=== PATIENT | male | born 1940 | race Caucasian/White ===

== ENCOUNTER 2018-08-16 12:16 | Emergency (ER) | payer MEDICARE, OTHER ==
[~2018-08-16] VITALS: Ht 175.3 cm; Wt 104.3 kg
[2018-08-16 13:09] LABS: COLOR,URINE YELLOW
[2018-08-16 13:10] LABS: BILIRUBIN,URINE NEGATIVE (NEGATIVE); CLARITY,URINE SLT CLOUDY; GLUCOSE, URINE (UA) NEGATIVE (NEGATIVE); KETONES,URINE NEGATIVE (NEGATIVE); LEUKOCYTE ESTERASE ,URINE 3+ (NEGATIVE); NITRITE,URINE POSITIVE (NEGATIVE); PROTEIN,URINE TRACE (NEGATIVE); RBC,URINE 0-2 /HPF; UROBILINOGEN,URINE 0.2 MG/DL (NORMAL)
[2018-08-16 13:11] LABS: BACTERIA,URINE LARGE /HPF
--- NOTE | 2018-08-16 13:14 | ED GU-Female ---
General Chief Complaint: - Urinary Stated Complaint: UNABLE TO URINATE Source: patient, family Exam Limitations: no limitations History of Present Illness Date Seen by Provider: Aug 16, 2018 Time Seen by Provider: 13:08 Initial Comments This 78-year-old white male presents in urinary retention and began at 3 o'clock morning approximately 10 hours prior to presentation emergency department. Patient has had no similar episodes in the past. He's been able to pass only small amounts of urine and has a sensation of suprapubic tenderness. He's had no associated fever or chill, flank pain, hematuria, or previous prostate surgery. He has been told that his prostate is enlarged. Family would like to follow-up with [facility] where they have the rest of their definitive medical care undertaken. Allergies and Home Medications Allergies Coded Allergies: amlodipine (Verified Allergy, Unknown, 08/16/18) atenolol (Verified Allergy, Unknown, 08/16/18) lisinopril (Verified Allergy, Unknown, 08/16/18) Patient Home Medication List Home Medication List Reviewed: Yes Review of Systems Review of Systems Constitutional: no symptoms reported EENTM: no symptoms reported Respiratory: no symptoms reported Cardiovascular: no symptoms reported Gastrointestinal: no symptoms reported Genitourinary: see HPI, incontinence, urgency Musculoskeletal: no symptoms reported Skin: no symptoms reported Psychiatric/Neurological: No Symptoms Reported Endocrine: No Symptoms Reported Hematologic/Lymphatic: No Symptoms Reported Past Czaqkzt-Arsnev-Dkoszg Hx Past Med/Social Hx: Reviewed Nursing Past Med/Soc Hx Physical Exam Vital Signs Capillary Refill : Height, Weight, BMI Height: '" Weight: lbs. oz. kg; BMI Method: General Appearance: WD/WN, no apparent distress HEENT: normal ENT inspection Neck: normal inspection Respiratory: lungs clear Gastrointestinal: non tender Extremities: normal range of motion, normal inspection Neurologic/Psychiatric: no motor/sensory deficits, alert, normal mood/affect Skin: normal color, warm/dry Progress/Results/Core Measures Suspected Sepsis SIRS Temperature: Pulse: Respiratory Rate: Blood Pressure / Mean: Results/Orders Lab Results Laboratory Tests Test 08/16/18 12:47 Range/Units Urine Color YELLOW Urine Clarity SLT CLOUDY Urine pH 7.0 5-9 Urine Specific [place] 1.010 L 1.016-1.022 Urine Protein TRACE NEGATIVE Urine Glucose (UA) NEGATIVE NEGATIVE Urine Ketones NEGATIVE NEGATIVE Urine Nitrite POSITIVE H NEGATIVE Urine Bilirubin NEGATIVE NEGATIVE Urine Urobilinogen 0.2 NORMAL MG/DL Urine Leukocyte Esterase 3+ H NEGATIVE Urine RBC (Auto) 1+ H NEGATIVE Urine RBC 0-2 /HPF Urine WBC 10-25 H /HPF Urine Squamous Epithelial Cells NONE /HPF Urine Crystals NONE /LPF Urine Bacteria LARGE H /HPF Urine Casts NONE /LPF Urine Mucus NONE /LPF Urine Culture Indicated YES My Orders Orders - GEMA BIRMINGHAM MD Catheter(Uri) To Dependent Marly (08/16/18 12:37) Ua Culture If Indicated (08/16/18 12:56) Urine Culture (08/16/18 12:47) Vital Signs/I&O Capillary Refill : Progress Note : Time: 13:21 Progress Note A Faria catheter was placed. Only 200 mL were obtained. The patient's urinalysis was consistent with a UTI. I gave the patient gram or Rocephin IM. I placed him on Macrobid twice a day for the next week. I see follow-up urology on Saturday. I told him he could return to the emergency department tomorrow if he wanted to try having the Faria removed. I told him that I would reinserted later in the day if he was unable to void. Patient presentation may be nothing more than a urinary tract infection and not urinary retention. ECG Initial ECG Impression Date: Aug 16, 2018 Departure Impression Primary Impression: Urinary tract infection Qualified Codes: N30.00 - Acute cystitis without hematuria Disposition: HOME, SELF-CARE Condition: Improved Departure-Patient Inst. Decision time for Depature: 13:23 Referrals: SONYA ZHU MD (PCP) Primary Care Physician VINCE COTTON MD Patient Instructions: Urinary Obstruction (DC), Urinary Tract Infection, Adult (DC) Add. Discharge Instructions: Macrobid as prescribed. Follow-up with Dr. castro Saturday. Return to emergency department tomorrow to have the catheter removed we can try allowing you to void without a catheter. All discharge instructions reviewed with patient and/or family. Voiced understanding. Scripts Nitrofurantoin Monohyd/M-Cryst (Macrobid 100 mg Capsule) 100 Mg Capsule 100 MG PO BID for 7 Days, #14 Prov: GEMA BIRMINGHAM MD 08/16/18 GEMA BIRMINGHAM MD Aug 16, 2018 13:14
[2018-08-16] MEDS ORDERED: NITR-65 PO (13:26)
[2018-08-16] MEDS ORDERED: LIDOCAINE 1% INJ 20 ML 20 ML VIAL INJ ONE (13:30)
[2018-08-16] MEDS ORDERED: cefTRIAXone 1,000 MG/2.86 ml vial (IM ONLY) ONE (13:52)
[2018-08-16 14:09] VITALS: BP 196/81
[2018-08-17] MEDS ORDERED: cefTRIAXone 1,000 MG/2.86 ml vial (IM ONLY) IM SCH (09:00)
[2018-08-17] MEDS ORDERED: DONE10TA41 (09:40)
[2018-08-17] MEDS ORDERED: HYDR-3923 (09:40)
[2018-08-17] MEDS ORDERED: MEMA10TA22 (09:40)
[2018-08-17] MEDS ORDERED: TRAZ-222 (09:40)
[2018-08-17] MEDS ORDERED: TAMS0.4C98 (09:40)
[2018-08-17] MEDS ORDERED: LOSA100T57 (09:40)
[2018-08-17] MEDS ORDERED: TIOT18CA2 (09:40)
== END 2018-08-16 14:09 | disposition home or self-care (01) ==
LOC: ER FS 12:18
DX: N39.0 Urinary tract infection, site not specified (principal); Z88.8 Allergy status to other drugs, medicaments and biological substances
CPT/HCPCS: 51702; 81000; 87088; 87186; 96372

== ENCOUNTER 2018-08-17 09:02 | Emergency (ER) | payer MEDICARE, OTHER ==
[~2018-08-17] VITALS: Ht 175.3 cm; Wt 104.3 kg
[~2018-08-17 09:02] MED LIST: NITR-65 PO
--- NOTE | 2018-08-17 09:27 | ED GU-Male ---
General Chief Complaint: Catheter/Drain/Tube Problems Stated Complaint: CATHETER REMOVAL Source: patient, family Exam Limitations: no limitations History of Present Illness Date Seen by Provider: Aug 17, 2018 Time Seen by Provider: 09:23 Initial Comments This 78-year-old white male presents after evaluation emergency Department yesterday. Patient came in with symptoms suggestive of retention. Patient was seen in small amounts frequently. I placed a Faria catheter and there was only 200 mL of residual urine. The patient's urine however was consistent with a UTI. Patient received IV Rocephin and was placed on Macrobid. Patient was referred to urology. I told the patient is however they can return the emergency Department this morning for Faria removal if they wanted to try voiding without the catheter which she as they have done. Were still committed to follow through with their primary care physician on Saturday and hopefully referral to urology for further evaluation. Allergies and Home Medications Allergies Coded Allergies: amlodipine (Verified Allergy, Unknown, 08/16/18) atenolol (Verified Allergy, Unknown, 08/16/18) lisinopril (Verified Allergy, Unknown, 08/16/18) Home Medications Nitrofurantoin Monohyd/M-Cryst 100 Mg Capsule, 100 MG PO BID Prescribed by: GEMA BIRMINGHAM MD on 08/16/18 1326 Patient Home Medication List Home Medication List Reviewed: Yes Review of Systems Review of Systems Constitutional: No chills, No fever EENTM: no symptoms reported Respiratory: no symptoms reported Cardiovascular: no symptoms reported Gastrointestinal: no symptoms reported Genitourinary: see HPI, frequency; denies flank pain, denies hematuria Musculoskeletal: no symptoms reported Skin: no symptoms reported Psychiatric/Neurological: No Symptoms Reported Endocrine: No Symptoms Reported Hematologic/Lymphatic: No Symptoms Reported Past Wuxtzss-Fgfdlh-Stebga Hx Past Med/Social Hx: Reviewed Nursing Past Med/Soc Hx Patient Social History 2nd Hand Smoke Exposure: No Recent Hopitalizations: No Seasonal Allergies Seasonal Allergies: No Past Medical History Surgeries: Yes Bowel Surgery, Gallbladder Respiratory: No Cardiac: Yes Hypertension Neurological: Yes Dementia Genitourinary: Yes Benign Prostatic Hyperpl Gastrointestinal: No Musculoskeletal: No Endocrine: No HEENT: No Cancer: No Psychosocial: No Integumentary: No Blood Disorders: No Physical Exam Vital Signs Capillary Refill : Height, Weight, BMI Height: 5'9.00" Weight: 230lbs. oz. [id number]; BMI Method:Stated General Appearance: WD/WN, no apparent distress HEENT: normal ENT inspection Neck: normal inspection Back: normal inspection Neurologic/Psychiatric: no motor/sensory deficits Skin: normal color Progress/Results/Core Measures Suspected Sepsis SIRS Temperature: Pulse: Respiratory Rate: Blood Pressure / Mean: Results/Orders Lab Results Laboratory Tests Test 08/17/18 09:15 Range/Units My Orders Orders - GEMA BIRMINGHAM MD Ua Culture If Indicated (08/17/18 09:03) Vital Signs/I&O Capillary Refill : Progress Note : Time: 09:25 Progress Note A Faria catheter was removed. A urine specimen was sent to lab. I the patient and his up with her primary care physician on Saturday. I a return emergency department if any further problems such as retention in approximately 8 hours and we'll replace the Faria catheter. Departure Impression Primary Impression: Encounter for Faria catheter removal Disposition: 01 HOME, SELF-CARE Condition: Improved Departure-Patient Inst. Decision time for Depature: 09:27 Referrals: SONYA ZHU MD (PCP) Primary Care Physician Patient Instructions: Faria Catheter, Male Add. Discharge Instructions: Come back if you're unable to urinate in 8 hours. Follow-up with Dr. Zhu on Saturday. Continue with her Macrobid as prescribed. All discharge instructions reviewed with patient and/or family. Voiced understanding. GEMA BIRMINGHAM MD Aug 17, 2018 09:27
[2018-08-17 09:29] LABS: COLOR,URINE YELLOW
[2018-08-17 09:30] LABS: BACTERIA,URINE FEW /HPF; BILIRUBIN,URINE NEGATIVE (NEGATIVE); CLARITY,URINE SL CLOUDY; GLUCOSE, URINE (UA) NEGATIVE (NEGATIVE); KETONES,URINE NEGATIVE (NEGATIVE); LEUKOCYTE ESTERASE ,URINE 3+ (NEGATIVE); NITRITE,URINE NEGATIVE (NEGATIVE); PH,URINE 7.5 (5-9); PROTEIN,URINE 1+ (NEGATIVE); UROBILINOGEN,URINE 0.2 MG/DL (NORMAL)
[2018-08-17 09:36] VITALS: BP 191/84
[2018-08-17] MEDS ORDERED: TAMS0.4C98 (09:40)
[2018-08-17] MEDS ORDERED: HYDR-3923 (09:40)
[2018-08-17] MEDS ORDERED: LOSA100T57 (09:40)
[2018-08-17] MEDS ORDERED: TIOT18CA2 (09:40)
[2018-08-17] MEDS ORDERED: TRAZ-222 (09:40)
[2018-08-17] MEDS ORDERED: DONE10TA41 (09:40)
[2018-08-17] MEDS ORDERED: MEMA10TA22 (09:40)
== END 2018-08-17 09:36 | disposition home or self-care (01) ==
LOC: EDUNIT# 09:02 → ER FS 09:03
DX: Z46.6 Encounter for fitting and adjustment of urinary device (principal); F03.90 Unspecified dementia, unspecified severity, without behavioral disturbance, psychotic disturbance, mood disturbance, and anxiety; I10 Essential (primary) hypertension; N40.1 Benign prostatic hyperplasia with lower urinary tract symptoms; R33.9 Retention of urine, unspecified; Z88.8 Allergy status to other drugs, medicaments and biological substances
CPT/HCPCS: 81000; 87077; 87088; 99282

== ENCOUNTER 2018-08-17 16:38 | Emergency (ER) | payer MEDICARE, OTHER ==
[~2018-08-17] VITALS: Ht 175.3 cm; Wt 104.3 kg
[~2018-08-17 16:38] MED LIST changes: +DONE10TA41; +HYDR-3923; +LOSA100T57; +MEMA10TA22; +TAMS0.4C98; +TIOT18CA2; +TRAZ-222
--- NOTE | 2018-08-17 16:44 | ED Abdominal Pain ---
General Stated Complaint: UNABLE TO URINATE Source of Information: Patient, Family Exam Limitations: No Limitations History of Present Illness Date Seen by Provider: Aug 17, 2018 Time Seen by Provider: 16:42 Initial Comments Patient returns emergency department for replacement of Faria catheter which we removed this morning. The patient was seen in the emergency department yesterday for what was thought to be retention. Patient however only had 200 mL residual and the Faria was placed. He also had a urinary tract infection and was placed on Rocephin IV in the emergency department and subsequently Macrobid orally. Patient came back to emergency departments morning we removed his catheter and he has been unable to urinate throughout the day. Patient has scheduled follow-up with his primary care physician Dr. Zhu tomorrow for referral to urologist. Allergies and Home Medications Allergies Coded Allergies: amlodipine (Verified Allergy, Unknown, 08/16/18) atenolol (Verified Allergy, Unknown, 08/16/18) lisinopril (Verified Allergy, Unknown, 08/16/18) Home Medications Nitrofurantoin Monohyd/M-Cryst 100 Mg Capsule, 100 MG PO BID Prescribed by: GEMA BIRMINGHAM MD on 08/16/18 1326 Patient Home Medication List Home Medication List Reviewed: Yes Review of Systems Review of Systems Constitutional: no symptoms reported EENTM: No Symptoms Reported Cardiovascular: No Symptoms Reported Gastrointestinal: No Symptoms Reported Genitourinary: See HPI Musculoskeletal: no symptoms reported Skin: no symptoms reported Psychiatric/Neurological: Other (Alzheimer's) Endocrine: No Symptoms Reported Hematologic/Lymphatic: No Symptoms Reported Past Ywejpgh-Ctnfjf-Awkjhi Hx Past Med/Social Hx: Reviewed Nursing Past Med/Soc Hx Patient Social History 2nd Hand Smoke Exposure: No Recent Hopitalizations: No Seasonal Allergies Seasonal Allergies: No Past Medical History Surgeries: Yes Bowel Surgery, Gallbladder Respiratory: No Cardiac: Yes Hypertension Neurological: Yes Dementia Genitourinary: Yes Benign Prostatic Hyperpl Gastrointestinal: No Musculoskeletal: No Endocrine: No HEENT: No Cancer: No Psychosocial: No Integumentary: No Blood Disorders: No Physical Exam Vital Signs Capillary Refill : Height/Weight/BMI Height: 5'9.00" Weight: 230lbs. oz. [id number]; BMI Method:Stated General Appearance: WD/WN HEENT: normal ENT inspection Neck: normal inspection Respiratory: normal breath sounds Cardiovascular: regular rate, rhythm Gastrointestinal: normal bowel sounds Extremities: normal inspection Back: normal inspection Neurologic/Psychiatric: no motor/sensory deficits Skin: normal color Progress/Results/Core Measures Results/Orders My Orders Orders - GEMA BIRMINGHAM MD Catheter(Uri) To Dependent Marly (08/17/18 16:45) Ua Culture If Indicated (08/17/18 16:45) Progress Progress Note : Time: 17:17 Progress Note Faria catheter was placed. I patient follow-up with his physician Dr. Zhu tomorrow for referral for urology. I invited him to return to the emergency department if any further problems or questions. Departure Impression Primary Impression: Urinary retention Disposition: 01 HOME, SELF-CARE Condition: Improved Departure-Patient Inst. Decision time for Depature: 17:19 Referrals: SONYA ZHU MD (PCP) Primary Care Physician Patient Instructions: Faria Catheter, Male, Urinary Retention Add. Discharge Instructions: Follow-up with Dr. Zhu tomorrow. Return if any problems or questions. GEMA BIRMINGHAM MD Aug 17, 2018 16:44
[2018-08-17 17:37] LABS: BACTERIA,URINE NEGATIVE /HPF; BILIRUBIN,URINE NEGATIVE (NEGATIVE); CLARITY,URINE CLEAR; COLOR,URINE YELLOW; GLUCOSE, URINE (UA) NEGATIVE (NEGATIVE); KETONES,URINE 1+ (NEGATIVE); LEUKOCYTE ESTERASE ,URINE 1+ (NEGATIVE); NITRITE,URINE NEGATIVE (NEGATIVE); PH,URINE 6.5 (5-9); PROTEIN,URINE NEGATIVE (NEGATIVE); UROBILINOGEN,URINE 0.2 MG/DL (NORMAL)
[2018-08-17 17:39] VITALS: BP 158/69
== END 2018-08-17 17:39 | disposition home or self-care (01) ==
LOC: EDUNIT# 16:38 → ER FS 16:40
DX: R33.9 Retention of urine, unspecified (principal); N40.1 Benign prostatic hyperplasia with lower urinary tract symptoms; I10 Essential (primary) hypertension; F03.90 Unspecified dementia, unspecified severity, without behavioral disturbance, psychotic disturbance, mood disturbance, and anxiety; Z87.440 Personal history of urinary (tract) infections; Z88.8 Allergy status to other drugs, medicaments and biological substances
CPT/HCPCS: 51702; 81000; 87088

== ENCOUNTER → 2021-02-21 | Outpatient (CLI) | payer MEDICARE, OTHER ==
[~2021-02-21] MED LIST changes: -MEMA10TA22; +MEMA10TA57; -TAMS0.4C98; +TMSL.4C; -TRAZ-222; +TRZ50T
[2021-02-21 11:46] LABS: CALCIUM 8.7 MG/DL (8.5-10.1); CREATININE SERUM 1.1 MG/DL (0.60-1.30); POTASSIUM 3.6 MMOL/L (3.6-5.0)
== END ==
LOC: LAB FS 10:49
PROVIDERS: ATTEND Urology
DX: N40.1 Benign prostatic hyperplasia with lower urinary tract symptoms (principal)
CPT/HCPCS: 36415; 80048; 84153

== ENCOUNTER 2022-05-13 18:41 | Inpatient (IN) | payer MEDICARE ==
[~2022-05-13] VITALS: Ht 177.8 cm; Wt 113.1 kg
[~2022-05-13 18:41] MED LIST changes: -DONE10TA41; +DONE10TA41 PO; -HYDR-3923; +HYDR-3923 PO; -LOSA100T57; +LOSA100T57 PO; -MEMA10TA57; +MEMA10TA57 PO; -TIOT18CA2; +TIOT18CA2 INH; -TRZ50T; +TRZ50T PO
[2022-05-13] MEDS ORDERED: RT-ALBUTEROL/IPRATROPIUM 3 ML (DUONEB) VIAL INH ONE (19:00)
[2022-05-13] MEDS ORDERED: methylPREDNISolone 125 MG (Solu-MEDROL) VIAL IVP ONE (19:00)
[2022-05-13] MEDS ORDERED: ASPIRIN 81 MG CHEW (CHILDREN'S ASA) PO ONE (19:00)
[2022-05-13] MEDS ORDERED: NITROGLYCERIN 2% OINT 1 GM UNIT DOSE PACKET TOP ONE (19:00)
--- NOTE | 2022-05-13 19:06 | ED Respiratory ---
General Chief Complaint: Respiratory Problems Stated Complaint: SOA - BILAT FEET SWEELING - COUGH Nursing Triage Note: pt arrived via w/c with cc of cough, sob, swelling legs, and weight gain of 3lbs since saturday. pt O2 sat of 83% RA upon arrival. pt was seen by Dr. Louis and diagnosised with pneumonia. Source: patient (MINIMAL INFORMATION--PT WITH DEMENTIA), spouse ( DOES MOST TALKING AND GIVES MOST INFORMATION, BUT SHE IS LIMITED HISTORIAN ABOUT PMH) History of Present Illness Date Seen by Provider: May 13, 2022 Time Seen by Provider: 18:51 Initial Comments PT ARRIVES VIA POV FROM HOME [place], WITH --NEEDS WHEELCHAIR ON ARRIVAL C/O SHORTNESS OF BREATH ONGOING FOR 2-3 WEEKS, GETTING WORSE HE HAS HAD A NON-PRODUCTIVE COUGH HE HAS HAD LEG SWELLING AND WEIGHT GAIN OF 3# OVER THE LAST 3 DAYS NO KNOWN FEVER DENIES CHEST PAIN PT HAS COPD, DOES NOT HAVE HOME O2 USED SPIRIVAL INHALER X 1 THIS AM AT 0800. HE WAS SEEN AT [facility] [place] 2-3 WEEKS AGO FOR THIS PROBLEM. NO TESTS, NO RX. WAS TOLD IT WAS "VIRAL" SEEN BY HIS PCP, DR. SONYA LOUIS, LAST SATURDAY FOR THIS PROBLEM. NO TESTS WERE DONE, GIVEN RX FOR UNKNOWN ANTIBIOTIC (AUGMENTIN PRESCRIBED 05/10/22, PER MED RECONCILIATION) RX FOR LASIX STARTED ON SATURDAY. SYMPTOMS CONTINUE TO WORSEN PT HAS HAD COVID VACCINE X 3--LAST ONE IN 2021, AND HAS HAD SEASONAL FLU V ACCINE. HE HAS HISTORY OF COPD--QUIT SMOKING 40 YEARS AGO HE HAS HISTORY OF HTN, DEMENTIA, COLON CANCER > 10 YEARS AGO. NO LONGER SEES ANYONE FOR COLON CANCER. . NO KNOWN HISTORY OF HEART PROBLEMS PT DOES NOT SEE ANY SPECIALISTS OF ANY KIND PCP: DR. SONYA LOUIS AT [facility]- Allergies and Home Medications Allergies Coded Allergies: amlodipine (Verified Allergy, Unknown, 08/16/18) atenolol (Verified Allergy, Unknown, 08/16/18) lisinopril (Verified Allergy, Unknown, 08/16/18) Patient Home Medication List Home Medication List Reviewed: Yes Donepezil HCl (Donepezil HCl) 10 Mg Tablet, (Reported) Entered as Reported by: RUSSEL SAHU on 08/17/18 0940 Hydralazine HCl (Hydralazine HCl) 25 Mg Tablet, (Reported) Entered as Reported by: RUSSEL SAHU on 08/17/18939 Losartan Potassium (Losartan Potassium) 100 Mg Tablet, (Reported) Entered as Reported by: RUSSEL SAHU on 08/17/18939 Memantine HCl (Memantine HCl) 10 Mg Tablet, (Reported) Entered as Reported by: RUSSEL SAHU on 08/17/18939 Nitrofurantoin Monohyd/M-Cryst (Macrobid 100 mg Capsule) 100 Mg Capsule, 100 MG PO BID Prescribed by: GEMA BIRMINGHAM MD on 08/16/18 1326 Tamsulosin HCl (Flomax) 0.4 Mg Cap, (Reported) Entered as Reported by: RUSSEL SAHU on 08/17/18939 Tiotropium [place] (Spiriva) 1 Inh Aerp, (Reported) Entered as Reported by: RUSSEL SAHU on 08/17/18939 Trazodone HCl (Trazodone HCl) 50 Mg Tablet, (Reported) Entered as Reported by: RUSSEL SAHU on 08/17/18939 Review of Systems Review of Systems Constitutional: see HPI; No fever; weight gain EENTM: no symptoms reported Respiratory: see HPI, cough, orthopnea, short of breath Cardiovascular: see HPI; No chest pain; edema Gastrointestinal: no symptoms reported Genitourinary: no symptoms reported Musculoskeletal: no symptoms reported Skin: no symptoms reported Psychiatric/Neurological: See HPI (DEMENTIA--NORMAL BASELINE) Hematologic/Lymphatic: No Symptoms Reported Immunological/Allergic: no symptoms reported Past Vyrfkiq-Iuteqw-Dbfayk Hx Patient Social History Tobacco Use?: Yes Tobacco type used: Cigarettes Smoking Status: Former Smoker Substance use?: No Alcohol Use?: No Seasonal Allergies Seasonal Allergies: No Past Medical History Surgeries: Yes Abdominal, Bowel Surgery, Gallbladder Respiratory: Yes COPD Cardiac: Yes Hypertension Neurological: Yes Dementia Genitourinary: Yes Benign Prostatic Hyperpl, Prostate Problems Gastrointestinal: Yes (COLON CANCER--S/P SURGERY; CHOLECYSTECTOMY) Gall Bladder Disease Musculoskeletal: No Endocrine: No (OBESE) HEENT: No Cancer: Yes Colon Did You Recieve Any Treatments: Yes What Type of Treatment Did You: Surgical Intervention HX OF COLON CANCER--S/P SURGERY, NO CHEMO OR RADIATION--> 10 YEARS AGO. TREATED AT [facility]. NO LONGER SEES ONCOLOGY OR GI. Psychosocial: No Integumentary: No Blood Disorders: No Family Medical History SOCIAL HISTORY: -SMOKED IN PAST--QUIT 40 YEARS AGO -ETOH-DENIES USE -DRUGS--DENIES USE Physical Exam Vital Signs - First Documented 05/13/22 05/13/22 18:45 19:28 Temp 36.8 Pulse 90 Resp 26 B/P (MAP) 187/101 (129) Pulse Ox 94 Capillary Refill : Height: 5'9.00" Weight: 230lbs. oz. 104.668561aq; 36.00 BMI Method:Stated General Appearance: mild distress, obese, other (DYSPNEIC ON ARRIVAL) Respiratory: respiratory distress, decreased breath sounds, accessory muscle use; No rales, No rhonchi, No wheezing; other (DECREASED AERATION IN ALL LUNG JOHNSON. DYSPNEIC WITH ABDOMINAL RETRACTIONS, + ORTHOPNEA. ) Cardiovascular: regular rate, rhythm, no murmur Gastrointestinal: soft; No tenderness; other (OBESE) Extremities: no calf tenderness, pedal edema (3+ EDEMA BILATERALLY) Neurologic/Psychiatric: no motor/sensory deficits, alert, other (FLAT AFFECT. ORIENTED TO PERSON AND PLACE, GROSSLY ORIENTED TO SITUATION. VERY POOR MEMORY. ) Skin: normal color, warm/dry Focused Exam Sepsis Stage: Ruled Out Reason for ruling out sepsis: DOES NOT MEET CRITERIA Possible Source: Pulmonary Lactate Level 05/13/22 19:40: Lactic Acid Level 1.39 Time of Focused Exam: 19:45 Respiratory: Other (ON BIPAP, RESPIRATIONS NO LONGER LABORED. INCREASED AERATIN. ) Cardiovascular: Regular Rate, Rhythm, No Murmur Capillary Refill: Less Than 3 Seconds Skin: normal color, warm/dry Lactic Acid Level Laboratory Tests Test 05/13/22 19:40 Lactic Acid Level 1.39 MMOL/L (0.50-2.00) Within 3hrs of presentation: Admin ABX, Blood cultures prior to ABX's, Focus exam, Lactate level Progress/Results/Core Measures Suspected Sepsis SIRS Temperature: Pulse: 90 Respiratory Rate: Laboratory Tests 05/13/22 18:50: White Blood Count 9.9 Blood Pressure 187 /101 Mean: 129 05/13/22 19:40: Lactic Acid Level 1.39 Laboratory Tests 4/2/23 18:50: Creatinine 0.88, INR Comment 1.2, Platelet Count 332, Total Bilirubin 0.6 Results/Orders Lab Results Laboratory Tests Test 05/13/22 18:50 05/13/22 19:19 05/13/22 19:40 05/13/22 19:47 Range/Units White Blood Count 9.9 4.3-11.0 10^3/uL Red Blood Count 3.70 L 4.30-5.52 10^6/uL Hemoglobin 11.8 L 13.3-17.7 g/dL Hematocrit 35 L 40-54 % Mean Corpuscular Volume 95 80-99 fL Mean Corpuscular Hemoglobin 32 25-34 pg Mean Corpuscular Hemoglobin Concent 34 32-36 g/dL Red Cell Distribution Width 13.2 10.0-14.5 % Platelet Count 332 130-400 10^3/uL Mean Platelet Volume 8.6 L 9.0-12.2 fL Immature Granulocyte % (Auto) 1 % Neutrophils (%) (Auto) 73 42-75 % Lymphocytes (%) (Auto) 10 L 12-44 % Monocytes (%) (Auto) 14 H 0-12 % Eosinophils (%) (Auto) 2 0-10 % Basophils (%) (Auto) 1 0-10 % Neutrophils # (Auto) 7.3 1.8-7.8 10^3/uL Lymphocytes # (Auto) 1.0 1.0-4.0 10^3/uL Monocytes # (Auto) 1.4 H 0.0-1.0 10^3/uL Eosinophils # (Auto) 0.2 0.0-0.3 10^3/uL Basophils # (Auto) 0.1 0.0-0.1 10^3/uL Immature Granulocyte # (Auto) 0.1 0.0-0.1 10^3/uL Erythrocyte Sedimentation Rate 37 H 0-30 MM/HR Prothrombin Time 15.5 H 12.2-14.7 SEC INR Comment 1.2 0.8-1.4 Activated Partial Thromboplast Time 39 H 24-35 SEC D-Dimer 0.65 H 0.00-0.49 UG/ML Sodium Level 133 L 135-145 MMOL/L Potassium Level 4.1 3.6-5.0 MMOL/L Chloride Level 97 L 98-107 MMOL/L Carbon Dioxide Level 27 21-32 MMOL/L Anion Gap 9 5-14 MMOL/L Blood Urea Nitrogen 13 7-18 MG/DL Creatinine 0.88 0.60-1.30 MG/DL Estimat Glomerular Filtration Rate 86 BUN/Creatinine Ratio 15 Glucose Level 105 70-105 MG/DL Calcium Level 8.4 L 8.5-10.1 MG/DL Corrected Calcium 9.0 8.5-10.1 MG/DL Magnesium Level 2.1 1.6-2.4 MG/DL Total Bilirubin 0.6 0.1-1.0 MG/DL Aspartate Amino Transf (AST/SGOT) 20 5-34 U/L Alanine Aminotransferase (ALT/SGPT) 15 0-55 U/L Alkaline Phosphatase 90 40-136 U/L Total Creatine Kinase 100 30-200 U/L Creatine Kinase MB 2.8 <6.6 NG/ML Myoglobin 190.7 H 10.0-92.0 NG/ML Troponin I 0.044 H <0.028 NG/ML C-Reactive Protein High Sensitivity 9.84 H 0.00-0.50 MG/DL B-Type Natriuretic Peptide 361.4 H <100.0 PG/ML Total Protein 6.1 L 6.4-8.2 GM/DL Albumin 3.3 3.2-4.5 GM/DL Amylase Level 25 25-125 U/L Lipase 16 8-78 U/L Influenza Type A (RT-PCR) Not Detected Not Detecte Influenza Type B (RT-PCR) Not Detected Not Detecte SARS-CoV-2 RNA (RT-PCR) Not Detected Not Detecte Blood Gas Puncture Site L RAD Blood Gas Patient Temperature 36.7 Arterial Blood pH 7.35 L 7.37-7.43 Arterial Blood Partial Pressure CO2 57 H 35-45 MMHG Arterial Blood Partial Pressure O2 105 H 79-93 MMHG Arterial Blood HCO3 31 H 23-27 MMOL/L Arterial Blood Total CO2 32.8 H 21.0-31.0 MMOL/L Arterial Blood Oxygen Saturation 98 94-100 % Arterial Blood Base Excess 5.6 H -2.5-2.5 MMOL/L Heriberto Test YES-POS Blood Gas Ventilator Setting NO Blood Gas Inspired Oxygen 40% Lactic Acid Level 1.39 0.50-2.00 MMOL/L Urine Color YELLOW Urine Clarity SL CLOUDY Urine pH 6.0 5-9 Urine Specific Chicken 1.020 1.016-1.022 Urine Protein TRACE H NEGATIVE Urine Glucose (UA) NEGATIVE NEGATIVE Urine Ketones NEGATIVE NEGATIVE Urine Nitrite NEGATIVE NEGATIVE Urine Bilirubin NEGATIVE NEGATIVE Urine Urobilinogen 0.2 < = 1.0 MG/DL Urine Leukocyte Esterase NEGATIVE NEGATIVE Urine RBC (Auto) NEGATIVE NEGATIVE Urine RBC 2-5 H /HPF Urine WBC 0-2 /HPF Urine Squamous Epithelial Cells RARE /HPF Urine Crystals NONE /LPF Urine Bacteria FEW H /HPF Urine Casts PRESENT /LPF Urine Hyaline Casts 5-10 H /LPF Urine Mucus SMALL H /LPF Urine Culture Indicated CULTURE PENDING My Orders Orders - SHELTON VELEZ DO Ekg Tracing (05/13/22 18:50) Ed Iv/Invasive Line Start (05/13/22 18:51) O2 (05/13/22 18:51) Monitor-Rhythm Ecg Trace Only (05/13/22 18:51) Amylase (05/13/22 18:51) Bnp Mk (05/13/22 18:51) Cbc With Automated Diff (05/13/22 18:51) Comprehensive Metabolic Panel (05/13/22 18:51) Creatine Kinase (05/13/22 18:51) Creatine Kinase Mb (05/13/22 18:51) Hs C Reactive Protein (05/13/22 18:51) Fibrin Degradation Products (05/13/22 18:51) Lipase (05/13/22 18:51) Magnesium (05/13/22 18:51) Protime With Inr (05/13/22 18:51) Partial Thromboplastin Time (05/13/22 18:51) Erythrocyte Sedimentation Rate (05/13/22 18:51) Myoglobin Serum (05/13/22 18:51) Troponin I Winn (05/13/22 18:51) Chest 1 View, Ap/Pa Only (05/13/22 18:51) Covid 19 Inhouse Test (05/13/22 18:51) Aspirin Chewable Tablet (Baby Aspirin Ch (05/13/22 19:00) Influenza A And B By Pcr (05/13/22 18:51) Isolation Central Supply Req (05/13/22 18:51) Methylprednisolone Sod Succ (Solu-Medrol (05/13/22 19:00) Nitroglycerin Ointment (Nitrobid Ointme (05/13/22 19:00) Albuterol/Ipra Inhalation Soln (Duoneb I (05/13/22 19:00) Dexamethasone Injection (Decadron Injec (05/13/22 19:00) Rt Request For Service (05/13/22 19:00) Svn Small Volume Nebulizer (05/13/22 19:00) Blood Culture (05/13/22 19:17) Sputum Culture (05/13/22 19:17) Urinalysis (05/13/22 19:17) Urine Culture (05/13/22 19:17) Ed Iv/Invasive Line Start (05/13/22 19:17) Vital Signs Adult Sepsis Patie Q15M (05/13/22 19:17) O2 (05/13/22 19:17) Remove Rings In Anticipation O (05/13/22 19:17) Lactic Acid Analyzer (05/13/22 19:17) Cefepime Injection (Maxipime Injection) (05/13/22 19:30) Furosemide Injection (Lasix Injection) (05/13/22 19:30) Catheter(Urinary) Insert & Ass 03,15 (05/13/22 19:18) Lidocaine 2% (Urojet) (Xylocaine Urojet) (05/13/22 19:30) Arterial Blood Gas (05/13/22 19:43) Enoxaparin Injection (Lovenox Injection) (05/13/22 20:00) Ed Admission (Communication) (05/13/22 19:52) Furosemide Injection (Lasix Injection) (05/13/22 20:00) Potassium Chloride (Tablet) (Klor Con Ta (05/13/22 21:00) Medications Given in ED Current Medications Medications Dose Ordered Sig/Ana Route Start Time Stop Time Status Last Admin Dose Admin Albuterol/ Ipratropium 3 ml ONCE ONCE INH 05/13/22 19:00 05/13/22 19:02 DC 05/13/22 19:15 3 ML Aspirin 324 mg ONCE ONCE PO 05/13/22 19:00 05/13/22 19:01 DC 05/13/22 19:11 324 MG Cefepime HCl 1000 mg/Sodium Chloride 50 ml @ 100 mls/hr ONCE ONCE IV 05/13/22 19:30 05/13/22 19:59 DC 05/13/22 19:25 100 MLS/HR Dexamethasone Sodium Phosphate 20 mg ONCE ONCE IH 05/13/22 19:00 05/13/22 19:02 DC 05/13/22 19:15 20 MG Enoxaparin Sodium 120 mg ONCE ONCE SC 05/13/22 20:00 05/13/22 20:01 DC 05/13/22 19:56 120 MG Furosemide 40 mg ONCE ONCE IVP 05/13/22 19:30 05/13/22 19:31 DC 05/13/22 19:24 40 MG Furosemide 40 mg ONCE ONCE IVP 05/13/22 20:00 05/13/22 20:01 DC 05/13/22 20:04 40 MG Lidocaine HCl 10 ml ONCE ONCE TOP 05/13/22 19:30 05/13/22 19:31 DC 05/13/22 19:24 10 ML Methylprednisolone Sodium Succinate 125 mg ONCE ONCE IVP 05/13/22 19:00 05/13/22 19:02 DC 05/13/22 19:11 125 MG Nitroglycerin 1 inch ONCE ONCE TOP 05/13/22 19:00 05/13/22 19:02 DC 05/13/22 19:11 1 INCH Potassium Chloride 10 meq ONCE ONCE PO 05/13/22 21:00 05/13/22 21:02 DC 05/13/22 20:57 10 MEQ Vital Signs/I&O 05/13/22 05/13/22 05/13/22 05/13/22 18:45 18:45 18:45 19:28 Temp 36.8 Pulse 90 79 Resp 26 B/P (MAP) 187/101 (129) Pulse Ox 94 98 O2 Delivery Nasal Cannula Nasal Cannula Nasal Cannula O2 Flow Rate 5.00 5.00 5.00 40.00 Capillary Refill : Blood Pressure Mean: 129 Progress Note : Progress Note PLACED IN ISOLATION ROOM PPE WORN COVID AND FLU TESTING DONE SEPSIS LAB INITIATED CARDIAC LAB/TESTS INITIATED O2 SAT ON ARRIVAL--83% ON ROOM AIR PLACED ON O2 AT 5L/NC, THEN PLACED ON BIPAP DUE TO WORK OF BREATHING AND DECREASED AERATION, WELL HYPOXIA SATS UP TO MID 90'S IMMEDIATELY. INITIAL BP ELEVATED 187/100 NO TACHYCARDIA AFEBRILE GIVEN: -ASPIRIN -NITROPASTE -SOLU-MEDROL -NEB TREATMENT -LASIX -CEFEPIME -LOVENOX BP DOWN TO 160'S/90'S HR STABLE IN 80'S-90'S REMAINS AFEBRILE O2 SATS REMAIN IN MID 90'S ON BIPAP, PT TOLERATING WELL PT STATES HE FEELS MUCH BETTER, AND HIS RESPIRATIONS ARE EVEN AN UNLABORED AT TIME OF ADMIT. NO DETERIORATION IN PT'S CONDITION DURING ER STAY COMPLEX MANAGEMENT DUE TO MULTIPLE CO-MORBIDITIES -RESP FAILURE--POSSIBLY MULTIFACTORIAL--COPD EXACERBATION, PNEUMONIA, CHF -FLUIDS HELD PT IS IN CHF. -MILDLY ELEVATED TROPONIN -HTN -DEMENTIA CT CHEST ANGIOGRAM HELD AT THIS TIME DUE TO ORTHOPNEA, AND D-DIMER IS MARGINAL, AND LIKELY NORMAL FOR AGE. WILL TREAT WITH LOVENOX EMPIRICALLY DISCUSSED WITH PT AND , PT IS TO BE A FULL CODE PRIOR RECORDS REVIEWED--3 ER VISITS/SUBSEQUENT VISITS--ALL FOR SAME ISSUE OF UTI/URINARY RETENTION/BAUTISTA PROBLEMS. ECG Initial ECG Impression Date: May 13, 2022 Initial ECG Impression Time: 18:57 Initial ECG Rate: 83 Initial ECG Rhythm: Normal Sinus (LBBB) Initial ECG Intervals TX 221 QRS 148 QT/QTC 424/464 Initial ECG Impression: 1st Degree AV Block Initial ECG Comparisson: No Previous ECG Available Diagnostic Imaging Comments CXR--PER RADIOLOGIST REPORT AT 1935 FINDINGS: Vague opacity is present in the left mid zone. No pneumothorax. Heart size is normal. Right lung is clear. There may be a small left effusion. IMPRESSION: Small left effusion with vague airspace opacity in the left midlung possibly representing fluid within the fissure. Consider chest CT to exclude an underlying nodule. Reviewed: Reviewed by Me Departure Communication (Admissions) 1949--SPOKE WITH DR. MAURO, HOSPITALIST FOR [facility]. ACCEPTS PT FOR ADMIT. SHE WILL DO ADMIT ORDERS. 1951--SPOKE WITH DR. ARREDONDO, [employer], FOR CONSULT. ORDERS NOTED. Impression Primary Impression: Acute respiratory failure Additional Impressions: CHF (congestive heart failure) Left bundle branch block (LBBB) COPD (chronic obstructive pulmonary disease) Dementia POSSIBLE UNDERLYING PNEUMONIA History of BPH Elevated troponin Disposition: ADMITTED INPATIENT Condition: Improved Admissions Decision to Admit Reason: Admit from ER (General) Decision to Admit/Date: May 13, 2022 Time/Decision to Admit Time: 19:50 Departure-Patient Inst. Referrals: SONYA LOUIS MD (PCP/Family) Primary Care Physician SHELTON VELEZ DO May 13, 2022 19:06
[2022-05-13 19:07] LABS: BASOPHILS # (AUTO) 0.1 10^3/uL (0.0-0.1); BASOPHILS % (AUTO) 1 % (0-10); EOSINOPHILS # (AUTO) 0.2 10^3/uL (0.0-0.3); EOSINOPHILS % (AUTO) 2 % (0-10); HEMATOCRIT 35 % (40-54); HEMOGLOBIN 11.8 g/dL (13.3-17.7); LYMPHOCYTES % (AUTO) 10 % (12-44); MEAN CORPUSCULAR HEMOGLOBIN 32 pg (25-34); MEAN CORPUSCULAR HGB CONC 34 g/dL (32-36); MEAN CORPUSCULAR VOLUME 95 fL (80-99); MEAN PLATELET VOLUME 8.6 fL (9.0-12.2); MONOCYTES # (AUTO) 1.4 10^3/uL (0.0-1.0); MONOCYTES % (AUTO) 14 % (0-12); NEUTROPHILS # (AUTO) 7.3 10^3/uL (1.8-7.8); NEUTROPHILS % (AUTO) 73 % (42-75); PLATELET COUNT 332 10^3/uL (130-400); WHITE BLOOD COUNT 9.9 10^3/uL (4.3-11.0)
[2022-05-13 19:24] LABS: ALBUMIN 3.3 GM/DL (3.2-4.5); POTASSIUM 4.1 MMOL/L (3.6-5.0)
[2022-05-13 19:25] LABS: CALCIUM 8.4 MG/DL (8.5-10.1)
[2022-05-13 19:26] LABS: FIBRIN DEGRADATION PRODUCTS 0.65 UG/ML (0.00-0.49); INR 1.2 (0.8-1.4); PROTHROMBIN TIME PATIENT 15.5 SEC (12.2-14.7)
[2022-05-13 19:27] LABS: TOTAL PROTEIN 6.1 GM/DL (6.4-8.2)
[2022-05-13 19:28] VITALS: BP 161/95
[2022-05-13 19:28] LABS: BILIRUBIN,TOTAL 0.6 MG/DL (0.1-1.0)
[2022-05-13 19:30] LABS: CREATININE SERUM 0.88 MG/DL (0.60-1.30)
[2022-05-13] MEDS ORDERED: FUROSEMIDE 40 MG/4 ML INJ (LASIX) IVP ONE ×2 (19:30→20:00)
[2022-05-13] MEDS ORDERED: CEFEPIME INJECTION 1,000 MG in NS (IVPB) 50 ML IV ONE (19:30)
[2022-05-13] MEDS ORDERED: LIDOCAINE UROJET 2% GEL 10 ML PKG TOP ONE (19:30)
[2022-05-13 19:33] LABS: MAGNESIUM 2.1 MG/DL (1.6-2.4)
--- NOTE | 2022-05-13 19:33 | Diagnostic Imaging Report ---
EXAMINATION: Chest 1 view. HISTORY: Dyspnea. COMPARISON: None available. FINDINGS: Vague opacity is present in the left mid zone. No pneumothorax. Heart size is normal. Right lung is clear. There may be a small left effusion. IMPRESSION: Small left effusion with vague airspace opacity in the left midlung possibly representing fluid within the fissure. Consider chest CT to exclude an underlying nodule. Dictated by: Dictated on workstation # [id number]
[2022-05-13 19:39] LABS: ERYTHROCYTE SEDIMENTATION RATE 37 MM/HR (0-30)
[2022-05-13 19:41] LABS: CREATINE KINASE MB 2.8 NG/ML (<6.6)
[2022-05-13 19:45] LABS: ABG BASE EXCESS 5.6 MMOL/L (-2.5-2.5); ABG OXYGEN SATURATION 98 % (94-100); ABG PCO2 57 MMHG (35-45); ABG PH 7.35 (7.37-7.43); ABG PO2 105 MMHG (79-93); ABG TCO2 32.8 MMOL/L (21.0-31.0); ALLENS TEST YES-POS; INSPIRED O2 40%; PATIENT TEMP 36.7; VENTILATOR NO
[2022-05-13 19:55] LABS: BILIRUBIN,URINE NEGATIVE (NEGATIVE); CLARITY,URINE SL CLOUDY; COLOR,URINE YELLOW; GLUCOSE, URINE (UA) NEGATIVE (NEGATIVE); KETONES,URINE NEGATIVE (NEGATIVE); LEUKOCYTE ESTERASE ,URINE NEGATIVE (NEGATIVE); NITRITE,URINE NEGATIVE (NEGATIVE); PROTEIN,URINE TRACE (NEGATIVE)
[2022-05-13] MEDS ORDERED: ENOXAPARIN 60 MG/0.6 ML (LOVENOX) SYR SC ONE (20:00)
[2022-05-13 20:07] LABS: BACTERIA,URINE FEW /HPF; SQUAMOUS EPITHELIAL CELL,UR RARE /HPF; WBC,URINE 0-2 /HPF
[2022-05-13] MEDS ORDERED: KCL 10 MEQ TAB (MICRO K) PO ONE (21:00)
[2022-05-13] MEDS ORDERED: ACETAMINOPHEN 325 MG TABLET PO PRN (22:15)
[2022-05-13] MEDS ORDERED: diphenhydrAMINE 25 MG TAB (BENADRYL) PO PRN (22:15)
[2022-05-13] MEDS ORDERED: NS IV 500 ML 500 ML IV PRN (22:15)
[2022-05-13] MEDS ORDERED: DexMEDEtomidine 250 ML DRIP 250 ML IV SCH (22:15)
[2022-05-13] MEDS ORDERED: LACTULOSE SYRUP 10GM/15ML (ENULOSE) 30ML UDC PO PRN (22:15)
[2022-05-13] MEDS ORDERED: CALCIUM CARBONATE 500 MG (TUMS) TAB.CHEW PO PRN (22:15)
[2022-05-13] MEDS ORDERED: ONDANSETRON 4 MG/2 ML (SDV) Z0FRAN IV PRN (22:15)
[2022-05-13] MEDS ORDERED: MILK OF MAGNESIA 400 MG/5 ML 30 ML UDC PO PRN (22:15)
[2022-05-13] MEDS ORDERED: HYDROmorphone 2 MG/ML VIAL (DILAUDID) IV PRN (22:15)
[2022-05-13] MEDS ORDERED: ONDANSETRON 4 MG (ZOFRAN) ORAL DISSOLVE TAB PO PRN (22:15)
[2022-05-13] MEDS ORDERED: BISACODYL 10 MG SUPP (DULCOLAX) PR PRN (22:15)
[2022-05-13] MEDS ORDERED: ANTACID SUSP 30 ML UDC (MYLANTA) PO PRN (22:15)
[2022-05-13] MEDS ORDERED: polyethylene glycoL POWDER 17 GM (MIRALAX) PACK PO PRN (22:15)
[2022-05-13] MEDS ORDERED: diphenhydrAMINE 50 MG/ML INJ (BENADRYL) IVP PRN (22:15)
[2022-05-13 22:29] VITALS: BP 187/101
[2022-05-13] MEDS ORDERED: RT-ALBUTEROL/IPRATROPIUM 3 ML (DUONEB) VIAL INH PRN (22:45)
[2022-05-14] MEDS: RT-ALBUTEROL/IPRATROPIUM 3 ML (DUONEB) VIAL INH SCH ×6 (02:21→21:56)
[2022-05-14 03:17] LABS: ABG BASE EXCESS 6.8 MMOL/L (-2.5-2.5); ABG OXYGEN SATURATION 98 % (94-100); ABG PCO2 68 MMHG (35-45); ABG PO2 103 MMHG (79-93)
[2022-05-14 03:27] LABS: ABG PH 7.31 (7.37-7.43); ALLENS TEST YES-POS; INSPIRED O2 40%; PATIENT TEMP 37.2; VENTILATOR NO
[2022-05-14 03:44] LABS: BASOPHILS % (AUTO) 0 % (0-10); EOSINOPHILS % (AUTO) 0 % (0-10); HEMATOCRIT 36 % (40-54); HEMOGLOBIN 11.9 g/dL (13.3-17.7); LYMPHOCYTES # (AUTO) 0.3 10^3/uL (1.0-4.0); LYMPHOCYTES % (AUTO) 4 % (12-44); MEAN CORPUSCULAR HEMOGLOBIN 31 pg (25-34); MEAN CORPUSCULAR HGB CONC 33 g/dL (32-36); MEAN CORPUSCULAR VOLUME 95 fL (80-99); MEAN PLATELET VOLUME 8.8 fL (9.0-12.2); MONOCYTES # (AUTO) 0.1 10^3/uL (0.0-1.0); MONOCYTES % (AUTO) 2 % (0-12); NEUTROPHILS % (AUTO) 94 % (42-75); PLATELET COUNT 282 10^3/uL (130-400); WHITE BLOOD COUNT 7.5 10^3/uL (4.3-11.0)
[2022-05-14 04:11] LABS: ALBUMIN 3.3 GM/DL (3.2-4.5); BILIRUBIN,TOTAL 0.6 MG/DL (0.1-1.0); CALCIUM 8.5 MG/DL (8.5-10.1); CREATININE SERUM 1.03 MG/DL (0.60-1.30); PHOSPHORUS 3.9 MG/DL (2.3-4.7); TOTAL PROTEIN 6.2 GM/DL (6.4-8.2)
[2022-05-14] MEDS: CEFEPIME INJECTION 1,000 MG in NS (IVPB) 50 ML IV SCH ×4 (04:18→21:47)
[2022-05-14 04:20] LABS: LYMPHOCYTES % (MANUAL) 3 %; MONOCYTES % (MANUAL) 1 %; NEUTROPHILS % (MANUAL) 96 %; RBC MORPH NORMAL
[2022-05-14] MEDS: POTASSIUM CL 10MEQ/50ML IVPB 50 ML IV SCH (04:23)
[2022-05-14] MEDS: KCL 20 MEQ TAB (K-DUR) PO SCH (04:24)
[2022-05-14] MEDS: MAGNESIUM 1 GM/100 ML IVPB 100 ML IV SCH (04:24)
--- NOTE | 2022-05-14 07:01 | History & Physical-Hospitalist ---
History of Present Illness HPI/Chief Complaint CC: Acute hypercapneic respiratory failure with CHF HPI: This is an 81yoWM clinic patient of [facility] who presented to the ER with dyspnea. He had been placed on 2 rounds of abx recently for pneumonia but when he presented to the ER he was found to have CO2 retention along with volume overload with CHF. Cardiology consulted. IV Lasix has helped a lot and he remains on biPAP. Family at bedside. No pain. Source: patient, family Exam Limitations: clinical condition Date Seen 05/14/22 Time Seen by a Provider: 10:00 Attending Physician Kiran Louis MD PCP Admitting Physician: Tammy Arechiga DO Attending Physician: Tammy Arechiga DO Referring Physician Date of Admission May 13, 2022 at 21:34 Home Medications & Allergies Home Medications Reviewed patient Home Medication Reconciliation performed by pharmacy medication reconciliations dental service technician and/or nursing. Patients Allergies have been reviewed. Allergies Allergies Coded Allergies amlodipine (Verified Allergy, Unknown, 08/16/18) atenolol (Verified Allergy, Unknown, 08/16/18) lisinopril (Verified Allergy, Unknown, 08/16/18) Past Ahyoanz-Ygxzhx-Zyarke Hx Patient Social History Marrital Status: Employed/Student: retired Tobacco Use?: Yes Tobacco type used: Cigarettes Smoking Status: Former Smoker Substance use?: No Alcohol Use?: No Pt feels they are or have been: No Seasonal Allergies Seasonal Allergies: No Current Status Communicates: Verbally Primary Language: Kinyarwanda Preferred Spoken Language: Kinyarwanda Is interpretation needed?: No Sensory deficits: Vision impairment, Hearing impairment Past Medical History Surgeries: Abdominal, Bowel Surgery, Gallbladder COPD Hypertension Dementia Benign Prostatic Hyperpl, Prostate Problems Gall Bladder Disease Colon Did You Recieve Any Treatments: Yes What Type of Treatment Did You: Surgical Intervention HX OF COLON CANCER--S/P SURGERY, NO CHEMO OR RADIATION--> 10 YEARS AGO. TREATED AT [facility]. NO LONGER SEES ONCOLOGY OR GI. Blood Disorders: No Family Medical History SOCIAL HISTORY: -SMOKED IN PAST--QUIT 40 YEARS AGO -ETOH-DENIES USE -DRUGS--DENIES USE Review of Systems Constitutional: see HPI Respiratory: dyspnea on exertion Physical Exam Physical Exam Vital Signs Vital Signs - First Documented 05/13/22 05/13/22 05/13/22 18:45 19:28 22:29 Temp 36.8 Pulse 90 Resp 26 B/P (MAP) 187/101 (129) Pulse Ox 94 FiO2 21 Capillary Refill : Less Than 3 Seconds Height, Weight, BMI Height: 5'9.00" Weight: 230lbs. oz. 104.535361by; 35.80 BMI Method:Stated General Appearance: Anxious, Chronically ill, Mild Distress, Obese, Other (on bipap) Eyes: Right Eye Normal Inspection, Right Eye PERRL HEENT: PERRL/EOMI, TMs Normal, Normal ENT Inspection, Pharynx Normal, Moist Mucous Membranes Neck: Full Range of Motion, Normal Inspection, Non Tender Respiratory: Chest Non Tender, No Respiratory Distress, Accessory Muscle Use, Crackles, Decreased Breath Sounds, Wheezing Cardiovascular: Regular Rate, Rhythm, No Edema, No Gallop, No JVD, No Murmur, Normal Peripheral Pulses Gastrointestinal: Normal Bowel Sounds, No Organomegaly, No Pulsatile Mass, Non Tender, Soft Back: Normal Inspection, No CVA Tenderness, No Vertebral Tenderness Extremity: Normal Capillary Refill, Normal Inspection, Normal Range of Motion, Non Tender, No Calf Tenderness, No Pedal Edema Neurologic/Psychiatric: Alert, Oriented x3, No Motor/Sensory Deficits, 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 Assessment/Plan Admission Diagnosis Assessment: Acute hypercapneic respiratory failure requiring biPAP and ICU admit Volume overload r/o CHF PNA Leukocytosis Advanced age Elevated troponin BPH Dementia Plan: ICU BiPAP Cardiology ECHO IV Lasix Admission Status: Inpatient Order (span 2 midnights) Reason for Inpatient Admission: resp failure Diagnosis/Problems Diagnosis/Problems (1) Acute respiratory failure Status: Acute (2) CHF (congestive heart failure) Status: Acute (3) Dementia Status: Acute (4) Elevated troponin Status: Acute (5) Left bundle branch block (LBBB) Status: Acute (6) History of BPH Status: Acute TAMMY ARECHIGA DO May 14, 2022 07:01
[2022-05-14 07:29] VITALS: BP 128/63
--- NOTE | 2022-05-14 08:37 | Diagnostic Imaging Report ---
INDICATION: Congestive heart failure. Comparison is made with prior exam of 05/13/2022. FINDINGS: There is cardiomegaly. There is some venous congestion. No pleural effusion or pneumothorax. The mediastinum is grossly unremarkable. IMPRESSION: Cardiomegaly and some central pulmonary venous congestion. Dictated by: Dictated on workstation # [id number]
[2022-05-14] MEDS: FUROSEMIDE 40 MG/4 ML INJ (LASIX) IV SCH ×2 (09:04→21:46)
[2022-05-14] MEDS: methylPREDNISolone 40 MG/ML (Solu-MEDROL) VIAL IV SCH ×2 (09:04→21:46)
[2022-05-14] MEDS: ENOXAPARIN 120 MG/0.8 ML (LOVENOX) SQ SCH ×2 (09:04→21:47)
--- NOTE | 2022-05-14 09:27 | Consultation-Cardiology ---
[facility]Cardiology Cardiology Consultation: Date of Consultation 05/14/22 Time Seen by a Provider: 09:00 Date of Admission 05-13-22 Attending Physician Kiran Louis MD Admitting Physician Admitting Physician: Tammy Mauro DO Attending Physician: Tammy Mauro DO Consulting Physician Yomaira Blanton MD HPI: Chief Complaint: New onset CHF Mr. Padilla is an 81 yr old male admitted to ICU 5 from the ED. He is currently on Bi-pap tx which limits conversation. His is at the bedside. She has provided much of the history. She reports he has dementia. She states a few days ago he developed bilat LE swelling which was progressively getting worse. She reports progressive SOB. She reports freq prod cough of thick phlegm. She denies any fever or chills. She reports he has had a poor appetite. She states he did see a student services rep in [place], [place] several years ago, but reports "everything was fine" and they never went back. He nods no when asked if he has had chest pain and again nods no when asked if he has palpitations. Review of Systems-Cardiology Review of Systems Other comments To the extent that it could be obtained in as per [facility] YAZ-Ccyddt-Wgpcvc Hx Patient Social History Smoking Status: Former Smoker 2nd Hand Smoke Exposure: No Have you traveled recently?: No Alcohol Use?: No Pt feels they are or have been: No Tobacco type used: Cigarettes Past Medical History PM As described under Assessment. Family Medical History Family Medical History: Unable to provide Allergies and Home Medications Allergies Coded Allergies: amlodipine (Verified Allergy, Unknown, 08/16/18) atenolol (Verified Allergy, Unknown, 08/16/18) lisinopril (Verified Allergy, Unknown, 08/16/18) Patient Home Medication List Acetaminophen (Tylenol Extra Strength) 500 Mg Tablet, 1,000 MG PO HS, (Reported) Entered as Reported by: JOYCE SAUCEDO on 05/14/22 1048 Last Action: Reviewed Amoxicillin/Potassium Clav (Amox Tr-K Clv 875-125 mg Tab) 875 Mg-125 Mg Tablet, 1 EA PO BID, (Reported) Entered as Reported by: JOYCE SAUCEDO on 05/14/22 1032 Last Action: Reviewed Aspirin (Aspirin EC) 81 Mg Tablet.dr, 81 MG PO 1800, (Reported) Entered as Reported by: JOYCE SAUCEDO on 05/14/221031 Last Action: Reviewed Calcium Carbonate (Calcium) 600 Mg Calcium (1500 Mg) Tablet, 600 MG PO 1800, (Reported) Entered as Reported by: JOYCE SAUCEDO on 05/14/221031 Last Action: Reviewed Donepezil HCl (Donepezil HCl) 10 Mg Tablet, 10 MG PO HS, (Reported) Entered as Reported by: RUSSEL SAHU on 08/17/18939 Last Action: Reviewed Finasteride (Finasteride) 5 Mg Tablet, 5 MG PO DAILY, (Reported) Entered as Reported by: JOYCE SAUCEDO on 05/14/221031 Last Action: Reviewed Furosemide (Furosemide) 20 Mg Tablet, 20 MG PO DAILY, (Reported) Entered as Reported by: JOYCE SAUCEDO on 05/14/221033 Last Action: Reviewed Hydralazine HCl (Hydralazine HCl) 25 Mg Tablet, 25 MG PO BID, (Reported) Entered as Reported by: RUSSEL SAHU on 08/17/18939 Last Action: Reviewed Hydrochlorothiazide (Hydrochlorothiazide) 25 Mg Tablet, 25 MG PO DAILY, (Reported) Entered as Reported by: JOYCE SAUCEDO on 05/14/221031 Last Action: Reviewed Losartan Potassium (Losartan Potassium) 100 Mg Tablet, 100 MG PO DAILY, (Reported) Entered as Reported by: RUSSEL SAHU on 08/17/18939 Last Action: Reviewed Memantine HCl (Memantine HCl) 10 Mg Tablet, 10 MG PO DAILY, (Reported) Entered as Reported by: RUSSEL SAHU on 08/17/18939 Last Action: Reviewed Multivitamin (Multivitamin) 1 Each Tablet, 1 EACH PO DAILY, (Reported) Entered as Reported by: JOYCE SAUCEDO on 05/14/221031 Last Action: Reviewed Tamsulosin HCl (Flomax) 0.4 Mg Cap, 0.8 MG PO 1800, (Reported) Entered as Reported by: JOYCE SAUCEDO on 05/14/221031 Last Action: Reviewed Tiotropium [place] (Spiriva) 18 Mcg Aerp, 1 PUFF INH DAILY, (Reported) Entered as Reported by: RUSSEL SAHU on 08/17/18939 Last Action: Reviewed Trazodone HCl (Trazodone HCl) 50 Mg Tablet, 50 MG PO HS, (Reported) Entered as Reported by: RUSSEL SHAU on 08/17/18939 Last Action: Reviewed Discontinued Medications Nitrofurantoin Monohyd/M-Cryst (Macrobid 100 mg Capsule) 100 Mg Capsule, 100 MG PO BID Discontinued Reason: No Longer Taking Prescribed by: GEMA BIRMINGHAM MD on 08/16/18 1326 Last Action: Discontinued Tamsulosin HCl (Flomax) 0.4 Mg Cap, (Reported) Discontinued Reason: No Longer Taking Entered as Reported by: RUSSEL SAHU on 08/17/18939 Last Action: Discontinued Physical Exam-Cardiology Physical Exam Vital Signs/I&O 05/14/22 05/14/22 05/14/22 05/14/22 22:54 22:58 23:00 23:02 Temp 36.8 Pulse 89 85 Resp 22 22 B/P (MAP) 148/84 (116) Pulse Ox 95 94 O2 Delivery NIV Bilevel NIV Bilevel NIV Bilevel O2 Flow Rate 30.00 30.00 30.00 30.00 05/15/22 05/15/22 05/15/22 05/15/22 00:00 00:46 01:00 01:00 Pulse 75 74 74 Resp 29 21 B/P (MAP) 128/64 (84) 129/64 (93) Pulse Ox 93 92 94 O2 Delivery NIV Bilevel NIV Bilevel NIV Bilevel O2 Flow Rate 30.00 30.00 FiO2 30 05/15/22 05/15/22 05/15/22 05/15/22 02:00 02:32 03:00 03:04 Temp 37.0 Pulse 74 71 92 Resp 27 26 B/P (MAP) 121/106 (109) 157/77 (108) Pulse Ox 95 95 88 O2 Delivery NIV Bilevel NIV Bilevel Vapotherm O2 Flow Rate 30.00 30.00 30.00 40.00 100.00 05/15/22 05/15/22 05/15/22 05/15/22 03:11 03:37 03:45 03:57 Pulse 102 102 Resp 36 B/P (MAP) 157/77 142/69 (98) Pulse Ox 96 96 95 O2 Delivery Vapotherm Vapotherm Vapotherm O2 Flow Rate 40.00 40.00 40.00 100.00 FiO2 100 100 05/15/22 05/15/22 05/15/22 05/15/22 04:30 04:43 04:50 05:00 Pulse 83 77 72 Resp 18 46 19 B/P (MAP) 140/77 (101) 125/65 (85) Pulse Ox 98 93 91 O2 Delivery Vapotherm NIV Bilevel NIV Bilevel O2 Flow Rate 40.00 30.00 30.00 30.00 100.00 05/15/22 05/15/22 05/15/22 05/15/22 06:00 07:00 07:12 07:50 Pulse 69 81 64 70 Resp 11 8 19 B/P (MAP) 138/72 (94) 147/74 (98) Pulse Ox 94 94 94 O2 Delivery NIV Bilevel NIV Bilevel O2 Flow Rate 30.00 30.00 30.00 05/15/22 05/15/22 05/15/22 05/15/22 07:57 08:00 08:00 08:05 Temp 36.2 Pulse 70 69 Resp 33 B/P (MAP) 139/72 139/79 (99) Pulse Ox 94 93 O2 Delivery NIV Bilevel NIV Bilevel O2 Flow Rate 30.00 FiO2 30 05/15/22 05/15/22 08:08 09:00 Pulse 72 80 Resp 27 B/P (MAP) 139/79 134/67 (89) Pulse Ox 94 O2 Delivery NIV Bilevel O2 Flow Rate 30.00 05/15/22 00:00 Intake Total 860 ml Output Total 950 ml Balance -90 ml Capillary Refill : Less Than 3 Seconds Constitutional: AAO x 3, well-developed, well-nourished, other HEENT: PERRL, hearing is well preserved Neck: No carotid bruit; carotid pulses are 2 + bilaterally Respiratory: No accessory muscle use, No respiratory distress; chest expansion is symmetric, chest is bilaterally symmetric, other (diminished bases bilat) Cardiovascular: regular rate-rhythm; No JVD; S1 and S2 Gastrointestinal: soft, round; No guarding; audible bowel sounds Extremities: other (mod bilat pedal/ankle edema) Neurologic/Psychiatric: grossly intact (moves all extremities) Skin: normal color, warm/dry; No rash on exposed areas, No ulcerations on exposed areas Data Review Labs Laboratory Tests 05/15/22 03:45: Blood Gas Puncture Site L RAD, Blood Gas Patient Temperature 37.2, Arterial Blood pH 7.38, Arterial Blood Partial Pressure CO2 58H, Arterial Blood Partial Pressure O2 107H, Arterial Blood HCO3 33H, Arterial Blood Total CO2 34.9H, Arterial Blood Oxygen Saturation 98, Arterial Blood Base Excess 7.9H, Heriberto Test YES-POS, Blood Gas Ventilator Setting NO, Blood Gas Inspired Oxygen 40% 05/15/22 04:37: White Blood Count 11.9H, Red Blood Count 3.30L, Hemoglobin 10.4L, Hematocrit 31L , Mean Corpuscular Volume 95, Mean Corpuscular Hemoglobin 32, Mean Corpuscular Hemoglobin Concent 33, Red Cell Distribution Width 13.0, Platelet Count 302, Mean Platelet Volume 9.1, Immature Granulocyte % (Auto) 1, Neutrophils (%) (Auto) 92H, Lymphocytes (%) (Auto) 1L, Monocytes (%) (Auto) 5, Eosinophils (%) (Auto) 0, Basophils (%) (Auto) 0, Neutrophils # (Auto) 11.0H, Lymphocytes # (Auto) 0.2L, Monocytes # (Auto) 0.6, Eosinophils # (Auto) 0.0, Basophils # (Auto) 0.0, Immature Granulocyte # (Auto) 0.1, Sodium Level 137, Potassium Level 4.2, Chloride Level 98, Carbon Dioxide Level 27, Anion Gap 12, Blood Urea Nitrogen 30H, Creatinine 1.40H, Estimat Glomerular Filtration Rate 50, BUN/Creatinine Ratio 21, Glucose Level 161H, Calcium Level 8.4L, Corrected Calcium 9.2, Phosphorus Level 3.9, Magnesium Level 2.0, Total Bilirubin 0.4, Aspartate Amino Transf (AST/SGOT) 18, Alanine Aminotransferase (ALT/SGPT) 16, Alkaline Phosphatase 74, Total Protein 5.6L, Albumin 3.0L Microbiology 05/13/22 MRSA Screen - Final, Complete MRSA not isolated 05/13/22 Urine Culture - Preliminary, Resulted NO GROWTH 05/13/22 Blood Culture - Preliminary, Resulted No growth Radiology NAME: STACY PADILLA [facility] REC#: [id number] PT STATUS: ADM IN : 1940 PHYSICIAN: TAMMY MAURO DO ADMIT DATE: 05/13/22/ICU Draft Date of Exam:05/14/22 CHEST 1 VIEW, AP/PA ONLY INDICATION: Congestive heart failure. Comparison is made with prior exam of 05/13/2022. FINDINGS: There is cardiomegaly. There is some venous congestion. No pleural effusion or pneumothorax. The mediastinum is grossly unremarkable. IMPRESSION: Cardiomegaly and some central pulmonary venous congestion. Dictated on workstation # [id number] Dict: 05/14/22 0832 Trans: 05/14/22 0837 CVB [id number] Interpreted by: TADEO BUENO MD Electronically signed by: ECG Impression ECG Comment SR with LBB A/P-Cardiology Assessment/Admission Diagnosis Acute resp failure - management per medical services - ?acute on chronic exacerbation of COPD Newly dx CHF - elevated BNP on 05-13-22 Minimally elevated troponin -likely Type 2 MS secondary to hypoxia at time of ED presentation HTN HLD reports h/o CVA in 2016 - peripheral vision affected bilat per - details unknown - ASA tx at home H/O colon cancer - hemicolectomy in 2010 at [facility] BPH Dementia H/O tobacco use - quit 40 yrs ago per spouse Allergies: Norvasc, Lisinopril, Atenolol Discussion and Recomendations Acute resp failure - ? acute on chronic exacerbation of COPD and/or URI - management per medical services Newly dx CHF - Echocardiogram today - diuretics as indicated Minimally elevated troponin - likely Type 2 MS secondary to acute hypoxia Reported h/o CVA - continue home dose of ASA Monitor lab closely Replace electrolytes as indicated Further recs will be based on his hospital course We would like to thank medical services for this consult MYLA URIAS May 14, 2022 09:27
[2022-05-14 09:39] LABS: ABG BASE EXCESS 7.1 MMOL/L (-2.5-2.5); ABG OXYGEN SATURATION 95 % (94-100); ABG PCO2 56 MMHG (35-45); ABG PH 7.38 (7.37-7.43); ABG PO2 72 MMHG (79-93); ABG TCO2 34.1 MMOL/L (21.0-31.0)
[2022-05-14 09:40] LABS: ALLENS TEST P; INSPIRED O2 30; VENTILATOR NO
[2022-05-14 09:41] LABS: PATIENT TEMP 36.4
--- NOTE | 2022-05-14 09:57 | Consultation-Cardiology ---
HPI-Cardiology Cardiology Consultation: Date of Consultation 05/14/22 Time Seen by a Provider: 09:45 Date of Admission Attending Physician Kiran Louis MD Admitting Physician Admitting Physician: Tammy Arechiga DO Attending Physician: Tammy Arechiga DO Consulting Physician SHIRLEY ARREDONDO MD, MA, FACP, FACC, [facility] Physician requesting consult: Dr Arechiga HPI: Chief Complaint: Increasing shortness of breath Mr. Padilla is an 81 yr old male admitted to ICU 5 from the ED. He is currently on Bi-pap tx which limits conversation. His is at the bedside. She has provided much of the history. She reports he has dementia. She states a few days ago he developed bilat LE swelling which was progressively getting worse. She reports progressive SOB. She reports freq prod cough of thick phlegm. She denies any fever or chills. She reports he has had a poor appetite. She states he did see a location man in [place], [place] several years ago, but reports "everything was fine" and they never went back. He nods no when asked if he has had chest pain and again nods no when asked if he has palpitations. BR[facility]-Vmebol-Rmvtbl Hx Patient Social History Smoking Status: Former Smoker 2nd Hand Smoke Exposure: No Have you traveled recently?: No Alcohol Use?: No Pt feels they are or have been: No Tobacco type used: Cigarettes Past Medical History PMH As described under Assessment. Family Medical History Family Medical History: Unable to provide Allergies and Home Medications Allergies Coded Allergies: amlodipine (Verified Allergy, Unknown, 08/16/18) atenolol (Verified Allergy, Unknown, 08/16/18) lisinopril (Verified Allergy, Unknown, 08/16/18) Patient Home Medication List Home Medication List Reviewed: Yes Donepezil HCl (Donepezil HCl) 10 Mg Tablet, (Reported) Entered as Reported by: RUSSEL SAHU on 08/17/18 0940 Hydralazine HCl (Hydralazine HCl) 25 Mg Tablet, (Reported) Entered as Reported by: RUSSEL SAHU on 08/17/18 0940 Losartan Potassium (Losartan Potassium) 100 Mg Tablet, (Reported) Entered as Reported by: RUSSEL SAHU on 08/17/18 0940 Memantine HCl (Memantine HCl) 10 Mg Tablet, (Reported) Entered as Reported by: RUSSEL SAHU on 08/17/18 09 Nitrofurantoin Monohyd/M-Cryst (Macrobid 100 mg Capsule) 100 Mg Capsule, 100 MG PO BID Prescribed by: GEMA BIRMINGHAM MD on 08/16/18 1326 Tamsulosin HCl (Flomax) 0.4 Mg Cap, (Reported) Entered as Reported by: RUSSEL SAHU on 08/17/18939 Tiotropium [place] (Spiriva) 1 Inh Aerp, (Reported) Entered as Reported by: RUSSEL SAHU on 08/17/18939 Trazodone HCl (Trazodone HCl) 50 Mg Tablet, (Reported) Entered as Reported by: RUSSEL SAHU on 08/17/18939 Physical Exam-Cardiology Physical Exam Vital Signs/I&O 05/13/22 05/13/22 05/13/22 05/13/22 22:00 22:05 22:15 22:29 Temp 36.8 Pulse 87 84 82 90 Resp 25 22 25 B/P (MAP) 171/83 (124) 167/85 (120) Pulse Ox 95 96 97 83 O2 Delivery NIV Bilevel NIV Bilevel O2 Flow Rate 40.00 40.00 40.00 FiO2 21 05/13/22 05/13/22 05/13/22 05/13/22 22:30 22:45 22:45 23:00 Pulse 87 86 86 Resp 23 29 B/P (MAP) 169/80 (114) 166/84 (118) 170/93 (125) Pulse Ox 96 97 96 O2 Delivery NIV Bilevel NIV Bilevel NIV Bilevel NIV Bilevel O2 Flow Rate 40.00 40.00 40.00 FiO2 40 05/13/22 05/13/22 05/13/22 05/13/22 23:15 23:30 23:45 23:59 Pulse 86 85 88 Resp 13 27 27 B/P (MAP) 172/98 (130) 166/87 (120) 167/91 (121) Pulse Ox 86 96 96 O2 Delivery NIV Bilevel NIV Bilevel NIV Bilevel NIV Bilevel O2 Flow Rate 40.00 40.00 40.00 FiO2 40 05/14/22 05/14/22 05/14/22 05/14/22 00:00 00:00 00:00 01:00 Temp 37.2 Pulse 86 85 85 Resp 26 18 B/P (MAP) 163/81 (113) 153/76 (107) Pulse Ox 95 94 O2 Delivery NIV Bilevel NIV Bilevel O2 Flow Rate 40.00 40.00 05/14/22 05/14/22 05/14/22 05/14/22 02:00 02:18 03:00 03:55 Pulse 80 81 84 90 Resp 23 18 21 27 B/P (MAP) 147/75 (101) 143/77 (96) Pulse Ox 93 95 93 97 O2 Delivery NIV Bilevel NIV Bilevel O2 Flow Rate 40.00 40.00 40.00 40.00 05/14/22 05/14/22 05/14/22 05/14/22 04:00 04:00 05:00 06:00 Pulse 76 69 61 Resp 19 16 19 B/P (MAP) 141/65 (101) 120/55 (75) 123/61 (85) Pulse Ox 96 96 96 O2 Delivery NIV Bilevel NIV Bilevel NIV Bilevel NIV Bilevel O2 Flow Rate 40.00 40.00 40.00 FiO2 40 05/14/22 05/14/22 05/14/22 05/14/22 07:00 07:28 07:28 07:29 Temp 36.1 Pulse 73 69 60 Resp 17 21 B/P (MAP) 125/59 (81) Pulse Ox 97 93 O2 Delivery NIV Bilevel O2 Flow Rate 40.00 40.00 05/14/22 05/14/22 05/14/22 05/14/22 07:35 07:37 08:00 09:00 Pulse 77 Resp 17 B/P (MAP) 168/68 (101) Pulse Ox 94 O2 Delivery NIV Bilevel NIV Bilevel NIV Bilevel O2 Flow Rate 30.00 30.00 30.00 FiO2 30 05/13/22 23:59 Intake Total 50 ml Balance 50 ml Capillary Refill : Less Than 3 Seconds Constitutional: AAO x 3, well-developed, well-nourished, other HEENT: PERRL, hearing is well preserved Neck: No carotid bruit; carotid pulses are 2 + bilaterally Respiratory: No accessory muscle use, No respiratory distress; chest expansion is symmetric, chest is bilaterally symmetric, other (diminished bases bilat) Cardiovascular: regular rate-rhythm; No JVD; S1 and S2 Gastrointestinal: soft, round; No guarding; audible bowel sounds Extremities: other (mod bilat pedal/ankle edema) Neurologic/Psychiatric: grossly intact (moves all extremities) Skin: normal color, warm/dry; No rash on exposed areas, No ulcerations on exposed areas Data Review Labs Laboratory Tests 05/13/22 18:50: White Blood Count 9.9, Red Blood Count 3.70L, Hemoglobin 11.8L, Hematocrit 35L, Mean Corpuscular Volume 95, Mean Corpuscular Hemoglobin 32, Mean Corpuscular Hemoglobin Concent 34, Red Cell Distribution Width 13.2, Platelet Count 332, Mean Platelet Volume 8.6L, Immature Granulocyte % (Auto) 1, Neutrophils (%) (Auto) 73, Lymphocytes (%) (Auto) 10L, Monocytes (%) (Auto) 14H, Eosinophils (%) (Auto) 2, Basophils (%) (Auto) 1, Neutrophils # (Auto) 7.3, Lymphocytes # (Auto) 1.0, Monocytes # (Auto) 1.4H, Eosinophils # (Auto) 0.2, Basophils # (Auto) 0.1, Immature Granulocyte # (Auto) 0.1, Erythrocyte Sedimentation Rate 37H, Prothrombin Time 15.5H, INR Comment 1.2, Activated Partial Thromboplast Time 39H , D-Dimer 0.65H, Sodium Level 133L, Potassium Level 4.1, Chloride Level 97L, Carbon Dioxide Level 27, Anion Gap 9, Blood Urea Nitrogen 13, Creatinine 0.88, Estimat Glomerular Filtration Rate 86, BUN/Creatinine Ratio 15, Glucose Level 105, Calcium Level 8.4L, Corrected Calcium 9.0, Magnesium Level 2.1, Total Bilirubin 0.6, Aspartate Amino Transf (AST/SGOT) 20, Alanine Aminotransferase (ALT/SGPT) 15, Alkaline Phosphatase 90, Total Creatine Kinase 100, Creatine Kinase MB 2.8, Myoglobin 190.7H, Troponin I 0.044H, C-Reactive Protein High Sensitivity 9.84H, B-Type Natriuretic Peptide 361.4H, Total Protein 6.1L, Albumin 3.3, Amylase Level 25, Lipase 16, Influenza Type A (RT-PCR) Not Detected, Influenza Type B (RT-PCR) Not Detected, SARS-CoV-2 RNA (RT-PCR) Not Detected 05/13/22 19:19: Blood Gas Puncture Site L RAD, Blood Gas Patient Temperature 36.7, Arterial Blood pH 7.35L, Arterial Blood Partial Pressure CO2 57H, Arterial Blood Partial Pressure O2 105H, Arterial Blood HCO3 31H, Arterial Blood Total CO2 32.8H, Arterial Blood Oxygen Saturation 98, Arterial Blood Base Excess 5.6H, Heriberto Test YES-POS, Blood Gas Ventilator Setting NO, Blood Gas Inspired Oxygen 40% 05/13/22 19:40: Lactic Acid Level 1.39 05/13/22 19:47: Urine Color YELLOW, Urine Clarity SL CLOUDY, Urine pH 6.0, Urine Specific [place] 1.020, Urine Protein TRACEH, Urine Glucose (UA) NEGATIVE, Urine Ketones NEGATIVE, Urine Nitrite NEGATIVE, Urine Bilirubin NEGATIVE, Urine Urobilinogen 0.2, Urine Leukocyte Esterase NEGATIVE, Urine RBC (Auto) NEGATIVE, Urine RBC 2- 5H, Urine WBC 0-2, Urine Squamous Epithelial Cells RARE, Urine Crystals NONE, Urine Bacteria FEWH, Urine Casts PRESENT, Urine Hyaline Casts 5-10H, Urine Mucus SMALLH, Urine Culture Indicated CULTURE PENDING 05/14/22 03:10: Blood Gas Puncture Site L RAD, Blood Gas Patient Temperature 37.2, Arterial Blood pH 7.31*L, Arterial Blood Partial Pressure CO2 68H, Arterial Blood Partial Pressure O2 103H, Arterial Blood HCO3 33H, Arterial Blood Total CO2 35.0H, Arterial Blood Oxygen Saturation 98, Arterial Blood Base Excess 6.8H, Heriberto Test YES-POS, Blood Gas Ventilator Setting NO, Blood Gas Inspired Oxygen 40% 05/14/22 03:34: White Blood Count 7.5, Red Blood Count 3.80L, Hemoglobin 11.9L, Hematocrit 36L, Mean Corpuscular Volume 95, Mean Corpuscular Hemoglobin 31, Mean Corpuscular Hemoglobin Concent 33, Red Cell Distribution Width 13.1, Platelet Count 282, Mean Platelet Volume 8.8L, Immature Granulocyte % (Auto) 1, Neutrophils (%) (Auto) 94H, Lymphocytes (%) (Auto) 4L, Monocytes (%) (Auto) 2, Eosinophils (%) (Auto) 0, Basophils (%) (Auto) 0, Neutrophils # (Auto) 7.0, Lymphocytes # (Auto) 0.3L, Monocytes # (Auto) 0.1, Eosinophils # (Auto) 0.0, Basophils # (Auto) 0.0, Immature Granulocyte # (Auto) 0.0, Neutrophils % (Manual) 96, Lymphocytes % (Manual) 3, Monocytes % (Manual) 1, Blood Morphology Comment NORMAL, Sodium Level 135, Potassium Level 4.0, Chloride Level 97L, Carbon Dioxide Level 26, Anion Gap 12, Blood Urea Nitrogen 16, Creatinine 1.03, Estimat Glomerular Filtration Rate 73, BUN/Creatinine Ratio 16, Glucose Level 149H, Calcium Level 8.5, Corrected Calcium 9.1, Phosphorus Level 3.9, Magnesium Level 2.0, Total Bilirubin 0.6, Aspartate Amino Transf (AST/SGOT) 17, Alanine Aminotransferase (ALT/SGPT) 16, Alkaline Phosphatase 87, Troponin I 0.039H, Total Protein 6.2L, Albumin 3.3 05/14/22 09:25: Blood Gas Puncture Site L RADIAL, Blood Gas Patient Temperature 36.4, Arterial Blood pH 7.38, Arterial Blood Partial Pressure CO2 56H, Arterial Blood Partial Pressure O2 72L, Arterial Blood HCO3 32H, Arterial Blood Total CO2 34.1H, Arterial Blood Oxygen Saturation 95, Arterial Blood Base Excess 7.1H, Heriberto Test P, Blood Gas Ventilator Setting NO, Blood Gas Inspired Oxygen 30 A/P-Cardiology Assessment/Admission Diagnosis Acute resp failure - management per medical services - ?acute on chronic exacerbation of COPD Newly dx CHF - elevated BNP on 05-13-22 Minimally elevated troponin -likely Type 2 ND secondary to hypoxia at time of ED presentation HTN HLD reports h/o CVA in 2016 - peripheral vision affected bilat per - details unknown - ASA tx at home H/O colon cancer - hemicolectomy in 2010 at [facility] BPH Dementia H/O tobacco use - quit 40 yrs ago per spouse Allergies: Norvasc, Lisinopril, Atenolol Discussion and Recomendations Acute resp failure - ? acute on chronic exacerbation of COPD and/or URI - management per medical services Newly dx CHF - Echocardiogram today - diuretics as indicated Minimally elevated troponin - likely Type 2 ND secondary to hypoxia from resp failure Reported h/o CVA - continue home dose of ASA Monitor lab closely Replace electrolytes as indicated Further recs will be based on his hospital course We would like to thank Medical services for this consult SHIRLEY ARREDONDO MD FACP FAC CCDS May 14, 2022 09:57
--- NOTE | 2022-05-14 10:08 | Tele-ICU Consult ---
History of Present Illness History of Present Illness Date Seen by Provider: May 14, 2022 Time Seen by Provider: 10:07 Date of Admission (Tele-ICU Physician , consultation as per request of PCP Service provided via interactive audio and video telecommunications E-CARE system to a patient admitted to ICU bed in [facility]. Available chart/ vitals / labs / Images reviewed H&P is from ER notes Patient's information available about PMH, Shx, Fhx allergy reviewed inEMR. ROS as per chart and RN report Now in ICU, hemodynamically stable Video assessment done using teleICU camera, rest of exam as per RN Discussed with RN. Hospital course: (05/13) 81y M with SOB and bilat leg swelling with cough. Hypoxic in ED. ADMIT for Acute resp failure, CHF, COPD, Possible underlying PNA- on bipap A/P Acute restp failure - CHF and possible PNA - On BIPAP 16?8 30 % rr 26 TV 500 MV 10 L , will try to NC and PRN BIAPAP Possible PNA - viral panel NEG -empiric abx started 05/13 - to follow CHF - lasix bid - as per cads Elev trop - as per cards - on lovenox full dose AECOPD - steroids IV started 05/13- no wheezing as per RN exan - as per bedside team Lines : periph , (Central Line Necessity Reviewed) Faria: 05/13 OG: Nutrition: to try 4/3 if tolerated Analgesia: Anxiety/ delirium VTE Prophylaxis: leroy full dose Stress Ulcer Prophylaxis: na Glycemic Control: Plans in collaboration with bedside consultants and IM MDs. Discussed with RN to reach out if any questions or concerns A total of 31 minutes of critical care time was devoted to this patient today, required to treat and/or prevent further deterioration of critical care condition ( as above ) . I am remotely monitoring this patient from another state. I am unable to do the bedside exam, and history/physical and pertinent information is taken from other notes in the computer and bedside staff. . Allergies and Home Medications Allergies Coded Allergies: amlodipine (Verified Allergy, Unknown, 08/16/18) atenolol (Verified Allergy, Unknown, 08/16/18) lisinopril (Verified Allergy, Unknown, 08/16/18) Home Medications Nitrofurantoin Monohyd/M-Cryst 100 Mg Capsule, 100 MG PO BID Prescribed by: GEMA BIRMINGHAM MD on 08/16/18 1326 Past Medical/Social/Family Hx Patient Social History Tobacco Use?: Yes Tobacco type used: Cigarettes Smoking Status: Former Smoker Substance use?: No Alcohol Use?: No Pt stated abuse/neglect: No Immunizations Up To Date Influenza Vaccine Up-to-Date: Yes; Up-to-Date Current Status Communicates: Verbally Primary Language: [place] Preferred Spoken Language: [place] Is interpretation needed?: No Sensory deficits: Vision impairment, Hearing impairment Family Medical History Family Hx: SOCIAL HISTORY: -SMOKED IN PAST--QUIT 40 YEARS AGO -ETOH-DENIES USE -DRUGS--DENIES USE Review of Systems Constitutional: see HPI Focused Exam Lactate Level 05/13/22 19:40: Lactic Acid Level 1.39 Height, Weight, BMI Height: 5'9.00" Weight: 230lbs. oz. 104.626452lt; 35.80 BMI Method:Stated Time of Focused Exam: 19:45 Exam Exam Patient acknowledged, consented, and participated in this virtual visit which was conducted using real time audio/video Vital Signs Date Time Temp Pulse Resp B/P (MAP) Pulse Ox O2 Delivery O2 Flow Rate FiO2 05/14/22 09:00 73 31 124/62 (82) 96 NIV Bilevel 30.00 05/14/22 09:00 NIV Bilevel 30 05/14/22 08:00 77 17 168/68 (101) 94 NIV Bilevel 30.00 05/14/22 07:37 NIV Bilevel 30.00 05/14/22 07:35 30.00 05/14/22 07:29 60 21 93 40.00 05/14/22 07:28 36.1 05/14/22 07:28 69 05/14/22 07:00 73 17 125/59 (81) 97 NIV Bilevel 40.00 05/14/22 06:00 61 19 123/61 (85) 96 NIV Bilevel 40.00 05/14/22 05:00 69 16 120/55 (75) 96 NIV Bilevel 40.00 05/14/22 04:00 NIV Bilevel 40 05/14/22 04:00 76 19 141/65 (101) 96 NIV Bilevel 40.00 05/14/22 03:55 90 27 97 40.00 05/14/22 03:00 84 21 143/77 (96) 93 NIV Bilevel 40.00 05/14/22 02:18 81 18 95 40.00 05/14/22 02:00 80 23 147/75 (101) 93 NIV Bilevel 40.00 05/14/22 01:00 85 18 153/76 (107) 94 NIV Bilevel 40.00 05/14/22 00:00 85 05/14/22 00:00 37.2 05/14/22 00:00 86 26 163/81 (113) 95 NIV Bilevel 40.00 05/13/22 23:59 NIV Bilevel 40 05/13/22 23:45 88 27 167/91 (121) 96 NIV Bilevel 40.00 05/13/22 23:30 85 27 166/87 (120) 96 NIV Bilevel 40.00 05/13/22 23:15 86 13 172/98 (130) 86 NIV Bilevel 40.00 05/13/22 23:00 86 170/93 (125) 96 NIV Bilevel 40.00 05/13/22 22:45 86 29 166/84 (118) 97 NIV Bilevel 40.00 05/13/22 22:45 NIV Bilevel 40 05/13/22 22:30 87 23 169/80 (114) 96 NIV Bilevel 40.00 05/13/22 22:29 36.8 90 83 21 05/13/22 22:15 82 25 167/85 (120) 97 NIV Bilevel 40.00 05/13/22 22:05 84 22 171/83 (124) 96 NIV Bilevel 40.00 05/13/22 22:00 87 25 95 40.00 05/13/22 21:55 88 05/13/22 21:55 72 157/87 97 NIV Bilevel 05/13/22 19:28 79 26 98 40.00 05/13/22 18:45 36.8 90 187/101 (129) 94 Nasal Cannula 5.00 05/13/22 18:45 Nasal Cannula 5.00 05/13/22 18:45 Nasal Cannula 5.00 I & O 05/14/22 07:00 Intake Total 50 ml Output Total 2350 ml Balance -2300 ml Height & Weight Height: 5'9.00" Weight: 230lbs. oz. 104.202260dm; 35.80 BMI Method:Stated General Appearance: No Apparent Distress Respiratory: Other (ON BIPAP, RESPIRATIONS NO LONGER LABORED. INCREASED AERATIN. ) Cardiovascular: Regular Rate, Rhythm, No Murmur Capillary Refill: Less Than 3 Seconds Gastrointestinal: soft; No tenderness; other (OBESE) Results Lab Laboratory Tests 05/13/22 18:50 05/14/22 03:34 Assessment/Plan Assessment/Plan 1 JENNIFER BRADFORD MD May 14, 2022 10:08
[2022-05-14] MEDS: LOSARTAN 50 MG (COZAAR) TAB PO SCH (10:17)
[2022-05-14] MEDS: DOCUSATE SODIUM 100 MG (COLACE) CAP PO SCH ×2 (10:17→21:46)
[2022-05-14] MEDS: ASPIRIN 81 MG CHEW (CHILDREN'S ASA) PO SCH (10:17)
[2022-05-14] MEDS: SENNOSIDES 8.6 MG (SENOKOT) TAB PO SCH ×2 (10:17→21:46)
[2022-05-14] MEDS ORDERED: AMOX1TAB12 PO (10:32)
[2022-05-14] MEDS ORDERED: CALC600T91 PO (10:32)
[2022-05-14] MEDS ORDERED: HYDR25TA4 PO (10:32)
[2022-05-14] MEDS ORDERED: ASPI-1238 PO (10:32)
[2022-05-14] MEDS ORDERED: FINA5TAB6 PO (10:32)
[2022-05-14] MEDS ORDERED: TMSL.4C PO (10:32)
[2022-05-14] MEDS ORDERED: MULT-1136 PO (10:32)
[2022-05-14] MEDS ORDERED: FURO20TA4 PO (10:34)
[2022-05-14] MEDS ORDERED: ACET-2267 PO (10:48)
[2022-05-14] MEDS: guaiFENesin/CODEINE (ROBITUSSIN AC) 10ML UDC PO PRN (21:47)
[2022-05-14 22:54] VITALS: BP 172/97
[2022-05-15] MEDS: MELATONIN 3 MG TABLET PO PRN (00:53)
[2022-05-15 02:32] VITALS: BP 121/106
[2022-05-15] MEDS: RT-ALBUTEROL/IPRATROPIUM 3 ML (DUONEB) VIAL INH SCH ×6 (02:32→22:06)
[2022-05-15] MEDS: guaiFENesin/CODEINE (ROBITUSSIN AC) 10ML UDC PO PRN (03:05)
[2022-05-15] MEDS: LORazepam 0.5 MG (ATIVAN) TABLET PO PRN (03:05)
[2022-05-15] MEDS: CEFEPIME INJECTION 1,000 MG in NS (IVPB) 50 ML IV SCH ×4 (03:05→20:14)
[2022-05-15 03:54] LABS: ABG BASE EXCESS 7.9 MMOL/L (-2.5-2.5); ABG OXYGEN SATURATION 98 % (94-100); ABG PCO2 58 MMHG (35-45); ABG PH 7.38 (7.37-7.43); ABG PO2 107 MMHG (79-93); ABG TCO2 34.9 MMOL/L (21.0-31.0)
[2022-05-15 03:57] LABS: ALLENS TEST YES-POS; INSPIRED O2 40%; PATIENT TEMP 37.2; VENTILATOR NO
[2022-05-15] MEDS ORDERED: morphine INJ 4 MG/ML 1 ML (VIAL/SYRINGE) IVP STA (04:34)
[2022-05-15] MEDS: FUROSEMIDE 40 MG/4 ML INJ (LASIX) IV SCH (04:37)
[2022-05-15 04:50] VITALS: BP 140/77
[2022-05-15 05:27] LABS: BASOPHILS % (AUTO) 0 % (0-10); EOSINOPHILS % (AUTO) 0 % (0-10); HEMATOCRIT 31 % (40-54); HEMOGLOBIN 10.4 g/dL (13.3-17.7); LYMPHOCYTES # (AUTO) 0.2 10^3/uL (1.0-4.0); LYMPHOCYTES % (AUTO) 1 % (12-44); MEAN CORPUSCULAR HEMOGLOBIN 32 pg (25-34); MEAN CORPUSCULAR HGB CONC 33 g/dL (32-36); MEAN CORPUSCULAR VOLUME 95 fL (80-99); MEAN PLATELET VOLUME 9.1 fL (9.0-12.2); MONOCYTES # (AUTO) 0.6 10^3/uL (0.0-1.0); MONOCYTES % (AUTO) 5 % (0-12); NEUTROPHILS % (AUTO) 92 % (42-75); PLATELET COUNT 302 10^3/uL (130-400); WHITE BLOOD COUNT 11.9 10^3/uL (4.3-11.0)
[2022-05-15 06:02] LABS: BILIRUBIN,TOTAL 0.4 MG/DL (0.1-1.0); CALCIUM 8.4 MG/DL (8.5-10.1); CREATININE SERUM 1.4 MG/DL (0.60-1.30); PHOSPHORUS 3.9 MG/DL (2.3-4.7); POTASSIUM 4.2 MMOL/L (3.6-5.0); TOTAL PROTEIN 5.6 GM/DL (6.4-8.2)
[2022-05-15] MEDS: MAGNESIUM 1 GM/100 ML IVPB 100 ML IV SCH (06:10)
[2022-05-15] MEDS: KCL 20 MEQ TAB (K-DUR) PO SCH (06:10)
[2022-05-15] MEDS: POTASSIUM CL 10MEQ/50ML IVPB 50 ML IV SCH (06:10)
[2022-05-15 07:12] VITALS: BP 147/74
--- NOTE | 2022-05-15 08:17 | Diagnostic Imaging Report ---
EXAMINATION: Chest 1 view HISTORY: Heart failure. COMPARISON: 05/14/2022. FINDINGS: Interval improved aeration is seen in the lungs with persistent patchy perihilar opacities. The heart size is stable with decreased central pulmonary vascular congestion. Possible small left pleural effusion. No pneumothorax. IMPRESSION: 1. Improving pulmonary edema. Dictated by: Dictated on workstation # [id number]
[2022-05-15] MEDS: methylPREDNISolone 40 MG/ML (Solu-MEDROL) VIAL IV SCH ×2 (08:27→20:14)
[2022-05-15] MEDS: ENOXAPARIN 120 MG/0.8 ML (LOVENOX) SQ SCH ×2 (08:27→20:14)
--- NOTE | 2022-05-15 10:18 | Tele-ICU Progress Note ---
Subjective Date Seen by a Provider: May 15, 2022 Time Seen by a Provider: 10:18 Subjective/Events-last exam (Tele-ICU Physician , Progress Note ) Service provided via interactive audio and video telecommunications E-CARE system to a patient admitted to ICU bed in [facility]. Patient is seen today due to persistent need of ICU care Available chart/ vitals / labs / Images reviewed Video assessment done using teleICU camera, rest of exam as per RN Discussed with RN Events overnight : was on PRECEDEX at night Afebrile hemodynamically stable Respiratory - 30 % I/O = NEG 3 L Drips: Pressors- no Hospital course: (05/13) 81y M with SOB and bilat leg swelling with cough. Hypoxic in ED. ADMIT for Acute resp failure, CHF, COPD, Possible underlying PNA- on bipap 05/14 BIPAP 16/8 30 % rr 26 TV 500 MV 10 L , will try to NC and PRN BIAPAP, -ECHO- EF 55% , can nor estimate RVSP- MOST OF THE DAY ON VT 30L 40% 05/15 - at night has ? WOB --> Bipap 16/8 30 % rr 20 TV 500 MV 11L , was on P RECEDEX at night A/P Acute restp failure - CHF and possible PNA - at night has ? WOB --> Bipap 16/8 30 % rr 20 TV 500 MV 11L , was on PRECEDEX at night + morphine iv x1 - agressive diuresis with neg volume balance --> cxr is improving - sedated after morphine and precedex , will try VT latter Possible PNA on left - viral panel NEG -empiric abx started 05/13 - to follow CHF - lasix bid - NEG 3L last 24 h , Cr slightly rised 1.4 -ECHO 05/14- EF 55% , can nor estimate RVSP - as per cads Elev trop - as per cards - on lovenox full dose Mild CASSIE - with diuresis AECOPD - steroids IV started 05/13- no wheezing as per RN exan - as per bedside team --ECHO 05/14-, can nor estimate RVSP Leukocytosis - due to steroids most likely Lines : periph , (Central Line Necessity Reviewed) Faria: 05/13 OG: Nutrition: to try 05/14 if tolerated Analgesia: Anxiety/ delirium VTE Prophylaxis: leroy full dose Stress Ulcer Prophylaxis: na Glycemic Control: Plans in collaboration with bedside consultants and IM MDs. Discussed with RN to reach out if any questions or concerns A total of 31 minutes of critical care time was devoted to this patient today, required to treat and/or prevent further deterioration of critical care condition ( as above ) . I am remotely monitoring this patient from another state. I am unable to do the bedside exam, and history/physical and pertinent information is taken from other notes in the computer and bedside staff. . Sepsis Event Evaluation Height, Weight, BMI Height: 5'9.00" Weight: 230lbs. oz. 104.499791pg; 34.79 BMI Method:Stated Focused Exam Lactate Level 05/13/22 19:40: Lactic Acid Level 1.39 Time of Focused Exam: 19:45 Exam Exam Patient acknowledged, consented, and participated in this virtual visit which was conducted using real time audio/video Vital Signs Date Time Temp Pulse Resp B/P (MAP) Pulse Ox O2 Delivery O2 Flow Rate FiO2 05/15/22 09:00 80 27 134/67 (89) 94 NIV Bilevel 30.00 05/15/22 08:08 72 139/79 05/15/22 08:05 93 NIV Bilevel 30 05/15/22 08:00 69 33 139/79 (99) 94 NIV Bilevel 30.00 05/15/22 08:00 70 139/72 05/15/22 07:57 36.2 05/15/22 07:50 70 05/15/22 07:12 64 19 94 30.00 05/15/22 07:00 81 8 147/74 (98) 94 NIV Bilevel 30.00 05/15/22 06:00 69 11 138/72 (94) 94 NIV Bilevel 30.00 05/15/22 05:00 72 19 125/65 (85) 91 NIV Bilevel 30.00 05/15/22 04:50 77 46 93 30.00 05/15/22 04:43 NIV Bilevel 30.00 05/15/22 04:30 83 18 140/77 (101) 98 Vapotherm 40.00 100.00 05/15/22 03:57 95 Vapotherm 40.00 100 05/15/22 03:45 102 36 142/69 (98) 96 Vapotherm 40.00 100.00 05/15/22 03:37 102 157/77 05/15/22 03:11 96 Vapotherm 40.00 100 05/15/22 03:04 37.0 Vapotherm 40.00 100.00 05/15/22 03:00 92 26 157/77 (108) 88 NIV Bilevel 30.00 05/15/22 02:32 71 27 95 30.00 05/15/22 02:00 74 121/106 (109) 95 NIV Bilevel 30.00 05/15/22 01:00 74 05/15/22 01:00 74 21 129/64 (93) 94 NIV Bilevel 30.00 05/15/22 00:46 92 NIV Bilevel 30 05/15/22 00:00 75 29 128/64 (84) 93 NIV Bilevel 30.00 05/14/22 23:02 36.8 NIV Bilevel 30.00 05/14/22 23:00 85 22 148/84 (116) 94 NIV Bilevel 30.00 05/14/22 22:58 NIV Bilevel 30.00 05/14/22 22:54 89 22 95 30.00 05/14/22 22:00 96 172/97 (145) 92 Vapotherm 30.00 50.00 05/14/22 21:57 93 Vapotherm 30.00 50 05/14/22 21:00 91 33 161/82 (112) 92 Vapotherm 30.00 50.00 05/14/22 20:38 37.0 Vapotherm 30.00 50.00 05/14/22 20:34 94 Vapotherm 30.00 50 05/14/22 20:00 93 17 159/75 (110) 93 Vapotherm 30.00 40.00 05/14/22 19:06 94 Vapotherm 30.00 50 05/14/22 19:00 90 30 132/37 (75) 90 Vapotherm 30.00 40.00 05/14/22 19:00 90 05/14/22 18:00 105 17 176/86 (116) 93 Vapotherm 30.00 40.00 05/14/22 17:00 86 32 153/78 (103) 94 Vapotherm 30.00 40.00 05/14/22 16:20 95 Vapotherm 30.00 50 05/14/22 16:08 96 Vapotherm 30.00 50 05/14/22 16:00 80 36 151/96 (114) 93 Vapotherm 30.00 40.00 05/14/22 16:00 36.8 05/14/22 15:00 86 17 156/82 (106) 93 Vapotherm 30.00 40.00 05/14/22 14:00 87 22 130/74 (92) 92 Vapotherm 30.00 40.00 05/14/22 13:00 87 28 150/79 (102) 93 Vapotherm 30.00 40.00 05/14/22 12:19 90 05/14/22 12:00 85 37 143/86 (105) 88 Vapotherm 30.00 40.00 05/14/22 12:00 35.4 05/14/22 11:41 Vapotherm 30.00 40 05/14/22 11:00 83 13 134/63 (86) 89 Vapotherm 30.00 40.00 05/14/22 10:34 94 Vapotherm 30.00 40 I & O 05/15/22 07:00 Intake Total 1030 ml Output Total 3825 ml Balance -2795 ml Height & Weight Height: 5'9.00" Weight: 230lbs. oz. 104.972914oh; 34.79 BMI Method:Stated General Appearance: Anxious, Chronically ill, Mild Distress, Obese, Other (on bipap) HEENT: PERRL/EOMI, TMs Normal, Normal ENT Inspection, Pharynx Normal, Moist Mucous Membranes Neck: Full Range of Motion, Normal Inspection, Non Tender Respiratory: Chest Non Tender, No Respiratory Distress, Accessory Muscle Use, Crackles, Decreased Breath Sounds, Wheezing Cardiovascular: Regular Rate, Rhythm, No Edema, No Gallop, No JVD, No Murmur, Normal Peripheral Pulses Capillary Refill: Greater Than 3 Seconds Gastrointestinal: soft; No tenderness; other (OBESE) Extremity: Normal Capillary Refill, Normal Inspection, Normal Range of Motion, Non Tender, No Calf Tenderness, No Pedal Edema Neurologic/Psychiatric: Alert, Oriented x3, No Motor/Sensory Deficits, awning erector II- XII Norm as Tested, Depressed Affect Skin: Normal Color, Warm/Dry Lymphatic: No Adenopathy Results Lab Laboratory Tests 05/13/22 18:50 05/14/22 03:34 05/15/22 04:37 Assessment/Plan Assessment/Plan 1 JENNIFER BRADFORD MD May 15, 2022 10:18
--- NOTE | 2022-05-15 10:26 | Progress Note - Cardiology ---
Cardiology SOAP Progress Note Subjective: On Bi-pap at this time Unable to answer any questions Spouse at the bedside Objective: I&O/Vital Signs 05/16/22 05/16/22 05/16/22 05/16/22 01:00 01:00 02:00 02:41 Pulse 74 74 72 70 Resp 14 11 18 B/P (MAP) 158/90 (119) 168/91 (119) Pulse Ox 95 95 97 O2 Delivery NIV Bilevel NIV Bilevel O2 Flow Rate 40.00 40.00 40.00 05/16/22 05/16/22 05/16/22 05/16/22 03:00 03:00 04:00 04:49 Temp 37.0 Pulse 70 72 Resp 18 15 B/P (MAP) 164/81 (124) 158/80 (114) Pulse Ox 99 95 97 O2 Delivery NIV Bilevel NIV Bilevel NIV Bilevel NIV Bilevel O2 Flow Rate 40.00 40.00 40.00 FiO2 30 05/16/22 05/16/22 05/16/22 05/16/22 04:50 05:00 06:00 06:45 Pulse 69 65 58 Resp 19 17 23 B/P (MAP) 152/81 (121) 144/76 (117) Pulse Ox 94 93 94 O2 Delivery NIV Bilevel NIV Bilevel NIV Bilevel O2 Flow Rate 30.00 30.00 30.00 30.00 05/16/22 05/16/22 05/16/22 05/16/22 07:00 07:21 08:00 08:10 Temp 36.2 Pulse 63 60 79 Resp 19 18 B/P (MAP) 133/82 (99) 135/73 (93) Pulse Ox 94 95 O2 Delivery NIV Bilevel NIV Bilevel O2 Flow Rate 30.00 30.00 05/16/22 05/16/22 05/16/22 05/16/22 08:10 08:27 09:00 09:57 Pulse 84 Resp 27 B/P (MAP) 144/74 (97) Pulse Ox 92 94 O2 Delivery NIV Bilevel Vapotherm Vapotherm Vapotherm O2 Flow Rate 30.00 30.00 20.00 50.00 50.00 FiO2 30 45 05/16/22 05/16/22 10:00 10:19 Pulse 81 Resp 38 B/P (MAP) 155/78 (103) Pulse Ox 94 O2 Delivery Vapotherm Vapotherm O2 Flow Rate 30.00 20.00 50.00 45.00 05/16/22 00:00 Intake Total 800 ml Output Total 950 ml Balance -150 ml Weight (Pounds): 230 Weight (Calculated Kilograms): 104.444489 Constitutional: well-developed, well-nourished, other (on bi-pap - lethargic) Respiratory: No accessory muscle use, No respiratory distress; chest expansion is symmetric, chest is bilaterally symmetric, other (diminished bases bilat) Cardiovascular: regular rate-rhythm; No JVD; S1 and S2 Gastrointestional: soft, round; No guarding; audible bowel sounds Extremities: no lower extremity edema bilateral Neurologic/Psychiatric: grossly intact (moves all extremities) Skin: normal color, warm/dry; No rash on exposed areas, No ulcerations on exposed areas Results/Procedures: Labs Laboratory Tests 05/16/22 04:37: White Blood Count 11.9H, Red Blood Count 3.53L, Hemoglobin 11.0L, Hematocrit 33L , Mean Corpuscular Volume 94, Mean Corpuscular Hemoglobin 31, Mean Corpuscular Hemoglobin Concent 33, Red Cell Distribution Width 13.2, Platelet Count 289, Mean Platelet Volume 9.1, Immature Granulocyte % (Auto) 0, Neutrophils (%) (Auto) 91H, Lymphocytes (%) (Auto) 2L, Monocytes (%) (Auto) 7, Eosinophils (%) (Auto) 0, Basophils (%) (Auto) 0, Neutrophils # (Auto) 10.8H, Lymphocytes # (Auto) 0.3L, Monocytes # (Auto) 0.8, Eosinophils # (Auto) 0.0, Basophils # (Auto) 0.0, Immature Granulocyte # (Auto) 0.1, Sodium Level 138, Potassium Level 4.5, Chloride Level 97L, Carbon Dioxide Level 30, Anion Gap 11, Blood Urea Nitrogen 39H, Creatinine 1.40H, Estimat Glomerular Filtration Rate 50, BUN/Creatinine Ratio 28, Glucose Level 155H, Calcium Level 8.5, Corrected Calcium 9.2, Phosphorus Level 4.1, Magnesium Level 2.4, Total Bilirubin 0.5, Aspartate Amino Transf (AST/SGOT) 18, Alanine Aminotransferase (ALT/SGPT) 17, Alkaline Phosphatase 74, Total Protein 5.5L, Albumin 3.1L 05/16/22 05:50: Blood Gas Puncture Site L RAD, Blood Gas Patient Temperature 37.2, Arterial Blood pH 7.40, Arterial Blood Partial Pressure CO2 61H, Arterial Blood Partial Pressure O2 84, Arterial Blood HCO3 37H, Arterial Blood Total CO2 38.4H, Arterial Blood Oxygen Saturation 97, Arterial Blood Base Excess 11.3H, Heriberto Test YES-POS, Blood Gas Ventilator Setting NO, Blood Gas Inspired Oxygen 40% Microbiology 05/14/22 Gram Stain - Final, Complete 05/14/22 Sputum Culture - Final, Complete Usual upper respiratory hiram 05/13/22 Urine Culture - Final, Complete NO GROWTH 05/13/22 Blood Culture - Preliminary, Resulted No growth Procedures NAME: STACY HOWE [facility] REC#: [id number] PT STATUS: ADM IN : 1940 PHYSICIAN: ANDRÉS MAURO DO ADMIT DATE: 05/13/22/ICU Signed Date of Exam:05/15/22 CHEST 1 VIEW, AP/PA ONLY EXAMINATION: Chest 1 view HISTORY: Heart failure. COMPARISON: 05/14/2022. FINDINGS: Interval improved aeration is seen in the lungs with persistent patchy perihilar opacities. The heart size is stable with decreased central pulmonary vascular congestion. Possible small left pleural effusion. No pneumothorax. IMPRESSION: 1. Improving pulmonary edema. Dictated by: Dictated on workstation # [id number] Dict: 05/15/22811 Trans: 05/15/22818 [facility] [id number] Interpreted by: SANDOR OAKES DO Electronically signed by: SANDOR OAKES DO 05/15/22818 A/P: Assessment: Acute resp failure - management per medical services - ?acute on chronic exacerbation of COPD Newly dx CHF - elevated BNP on 05-13-22 Minimally elevated troponin -likely Type 2 NE secondary to hypoxia at time of ED presentation HTN HLD reports h/o CVA in 2016 - peripheral vision affected bilat per - details unknown - ASA tx at home H/O colon cancer - hemicolectomy in 2010 at [facility] BPH Dementia H/O tobacco use - quit 40 yrs ago per spouse Allergies: Norvasc, Lisinopril, Atenolol Plan: Acute resp failure - ? acute on chronic exacerbation of COPD and/or URI - management per medical services Acute diastolic CHF - renal function worsening likely d/t intravascular vol depletion d/t aggressive diuresis - reduce diuretics Monitor lab closely Replace electrolytes as indicated MYLA URIAS [facility] May 15, 2022 10:26
[2022-05-15 10:29] VITALS: BP 147/74
--- NOTE | 2022-05-15 10:46 | Progress Note - Hospitalist ---
"BHANU SUN 05/15/22 1046: Subjective HPI/CC On Admission Date Seen by Provider: May 15, 2022 Time Seen by Provider: 08:20 CC: Acute hypercapneic respiratory failure with CHF HPI: This is an 81yoWM clinic patient of [facility] who presented to the ER with dyspnea. He had been placed on 2 rounds of abx recently for pneumonia but when he presented to the ER he was found to have CO2 retention along with volume overload with CHF. Cardiology consulted. IV Lasix has helped a lot and he remains on biPAP. Family at bedside. No pain. Subjective/Events-last exam Patient was lying in bed sleeping with BiPAP settings 18|6, FiO2 30%, and rate 16. Patient has a history of dementia and was more confused and anxious overnight requiring him to be started on precedex. When seen this morning his precedex was at 0.6 and patient was minimally able to be aroused. He has a horner catheter in place with clear yellow urine. Of note, his Cr is elevated to 1.4 today from 0.88 on 05/13. He has been receiving lasix. Review of Systems ROS unable to be obtained due to Sedation with precedex Focused Exam Lactate Level 05/13/22 19:40: Lactic Acid Level 1.39 Time of Focused Exam: 19:45 Objective Exam Vital Signs Vital Signs Date Time Temp Pulse Resp B/P (MAP) Pulse Ox O2 Delivery O2 Flow Rate FiO2 05/15/22 10:29 66 19 95 30.00 05/15/22 09:00 134/67 (89) NIV Bilevel 05/15/22 08:05 30 05/15/22 07:57 36.2 Capillary Refill : Greater Than 3 Seconds General Appearance: No Apparent Distress, WD/WN, Other (sedated breathing well on BiPAP) Neck: Supple Respiratory: Lungs Clear; No No Respiratory Distress; Decreased Breath Sounds (bases bilaterally), Wheezing (mild in NII) Cardiovascular: Regular Rate, Rhythm, No Murmur, Normal Peripheral Pulses Gastrointestinal: Normal Bowel Sounds, Non Tender, Soft Extremity: Normal Capillary Refill, Non Tender, No Calf Tenderness, No Pedal Edema Neurologic/Psychiatric: Other (Patient was sedated on precedex and minimally able to be aroused) Skin: Normal Color, Warm/Dry Lymphatic: No Adenopathy Results/Procedures Lab Laboratory Tests 05/15/22 04:37 Patient resulted labs reviewed. Radiology NAME: STACY HOWE [facility] REC#: [id number] PT STATUS: ADM IN : 1940 PHYSICIAN: TAMMY MAURO DO ADMIT DATE: 05/13/22/ICU Signed Date of Exam:05/15/22 CHEST 1 VIEW, AP/PA ONLY EXAMINATION: Chest 1 view HISTORY: Heart failure. COMPARISON: 05/14/2022. FINDINGS: Interval improved aeration is seen in the lungs with persistent patchy perihilar opacities. The heart size is stable with decreased central pulmonary vascular congestion. Possible small left pleural effusion. No pneumothorax. IMPRESSION: 1. Improving pulmonary edema. Dictated by: Dictated on workstation # [id number] Dict: 05/15/22811 Trans: 05/15/22818 [facility] [id number] Interpreted by: SANDOR OAKES DO Electronically signed by: SANDOR OAKES DO 05/15/22818 Assessment/Plan Assessment and Plan Assess & Plan/Chief Complaint Acute on chronic Hypercapnic RF -compensated respiratory acidosis on ABG mostly unchagned from prior ABG. -Continue solu-medrol, nebulizer therapy, and BiPAP. Ween precedex and BiPAP as tolerated. -CXR 05/15 showed improving pulmonary vascular congestion and left pleural effusion (small) Possible PNA -initial CXR showed possible left sided pneumonia. Started on Cefepime. Will continue until respiratory status improves. Acute CHF -BNP 361.4 on admission. Was started on Lasix 40mg IV BID. Pulm congestion improving on CXR. -LVEF 50-55% on echo. -Cardiology consulted and managing Mild Troponin elevation Trended down. Started on therapeutic lovenox 110mg BID SQ. Cardiology consulted. CASSIE Cr today of 1.4, up from 0.88 on 05/13. Likely second do lasix. Will monitor closely and adjust lasix if needed. TAMMY MAURO DO 05/16/22 0453: Supervisory-Addendum Brief Verification & Attestation Participated in pt care: history, MDM, physical Personally performed: exam, history, MDM, supervision of care Care discussed with: Medical Student Procedures: n/a Results interpretation: Verified all documentation Verification and Attestation of Medical Student E/M Service A medical student performed and documented this service in my presence. I reviewed and verified all information documented by the medical student and made modifications to such information, when appropriate. I personally performed the physical exam and medical decision making. Tammy Mauro, May 16, 2022,04:53 BHANU SUN May 15, 2022 10:46 TAMMY MAURO DO May 16, 2022 04:53"
[2022-05-15] MEDS: DOCUSATE SODIUM 100 MG (COLACE) CAP PO SCH ×2 (13:01→20:14)
[2022-05-15] MEDS: LOSARTAN 50 MG (COZAAR) TAB PO SCH (13:01)
[2022-05-15] MEDS: ASPIRIN 81 MG CHEW (CHILDREN'S ASA) PO SCH (13:01)
[2022-05-15] MEDS: SENNOSIDES 8.6 MG (SENOKOT) TAB PO SCH ×2 (13:01→20:14)
--- NOTE | 2022-05-15 19:17 | Physician Query Clarification ---
Physician Query-General Query to Physician: The medical record reflects the following clinical scenario: The medical record reflects the following clinical evidence: Clinical Indicators: troponin I 0.044, then 0.039, SOA with Labored breathing, EKG SR with LBBB, Risk Factor(s): Acute Hypoxic Respiratory with CHF and possible PNA Treatment: Started on therapeutic lovenox 110mg BID SQ. Cardiology consulted. Bipap and supplemental 02 for hypoxia, Lasix IV for CHF Question: Do you agree with the impression of likely Type [address] Eugene Blanton? Yes; will document Type 2 UT, in the setting of CHF and possible PNA, present on admission in the Progress Notes No; will continue current documentation in the Progress Notes Other; will document explanation of clinical findings Clinically undetermined; no explanation for clinical findings Please clarify and document your clinical opinion in the Progress Notes and Discharge Summary including the definitive and/or presumptive diagnosis, (suspected or probable), related to the above clinical findings. Please include clinical findings supporting your diagnosis. In responding to this query, please exercise your independent professional judgment. The purpose of this communication is to more accurately reflect the complexity of your patients condition. The fact that a question is asked does not imply that any particular answer is desired or expected. Robi Sotelo, MSN, RN Clinical Metal Furniture Repairer [phone] [email or web address] PHYSICIAN RESPONSE: Based on the clinical findings in the record, please respond to the query above on this document as an addendum. Physician Response: Physician Response yes If you have questions please contact: Cafeteria Operator: Ext: Thank you for your time and cooperation. Clinical Metal Furniture Repairer/Cafeteria Operator This is a permanent part of the medical record ROBI SOTELO May 15, 2022 19:17 ANDRÉS MAURO DO May 15, 2022 19:56
--- NOTE | 2022-05-15 21:19 | Progress Note - Cardiology ---
Cardiology SOAP Progress Note Subjective: No cp Shortness of breath is better No palp or syncope No n/v/d No focal weakness Has some gen weakness Objective: I&O/Vital Signs 05/15/22 05/15/22 05/15/22 05/15/22 10:00 10:29 11:00 12:00 Pulse 65 66 68 63 Resp 23 19 21 19 B/P (MAP) 138/75 (96) 141/71 (94) 129/63 (85) Pulse Ox 95 95 95 94 O2 Delivery NIV Bilevel NIV Bilevel NIV Bilevel O2 Flow Rate 30.00 30.00 30.00 30.00 05/15/22 05/15/22 05/15/22 05/15/22 12:00 12:06 12:29 12:55 Temp 36.1 Pulse 72 Pulse Ox 98 100 O2 Delivery NIV Bilevel Vapotherm O2 Flow Rate 40.00 100.00 FiO2 30 05/15/22 05/15/22 05/15/22 05/15/22 13:00 13:03 13:07 13:10 Pulse 76 Resp 24 B/P (MAP) 147/93 (111) Pulse Ox 100 99 98 96 O2 Delivery Vapotherm Vapotherm Vapotherm Vapotherm O2 Flow Rate 40.00 30.00 30.00 30.00 100.00 100.00 80.00 50.00 05/15/22 05/15/22 05/15/22 05/15/22 13:12 14:00 14:39 15:00 Pulse 85 77 Resp 28 27 B/P (MAP) 147/73 (97) 144/69 (94) Pulse Ox 100 95 98 96 O2 Delivery Vapotherm Vapotherm Vapotherm Vapotherm O2 Flow Rate 25.00 25.00 25.00 25.00 50.00 50.00 50.00 FiO2 50 05/15/22 05/15/22 05/15/22 05/15/22 15:13 16:00 16:00 17:00 Pulse 85 81 Resp 24 21 B/P (MAP) 145/70 (95) 146/73 (97) Pulse Ox 95 92 93 O2 Delivery Vapotherm Vapotherm Vapotherm Vapotherm O2 Flow Rate 25.00 25.00 25.00 25.00 40.00 40.00 40.00 FiO2 50 4/06/0305/15/22 05/15/22 05/15/22 18:00 18:50 19:46 20:22 Temp 36.8 Pulse 86 Resp 20 B/P (MAP) 154/77 (102) Pulse Ox 93 94 O2 Delivery Vapotherm Vapotherm Vapotherm O2 Flow Rate 25.00 25.00 25.00 40.00 40.00 FiO2 50 05/15/22 20:42 Pulse Ox 94 O2 Delivery Vapotherm O2 Flow Rate 25.00 FiO2 50 05/15/22 00:00 Intake Total 860 ml Output Total 950 ml Balance -90 ml Weight (Pounds): 230 Weight (Calculated Kilograms): 104.911688 Constitutional: well-developed, well-nourished, other (mildly confused) Respiratory: No accessory muscle use, No respiratory distress; chest expansion is symmetric, chest is bilaterally symmetric, other (diminished bases bilat) Cardiovascular: regular rate-rhythm; No JVD; S1 and S2 Gastrointestional: soft, round; No guarding; audible bowel sounds Extremities: no lower extremity edema bilateral Neurologic/Psychiatric: grossly intact (moves all extremities) Skin: normal color, warm/dry; No rash on exposed areas, No ulcerations on exposed areas Results/Procedures: Labs Laboratory Tests 05/15/22 03:45: Blood Gas Puncture Site L RAD, Blood Gas Patient Temperature 37.2, Arterial Blood pH 7.38, Arterial Blood Partial Pressure CO2 58H, Arterial Blood Partial Pressure O2 107H, Arterial Blood HCO3 33H, Arterial Blood Total CO2 34.9H, Arterial Blood Oxygen Saturation 98, Arterial Blood Base Excess 7.9H, Heriberto Test YES-POS, Blood Gas Ventilator Setting NO, Blood Gas Inspired Oxygen 40% 05/15/22 04:37: White Blood Count 11.9H, Red Blood Count 3.30L, Hemoglobin 10.4L, Hematocrit 31L , Mean Corpuscular Volume 95, Mean Corpuscular Hemoglobin 32, Mean Corpuscular Hemoglobin Concent 33, Red Cell Distribution Width 13.0, Platelet Count 302, Mean Platelet Volume 9.1, Immature Granulocyte % (Auto) 1, Neutrophils (%) (Auto) 92H, Lymphocytes (%) (Auto) 1L, Monocytes (%) (Auto) 5, Eosinophils (%) (Auto) 0, Basophils (%) (Auto) 0, Neutrophils # (Auto) 11.0H, Lymphocytes # (Auto) 0.2L, Monocytes # (Auto) 0.6, Eosinophils # (Auto) 0.0, Basophils # (Auto) 0.0, Immature Granulocyte # (Auto) 0.1, Sodium Level 137, Potassium Level 4.2, Chloride Level 98, Carbon Dioxide Level 27, Anion Gap 12, Blood Urea Nitrogen 30H, Creatinine 1.40H, Estimat Glomerular Filtration Rate 50, BUN/Creatinine Ratio 21, Glucose Level 161H, Calcium Level 8.4L, Corrected Calcium 9.2, Phosphorus Level 3.9, Magnesium Level 2.0, Total Bilirubin 0.4, Aspartate Amino Transf (AST/SGOT) 18, Alanine Aminotransferase (ALT/SGPT) 16, Alkaline Phosphatase 74, Total Protein 5.6L, Albumin 3.0L Microbiology 05/14/22 Gram Stain, Resulted Pending 05/14/22 Sputum Culture - Preliminary, Resulted Usual upper respiratory hiram 05/13/22 Urine Culture - Final, Complete NO GROWTH 05/13/22 Blood Culture - Preliminary, Resulted No growth Laboratory Tests 05/14/22 03:34 05/15/22 04:37 A/P: Assessment: Acute resp failure - management per medical services - ?acute on chronic exacerbation of COPD Newly dx CHF - elevated BNP on 05-13-22 Acute renal insufficiency on the labs of 05-15-22, likely due to diuretic therapy (vol depletion) Minimally elevated troponin -likely Type 2 MT secondary to hypoxia at time of ED presentation HTN HLD reports h/o CVA in 2016 - peripheral vision affected bilat per - details unknown - ASA tx at home H/O colon cancer - hemicolectomy in 2010 at [facility] BPH Dementia H/O tobacco use - quit 40 yrs ago per spouse Allergies: Norvasc, Lisinopril, Atenolol Plan: Acute resp failure - ? acute on chronic exacerbation of COPD and/or URI - management per medical services Acute diastolic CHF - renal function worsening likely d/t intravascular vol depletion d/t aggressive diuresis - reduce diuretics Monitor lab closely Replace electrolytes as indicated SHIRLEY ARREDONDO MD FACP FAC CCDS May 15, 2022 21:19
[2022-05-15 22:07] VITALS: BP 190/97
[2022-05-16 02:41] VITALS: BP 165/93
[2022-05-16] MEDS: RT-ALBUTEROL/IPRATROPIUM 3 ML (DUONEB) VIAL INH SCH ×6 (02:41→23:34)
[2022-05-16] MEDS: CEFEPIME INJECTION 1,000 MG in NS (IVPB) 50 ML IV SCH ×4 (04:45→21:54)
[2022-05-16 05:08] LABS: BASOPHILS % (AUTO) 0 % (0-10); EOSINOPHILS % (AUTO) 0 % (0-10); HEMATOCRIT 33 % (40-54); LYMPHOCYTES # (AUTO) 0.3 10^3/uL (1.0-4.0); LYMPHOCYTES % (AUTO) 2 % (12-44); MEAN CORPUSCULAR HEMOGLOBIN 31 pg (25-34); MEAN CORPUSCULAR HGB CONC 33 g/dL (32-36); MEAN CORPUSCULAR VOLUME 94 fL (80-99); MEAN PLATELET VOLUME 9.1 fL (9.0-12.2); MONOCYTES # (AUTO) 0.8 10^3/uL (0.0-1.0); MONOCYTES % (AUTO) 7 % (0-12); NEUTROPHILS # (AUTO) 10.8 10^3/uL (1.8-7.8); NEUTROPHILS % (AUTO) 91 % (42-75); PLATELET COUNT 289 10^3/uL (130-400); WHITE BLOOD COUNT 11.9 10^3/uL (4.3-11.0)
[2022-05-16 05:33] LABS: ALBUMIN 3.1 GM/DL (3.2-4.5); POTASSIUM 4.5 MMOL/L (3.6-5.0)
[2022-05-16 05:34] LABS: CALCIUM 8.5 MG/DL (8.5-10.1)
[2022-05-16 05:36] LABS: TOTAL PROTEIN 5.5 GM/DL (6.4-8.2)
[2022-05-16 05:37] LABS: BILIRUBIN,TOTAL 0.5 MG/DL (0.1-1.0)
[2022-05-16] MEDS: KCL 20 MEQ TAB (K-DUR) PO SCH (05:37)
[2022-05-16] MEDS: POTASSIUM CL 10MEQ/50ML IVPB 50 ML IV SCH (05:37)
[2022-05-16 05:39] LABS: CREATININE SERUM 1.4 MG/DL (0.60-1.30); PHOSPHORUS 4.1 MG/DL (2.3-4.7)
[2022-05-16 05:42] LABS: MAGNESIUM 2.4 MG/DL (1.6-2.4)
[2022-05-16] MEDS: MAGNESIUM 1 GM/100 ML IVPB 100 ML IV SCH (05:45)
[2022-05-16 06:00] LABS: ABG BASE EXCESS 11.3 MMOL/L (-2.5-2.5); ABG OXYGEN SATURATION 97 % (94-100); ABG PCO2 61 MMHG (35-45); ABG PO2 84 MMHG (79-93); ABG TCO2 38.4 MMOL/L (21.0-31.0)
[2022-05-16 06:09] LABS: ALLENS TEST YES-POS
[2022-05-16 06:10] LABS: INSPIRED O2 40%; PATIENT TEMP 37.2; VENTILATOR NO
[2022-05-16 06:45] VITALS: BP 153/97
--- NOTE | 2022-05-16 08:59 | Diagnostic Imaging Report ---
INDICATION: Congestive heart failure COMPARISON: 05/15/2022 TECHNIQUE: Single radiograph of the chest dated 05/16/2022. FINDINGS: The cardiac silhouette is enlarged, though stable. Central pulmonary vascular congestion is again identified, similar to the prior examination. Bilateral interstitial opacities are again noted, similar to the prior examination. Tiny left pleural effusion. No significant right pleural effusion. Rounded nodular density is noted within the left lung base measuring 3.6 cm. No pneumothorax. No acute osseous abnormality. IMPRESSION: Constellation of findings is felt to relate to congestive heart failure with mild interstitial edema and tiny left pleural effusion, appearing similar to the prior examination. Rounded density within the left lung base, which could relate to pleural fluid within the fissure. However, radiographic follow-up is recommended to ensure resolution. If this does not resolve over the next week, then a dedicated CT of the chest would be recommended for further evaluation as true mass lesion would need to be excluded. Dictated by: Dictated on workstation # [id number]
[2022-05-16] MEDS ORDERED: FUROSEMIDE 40 MG/4 ML INJ (LASIX) IV SCH (09:00)
--- NOTE | 2022-05-16 09:04 | Tele-ICU Progress Note ---
Subjective Date Seen by a Provider: May 16, 2022 Subjective/Events-last exam This virtual visit was conducted using real time audio/video. Thank you for asking us to see this patient for respiratory insufficiency due to AECOPD/CHF, NSTEMI, possible pna. Recent events: none overnight. PE: Appears comfortable on BiPAP. VSS. O2 sat 94% on BiPAP 16/8, 30%. HEENT: No obvious masses, adenopathy or JVD. Chest: wheezes on auscultation. CV: RRR S1 S2 No murmur or added sounds. Abd: Non-tender. Bowel sounds Y. : Unremarkable. Faria Y. PADDED PRODUCTS INSPECTOR TRIMMER/psychiatric: Grossly intact. No obvious focal findings. Extremities: trace edema. Capillary refill < 3 seconds. Skin: unremarkable. Results: Elevated WCC 11.9, BUN 39, Creat1.4, BG 155. Decreased Hb 11.0. AB.4/61/84 on 40%. CXR: B infilts, L pleural effusion. Available chart/ vitals / labs / images reviewed. Video assessment done using teleICU camera, rest of exam as per RN. A/P: Respiratory insufficiency: Continue present management with VT/BiPAP, PRN Prec., Duonebs, medrol. Monitor for increasing oxygenation needs and/or need for intubation. Critical Care: critically ill patient. Cont. abx, lasix, leroy., ASA, Cozaar, clon. Discussed with RN Mahogany. Asked RN to reach out to eICU if any questions or concerns later. Time spent with patient/coordination of care with other health professionals (mins): 18 Sepsis Event Evaluation Height, Weight, BMI Height: 5'9.00" Weight: 230lbs. oz. 104.233862te; 34.85 BMI Method:Stated Focused Exam Lactate Level 05/13/22 19:40: Lactic Acid Level 1.39 Time of Focused Exam: 19:45 Exam Exam Patient acknowledged, consented, and participated in this virtual visit which was conducted using real time audio/video Vital Signs Date Time Temp Pulse Resp B/P (MAP) Pulse Ox O2 Delivery O2 Flow Rate FiO2 05/16/22 08:27 Vapotherm 30.00 50.00 05/16/22 08:00 79 18 135/73 (93) 95 NIV Bilevel 30.00 05/16/22 07:21 60 05/16/22 07:00 63 19 133/82 (99) 94 NIV Bilevel 30.00 05/16/22 06:45 58 23 94 30.00 05/16/22 06:00 65 17 144/76 (117) 93 NIV Bilevel 30.00 05/16/22 05:00 69 19 152/81 (121) 94 NIV Bilevel 30.00 05/16/22 04:50 NIV Bilevel 30.00 05/16/22 04:49 97 NIV Bilevel 30 05/16/22 04:00 72 15 158/80 (114) 95 NIV Bilevel 40.00 05/16/22 03:00 70 18 164/81 (124) 99 NIV Bilevel 40.00 05/16/22 03:00 37.0 NIV Bilevel 40.00 05/16/22 02:41 70 18 97 40.00 05/16/22 02:00 72 11 168/91 (119) 95 NIV Bilevel 40.00 05/16/22 01:00 74 05/16/22 01:00 74 14 158/90 (119) 95 NIV Bilevel 40.00 05/16/22 00:00 95 NIV Bilevel 40 05/16/22 00:00 84 24 162/89 (126) 95 NIV Bilevel 40.00 05/15/22 23:24 36.8 NIV Bilevel 40.00 05/15/22 23:00 79 23 138/69 (99) 89 NIV Bilevel 40.00 05/15/22 22:39 NIV Bilevel 40.00 05/15/22 22:30 88 18 148/71 (104) 90 NIV Bilevel 30.00 05/15/22 22:15 99 18 173/85 (115) 94 NIV Bilevel 30.00 05/15/22 22:07 101 26 91 30.00 05/15/22 22:07 NIV Bilevel 30.00 05/15/22 22:00 113 190/97 (130) 85 Vapotherm 25.00 40.00 05/15/22 21:00 90 32 157/80 (104) 89 Vapotherm 25.00 40.00 05/15/22 20:42 94 Vapotherm 25.00 50 05/15/22 20:22 Vapotherm 25.00 40.00 05/15/22 20:00 87 153/73 (92) 93 Vapotherm 25.00 40.00 05/15/22 19:46 36.8 05/15/22 19:00 88 05/15/22 19:00 92 30 151/77 (108) 92 Vapotherm 25.00 40.00 05/15/22 18:50 94 Vapotherm 25.00 50 05/15/22 18:00 86 20 154/77 (102) 93 Vapotherm 25.00 40.00 05/15/22 17:00 81 21 146/73 (97) 93 Vapotherm 25.00 40.00 05/15/22 16:00 85 24 145/70 (95) 92 Vapotherm 25.00 40.00 05/15/22 16:00 95 Vapotherm 25.00 50 05/15/22 15:13 Vapotherm 25.00 40.00 05/15/22 15:00 77 27 144/69 (94) 96 Vapotherm 25.00 50.00 05/15/22 14:39 98 Vapotherm 25.00 50 05/15/22 14:00 85 28 147/73 (97) 95 Vapotherm 25.00 50.00 05/15/22 13:12 100 Vapotherm 25.00 50.00 05/15/22 13:10 96 Vapotherm 30.00 50.00 05/15/22 13:07 98 Vapotherm 30.00 80.00 05/15/22 13:03 99 Vapotherm 30.00 100.00 05/15/22 13:00 76 24 147/93 (111) 100 Vapotherm 40.00 100.00 05/15/22 12:55 100 Vapotherm 40.00 100.00 05/15/22 12:29 72 05/15/22 12:06 36.1 05/15/22 12:00 98 NIV Bilevel 30 05/15/22 12:00 63 19 129/63 (85) 94 NIV Bilevel 30.00 05/15/22 11:00 68 21 141/71 (94) 95 NIV Bilevel 30.00 05/15/22 10:29 66 19 95 30.00 05/15/22 10:00 65 23 138/75 (96) 95 NIV Bilevel 30.00 05/15/22 09:00 80 27 134/67 (89) 94 NIV Bilevel 30.00 I & O 05/16/22 07:00 Intake Total 970 ml Output Total 1400 ml Balance -430 ml Height & Weight Height: 5'9.00" Weight: 230lbs. oz. 104.141631al; 34.85 BMI Method:Stated General Appearance: No Apparent Distress, WD/WN, Other (sedated breathing well on BiPAP) HEENT: PERRL/EOMI, TMs Normal, Normal ENT Inspection, Pharynx Normal, Moist Mucous Membranes Neck: Supple Respiratory: Lungs Clear; No No Respiratory Distress; Decreased Breath Sounds (bases bilaterally), Wheezing (mild in NII) Cardiovascular: Regular Rate, Rhythm, No Murmur, Normal Peripheral Pulses Capillary Refill: Greater Than 3 Seconds Gastrointestinal: soft; No tenderness; other (OBESE) Extremity: Normal Capillary Refill, Non Tender, No Calf Tenderness, No Pedal Edema Neurologic/Psychiatric: Other (Patient was sedated on precedex and minimally able to be aroused) Skin: Normal Color, Warm/Dry Lymphatic: No Adenopathy Results Lab Laboratory Tests 05/15/22 04:37 05/16/22 04:37 Assessment/Plan Assessment/Plan See free text Critical Care: Critically Ill Patient SMITHA LOUISE MD May 16, 2022 09:04
[2022-05-16] MEDS: ENOXAPARIN 120 MG/0.8 ML (LOVENOX) SQ SCH (09:26)
[2022-05-16] MEDS: SENNOSIDES 8.6 MG (SENOKOT) TAB PO SCH ×2 (09:27→20:20)
[2022-05-16] MEDS: ASPIRIN 81 MG CHEW (CHILDREN'S ASA) PO SCH (09:27)
[2022-05-16] MEDS: LOSARTAN 50 MG (COZAAR) TAB PO SCH (09:27)
[2022-05-16] MEDS: DOCUSATE SODIUM 100 MG (COLACE) CAP PO SCH ×2 (09:27→20:20)
[2022-05-16] MEDS: methylPREDNISolone 40 MG/ML (Solu-MEDROL) VIAL IV SCH ×2 (09:27→20:20)
--- NOTE | 2022-05-16 13:27 | Progress Note - Hospitalist ---
"BHANU SUN 05/16/22 1327: Subjective HPI/CC On Admission Date Seen by Provider: May 16, 2022 Time Seen by Provider: 08:15 CC: Acute hypercapneic respiratory failure with CHF HPI: This is an 81yoWM clinic patient of [facility] who presented to the ER with dyspnea. He had been placed on 2 rounds of abx recently for pneumonia but when he presented to the ER he was found to have CO2 retention along with volume overload with CHF. Cardiology consulted. IV Lasix has helped a lot and he remains on biPAP. Family at bedside. No pain. Subjective/Events-last exam Patient was awake and alert x3 lying in bed when seen this morning. He continues to be on BiPAP 18|6 FiO2 30% and is saturating well. His ABG today is 7.4|61|84|37. He has reportedly not required precedex since yesterday. He reports feeling much better at this time and denies SOB while on BiPAP. His net I/O yesterday was (-) 1.5 L bringing him to a net total of (-) 5.5L since admission and diuresis. He has a horner catheter in place with clear yellow urine. Review of Systems General: No Chills HEENT: No Visual Changes Pulmonary: No Dyspnea, No Cough; Other Cardiovascular: No: Chest Pain, Palpitations Gastrointestinal: No: Nausea, Vomiting, Abdominal Pain Neurological: No: Weakness, Numbness ROS unable to be obtained due to Sedation with precedex Focused Exam Lactate Level 05/13/22 19:40: Lactic Acid Level 1.39 Time of Focused Exam: 19:45 Objective Exam Vital Signs Vital Signs Date Time Temp Pulse Resp B/P (MAP) Pulse Ox O2 Delivery O2 Flow Rate FiO2 05/16/22 10:19 Vapotherm 20.00 45.00 05/16/22 10:00 81 38 155/78 (103) 94 05/16/22 09:57 45 05/16/22 08:10 36.2 Capillary Refill : Greater Than 3 Seconds General Appearance: No Apparent Distress, WD/WN, Obese, Other (wearing BiPAP tolerating well) Neck: Non Tender, Supple Respiratory: No Accessory Muscle Use, No Respiratory Distress, Other (mild expiratory wheezing throughout) Cardiovascular: Regular Rate, Rhythm, No Edema, No Murmur, Normal Peripheral Pulses Gastrointestinal: Normal Bowel Sounds, Non Tender, Soft Extremity: Normal Capillary Refill, Normal Inspection, Non Tender, No Calf Tenderness, No Pedal Edema Neurologic/Psychiatric: Alert, Oriented x3, No Motor/Sensory Deficits, Normal Mood/Affect Skin: Normal Color, Warm/Dry Lymphatic: No Adenopathy Results/Procedures Lab Laboratory Tests 05/16/22 04:37 Patient resulted labs reviewed. Imaging: Reviewed Imaging Films, Reviewed Imaging Report Radiology NAME: STACY HOWE [facility] REC#: [id number] PT STATUS: ADM IN : 1940 PHYSICIAN: TAMMY MAURO DO ADMIT DATE: 05/13/22/ICU Signed Date of Exam:05/16/22 CHEST 1 VIEW, AP/PA ONLY INDICATION: Congestive heart failure COMPARISON: 05/15/2022 TECHNIQUE: Single radiograph of the chest dated 05/16/2022. FINDINGS: The cardiac silhouette is enlarged, though stable. Central pulmonary vascular congestion is again identified, similar to the prior examination. Bilateral interstitial opacities are again noted, similar to the prior examination. Tiny left pleural effusion. No significant right pleural effusion. Rounded nodular density is noted within the left lung base measuring 3.6 cm. No pneumothorax. No acute osseous abnormality. IMPRESSION: Constellation of findings is felt to relate to congestive heart failure with mild interstitial edema and tiny left pleural effusion, appearing similar to the prior examination. Rounded density within the left lung base, which could relate to pleural fluid within the fissure. However, radiographic follow-up is recommended to ensure resolution. If this does not resolve over the next week, then a dedicated CT of the chest would be recommended for further evaluation as true mass lesion would need to be excluded. Dictated by: Dictated on workstation # [id number] Dict: 05/16/22 0831 Trans: 05/16/22 1206 JOSE [id number] Interpreted by: JACK HANKS MD Electronically signed by: JACK HANKS MD 05/16/22 1206 Assessment/Plan Assessment and Plan Assess & Plan/Chief Complaint Acute on chronic Hypercapnic RF -Improved from admission. Compensated respiratory acidosis. ABG 7.4|61|84|37 -Continue solu-medrol, nebulizer therapy, and BiPAP. Off precedex. attempt to ween to Vapotherm today. -CXR 05/16 shows continued pulmonary vascular congestion and small left pleural effusion appearing similar to last exam. Rounded density found within the left lung base which radiology recommends a dedicated CT in a week if fails to improve on CXR to exclude a lesion vs relation to aforementioned findings. Possible PNA -initial CXR showed possible left sided pneumonia. Started on Cefepime. Will continue for now. Acute CHF -BNP 361.4 on admission. Was started on Lasix 40mg IV BID. Pulm congestion improving on CXR although unchanged since yesterday. -LVEF 50-55% on echo. -Cardiology consulted and managing Mild Troponin elevation Trended down. Started on therapeutic lovenox 110mg BID SQ. Cardiology consulted. CASSIE Cr today of 1.4 unchanged from yesterday. Up from 0.88 on 05/13. Likely second to lasix which was adjusted to 40mg IV QD instead of BID Deconditioning -PT/OT evaluation since patient has not been out of bed for several days. Hyperglycemia -No history of DM but Blood sugars in mid 100's with AM labs. Patient is currently receiving steroids and this is likely secondary. Will monitor to assess if need for accuchecks and insulin sliding scale. TAMMY MAURO DO 05/17/22 0534: Supervisory-Addendum Brief Verification & Attestation Participated in pt care: history, MDM, physical Personally performed: exam, history, MDM, supervision of care Care discussed with: Medical Student Procedures: n/a Results interpretation: Verified all documentation Verification and Attestation of Medical Student E/M Service A medical student performed and documented this service in my presence. I reviewed and verified all information documented by the medical student and made modifications to such information, when appropriate. I personally performed the physical exam and medical decision making. Tammy Mauro May 17, 2022,05:34 BHANU SUN May 16, 2022 13:27 TAMMY MAURO DO May 17, 2022 05:34"
[2022-05-16] MEDS: guaiFENesin/CODEINE (ROBITUSSIN AC) 10ML UDC PO PRN (15:57)
--- NOTE | 2022-05-16 16:10 | Physical Therapy Evaluation ---
PT Evaluation-General Medical Diagnosis Admission Date May 13, 2022 at 21:34 Medical Diagnosis: Dyspnea, dementia Onset Date: May 13, 2022 Therapy Diagnosis Therapy Diagnosis: Gait deficit, strength deficit Height/Weight Height (Feet): 5 Height (Inches): 9.00 Weight (Pounds): 230 Precautions Precautions/Isolations: Fall Prevention, Standard Precautions Weight Bear Status Right Lower Extremity: Right Full Weight Bearing Left Lower Extremity: Left Full Weight Bearing Referral Physician: Dr. Arechiga Reason for Referral: Evaluation/Treatment Medical History Reviewed History: Yes Social History Home: Single Level Current Living Status: Spouse Entry Into Home: Stairs With Railing PT Steps Into Home: 2 Prior Prior Level of Function SCALE: Activities may be completed with or without assistive devices. 5-Npkmixzcxg-ddacbyt completes the activity by him/herself with no assistance fr om a helper. 5-Set-up or Clean-up Assistance-helper sets up or cleans up; patient completes activity. [place] assists only prior to or following the activity. 4-Supervision or Touching Assistance-helper provides verbal cues and/or touching/steadying and/or contact guard assistance as patient completes activity. Assistance may be provided throughout the activity or intermittently. 3-Partial/Moderate Assistance-helper does LESS THAN HALF the effort. [place] lifts, holds or supports trunk or limbs, but provides less than half the effort. 2-Substantial/Maximal Assistance-helper does MORE THAN HALF the effort. [place] lifts or holds trunk or limbs and provides more than half the effort. 4-Jepxeidfc-xqqogt does ALL the effort. Patient does none of the effort to complete the activity. Or, the assistance of 2 or more helpers is required for the patient to complete the activity. If activity was not attempted, code reason: 7-Patient Refused. 9-Not Applicable-not attempted and the patient did not perform the activity before the current illness, exacerbation or injury. 10-Not Attempted due to Environmental Limitations-(lack of equipment, weather restraints, etc.). 88-Not Attempted due to Medical Conditions or Safety Concerns. Bed Mobility: 6 Transfers (B,C,W/C): 6 Gait: 6 Stairs: 6 Indoor Mobility (Ambulation): Independent Stairs: Independent Prior Devices Use: None PT Evaluation-Current Subjective Patient sitting in chair upon PT arrival, agreeable to treatment. Patient rates pain at 0/10 currently. Objective Patient Orientation: Person, Place, Time, Situation Attachments: Oxygen, Faria Catheter, IV Vapotherm, 20 LPM, 45% ROM/Strength ROM Lower Extremities WFLs bilaterally all planes Strength Lower Extremities 3+/5 bilaterally all planes Sensory Vision: Functional Hearing: Impaired Sensation Right Lower Extremit: Intact Sensation Left Lower Extremity: Intact Transfers Sit to Stand (QC): 3 Chair/Ktn-ro-Arhzo Xfer(QC): 3 Gait Does the Patient Walk?: No and Walking Goal IS indicated Anticipated Mode of Locomotion: Walk Balance Sitting Static: Good Sitting Dynamic: Fair Standing Static: Fair Standing Dynamic: Poor Assessment/Needs Patient tolerated treatment fair, but fatigues quickly. Nurse reports he has been busy today and he is most likely very tired. Patient performs sit to/from stand with Min a. Patient able to stand with FWW ~ 3 minutes, but then sits due to fatigue. Patient in chair post treatment with all needs met, nursing notified, in the room and call light in hand. Rehab Potential: Fair PT Credit Control Officer Goals Shelter Goals PT Credit Control Officer Goals Time Frame: Jun 09, 2022 Roll Left & Right (QC): 6 Sit to Lying (QC): 6 Lying-Sitting on Side/Bed(QC): 6 Sit to Stand (QC): 6 Chair/Fsg-ri-Rshgz Xfer(QC): 6 Toilet Transfer (QC): 6 Does the Patient Walk: Yes Walk 10 feet (QC): 4 Walk 50ft with 2 Turns (QC): 4 Walk 150 ft (QC): 4 1 Step (curb) (QC): 4 PT Plan Problem List Problem List: Activity Tolerance, Functional Strength, Safety, Balance, Gait, Transfer, Bed Mobility, ROM Treatment/Plan Treatment Plan: Continue Plan of Care Treatment Plan: Bed Mobility, Education, Functional Activity Mari, Functional Strength, Group Therapy, Gait, Safety, Therapeutic Exercise, Transfers Treatment Duration: Jun 09, 2022 Frequency: 6 times per week Estimated Hrs Per Day: .25 hour per day Patient and/or Family Agrees t: Yes Safety Risks/Education Patient Education: Transfer Techniques Teaching Recipient: Patient, Family Teaching Methods: Demonstration, Discussion Response to Teaching: Verbalize Understanding, Return Demonstration Time Time In: 1544 Time Out: 1604 DATE: May 16, 2022 Total Billed Treatment Time: 20 Total Billed Treatment Visit, EVM TOCCI,FANTA PT May 16, 2022 16:10
[2022-05-16 16:22] VITALS: BP 168/72
--- NOTE | 2022-05-16 16:43 | Occupational Therapy Eval ---
OT Evaluation-General/PLF Medical Diagnosis Admission Date May 13, 2022 at 21:34 Medical Diagnosis: Dyspnea, dementia Onset Date: May 13, 2022 Therapy Diagnosis Therapy Diagnosis: weakness Height/Weight Height (Feet): 5 Height (Inches): 9.00 Weight (Pounds): 230 Precautions Precautions/Isolations: Fall Prevention, Standard Precautions Weight Bear Status Weight Bearing Restriction: Full Weight Bearing Referral Physician: Dr. Arechiga Referral Reason: Activity Tolerance, Self Care, Evaluation/Treatment Medical History Additional Medical History CHF, Dementia, COPD, HTN Current History ER admission w/ fluid overload and CHF Reviewed History: Yes Social History Home: Single Level Current Living Status: Spouse Entry Into Home: Stairs With Railing Steps Into Home: 2 Did not use 02 prior to this episode ADL-Prior Level of Function SCALE: Activities may be completed with or without assistive devices. 5-Hmtfzqbafg-bdilpgd completes the activity by him/herself with no assistance from a helper. 5-Set-up or Clean-up Assistance-helper sets up or cleans up; patient completes activity. [place] assists only prior to or following the activity. 4-Supervision or Touching Assistance-helper provides verbal cues and/or touching/steadying and/or contact guard assistance as patient completes activity. Assistance may be provided throughout the activity or intermittently. 3-Partial/Moderate Assistance-helper does LESS THAN HALF the effort. [place] lifts, holds or supports trunk or limbs, but provides less than half the effort. 2-Substantial/Maximal Assistance-helper does MORE THAN HALF the effort. [place] lifts or holds trunk or limbs and provides more than half the effort. 0-Vsfayzyqh-eriqyd does ALL the effort. Patient does none of the effort to complete the activity. Or, the assistance of 2 or more helpers is required for the patient to complete the activity. If activity was not attempted, code reason: 7-Patient Refused. 9-Not Applicable-not attempted and the patient did not perform the activity before the current illness, exacerbation or injury. 10-Not Attempted due to Environmental Limitations-(lack of equipment, weather restraints, etc.). 88-Not Attempted due to Medical Conditions or Safety Concerns. Self Care: Independent Functional Cognition: Needed Some Help DME/Equipment: Grab Bars, Toilet/Riser DME/Equipment Comments cane, BiPAP Drive Self: No OT Current Status Subjective Agrees to OT, uses humor often, preferred name MAUREEN Pain Numeric Pain Scale: 0-No Pain Mental Status/Objective Patient Orientation: Person, Eyes Open Attachments: IV, Oxygen Current Upper Extremity ROM BUE ROM WFLS Upper Extremity Strength -4/5 grossly ADL-Treatment Eating (QC): 6 Oral Hygiene (QC): 4 Shower/Bathe Self (QC): 88 Upper Body Dressing (QC): 4 Lower Body Dressing (QC): 3 On/Off Footwear (QC): 1 Toileting Hygiene (QC): 2 unsteady on feet Education OT Patient Education: Correct positioning, Energy conservation, Exercise program, Instructions to caregiver, Modified ADL techniques, Progress toward Goal/Update tx plan, Purpose of tx/functional activities, Reviewed precautions, Rehab process, Safety issues, Transfer techniques, Use of adapted equipment Teaching Recipient: Patient, Family Teaching Methods: Demonstration, Discussion Response to Teaching: Reinforcement Needed OT Air Conditioning Insulation Installer Goals Senior Care Goals Eating (QC): 6 Oral Hygiene (QC): 5 Toileting Hygiene (QC): 5 Shower/Bathe Self (QC): 4 Upper Body Dressing (QC): 5 Lower Body Dressing (QC): 5 On/Off Footwear (QC): 5 1=Demonstrate adherence to instructed precautions during ADL tasks. 2=Patient will verbalize/demonstrate understanding of assistive devices/modifications for ADL. 3=Patient will improve strength/tolerance for activity to enable patient to perform ADL's. OT Education/Plan Problem List/Assessment Assessment: Decreased Activ Tolerance, Decreased Safety Aware, Edema, Impaired Coordination, Impaired Funct Balance, Impaired Self-Care Skills Discharge Recommendations Plan/Recommendations: Continue POC Treatment Plan/Plan of Care Treatment,Training & Education: Yes Patient would benefit from OT for education, treatment and training to promote independence in ADL's, mobility, safety and/or upper extremity function for ADL's. Plan of Care: ADL Retraining, Cognitive Retraining, Functional Mobility, Group Exercise/Act as Ind, UE Funct Exercise/Act, UE Neuromus Re-Ed/Coord Treatment Duration: May 26, 2022 Frequency: 3 times per week (3-5 times per week) Estimated Hrs Per Day: .25 hour per day Rehab Potential: Fair Returned to recliner follow OT session, family in room, all needs met Time Start Time: 14:15 Stop Time: 14:34 DATE: May 16, 2022 Total Time Billed (hr/min): 19 Billed Treatment Time EVM 19 min CHAPIN BURCH OT May 16, 2022 16:43
--- NOTE | 2022-05-16 17:07 | Progress Note - Cardiology ---
Cardiology SOAP Progress Note Subjective: Feels better No shortness of breath at rest Swelling better No cp or palp or syncope No n/v/d No focal weakness Objective: I&O/Vital Signs 05/16/22 05/16/22 05/16/22 05/16/22 06:00 06:45 07:00 07:21 Pulse 65 58 63 60 Resp 17 23 19 B/P (MAP) 144/76 (117) 133/82 (99) Pulse Ox 93 94 94 O2 Delivery NIV Bilevel NIV Bilevel O2 Flow Rate 30.00 30.00 30.00 05/16/22 05/16/22 05/16/22 05/16/22 08:00 08:10 08:10 08:27 Temp 36.2 Pulse 79 Resp 18 B/P (MAP) 135/73 (93) Pulse Ox 95 O2 Delivery NIV Bilevel NIV Bilevel Vapotherm O2 Flow Rate 30.00 30.00 50.00 FiO2 30 05/16/22 05/16/22 05/16/22 05/16/22 09:00 09:57 10:00 10:19 Pulse 84 81 Resp 27 38 B/P (MAP) 144/74 (97) 155/78 (103) Pulse Ox 92 94 94 O2 Delivery Vapotherm Vapotherm Vapotherm Vapotherm O2 Flow Rate 30.00 20.00 30.00 20.00 50.00 50.00 45.00 FiO2 45 05/16/22 05/16/22 14:39 16:22 Temp 37.3 Pulse 88 Resp 18 B/P (MAP) 168/72 (104) Pulse Ox 94 93 O2 Delivery Vapotherm Vapotherm O2 Flow Rate 20.00 45.00 20.00 FiO2 45 05/16/22 00:00 Intake Total 800 ml Output Total 950 ml Balance -150 ml Weight (Pounds): 230 Weight (Calculated Kilograms): 104.380712 Constitutional: well-developed, well-nourished, other (mildly confused) Respiratory: No accessory muscle use, No respiratory distress; chest expansion is symmetric, chest is bilaterally symmetric, other (diminished bases bilat) Cardiovascular: regular rate-rhythm; No JVD; S1 and S2 Gastrointestional: soft, round; No guarding; audible bowel sounds Extremities: no lower extremity edema bilateral Neurologic/Psychiatric: other (moves all limbs) Skin: normal color, warm/dry; No rash on exposed areas, No ulcerations on exposed areas Results/Procedures: Labs Laboratory Tests 05/16/22 04:37: White Blood Count 11.9H, Red Blood Count 3.53L, Hemoglobin 11.0L, Hematocrit 33L , Mean Corpuscular Volume 94, Mean Corpuscular Hemoglobin 31, Mean Corpuscular Hemoglobin Concent 33, Red Cell Distribution Width 13.2, Platelet Count 289, Mean Platelet Volume 9.1, Immature Granulocyte % (Auto) 0, Neutrophils (%) (Auto) 91H, Lymphocytes (%) (Auto) 2L, Monocytes (%) (Auto) 7, Eosinophils (%) (Auto) 0, Basophils (%) (Auto) 0, Neutrophils # (Auto) 10.8H, Lymphocytes # (Auto) 0.3L, Monocytes # (Auto) 0.8, Eosinophils # (Auto) 0.0, Basophils # (Auto) 0.0, Immature Granulocyte # (Auto) 0.1, Sodium Level 138, Potassium Level 4.5, Chloride Level 97L, Carbon Dioxide Level 30, Anion Gap 11, Blood Urea Nitrogen 39H, Creatinine 1.40H, Estimat Glomerular Filtration Rate 50, BUN/Creatinine Ratio 28, Glucose Level 155H, Calcium Level 8.5, Corrected Calcium 9.2, Phosphorus Level 4.1, Magnesium Level 2.4, Total Bilirubin 0.5, Aspartate Amino Transf (AST/SGOT) 18, Alanine Aminotransferase (ALT/SGPT) 17, Alkaline Phosphatase 74, Total Protein 5.5L, Albumin 3.1L 05/16/22 05:50: Blood Gas Puncture Site L RAD, Blood Gas Patient Temperature 37.2, Arterial Blood pH 7.40, Arterial Blood Partial Pressure CO2 61H, Arterial Blood Partial Pressure O2 84, Arterial Blood HCO3 37H, Arterial Blood Total CO2 38.4H, Arterial Blood Oxygen Saturation 97, Arterial Blood Base Excess 11.3H, Heriberto Test YES-POS, Blood Gas Ventilator Setting NO, Blood Gas Inspired Oxygen 40% Microbiology 05/14/22 Gram Stain - Final, Complete 05/14/22 Sputum Culture - Final, Complete Usual upper respiratory hiram 05/13/22 Urine Culture - Final, Complete NO GROWTH 05/13/22 Blood Culture - Preliminary, Resulted No growth Laboratory Tests 05/15/22 04:37 05/16/22 04:37 A/P: Assessment: Acute resp failure - management per medical services - ?acute on chronic exacerbation of COPD Newly dx CHF - elevated BNP on 05-13-22 Acute renal insufficiency on the labs of 05-15-22, likely due to diuretic therapy (vol depletion) Minimally elevated troponin -likely Type 2 [place] secondary to hypoxia at time of ED presentation HTN HLD reports h/o CVA in 2016 - peripheral vision affected bilat per - details unknown - ASA tx at home H/O colon cancer - hemicolectomy in 2010 at [facility] BPH Dementia H/O tobacco use - quit 40 yrs ago per spouse Allergies: Norvasc, Lisinopril, Atenolol Plan: * iv diuretics stopped due to worsening renal function * Start oral diuretics tomorrow * Change enoxaparin to DVT-prophylaxis dose * Increase ambulation * Transfer to floor * Monitor labs SHIRLEY ARREDONDO MD FACP FAC CCDS May 16, 2022 17:07
[2022-05-16] MEDS: TAMSULOSIN 0.4 MG (FLOMAX) CAP PO SCH (17:21)
[2022-05-16] MEDS: CALCIUM CARBONATE 600 MG (CALCARB) TAB PO SCH (17:22)
[2022-05-16] MEDS: cloNIDine 0.1 MG (CATAPRES) TAB PO PRN ×2 (17:22→23:32)
[2022-05-16] MEDS: LORazepam 0.5 MG (ATIVAN) TABLET PO PRN ×2 (17:46→22:59)
[2022-05-16 20:10] VITALS: BP 162/71
[2022-05-16] MEDS: hydrALAZINE (APRESOLINE) 25 MG TAB PO SCH (20:20)
[2022-05-16] MEDS: DONEPEZIL 10 MG (ARICEPT) TAB PO SCH (20:20)
[2022-05-16] MEDS: traZODone 50 MG (DESYREL) TAB PO SCH (20:20)
[2022-05-17] VITALS (11 sets, daily range): BP systolic 102–172; BP diastolic 62–93
[2022-05-17] MEDS: LORazepam INJ 2 MG/ML (ATIVAN) VIAL IVP PRN ×2 (01:42→23:43)
[2022-05-17] MEDS: CEFEPIME INJECTION 1,000 MG in NS (IVPB) 50 ML IV SCH ×4 (05:00→22:04)
[2022-05-17 06:16] LABS: BASOPHILS % (AUTO) 0 % (0-10); EOSINOPHILS % (AUTO) 0 % (0-10); HEMATOCRIT 34 % (40-54); HEMOGLOBIN 11.1 g/dL (13.3-17.7); LYMPHOCYTES # (AUTO) 0.3 10^3/uL (1.0-4.0); LYMPHOCYTES % (AUTO) 3 % (12-44); MEAN CORPUSCULAR HEMOGLOBIN 31 pg (25-34); MEAN CORPUSCULAR HGB CONC 33 g/dL (32-36); MEAN CORPUSCULAR VOLUME 96 fL (80-99); MONOCYTES # (AUTO) 0.7 10^3/uL (0.0-1.0); MONOCYTES % (AUTO) 8 % (0-12); NEUTROPHILS # (AUTO) 8.1 10^3/uL (1.8-7.8); NEUTROPHILS % (AUTO) 88 % (42-75); PLATELET COUNT 274 10^3/uL (130-400); WHITE BLOOD COUNT 9.2 10^3/uL (4.3-11.0)
[2022-05-17 06:22] LABS: ALBUMIN 3.2 GM/DL (3.2-4.5); POTASSIUM 4.2 MMOL/L (3.6-5.0)
[2022-05-17 06:23] LABS: CALCIUM 8.6 MG/DL (8.5-10.1)
[2022-05-17 06:24] LABS: TOTAL PROTEIN 5.8 GM/DL (6.4-8.2)
[2022-05-17 06:26] LABS: BILIRUBIN,TOTAL 0.6 MG/DL (0.1-1.0)
[2022-05-17 06:28] LABS: CREATININE SERUM 1.41 MG/DL (0.60-1.30)
[2022-05-17 06:31] LABS: MAGNESIUM 2.5 MG/DL (1.6-2.4)
[2022-05-17] MEDS: RT-ALBUTEROL/IPRATROPIUM 3 ML (DUONEB) VIAL INH SCH ×5 (07:07→21:48)
[2022-05-17] MEDS: UMECLIDINIUM BROMIDE (INCRUSE ELLIPTA) 7'S IH SCH (07:08)
--- NOTE | 2022-05-17 08:49 | Diagnostic Imaging Report ---
CHEST 1 VIEW, AP/PA ONLY Indication: Congestive heart failure Comparison: 05/16/2022 Findings: Stable rounded opacity in the left lower lung base. No pneumothorax. Small left pleural effusion persists. Stable cardiomegaly. Central vascular indistinctness is similar. Impression: 1. Unchanged rounded opacity in the left lung base which may represent loculated fluid within the major fissure versus pulmonary mass. Continued follow-up to resolution versus dedicated CT is recommended. 2. Mild central vascular congestion is similar. Dictated by: Dictated on workstation # [id number]
[2022-05-17] MEDS ORDERED: TIOTROPIUM BROMIDE (SPIRIVA) 5'S INHALER IH SCH (09:00)
[2022-05-17] MEDS ORDERED: FUROSEMIDE 20 MG (LASIX) TAB PO SCH (09:00)
[2022-05-17] MEDS: hydrALAZINE (APRESOLINE) 25 MG TAB PO SCH ×2 (09:20→21:42)
[2022-05-17] MEDS: LOSARTAN 50 MG (COZAAR) TAB PO SCH (09:20)
[2022-05-17] MEDS: MEMANTINE 10 MG (NAMENDA) TABLET PO SCH (09:21)
[2022-05-17] MEDS: DOCUSATE SODIUM 100 MG (COLACE) CAP PO SCH ×2 (09:21→21:44)
[2022-05-17] MEDS: methylPREDNISolone 40 MG/ML (Solu-MEDROL) VIAL IV SCH ×2 (09:21→21:43)
[2022-05-17] MEDS: MULTIVIT W/MINERALS TAB (THERAGRAN M) PO SCH (09:21)
[2022-05-17] MEDS: ENOXAPARIN 40 MG/0.4 ML (LOVENOX) SYR SC SCH (09:21)
[2022-05-17] MEDS: SENNOSIDES 8.6 MG (SENOKOT) TAB PO SCH ×2 (09:21→21:44)
[2022-05-17] MEDS: FINASTERIDE (PROSCAR) 5 MG TAB PO SCH (09:21)
[2022-05-17] MEDS: FUROSEMIDE 40 MG (LASIX) TAB PO SCH (09:21)
--- NOTE | 2022-05-17 10:44 | Progress Note - Cardiology ---
Cardiology SOAP Progress Note Subjective: Sitting up in recliner for morning care Spouse at the bedside Objective: I&O/Vital Signs 05/21/22 05/21/22 05/22/22 05/22/22 22:21 23:45 02:23 03:59 Temp 36.5 36.6 Pulse 83 96 Resp 20 18 B/P (MAP) 105/54 (71) 120/62 (81) Pulse Ox 93 93 93 93 O2 Delivery Nasal Cannula High Flow N/C Nasal Cannula High Flow N/C O2 Flow Rate 4.00 3.00 4.00 3.00 05/22/22 05/22/22 05/22/22 05/22/22 05:50 06:32 07:29 07:51 Temp 36.4 Pulse 78 98 Resp 20 B/P (MAP) 122/66 (84) 133/88 (103) Pulse Ox 88 92 O2 Delivery Room Air High Flow N/C High Flow N/C O2 Flow Rate 3.00 3.00 05/22/22 10:03 Pulse Ox 95 O2 Delivery Room Air 05/22/22 00:00 Intake Total 1400 ml Output Total 700 ml Balance 700 ml Weight (Pounds): 230 Weight (Calculated Kilograms): 104.902765 Constitutional: well-developed, well-nourished, other (mildly confused) Respiratory: No accessory muscle use, No respiratory distress; chest expansion is symmetric, chest is bilaterally symmetric, other (diminished bases bilat) Cardiovascular: regular rate-rhythm; No JVD; S1 and S2 Gastrointestional: soft, round; No guarding; audible bowel sounds Extremities: no lower extremity edema bilateral Neurologic/Psychiatric: other (moves all limbs) Skin: normal color, warm/dry; No rash on exposed areas, No ulcerations on ex posed areas Results/Procedures: Labs Laboratory Tests 05/22/22 05:18: White Blood Count 11.7H, Red Blood Count 3.50L, Hemoglobin 10.9L, Hematocrit 34L , Mean Corpuscular Volume 96, Mean Corpuscular Hemoglobin 31, Mean Corpuscular Hemoglobin Concent 32, Red Cell Distribution Width 13.4, Platelet Count 233, Mean Platelet Volume 9.7, Immature Granulocyte % (Auto) 3, Neutrophils (%) (Auto) 75, Lymphocytes (%) (Auto) 7L, Monocytes (%) (Auto) 12, Eosinophils (%) (Auto) 4, Basophils (%) (Auto) 0, Neutrophils # (Auto) 8.7H, Lymphocytes # (Auto) 0.8L, Monocytes # (Auto) 1.4H, Eosinophils # (Auto) 0.5H, Basophils # (Auto) 0.0, Immature Granulocyte # (Auto) 0.3H, Sodium Level 138, Potassium Level 3.8, Chloride Level 97L, Carbon Dioxide Level 30, Anion Gap 11, Blood Urea Nitrogen 45H, Creatinine 1.45H, Estimat Glomerular Filtration Rate 48, BUN/Creatinine Ratio 31, Glucose Level 111H, Calcium Level 8.3L, Corrected Calcium 9.2, Magnesium Level 2.1, Total Bilirubin 0.8, Aspartate Amino Transf (AST/SGOT) 16, Alanine Aminotransferase (ALT/SGPT) 38, Alkaline Phosphatase 72, Total Protein 5.1L, Albumin 2.9L Microbiology 05/14/22 Gram Stain - Final, Complete 05/14/22 Sputum Culture - Final, Complete Usual upper respiratory hiram 05/13/22 Urine Culture - Final, Complete NO GROWTH 05/13/22 Blood Culture - Final, Complete No growth Procedures NAME: STACY HOWE [facility] REC#: [id number] PT STATUS: ADM IN : 1940 PHYSICIAN: ANDRÉS MAURO DO ADMIT DATE: 05/13/22 Draft Date of Exam:05/17/22 CHEST 1 VIEW, AP/PA ONLY CHEST 1 VIEW, AP/PA ONLY Indication: Congestive heart failure Comparison: 05/16/2022 Findings: Stable rounded opacity in the left lower lung base. No pneumothorax. Small left pleural effusion persists. Stable cardiomegaly. Central vascular indistinctness is similar. Impression: 1. Unchanged rounded opacity in the left lung base which may represent loculated fluid within the major fissure versus pulmonary mass. Continued follow-up to resolution versus dedicated CT is recommended. 2. Mild central vascular congestion is similar. Dictated on workstation # [id number] Dict: 05/17/22819 Trans: 05/17/22 0848 [facility] [id number] Interpreted by: RAEANN GREENE MD Electronically signed by: A/P: Assessment: Acute resp failure - management per medical services - ?acute on chronic exacerbation of COPD Newly dx CHF - elevated BNP on 05-13-22 Per CXR of 05-17-22: rounded opacity in the left lung base which may represent loculated fluid within the major fissure versus pulmonary mass. Continued follow-up to resolution versus dedicated CT is recommended - management per medical services Acute renal insufficiency on the labs of 05-15-22, likely due to diuretic therapy (vol depletion) Minimally elevated troponin -likely Type 2 [place] secondary to hypoxia at time of ED presentation HTN HLD reports h/o CVA in 2016 - peripheral vision affected bilat per - details unknown - ASA tx at home H/O colon cancer - hemicolectomy in 2010 at [facility] BPH Dementia H/O tobacco use - quit 40 yrs ago per spouse Allergies: Norvasc, Lisinopril, Atenolol Plan: * Management of pneumonia is per medical services * CXR of 05-17-22: rounded opacity in the left lung base which may represent loculated fluid within the major fissure versus pulmonary mass. Continued foll ow-up to resolution versus dedicated CT is recommended per radiology services - management per medical services * Continue oral diuretics tomorrow * Continue DVT dosed enoxaparin * Increase ambulation * Monitor labs MYLA URIAS May 17, 2022 10:44
--- NOTE | 2022-05-17 11:00 | Physical Therapy Daily Note ---
PT Daily Note-Current Subjective Patient agrees to PT. Pain Section J - Health Conditions 1. Rarely or not at all 2. Occasionally 3. Frequently 4. Almost constantly 8. Unable to answer Pain Effect on Sleep: 1 Pain Interference with Therapy: 1 Pain Interference w/Day-to-Day: 1 Mental Status Patient Orientation: Normal For Age Attachments: Oxygen (vapotherm), Faria Catheter, IV Transfers SCALE: Activities may be completed with or without assistive devices. 0-Gvvtmqjnpu-fuljyme completes the activity by him/herself with no assistance from a helper. 5-Set-up or Clean-up Assistance-helper sets up or cleans up; patient completes activity. [place] assists only prior to or following the activity. 4-Supervision or Touching Assistance-helper provides verbal cues and/or touching/steadying and/or contact guard assistance as patient completes activity. Assistance may be provided throughout the activity or intermittently. 3-Partial/Moderate Assistance-helper does LESS THAN HALF the effort. [place] lifts, holds or supports trunk or limbs, but provides less than half the effort. 2-Substantial/Maximal Assistance-helper does MORE THAN HALF the effort. [place] lifts or holds trunk or limbs and provides more than half the effort. 9-[place]if-yxgntk does ALL the effort. Patient does none of the effort to complete the activity. Or, the assistance of 2 or more helpers is required for the patient to complete the activity. If activity was not attempted, code reason: 7-Patient Refused. 9-Not Applicable-not attempted and the patient did not perform the activity befo re the current illness, exacerbation or injury. 10-Not Attempted due to Environmental Limitations-(lack of equipment, weather re straints, etc.). 88-Not Attempted due to Medical Conditions or Safety Concerns. Sit to Stand (QC): 4 Chair/Hrs-vd-Tqecq Xfer(QC): 4 Weight Bearing Right Lower Extremity: Right Full Weight Bearing Left Lower Extremity: Left Full Weight Bearing Gait Training Distance: 10' x 2 Walk 10 feet (QC): 4 Gait Assistive Device: FWW functional gait sequence (limited by vapotherm) Assessment Patient tolerated treatment and is up in recliner with needs met. Mobility is limited by vapotherm. PT Cleaner Furniture Goals Cleaner Furniture Goals PT Cleaner Furniture Goals Time Frame: Jun 09, 2022 Roll Left & Right (QC): 6 Sit to Lying (QC): 6 Lying-Sitting on Side/Bed(QC): 6 Sit to Stand (QC): 6 Chair/Ogj-qn-Gulle Xfer(QC): 6 Toilet Transfer (QC): 6 Does the Patient Walk: Yes Walk 10 feet (QC): 4 Walk 50ft with 2 Turns (QC): 4 Walk 150 ft (QC): 4 1 Step (curb) (QC): 4 PT Plan Treatment/Plan Treatment Plan: Continue Plan of Care Treatment Plan: Bed Mobility, Education, Functional Activity Mari, Functional Strength, Group Therapy, Gait, Safety, Therapeutic Exercise, Transfers Treatment Duration: Jun 09, 2022 Frequency: 6 times per week Estimated Hrs Per Day: .25 hour per day Patient and/or Family Agrees t: Yes Time Time In: 950 Time Out: 1007 DATE: May 17, 2022 Total Billed Treatment Time: 17 Total Billed Treatment 1 visit FA 17 min CARA SEGOVIA PT May 17, 2022 11:00
[2022-05-17] MEDS ORDERED: BISACODYL 10 MG SUPP (DULCOLAX) PR NR (11:30)
--- NOTE | 2022-05-17 12:17 | Progress Note - Hospitalist ---
"BHANU SUN 05/17/22 1217: Subjective HPI/CC On Admission Date Seen by Provider: May 17, 2022 Time Seen by Provider: 08:10 CC: Acute hypercapneic respiratory failure with CHF HPI: This is an 81yoWM clinic patient of [facility] who presented to the ER with dyspnea. He had been placed on 2 rounds of abx recently for pneumonia but when he presented to the ER he was found to have CO2 retention along with volume overload with CHF. Cardiology consulted. IV Lasix has helped a lot and he remains on biPAP. Family at bedside. No pain. Subjective/Events-last exam Patient was awake sitting in bed when seen today. Other than a brief period of BiPAP 18|6 30% over night, patient has been on vapotherm and tolerating well. He was 94% on 20L 45% this morning. He has a horner catheter in place and has been up with PT. He reports feeling better today than yesterday. He does endorse SOB with exertion. He denies abd pain, SOB, abd pain, N/V. Review of Systems General: No Chills HEENT: No Head Aches, No Visual Changes Pulmonary: Dyspnea (with exertion) Cardiovascular: No: Chest Pain, Palpitations Gastrointestinal: No: Nausea, Vomiting, Abdominal Pain Genitourinary: No Dysuria, No Hematuria Neurological: No: Weakness, Numbness ROS unable to be obtained due to Sedation with precedex Focused Exam Time of Focused Exam: 19:45 Objective Exam Vital Signs Vital Signs Date Time Temp Pulse Resp B/P (MAP) Pulse Ox O2 Delivery O2 Flow Rate FiO2 05/17/22 11:17 36.6 118 18 158/77 (104) 94 Vapotherm 05/17/22 07:08 20.00 45 Capillary Refill : Greater Than 3 Seconds General Appearance: No Apparent Distress, WD/WN, Obese HEENT: PERRL/EOMI, Moist Mucous Membranes Neck: Non Tender, Supple Respiratory: Chest Non Tender, Lungs Clear, Normal Breath Sounds, No Accessory Muscle Use, No Respiratory Distress Cardiovascular: Regular Rate, Rhythm, No Murmur, Normal Peripheral Pulses Gastrointestinal: Normal Bowel Sounds, Non Tender, Soft Extremity: Normal Capillary Refill, Normal Range of Motion, Non Tender, No Calf Tenderness, No Pedal Edema Neurologic/Psychiatric: Alert, Oriented x3, No Motor/Sensory Deficits, Normal Mood/Affect Skin: Normal Color, Warm/Dry Lymphatic: No Adenopathy Results/Procedures Lab Laboratory Tests 05/17/22 05:31 Patient resulted labs reviewed. Imaging: Reviewed Imaging Films, Reviewed Imaging Report Assessment/Plan Assessment and Plan Assess & Plan/Chief Complaint Acute on chronic Hypercapnic RF -(05/16): Improved from admission. Compensated respiratory acidosis. ABG 7.4|61 |84|37 -(05/16) CXR 05/16 shows continued pulmonary vascular congestion and small left pleural effusion appearing similar to last exam. Rounded density found within the left lung base which radiology recommends a dedicated CT in a week if fails to improve on CXR to exclude a lesion vs relation to aforementioned findings. -(05/17): CXR unchanged from yesterday. 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 Ween as able. Possible PNA -initial CXR showed possible left sided pneumonia. Continue Cefepime Acute CHF -BNP 361.4 on admission. Was started on Lasix 40mg IV BID. Pulm congestion stalled for the past 2 days. -LVEF 50-55% on echo. -Cardiology consulted and managing Mild Troponin elevation Trended down. Started on therapeutic lovenox 110mg BID SQ. Cardiology consulted. CASSIE Cr today of 1.41. Has been steady for past few days here. Up from 0.88 on 05/13. Likely second to lasix which was adjusted to 40mg IV QD Deconditioning -PT/OT evaluation since patient has not been out of bed for several days. Hyperglycemia -No history of DM but Blood sugars in mid 100's with AM labs. Patient is currently receiving steroids and this is likely secondary. Will monitor to assess if need for accuchecks and insulin sliding scale. TAMMY MAURO DO 05/18/22 0505: Supervisory-Addendum Brief Verification & Attestation Participated in pt care: history, MDM, physical Personally performed: exam, history, MDM, supervision of care Care discussed with: Medical Student Procedures: n/a Results interpretation: Verified all documentation Verification and Attestation of Medical Student E/M Service A medical student performed and documented this service in my presence. I reviewed and verified all information documented by the medical student and made modifications to such information, when appropriate. I personally performed the physical exam and medical decision making. Tammy Mauro, May 18, 2022,05:05 BHANU SUN May 17, 2022 12:17 TAMMY MAURO DO May 18, 2022 05:05"
--- NOTE | 2022-05-17 15:23 | Occupational Ther Daily Note ---
OT Current Status-Daily Note Subjective Less humor today, less energy, increased puffy appearance Mental Status/Objective Patient Orientation: Person, Place Attachments: IV, Oxygen ADL-Treatment Therapy Code Descriptions/Definitions Functional [place] Measure: 0=Not Assessed/NA 4=Minimal Assistance 1=Total Assistance 5=Supervision or Setup 2=Maximal Assistance 6=Modified [place] 3=Moderate Assistance 7=Complete IndependenceSCALE: Activities may be completed with or without assistive devices. 0-Ggttiivkcn-jflasrh completes the activity by him/herself with no assistance from a helper. 5-Set-up or Clean-up Assistance-helper sets up or cleans up; patient completes activity. [place] assists only prior to or following the activity. 4-Supervision or Touching Assistance-helper provides verbal cues and/or touching/steadying and/or contact guard assistance as patient completes activity. Assistance may be provided throughout the activity or intermittently. 3-Partial/Moderate Assistance-helper does LESS THAN HALF the effort. [place] lifts, holds or supports trunk or limbs, but provides less than half the effort. 2-Substantial/Maximal Assistance-helper does MORE THAN HALF the effort. [place] lifts or holds trunk or limbs and provides more than half the effort. 5-Tvkliybsg-gspwpy does ALL the effort. Patient does none of the effort to complete the activity. Or, the assistance of 2 or more helpers is required for the patient to complete the activity. If activity was not attempted, code reason: 7-Patient Refused. 9-Not Applicable-not attempted and the patient did not perform the activity before the current illness, exacerbation or injury. 10-Not Attempted due to Environmental Limitations-(lack of equipment, weather restraints, etc.). 88-Not Attempted due to Medical Conditions or Safety Concerns. 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 2=Patient will verbalize/demonstrate understanding of assistive devices/modifications for ADL. 3=Patient will improve strength/tolerance for activity to enable patient to perform ADL's. OT Education/Plan Discharge Recommendations Plan/Recommendations: Continue POC Treatment Plan/Plan of Care Patient would benefit from OT for education, treatment and training to promote independence in ADL's, mobility, safety and/or upper extremity function for ADL's. Plan of Care: ADL Retraining, Cognitive Retraining, Functional Mobility, Group Exercise/Act as Ind, UE Funct Exercise/Act, UE Neuromus Re-Ed/Coord Treatment Duration: May 26, 2022 Frequency: 3 times per week (3-5 times per week) Estimated Hrs Per Day: .25 hour per day Rehab Potential: Fair Time Start Time: 14:40 Stop Time: 15:00 DATE: May 17, 2022 Total Time Billed (hr/min): 20 Billed Treatment Time EX 20 min CHAPIN BURCH OT May 17, 2022 15:23
[2022-05-17] MEDS: TAMSULOSIN 0.4 MG (FLOMAX) CAP PO SCH (17:03)
[2022-05-17] MEDS: CALCIUM CARBONATE 600 MG (CALCARB) TAB PO SCH (17:03)
[2022-05-17] MEDS ORDERED: ASPIRIN E.C. 81 MG (ECOTRIN) TAB PO SCH (18:00)
--- NOTE | 2022-05-17 18:26 | Progress Note - Cardiology ---
Cardiology SOAP Progress Note Subjective: No cp or palp or syncope or shortness of breath or n/v/d Gen weakness Objective: I&O/Vital Signs 05/17/22 05/17/22 05/17/22 05/17/22 07:08 07:42 08:00 08:21 Temp 37.0 37.0 Pulse 127 127 Resp 18 18 B/P (MAP) 162/79 (106) 162/79 (106) Pulse Ox 94 93 93 O2 Delivery Vapotherm Vapotherm Vapotherm Vapotherm O2 Flow Rate 20.00 20.00 FiO2 45 45 05/17/22 05/17/22 05/17/22 05/17/22 09:07 11:17 12:36 14:52 Temp 36.6 Pulse 119 118 114 Resp 18 B/P (MAP) 131/72 (91) 158/77 (104) 149/76 (100) Pulse Ox 94 97 O2 Delivery Vapotherm High Flow N/C O2 Flow Rate 8.00 05/17/22 05/17/22 16:16 17:24 Temp 37.0 37.2 Pulse 120 115 Resp 18 17 B/P (MAP) 134/85 (101) 172/84 (113) Pulse Ox 93 96 O2 Delivery High Flow N/C High Flow N/C O2 Flow Rate 7.00 7.00 05/17/22 00:00 Intake Total 350 ml Output Total 375 ml Balance -25 ml Weight (Pounds): 230 Weight (Calculated Kilograms): 104.220764 Constitutional: well-developed, well-nourished, other Respiratory: chest expansion is symmetric, chest is bilaterally symmetric, other Cardiovascular: regular rate-rhythm, S1 and S2 Gastrointestional: soft, round, audible bowel sounds Extremities: no lower extremity edema bilateral Neurologic/Psychiatric: other Skin: normal color, warm/dry Results/Procedures: Labs Laboratory Tests 05/17/22 05:31: White Blood Count 9.2, Red Blood Count 3.53L, Hemoglobin 11.1L, Hematocrit 34L, Mean Corpuscular Volume 96, Mean Corpuscular Hemoglobin 31, Mean Corpuscular Hemoglobin Concent 33, Red Cell Distribution Width 13.3, Platelet Count 274, Mean Platelet Volume 9.0, Immature Granulocyte % (Auto) 1, Neutrophils (%) (Auto) 88H, Lymphocytes (%) (Auto) 3L, Monocytes (%) (Auto) 8, Eosinophils (%) (Auto) 0, Basophils (%) (Auto) 0, Neutrophils # (Auto) 8.1H, Lymphocytes # (Auto) 0.3L, Monocytes # (Auto) 0.7, Eosinophils # (Auto) 0.0, Basophils # (Auto) 0.0, Immature Granulocyte # (Auto) 0.1, Sodium Level 138, Potassium Level 4.2, Chloride Level 97L, Carbon Dioxide Level 32, Anion Gap 9, Blood Urea Nitrogen 40H, Creatinine 1.41H, Estimat Glomerular Filtration Rate 50, BUN/Crea tinine Ratio 28, Glucose Level 136H, Calcium Level 8.6, Corrected Calcium 9.2, Magnesium Level 2.5H, Total Bilirubin 0.6, Aspartate Amino Transf (AST/SGOT) 30, Alanine Aminotransferase (ALT/SGPT) 21, Alkaline Phosphatase 71, Total Protein 5.8L, Albumin 3.2 Microbiology 05/14/22 Gram Stain - Final, Complete 05/14/22 Sputum Culture - Final, Complete Usual upper respiratory hiram 05/13/22 Urine Culture - Final, Complete NO GROWTH 05/13/22 Blood Culture - Preliminary, Resulted No growth Laboratory Tests 05/16/22 04:37 05/17/22 05:31 A/P: Assessment: Acute resp failure - ?acute on chronic exacerbation of COPD - Per CXR of 05-17-22: rounded opacity in the left lung base which may represent loculated fluid within the major fissure versus pulmonary mass (managed by the Med svce) - ac diastolic CHF - LVEF 50-55% on echo of 05-14-22 Acute renal insufficiency on the labs of 05-15-22, likely due to diuretic therapy (vol depletion) Minimally elevated troponin -likely Type 2 DE secondary to hypoxia at time of ED presentation HTN HLD reports h/o CVA in 2016 - peripheral vision affected bilat per - details unknown - ASA tx at home H/O colon cancer - hemicolectomy in 2010 at [facility] BPH Dementia H/O tobacco use - quit 40 yrs ago per spouse Allergies: Norvasc, Lisinopril, Atenolol Plan: * Management of pneumonia is per medical services * CXR of 05-17-22: rounded opacity in the left lung base which may represent loculated fluid within the major fissure versus pulmonary mass. Continued follow-up to resolution versus dedicated CT is recommended per radiology s ervices - management per medical services * Continue oral diuretics tomorrow * Continue DVT-prophylaxis enoxaparin * Increase ambulation * Monitor labs SHIRLEY ARREDONDO MD [facility] May 17, 2022 18:26
[2022-05-17] MEDS ORDERED: NS (IVPB) 50 ML ONE (20:40)
[2022-05-17] MEDS: LORazepam 0.5 MG (ATIVAN) TABLET PO PRN (21:42)
[2022-05-17] MEDS: traZODone 50 MG (DESYREL) TAB PO SCH (21:42)
[2022-05-17] MEDS: DONEPEZIL 10 MG (ARICEPT) TAB PO SCH (21:42)
[2022-05-18] VITALS (8 sets, daily range): BP systolic 131–176; BP diastolic 78–95
[2022-05-18] MEDS: cloNIDine 0.1 MG (CATAPRES) TAB PO PRN (01:11)
[2022-05-18] MEDS: RT-ALBUTEROL/IPRATROPIUM 3 ML (DUONEB) VIAL INH SCH ×6 (02:31→21:50)
[2022-05-18] MEDS: LORazepam INJ 2 MG/ML (ATIVAN) VIAL IVP PRN ×2 (04:22→21:31)
[2022-05-18] MEDS: CEFEPIME INJECTION 1,000 MG in NS (IVPB) 50 ML IV SCH ×4 (04:23→21:43)
[2022-05-18 05:58] LABS: BASOPHILS % (AUTO) 0 % (0-10); EOSINOPHILS % (AUTO) 0 % (0-10); HEMATOCRIT 35 % (40-54); HEMOGLOBIN 11.5 g/dL (13.3-17.7); LYMPHOCYTES # (AUTO) 0.3 10^3/uL (1.0-4.0); LYMPHOCYTES % (AUTO) 3 % (12-44); MEAN CORPUSCULAR HEMOGLOBIN 32 pg (25-34); MEAN CORPUSCULAR HGB CONC 33 g/dL (32-36); MEAN CORPUSCULAR VOLUME 95 fL (80-99); MONOCYTES # (AUTO) 0.9 10^3/uL (0.0-1.0); MONOCYTES % (AUTO) 8 % (0-12); NEUTROPHILS # (AUTO) 9.8 10^3/uL (1.8-7.8); NEUTROPHILS % (AUTO) 89 % (42-75); PLATELET COUNT 269 10^3/uL (130-400); WHITE BLOOD COUNT 11.1 10^3/uL (4.3-11.0)
[2022-05-18 06:16] LABS: ALBUMIN 3.4 GM/DL (3.2-4.5); POTASSIUM 4.6 MMOL/L (3.6-5.0)
[2022-05-18 06:18] LABS: CALCIUM 8.6 MG/DL (8.5-10.1)
[2022-05-18 06:19] LABS: TOTAL PROTEIN 5.9 GM/DL (6.4-8.2)
[2022-05-18 06:21] LABS: BILIRUBIN,TOTAL 0.8 MG/DL (0.1-1.0)
[2022-05-18 06:23] LABS: CREATININE SERUM 1.4 MG/DL (0.60-1.30)
[2022-05-18 06:25] LABS: MAGNESIUM 2.5 MG/DL (1.6-2.4)
[2022-05-18] MEDS: UMECLIDINIUM BROMIDE (INCRUSE ELLIPTA) 7'S IH SCH (06:45)
[2022-05-18] MEDS: FINASTERIDE (PROSCAR) 5 MG TAB PO SCH (08:20)
[2022-05-18] MEDS: SENNOSIDES 8.6 MG (SENOKOT) TAB PO SCH ×2 (08:20→21:32)
[2022-05-18] MEDS: LOSARTAN 50 MG (COZAAR) TAB PO SCH (08:20)
[2022-05-18] MEDS: MEMANTINE 10 MG (NAMENDA) TABLET PO SCH (08:20)
[2022-05-18] MEDS: ENOXAPARIN 40 MG/0.4 ML (LOVENOX) SYR SC SCH (08:21)
[2022-05-18] MEDS: MULTIVIT W/MINERALS TAB (THERAGRAN M) PO SCH (08:21)
[2022-05-18] MEDS: FUROSEMIDE 40 MG (LASIX) TAB PO SCH (08:21)
[2022-05-18] MEDS: methylPREDNISolone 40 MG/ML (Solu-MEDROL) VIAL IV SCH ×2 (08:21→21:31)
[2022-05-18] MEDS: hydrALAZINE (APRESOLINE) 25 MG TAB PO SCH ×2 (08:21→21:32)
[2022-05-18] MEDS: DOCUSATE SODIUM 100 MG (COLACE) CAP PO SCH ×2 (08:21→21:32)
--- NOTE | 2022-05-18 10:02 | Occ Therapy Progress Note ---
Therapy Progress Note Patient resting soundly, OT will return when patient awake and next opportunity CHAPIN BURCH OT May 18, 2022 10:02
--- NOTE | 2022-05-18 11:39 | Progress Note - Hospitalist ---
"BHANU SUN 05/18/22 1139: Subjective HPI/CC On Admission Date Seen by Provider: May 18, 2022 Time Seen by Provider: 09:30 CC: Acute hypercapneic respiratory failure with CHF HPI: This is an 81yoWM clinic patient of [facility] who presented to the ER with dyspnea. He had been placed on 2 rounds of abx recently for pneumonia but when he presented to the ER he was found to have CO2 retention along with volume overload with CHF. Cardiology consulted. IV Lasix has helped a lot and he remains on biPAP. Family at bedside. No pain. Subjective/Events-last exam Patient was awake sitting in bed when seen this morning. 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 He did use BiPAP overnight briefly at 18|6 30% but reportedly was pulling it off frequently. He has horner catheter in place with yellow uring in his bag. His reprots he had a BM last night. He has good appetite. While in the room originally his heart was irregularly irregular and EKG confirmed Afib w/ episodes of RVR. Patient denies LH, dizziness, CP, palpitations, SOB, or abd pain. He worked briefly with PT yesterday and reports tolerating well. Review of Systems General: No Chills HEENT: No Head Aches, No Visual Changes Pulmonary: Dyspnea (w/ exertion); No Cough Cardiovascular: No: Chest Pain, Palpitations Gastrointestinal: No: Nausea, Vomiting, Abdominal Pain Genitourinary: No Dysuria, No Frequency Neurological: No: Weakness, Numbness ROS unable to be obtained due to Sedation with precedex Focused Exam Time of Focused Exam: 19:45 Objective Exam Vital Signs Vital Signs Date Time Temp Pulse Resp B/P (MAP) Pulse Ox O2 Delivery O2 Flow Rate FiO2 05/18/22 11:02 95 High Flow N/C 7.00 05/18/22 08:00 36.2 100 20 131/91 (104) 05/17/22 08:00 45 Capillary Refill : Greater Than 3 Seconds General Appearance: No Apparent Distress, WD/WN, Obese HEENT: PERRL/EOMI, Pharynx Normal Neck: Non Tender, Supple Respiratory: Lungs Clear, Normal Breath Sounds, No Accessory Muscle Use, No Respiratory Distress Cardiovascular: No Murmur, Normal Peripheral Pulses, Irregularly Irregular Gastrointestinal: Normal Bowel Sounds, Non Tender, Soft Extremity: Non Tender, No Calf Tenderness Neurologic/Psychiatric: Alert, Oriented x3, Normal Mood/Affect Skin: Normal Color, Warm/Dry Lymphatic: No Adenopathy Results/Procedures Lab Laboratory Tests 05/18/22 05:40 Patient resulted labs reviewed. Imaging: Reviewed Imaging Films, Reviewed Imaging Report Assessment/Plan Assessment and Plan Assess & Plan/Chief Complaint Acute on chronic Hypercapnic RF -(05/16): Improved from admission. Compensated respiratory acidosis. ABG 7.4|61|84|37 -(05/16) CXR 05/16 shows continued pulmonary vascular congestion and small left pleural effusion appearing similar to last exam. Rounded density found within the left lung base which radiology recommends a dedicated CT in a week if fails to improve on CXR to exclude a lesion vs relation to aforementioned findings. -(05/17): CXR unchanged from yesterday. 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 Ween as able. -(05/18): continue nebs and steroids. PT/OT. Ween O2 further as tolerated Paroxysmal Afib w/ RVR -HR irregularly irregular on exam. confirmed afib w/ episodes RVR on EKG. Cardiology aware and will appreciate recommendations. Possible PNA -initial CXR showed possible left sided pneumonia. Continue Cefepime Acute CHF -BNP 361.4 on admission. Was started on Lasix 40mg IV BID. Currently on LAsix 40mg IV QD. condition improving -LVEF 50-55% on echo. -Cardiology consulted and managing Mild Troponin elevation Trended down. Started on therapeutic lovenox 110mg BID SQ. Cardiology consulted. CASSIE Cr stalled at around 1.4. Has been steady for past few days here. Up from 0.88 on 05/13. Likely second to lasix which was adjusted to 40mg IV QD. Monitor Deconditioning -PT/OT as tolerated Hyperglycemia -No history of DM but Blood sugars in mid 100's with AM labs. Patient is currently receiving steroids and this is likely secondary. Will monitor to assess if need for accuchecks and insulin sliding scale. Diet: as tolerated DVT Proph: lovenox TAMMY MAURO DO 05/19/22 0650: Supervisory-Addendum Brief Verification & Attestation Participated in pt care: history, MDM, physical Personally performed: exam, history, MDM, supervision of care Care discussed with: Medical Student Procedures: n/a Results interpretation: Verified all documentation Verification and Attestation of Medical Student E/M Service A medical student performed and documented this service in my presence. I reviewed and verified all information documented by the medical student and made modifications to such information, when appropriate. I personally performed the physical exam and medical decision making. Tammy Mauro, May 19, 2022,06:50 BHANU SUN May 18, 2022 11:39 TAMMY MAURO DO May 19, 2022 06:50"
--- NOTE | 2022-05-18 13:23 | Progress Note - Cardiology ---
Cardiology SOAP Progress Note Subjective: Has more gen malaise and weakness and shortness of breath today No n/v/d No cp or palp or syncope No focal weakness Objective: I&O/Vital Signs 05/18/22 05/18/22 05/18/22 05/18/22 01:22 02:32 03:55 06:47 Temp 37.2 36.2 Pulse 123 96 99 Resp 18 24 16 B/P (MAP) 164/81 (108) 132/85 (101) Pulse Ox 93 93 95 97 O2 Delivery NIV Bilevel NIV Bilevel High Flow N/C O2 Flow Rate 30.00 7.00 05/18/22 05/18/22 05/18/22 08:00 11:02 12:00 Temp 36.2 36.8 Pulse 100 104 Resp 20 21 B/P (MAP) 131/91 (104) 134/78 (96) Pulse Ox 99 95 92 O2 Delivery High Flow N/C High Flow N/C Nasal Cannula O2 Flow Rate 7.00 7.00 7.00 05/18/22 00:00 Intake Total 925 ml Output Total 1200 ml Balance -275 ml Weight (Pounds): 230 Weight (Calculated Kilograms): 104.776752 Constitutional: well-developed, well-nourished, other Respiratory: chest expansion is symmetric, chest is bilaterally symmetric, other Cardiovascular: regular rate-rhythm, S1 and S2 Gastrointestional: soft, round, audible bowel sounds Extremities: no lower extremity edema bilateral Neurologic/Psychiatric: other Skin: normal color, warm/dry Results/Procedures: Labs Laboratory Tests 05/18/22 05:40: White Blood Count 11.1H, Red Blood Count 3.64L, Hemoglobin 11.5L, Hematocrit 35L , Mean Corpuscular Volume 95, Mean Corpuscular Hemoglobin 32, Mean Corpuscular Hemoglobin Concent 33, Red Cell Distribution Width 13.2, Platelet Count 269, Mean Platelet Volume 9.0, Immature Granulocyte % (Auto) 1, Neutrophils (%) (Auto) 89H, Lymphocytes (%) (Auto) 3L, Monocytes (%) (Auto) 8, Eosinophils (%) (Auto) 0, Basophils (%) (Auto) 0, Neutrophils # (Auto) 9.8H, Lymphocytes # (Auto) 0.3L, Monocytes # (Auto) 0.9, Eosinophils # (Auto) 0.0, Basophils # (Auto) 0.0, Immature Granulocyte # (Auto) 0.1, Sodium Level 137, Potassium Level 4.6, Chloride Level 97L, Carbon Dioxide Level 30, Anion Gap 10, Blood Urea Nitrogen 40H, Creatinine 1.40H, Estimat Glomerular Filtration Rate 50, BUN/Creatinine Ratio 29, Glucose Level 144H, Calcium Level 8.6, Corrected Calcium 9.1, Magnesium Level 2.5H, Total Bilirubin 0.8, Aspartate Amino Transf (AST/SGOT) 33, Alanine Aminotransferase (ALT/SGPT) 31, Alkaline Phosphatase 71, Total Protein 5.9L, Albumin 3.4 Microbiology 05/14/22 Gram Stain - Final, Complete 05/14/22 Sputum Culture - Final, Complete Usual upper respiratory hiram 05/13/22 Urine Culture - Final, Complete NO GROWTH 05/13/22 Blood Culture - Preliminary, Resulted No growth Laboratory Tests 05/17/22 05:31 05/18/22 05:40 A/P: Assessment: Acute resp failure - ?acute on chronic exacerbation of COPD - Per CXR of 05-17-22: rounded opacity in the left lung base which may represent loculated fluid within the major fissure versus pulmonary mass (managed by the Med svce) - ac diastolic CHF - LVEF 50-55% on echo of 05-14-22 PAF with a somewhat rapid vent response - (CHADSVASc score 6) - first diagnosed on 05-18-22 Acute renal insufficiency on the labs of 05-15-22, likely due to diuretic therapy (vol depletion) Minimally elevated troponin -likely Type 2 PA secondary to hypoxia at time of ED presentation HTN HLD reports 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 Treat heart rate with beta-guillermo and initiate stroke prophylaxis with apixaban * Stop ASA after starting apixaban (ro reduce bleeding reisk) * Management of pneumonia is per medical services * CXR of 05-17-22: rounded opacity in the left lung base which may represent loculated fluid within the major fissure versus pulmonary mass. Continued follow-up to resolution versus dedicated CT is recommended per radiology services - management is by the Medical services * Continue oral diuretics * Increase ambulation * Monitor labs SHIRLEY ARREDONDO MD [facility] May 18, 2022 13:23
--- NOTE | 2022-05-18 13:38 | Physical Therapy Daily Note ---
PT Daily Note-Current Subjective Patient and family agree to PT. Pain Section J - Health Conditions 1. Rarely or not at all 2. Occasionally 3. Frequently 4. Almost constantly 8. Unable to answer Pain Effect on Sleep: 1 Pain Interference with Therapy: 1 Pain Interference w/Day-to-Day: 1 Mental Status Patient Orientation: Confused Attachments: Oxygen (8L) Transfers SCALE: Activities may be completed with or without assistive devices. 8-Falidcbnbg-bzymcak completes the activity by him/herself with no assistance from a helper. 5-Set-up or Clean-up Assistance-helper sets up or cleans up; patient completes activity. [place] assists only prior to or following the activity. 4-Supervision or Touching Assistance-helper provides verbal cues and/or touching/steadying and/or contact guard assistance as patient completes activity. Assistance may be provided throughout the activity or intermittently. 3-Partial/Moderate Assistance-helper does LESS THAN HALF the effort. [place] lifts, holds or supports trunk or limbs, but provides less than half the effort. 2-Substantial/Maximal Assistance-helper does MORE THAN HALF the effort. [place] lifts or holds trunk or limbs and provides more than half the effort. 2-Eedkmybdy-yyojts does ALL the effort. Patient does none of the effort to complete the activity. Or, the assistance of 2 or more helpers is required for the patient to complete the activity. If activity was not attempted, code reason: 7-Patient Refused. 9-Not Applicable-not attempted and the patient did not perform the activity before the current illness, exacerbation or injury. 10-Not Attempted due to Environmental Limitations-(lack of equipment, weather restraints, etc.). 88-Not Attempted due to Medical Conditions or Safety Concerns. Lying to Sitting/Side of Bed(Q: 4 Sit to Stand (QC): 3 Chair/Uvg-am-Xofyu Xfer(QC): 3 Weight Bearing Right Lower Extremity: Right Full Weight Bearing Left Lower Extremity: Left Full Weight Bearing Gait Training Distance: 15' Walk 10 feet (QC): 3 (mod assist) Gait Assistive Device: FWW extended UE's with FWW use requiring mod assist to maintain body placement in FWW Exercises Seated Therapy Exercises: Sit to stand (3 sets to FWW SBA) Assessment Patient tolerated treatment well and is up in recliner with chair alarm activated. PT to increase activity as tolerated by patient. Patient requires 8L O2 HF NC. 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 Group Home Goals PT Group Home Goals Time Frame: Jun 09, 2022 Roll Left & Right (QC): 6 Sit to Lying (QC): 6 Lying-Sitting on Side/Bed(QC): 6 Sit to Stand (QC): 6 Chair/Sey-it-Awykg Xfer(QC): 6 Toilet Transfer (QC): 6 Does the Patient Walk: Yes Walk 10 feet (QC): 4 Walk 50ft with 2 Turns (QC): 4 Walk 150 ft (QC): 4 1 Step (curb) (QC): 4 PT Plan Treatment/Plan Treatment Plan: Continue Plan of Care Treatment Plan: Bed Mobility, Education, Functional Activity Mari, Functional Strength, Group Therapy, Gait, Safety, Therapeutic Exercise, Transfers Treatment Duration: Jun 09, 2022 Frequency: 6 times per week Estimated Hrs Per Day: .25 hour per day Patient and/or Family Agrees t: Yes Time Time In: 1315 Time Out: 1330 DATE: May 18, 2022 Total Billed Treatment Time: 15 Total Billed Treatment 1 visit FA 15 min CARA SEGOVIA PT May 18, 2022 13:38
--- NOTE | 2022-05-18 13:44 | Occupational Ther Daily Note ---
OT Current Status-Daily Note Subjective Pt up in bed and agreeable to OT Mental Status/Objective Patient Orientation: Confused Attachments: Oxygen (8 liters) ADL-Treatment Therapy Code Descriptions/Definitions Functional Trigg Measure: 0=Not Assessed/NA 4=Minimal Assistance 1=Total Assistance 5=Supervision or Setup 2=Maximal Assistance 6=Modified Trigg 3=Moderate Assistance 7=Complete IndependenceSCALE: Activities may be completed with or without assistive devices. 3-Pmnxdkirkb-aknkljn completes the activity by him/herself with no assistance from a helper. 5-Set-up or Clean-up Assistance-helper sets up or cleans up; patient completes activity. [place] assists only prior to or following the activity. 4-Supervision or Touching Assistance-helper provides verbal cues and/or touching/steadying and/or contact guard assistance as patient completes activity. Assistance may be provided throughout the activity or intermittently. 3-Partial/Moderate Assistance-helper does LESS THAN HALF the effort. [place] lifts, holds or supports trunk or limbs, but provides less than half the effort. 2-Substantial/Maximal Assistance-helper does MORE THAN HALF the effort. [place] lifts or holds trunk or limbs and provides more than half the effort. 7-Lyptevjlf-mvyqwu does ALL the effort. Patient does none of the effort to complete the activity. Or, the assistance of 2 or more helpers is required for the patient to complete the activity. If activity was not attempted, code reason: 7-Patient Refused. 9-Not Applicable-not attempted and the patient did not perform the activity before the current illness, exacerbation or injury. 10-Not Attempted due to Environmental Limitations-(lack of equipment, weather restraints, etc.). 88-Not Attempted due to Medical Conditions or Safety Concerns. Eating (QC): 6 Oral Hygiene (QC): 5 Shower/Bathe Self (QC): 88 (tremors, poor balance and posture control) Upper Body Dressing (QC): 4 Lower Body Dressing (QC): 6 On/Off Footwear: 2 (unable to don socksover toes.) Toileting Hygiene (QC): 3 Toilet Transfer (QC): 3 Other Treatment Red medium resistance therapy band 2x10 completed for horz abduction, OT recommends 3/10 x day over weekend, Patient preformed 5 reps of sit/stand for mm transfers and safety recall Education OT Patient Education: Exercise program, Instructions to caregiver, Purpose of tx/functional activities, Safety issues, Transfer techniques Teaching Recipient: Patient, Family ( present) Teaching Methods: Demonstration, Discussion Response to Teaching: Verbalize Understanding, Reinforcement Needed OT Billet Cutter Goals Billet Cutter Goals Eating (QC): 6 Oral Hygiene (QC): 5 Toileting Hygiene (QC): 5 Shower/Bathe Self (QC): 4 Upper Body Dressing (QC): 5 Lower Body Dressing (QC): 5 On/Off Footwear (QC): 5 1=Demonstrate adherence to instructed precautions during ADL tasks. 2=Patient will verbalize/demonstrate understanding of assistive devices/modifications for ADL. 3=Patient will improve strength/tolerance for activity to enable patient to perform ADL's. OT Education/Plan Discharge Recommendations Plan/Recommendations: Continue POC Treatment Plan/Plan of Care Patient would benefit from OT for education, treatment and training to promote independence in ADL's, mobility, safety and/or upper extremity function for ADL's. Plan of Care: ADL Retraining, Cognitive Retraining, Functional Mobility, Group Exercise/Act as Ind, UE Funct Exercise/Act, UE Neuromus Re-Ed/Coord Treatment Duration: May 26, 2022 Frequency: 3 times per week (3-5 times per week) Estimated Hrs Per Day: .25 hour per day Rehab Potential: Fair remains up in recliner w/ all needs met Time Start Time: 13:00 Stop Time: 13:15 DATE: May 18, 2022 Total Time Billed (hr/min): 15 Billed Treatment Time ADL 1 15 min CHAPIN BURCH OT May 18, 2022 13:44
[2022-05-18] MEDS ORDERED: APIXABAN 5 MG (ELIQUIS) TABLET PO NR (13:45)
[2022-05-18] MEDS ORDERED: meTOproloL SUCCINATE 50 MG (TOPROL XL) TAB PO SCH (15:30)
[2022-05-18] MEDS: TAMSULOSIN 0.4 MG (FLOMAX) CAP PO SCH (18:32)
[2022-05-18] MEDS: CALCIUM CARBONATE 600 MG (CALCARB) TAB PO SCH (18:33)
[2022-05-18] MEDS: traZODone 50 MG (DESYREL) TAB PO SCH (21:32)
[2022-05-18] MEDS: DONEPEZIL 10 MG (ARICEPT) TAB PO SCH (21:32)
[2022-05-18] MEDS: APIXABAN 5 MG (ELIQUIS) TABLET PO SCH (21:32)
[2022-05-18] MEDS ORDERED: NS (IVPB) 50 ML ONE (21:41)
[2022-05-18] MEDS ORDERED: CEFEPIME 1 GM/10 ML (MAXIPIME) VIAL ONE (21:42)
[2022-05-19] VITALS (7 sets, daily range): BP systolic 130–174; BP diastolic 67–100
[2022-05-19] MEDS: RT-ALBUTEROL/IPRATROPIUM 3 ML (DUONEB) VIAL INH SCH ×6 (02:18→21:55)
[2022-05-19 06:00] LABS: BASOPHILS % (AUTO) 0 % (0-10); EOSINOPHILS % (AUTO) 0 % (0-10); HEMATOCRIT 36 % (40-54); HEMOGLOBIN 11.7 g/dL (13.3-17.7); LYMPHOCYTES # (AUTO) 0.4 10^3/uL (1.0-4.0); LYMPHOCYTES % (AUTO) 3 % (12-44); MEAN CORPUSCULAR HEMOGLOBIN 32 pg (25-34); MEAN CORPUSCULAR HGB CONC 33 g/dL (32-36); MEAN CORPUSCULAR VOLUME 97 fL (80-99); MEAN PLATELET VOLUME 9.3 fL (9.0-12.2); MONOCYTES % (AUTO) 8 % (0-12); NEUTROPHILS % (AUTO) 88 % (42-75); PLATELET COUNT 271 10^3/uL (130-400); WHITE BLOOD COUNT 12.5 10^3/uL (4.3-11.0)
[2022-05-19 06:23] LABS: ALBUMIN 3.3 GM/DL (3.2-4.5); BILIRUBIN,TOTAL 0.6 MG/DL (0.1-1.0); CALCIUM 8.9 MG/DL (8.5-10.1); CREATININE SERUM 1.17 MG/DL (0.60-1.30); MAGNESIUM 2.4 MG/DL (1.6-2.4); POTASSIUM 4.7 MMOL/L (3.6-5.0); TOTAL PROTEIN 5.8 GM/DL (6.4-8.2)
--- NOTE | 2022-05-19 07:21 | Progress Note - Hospitalist ---
"Subjective HPI/CC On Admission Date Seen by Provider: May 19, 2022 Time Seen by Provider: 11:00 CC: Acute hypercapneic respiratory failure with CHF HPI: This is an 81yoWM clinic patient of [facility] who presented to the ER with d yspnea. He had been placed on 2 rounds of abx recently for pneumonia but when he presented to the ER he was found to have CO2 retention along with volume overload with CHF. Cardiology consulted. IV Lasix has helped a lot and he remains on biPAP. Family at bedside. No pain. Subjective/Events-last exam Improved overall On hi-le AF managed conservatively No pain reported Remeron and Zyprexa ordered for tonight Review of Systems General: Fatigue, Malaise Focused Exam Time of Focused Exam: 19:45 Objective Exam Vital Signs Vital Signs Date Time Temp Pulse Resp B/P (MAP) Pulse Ox O2 Delivery O2 Flow Rate FiO2 05/19/22 19:26 36.4 90 13 131/67 (88) 95 Nasal Cannula 3.00 05/19/22 16:04 40 Capillary Refill : Greater Than 3 Seconds General Appearance: No Apparent Distress, WD/WN, Chronically ill Respiratory: Lungs Clear, Normal Breath Sounds Cardiovascular: Regular Rate, Rhythm Neurologic/Psychiatric: Alert, No Motor/Sensory Deficits, Normal Mood/Affect, Disoriented Results/Procedures Lab Laboratory Tests 05/19/22 05:40 Patient resulted labs reviewed. Imaging: Reviewed Imaging Films, Reviewed Imaging Report Assessment/Plan Assessment and Plan Assess & Plan/Chief Complaint Acute on chronic Hypercapnic RF -(05/16): Improved from admission. Compensated respiratory acidosis. ABG 7.4|61|84|37 -(05/16) CXR 05/16 shows continued pulmonary vascular congestion and small left pleural effusion appearing similar to last exam. Rounded density found within the left lung base which radiology recommends a dedicated CT in a week if fails to improve on CXR to exclude a lesion vs relation to aforementioned findings. -(05/17): CXR unchanged from yesterday. 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 Ween as able. -(05/18): continue nebs and steroids. PT/OT. Wean O2 further as tolerated Paroxysmal Afib w/ RVR -HR irregularly irregular on exam. confirmed afib w/ episodes RVR on EKG. Cardiology aware and will appreciate recommendations. Possible PNA -initial CXR showed possible left sided pneumonia. Continue Cefepime Acute CHF -BNP 361.4 on admission. Was started on Lasix 40mg IV BID. Currently on LAsix 40mg IV QD. condition improving -LVEF 50-55% on echo. -Cardiology consulted and managing Mild Troponin elevation Trended down. Started on therapeutic lovenox 110mg BID SQ. Cardiology consulted. CASSIE Cr stalled at around 1.4. Has been steady for past few days here. Up from 0.88 on 05/13. Likely second to lasix which was adjusted to 40mg IV QD. Monitor Deconditioning -PT/OT as tolerated Hyperglycemia -No history of DM but Blood sugars in mid 100's with AM labs. Patient is currently receiving steroids and this is likely secondary. Will monitor to assess if need for accuchecks and insulin sliding scale. Diet: as tolerated DVT Proph: lovenox Critical Care Critically Ill Patient Diagnosis/Problems Diagnosis/Problems (1) Acute respiratory failure Status: Acute (2) CHF (congestive heart failure) Status: Acute (3) Dementia Status: Acute (4) Elevated troponin Status: Acute (5) Left bundle branch block (LBBB) Status: Acute (6) History of BPH Status: Acute ANDRÉS MAURO DO May 19, 2022 07:21"
[2022-05-19] MEDS: UMECLIDINIUM BROMIDE (INCRUSE ELLIPTA) 7'S IH SCH (07:49)
[2022-05-19] MEDS: LOSARTAN 50 MG (COZAAR) TAB PO SCH (08:11)
[2022-05-19] MEDS: FINASTERIDE (PROSCAR) 5 MG TAB PO SCH (08:11)
[2022-05-19] MEDS: DOCUSATE SODIUM 100 MG (COLACE) CAP PO SCH ×2 (08:11→21:41)
[2022-05-19] MEDS: methylPREDNISolone 40 MG/ML (Solu-MEDROL) VIAL IV SCH (08:11)
[2022-05-19] MEDS: meTOproloL SUCCINATE 50 MG (TOPROL XL) TAB PO SCH (08:12)
[2022-05-19] MEDS: APIXABAN 5 MG (ELIQUIS) TABLET PO SCH ×2 (08:12→21:36)
[2022-05-19] MEDS: MEMANTINE 10 MG (NAMENDA) TABLET PO SCH (08:12)
[2022-05-19] MEDS: FUROSEMIDE 40 MG (LASIX) TAB PO SCH (08:12)
[2022-05-19] MEDS: SENNOSIDES 8.6 MG (SENOKOT) TAB PO SCH ×2 (08:12→21:41)
[2022-05-19] MEDS: MULTIVIT W/MINERALS TAB (THERAGRAN M) PO SCH (08:12)
[2022-05-19] MEDS: hydrALAZINE (APRESOLINE) 25 MG TAB PO SCH ×2 (08:12→21:36)
--- NOTE | 2022-05-19 08:41 | Physical Therapy Daily Note ---
PT Daily Note-Current Subjective Pt. in bed, just finished breakfast, agrees to PT and would like to sit up in chair. Pain Section J - Health Conditions 1. Rarely or not at all 2. Occasionally 3. Frequently 4. Almost constantly 8. Unable to answer Pain Effect on Sleep: 1 Pain Interference with Therapy: 1 Pain Interference w/Day-to-Day: 1 Mental Status Patient Orientation: Person, Place Attachments: Oxygen Transfers SCALE: Activities may be completed with or without assistive devices. 7-Rnkcuebxhx-ohrnuds completes the activity by him/herself with no assistance from a helper. 5-Set-up or Clean-up Assistance-helper sets up or cleans up; patient completes activity. [place] assists only prior to or following the activity. 4-Supervision or Touching Assistance-helper provides verbal cues and/or touching /steadying and/or contact guard assistance as patient completes activity. Assistance may be provided throughout the activity or intermittently. 3-Partial/Moderate Assistance-helper does LESS THAN HALF the effort. [place] lifts, holds or supports trunk or limbs, but provides less than half the effort. 2-Substantial/Maximal Assistance-helper does MORE THAN HALF the effort. [place] lifts or holds trunk or limbs and provides more than half the effort. 4-Foitsowql-ajyyhe does ALL the effort. Patient does none of the effort to complete the activity. Or, the assistance of 2 or more helpers is required for the patient to complete the activity. If activity was not attempted, code reason: 7-Patient Refused. 9-Not Applicable-not attempted and the patient did not perform the activity before the current illness, exacerbation or injury. 10-Not Attempted due to Environmental Limitations-(lack of equipment, weather restraints, etc.). 88-Not Attempted due to Medical Conditions or Safety Concerns. Lying to Sitting/Side of Bed(Q: 4 Sit to Stand (QC): 4 Chair/Zpv-ia-Fadyc Xfer(QC): 4 Weight Bearing Right Lower Extremity: Right Full Weight Bearing Left Lower Extremity: Left Full Weight Bearing Gait Training Does the Patient Walk?: Yes Distance: 3 ft to chair Gait Persons Needed: 1 Gait Assistive Device: FWW wide TRISTA, arms extended and walker out front despite cues to get closer to walker, flexed posture at hips Exercises Seated Therapy Exercises: Ankle pumps, Long arc quads Seated Reps: 15 Standing: Sit to Stand Standing Reps: 3 Treatments bed to chair and LE exercises Assessment Current Status: Good Progress Pt. has several safety issues with gait and distance is limited. Pt. fatigues quickly with sit to stand from chair. Pt. in bedside chair post session with call light and all needs met. PT Inking Machine Tender Goals Skilled Nursing Goals PT Inking Machine Tender Goals Time Frame: Jun 09, 2022 Roll Left & Right (QC): 6 Sit to Lying (QC): 6 Lying-Sitting on Side/Bed(QC): 6 Sit to Stand (QC): 6 Chair/Own-yz-Axnco Xfer(QC): 6 Toilet Transfer (QC): 6 Does the Patient Walk: Yes Walk 10 feet (QC): 4 Walk 50ft with 2 Turns (QC): 4 Walk 150 ft (QC): 4 1 Step (curb) (QC): 4 PT Plan Treatment/Plan Treatment Plan: Continue Plan of Care Treatment Plan: Bed Mobility, Education, Functional Activity Mari, Functional Strength, Group Therapy, Gait, Safety, Therapeutic Exercise, Transfers Treatment Duration: Jun 09, 2022 Frequency: 6 times per week Estimated Hrs Per Day: .25 hour per day Patient and/or Family Agrees t: Yes Time Time In: 814 Time Out: 829 DATE: May 19, 2022 Total Billed Treatment Time: 15 Total Billed Treatment 1, FA 15' CARLYN SCHERER PT May 19, 2022 08:41
--- NOTE | 2022-05-19 09:04 | Cardiology Progress Note ---
Subjective Date Seen by Provider: May 19, 2022 Time Seen by Provider: 08:59 Subjective/Events-last exam Patient was seen at bedside, sitting in a chair, feeling better. Still having shortness of breath Review of Systems General: No Chills, No Night Sweats; Fatigue; No Malaise, No Appetite, No Other HEENT: No Head Aches, No Visual Changes, No Eye Pain, No Ear Pain, No Dysphasia, No Sinus Congestion, No Post Nasal Drip, No Sore Throat, No Other Pulmonary: Dyspnea; No Cough, No Pleuritic Chest Pain, No Other Cardiovascular: No: Chest Pain, Palpitations, Orthopnea, Paroxysmal Noc. Dyspnea, Edema, Lt Headedness, Other Focused Exam Time of Focused Exam: 19:45 Objective-Cardiology Exam Last Set of Vital Signs Vital Signs 05/17/22 05/19/22 05/19/22 05/19/22 08:00 07:37 07:49 08:01 Temp 36.6 Pulse 108 Resp 16 B/P (MAP) 136/78 (97) Pulse Ox 98 O2 Delivery High Flow N/C O2 Flow Rate 5.00 FiO2 45 I&O Intake and Output 05/19/22 00:00 Intake Total 1295 ml Output Total 960 ml Balance 335 ml Intake Oral 1295 ml Output Urine Total 960 ml # Urine Diapers 2 # Bowel Movements 1 General: Alert, Cooperative HEENT: Atraumatic, PERRLA Neck: Supple, No JVD, No Thyromegaly Lungs: Normal Air Movement, Other (Bilateral rhonchi) Heart: Regular Rate, Normal S1, Normal S2, No Murmurs Abdomen: Normal Bowel Sounds, Soft, No Tenderness, No Hepatosplenomegaly, No Masses Extremities: No Clubbing, No Cyanosis, No Edema, Normal Pulses, No Tenderness/Swelling Skin: No Rashes, No Breakdown, No Significant Lesion Neuro: Normal Speech, Normal Tone, Sensation Intact Psych/Mental Status: Mental Status NL, Mood NL Results Lab Laboratory Tests 05/19/22 05:40 A/P-Cardiology Admission Diagnosis Acute respiratory failure Paroxysmal atrial fibrillation Type II myocardial infarction COPD Assessment/Plan Acute respiratory failure, acute exacerbation of COPD and congestive heart failure, acute on chronic left ventricular diastolic dysfunction Currently appears to be better, still requiring high oxygen flow Improving slowly Paroxysmal atrial fibrillation, had rapid ventricular response, diagnosed on May 18, 2022. Heart rate is better controlled. Acute renal insufficiency. Renal function are improving continue to monitor Mild elevation in troponin Type II myocardial infarction secondary to hypoxia. 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
[2022-05-19] MEDS: TAMSULOSIN 0.4 MG (FLOMAX) CAP PO SCH (17:04)
[2022-05-19] MEDS: CALCIUM CARBONATE 600 MG (CALCARB) TAB PO SCH (17:04)
[2022-05-19] MEDS: OLANZapine 2.5 MG (ZyPREXA) TAB PO SCH (21:36)
[2022-05-19] MEDS: traZODone 50 MG (DESYREL) TAB PO SCH (21:36)
[2022-05-19] MEDS: MIRTAZAPINE 15 MG (REMERON) TAB PO SCH (21:36)
[2022-05-19] MEDS: DONEPEZIL 10 MG (ARICEPT) TAB PO SCH (21:36)
[2022-05-20] VITALS (7 sets, daily range): BP systolic 125–160; BP diastolic 76–92
[2022-05-20] MEDS: RT-ALBUTEROL/IPRATROPIUM 3 ML (DUONEB) VIAL INH SCH ×6 (02:51→23:36)
[2022-05-20 05:18] LABS: BASOPHILS % (AUTO) 0 % (0-10); EOSINOPHILS # (AUTO) 0.2 10^3/uL (0.0-0.3); EOSINOPHILS % (AUTO) 2 % (0-10); HEMATOCRIT 34 % (40-54); HEMOGLOBIN 11.1 g/dL (13.3-17.7); LYMPHOCYTES # (AUTO) 0.6 10^3/uL (1.0-4.0); LYMPHOCYTES % (AUTO) 5 % (12-44); MEAN CORPUSCULAR HEMOGLOBIN 32 pg (25-34); MEAN CORPUSCULAR HGB CONC 33 g/dL (32-36); MEAN CORPUSCULAR VOLUME 95 fL (80-99); MEAN PLATELET VOLUME 9.2 fL (9.0-12.2); MONOCYTES # (AUTO) 1.6 10^3/uL (0.0-1.0); MONOCYTES % (AUTO) 12 % (0-12); NEUTROPHILS # (AUTO) 10.7 10^3/uL (1.8-7.8); NEUTROPHILS % (AUTO) 80 % (42-75); PLATELET COUNT 249 10^3/uL (130-400); WHITE BLOOD COUNT 13.3 10^3/uL (4.3-11.0)
[2022-05-20 05:41] LABS: POTASSIUM 3.6 MMOL/L (3.6-5.0)
[2022-05-20 05:42] LABS: BILIRUBIN,TOTAL 0.7 MG/DL (0.1-1.0); CALCIUM 8.5 MG/DL (8.5-10.1); CREATININE SERUM 1.18 MG/DL (0.60-1.30); MAGNESIUM 2.1 MG/DL (1.6-2.4); TOTAL PROTEIN 5.3 GM/DL (6.4-8.2)
--- NOTE | 2022-05-20 06:02 | Progress Note - Hospitalist ---
"Subjective HPI/CC On Admission Date Seen by Provider: May 20, 2022 Time Seen by Provider: 09:00 CC: Acute hypercapneic respiratory failure with CHF HPI: This is an 81yoWM clinic patient of [facility] who presented to the ER with d yspnea. He had been placed on 2 rounds of abx recently for pneumonia but when he presented to the ER he was found to have CO2 retention along with volume overload with CHF. Cardiology consulted. IV Lasix has helped a lot and he remains on biPAP. Family at bedside. No pain. Subjective/Events-last exam Doing better No pain reported Walking back and forth to bathroom with assist Needs NH in my opinion Labs reviewed DC steroid today Slept well last night with Remeron and Zyprexa Review of Systems Neurological: Confusion Focused Exam Time of Focused Exam: 19:45 Objective Exam Vital Signs Vital Signs Date Time Temp Pulse Resp B/P (MAP) Pulse Ox O2 Delivery O2 Flow Rate FiO2 05/20/22 11:59 36.3 102 20 160/88 (112) 92 High Flow N/C 1.00 05/19/22 16:04 40 Capillary Refill : Greater Than 3 Seconds General Appearance: No Apparent Distress, WD/WN, Chronically ill Respiratory: Lungs Clear, Normal Breath Sounds Cardiovascular: Regular Rate, Rhythm Neurologic/Psychiatric: Alert, Oriented x3, No Motor/Sensory Deficits, Normal Mood/Affect Results/Procedures Lab Laboratory Tests 05/20/22 05:10 Patient resulted labs reviewed. Imaging: Reviewed Imaging Films, Reviewed Imaging Report Assessment/Plan Assessment and Plan Assess & Plan/Chief Complaint Acute on chronic Hypercapnic RF -(05/16): Improved from admission. Compensated respiratory acidosis. ABG 7.4|61|84|37 -(05/16) CXR 05/16 shows continued pulmonary vascular congestion and small left pleural effusion appearing similar to last exam. Rounded density found within the left lung base which radiology recommends a dedicated CT in a week if fails to improve on CXR to exclude a lesion vs relation to aforementioned findings. -(05/17): CXR unchanged from yesterday. 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 Ween as able. -(05/18): continue nebs and steroids. PT/OT. Wean O2 further as tolerated Paroxysmal Afib w/ RVR -HR irregularly irregular on exam. confirmed afib w/ episodes RVR on EKG. Cardiology aware and will appreciate recommendations. Possible PNA -initial CXR showed possible left sided pneumonia. Completed Cefepime Acute CHF -BNP 361.4 on admission. Was started on Lasix 40mg IV BID. Currently on LAsix 40mg IV QD. condition improving -LVEF 50-55% on echo. -Cardiology consulted and managing Mild Troponin elevation Trended down. Started on therapeutic lovenox 110mg BID SQ. Cardiology consulted. CASSIE Cr stalled at around 1.4. Has been steady for past few days here. Up from 0.88 on 05/13. Likely second to lasix which was adjusted to 40mg IV QD. Monitor Deconditioning -PT/OT as tolerated Hyperglycemia -No history of DM but Blood sugars in mid 100's with AM labs. Patient is currently receiving steroids and this is likely secondary. Will monitor to assess if need for accuchecks and insulin sliding scale. Diet: as tolerated DVT Proph: lovenox Critical Care Critically Ill Patient Diagnosis/Problems Diagnosis/Problems (1) Acute respiratory failure Status: Acute (2) CHF (congestive heart failure) Status: Acute (3) Dementia Status: Acute (4) Elevated troponin Status: Acute (5) Left bundle branch block (LBBB) Status: Acute (6) History of BPH Status: Acute ANDRÉS MAURO DO May 20, 2022 06:02"
[2022-05-20] MEDS ORDERED: methylPREDNISolone 40 MG/ML (Solu-MEDROL) VIAL IV SCH (08:00)
[2022-05-20] MEDS: MEMANTINE 10 MG (NAMENDA) TABLET PO SCH (08:24)
[2022-05-20] MEDS: hydrALAZINE (APRESOLINE) 25 MG TAB PO SCH ×2 (08:24→20:00)
[2022-05-20] MEDS: FUROSEMIDE 40 MG (LASIX) TAB PO SCH (08:25)
[2022-05-20] MEDS: APIXABAN 5 MG (ELIQUIS) TABLET PO SCH ×2 (08:25→20:00)
[2022-05-20] MEDS: FINASTERIDE (PROSCAR) 5 MG TAB PO SCH (08:25)
[2022-05-20] MEDS: DOCUSATE SODIUM 100 MG (COLACE) CAP PO SCH ×2 (08:25→21:16)
[2022-05-20] MEDS: MULTIVIT W/MINERALS TAB (THERAGRAN M) PO SCH (08:25)
[2022-05-20] MEDS: SENNOSIDES 8.6 MG (SENOKOT) TAB PO SCH ×2 (08:25→21:16)
[2022-05-20] MEDS: LOSARTAN 50 MG (COZAAR) TAB PO SCH (08:25)
[2022-05-20] MEDS: meTOproloL SUCCINATE 50 MG (TOPROL XL) TAB PO SCH (08:25)
--- NOTE | 2022-05-20 10:18 | Cardiology Progress Note ---
Subjective Date Seen by Provider: May 20, 2022 Time Seen by Provider: 10:17 Subjective/Events-last exam Patient was seen at bedside, sitting comfortably Feeling better. No new complaint Review of Systems General: No Chills, No Night Sweats, No Fatigue, No Malaise, No Appetite, No Other HEENT: No Head Aches, No Visual Changes, No Eye Pain, No Ear Pain, No Dysphasia, No Sinus Congestion, No Post Nasal Drip, No Sore Throat, No Other Pulmonary: Dyspnea; No Cough, No Pleuritic Chest Pain, No Other Cardiovascular: Edema; No: Chest Pain, Palpitations, Orthopnea, Paroxysmal Noc. Dyspnea, Lt Headedness, Other Focused Exam Time of Focused Exam: 19:45 Objective-Cardiology Exam Last Set of Vital Signs Vital Signs 05/19/22 05/20/22 16:04 08:02 Temp 36.3 Pulse 111 Resp 20 B/P (MAP) 140/78 (98) Pulse Ox 93 O2 Delivery High Flow N/C O2 Flow Rate 3.00 FiO2 40 I&O Intake and Output 05/20/22 00:00 Intake Total 1710 ml Balance 1710 ml Intake Oral 1710 ml # Voids 5 # Urine Diapers 5 # Bowel Movements 4 General: Alert, Cooperative HEENT: Atraumatic, PERRLA Neck: Supple, No JVD, No Thyromegaly Lungs: Normal Air Movement, Other (Bilateral rhonchi) Heart: Regular Rate, Normal S1, Normal S2, No Murmurs Abdomen: Normal Bowel Sounds, Soft, No Tenderness, No Hepatosplenomegaly, No Masses Extremities: No Clubbing, No Cyanosis, Normal Pulses, No Tenderness/Swelling, Other (Pedal edema) Skin: No Rashes, No Breakdown, No Significant Lesion Neuro: Normal Speech, Normal Tone, Sensation Intact Psych/Mental Status: Mental Status NL, Mood NL Results Lab Laboratory Tests 05/20/22 05:10 A/P-Cardiology Admission Diagnosis Acute respiratory failure Paroxysmal atrial fibrillation Type II myocardial infarction COPD Assessment/Plan Acute respiratory failure, acute exacerbation of COPD and congestive heart failure, acute on chronic left ventricular diastolic dysfunction Currently appears to be better, still requiring high oxygen flow Improving slowly Paroxysmal atrial fibrillation, had rapid ventricular response, diagnosed on May 18, 2022. Heart rate is better controlled. CHADVASC score of 5, maintained on Eliquis Acute renal insufficiency. Renal function are improving continue to monitor Mild elevation in troponin Type II myocardial infarction secondary to hypoxia. Hypertension, continue to monitor blood pressure Hyperlipidemia, monitor lipids History of CVA in 2016 affecting peripheral vision History of colon cancer with hemicolectomy in 2010 in [facility] BPH Dementia EDY MEDELLIN MD May 20, 2022 10:18
[2022-05-20] MEDS: UMECLIDINIUM BROMIDE (INCRUSE ELLIPTA) 7'S IH SCH (11:05)
[2022-05-20] MEDS: TAMSULOSIN 0.4 MG (FLOMAX) CAP PO SCH (17:10)
[2022-05-20] MEDS: CALCIUM CARBONATE 600 MG (CALCARB) TAB PO SCH (17:10)
[2022-05-20] MEDS: DONEPEZIL 10 MG (ARICEPT) TAB PO SCH (20:00)
[2022-05-20] MEDS: traZODone 50 MG (DESYREL) TAB PO SCH (20:00)
[2022-05-20] MEDS: OLANZapine 2.5 MG (ZyPREXA) TAB PO SCH (20:02)
[2022-05-20] MEDS: MIRTAZAPINE 15 MG (REMERON) TAB PO SCH (20:02)
[2022-05-20] MEDS: MELATONIN 3 MG TABLET PO PRN (23:05)
[2022-05-20] MEDS: LORazepam 0.5 MG (ATIVAN) TABLET PO PRN (23:05)
[2022-05-21] VITALS (7 sets, daily range): BP systolic 100–138; BP diastolic 54–74
[2022-05-21] MEDS: RT-ALBUTEROL/IPRATROPIUM 3 ML (DUONEB) VIAL INH SCH ×6 (02:52→22:21)
[2022-05-21] MEDS: UMECLIDINIUM BROMIDE (INCRUSE ELLIPTA) 7'S IH SCH (07:18)
[2022-05-21 08:18] LABS: BASOPHILS % (AUTO) 0 % (0-10); EOSINOPHILS # (AUTO) 0.2 10^3/uL (0.0-0.3); EOSINOPHILS % (AUTO) 1 % (0-10); HEMATOCRIT 34 % (40-54); HEMOGLOBIN 11.3 g/dL (13.3-17.7); LYMPHOCYTES % (AUTO) 7 % (12-44); MEAN CORPUSCULAR HEMOGLOBIN 32 pg (25-34); MEAN CORPUSCULAR HGB CONC 33 g/dL (32-36); MEAN CORPUSCULAR VOLUME 96 fL (80-99); MEAN PLATELET VOLUME 9.5 fL (9.0-12.2); MONOCYTES # (AUTO) 1.3 10^3/uL (0.0-1.0); MONOCYTES % (AUTO) 9 % (0-12); NEUTROPHILS % (AUTO) 81 % (42-75); PLATELET COUNT 258 10^3/uL (130-400); WHITE BLOOD COUNT 13.6 10^3/uL (4.3-11.0)
[2022-05-21 08:29] LABS: ALBUMIN 3.2 GM/DL (3.2-4.5)
[2022-05-21 08:30] LABS: POTASSIUM 4.1 MMOL/L (3.6-5.0)
[2022-05-21 08:31] LABS: CALCIUM 8.5 MG/DL (8.5-10.1)
[2022-05-21 08:32] LABS: TOTAL PROTEIN 5.7 GM/DL (6.4-8.2)
[2022-05-21 08:34] LABS: BILIRUBIN,TOTAL 0.7 MG/DL (0.1-1.0)
[2022-05-21 08:36] LABS: CREATININE SERUM 1.38 MG/DL (0.60-1.30)
[2022-05-21 08:38] LABS: MAGNESIUM 2.4 MG/DL (1.6-2.4)
[2022-05-21] MEDS: FINASTERIDE (PROSCAR) 5 MG TAB PO SCH (08:42)
[2022-05-21] MEDS: MULTIVIT W/MINERALS TAB (THERAGRAN M) PO SCH (08:42)
[2022-05-21] MEDS: meTOproloL SUCCINATE 50 MG (TOPROL XL) TAB PO SCH (08:42)
[2022-05-21] MEDS: LOSARTAN 50 MG (COZAAR) TAB PO SCH (08:42)
[2022-05-21] MEDS: APIXABAN 5 MG (ELIQUIS) TABLET PO SCH ×2 (08:42→19:55)
[2022-05-21] MEDS: MEMANTINE 10 MG (NAMENDA) TABLET PO SCH (08:43)
[2022-05-21] MEDS: hydrALAZINE (APRESOLINE) 25 MG TAB PO SCH ×2 (08:43→19:55)
[2022-05-21] MEDS: SENNOSIDES 8.6 MG (SENOKOT) TAB PO SCH ×2 (08:43→19:55)
[2022-05-21] MEDS: DOCUSATE SODIUM 100 MG (COLACE) CAP PO SCH ×2 (08:43→19:55)
[2022-05-21] MEDS: FUROSEMIDE 40 MG (LASIX) TAB PO SCH (08:43)
[2022-05-21 08:55] LABS: BAND NEUTROPHILS 1 %; BASOPHILS % (MANUAL) 0 %; EOSINOPHILS % (MANUAL) 0 %; LYMPHOCYTES % (MANUAL) 5 %; MONOCYTES % (MANUAL) 10 %; NEUTROPHILS % (MANUAL) 84 %; RBC MORPH NORMAL
--- NOTE | 2022-05-21 11:17 | Occupational Ther Daily Note ---
OT Current Status-Daily Note Subjective UP IN RECLINER, AGREEABLE TO OT Mental Status/Objective Patient Orientation: Person, Place Attachments: NG Tube ADL-Treatment Therapy Code Descriptions/Definitions Functional [place] Measure: 0=Not Assessed/NA 4=Minimal Assistance 1=Total Assistance 5=Supervision or Setup 2=Maximal Assistance 6=Modified [place] 3=Moderate Assistance 7=Complete IndependenceSCALE: Activities may be completed with or without assistive devices. 4-Ofzpejyaja-fxqfsxl completes the activity by him/herself with no assistance from a helper. 5-Set-up or Clean-up Assistance-helper sets up or cleans up; patient completes activity. [place] assists only prior to or following the activity. 4-Supervision or Touching Assistance-helper provides verbal cues and/or touching/steadying and/or contact guard assistance as patient completes activity. Assistance may be provided throughout the activity or intermittently. 3-Partial/Moderate Assistance-helper does LESS THAN HALF the effort. [place] lifts, holds or supports trunk or limbs, but provides less than half the effort. 2-Substantial/Maximal Assistance-helper does MORE THAN HALF the effort. [place] lifts or holds trunk or limbs and provides more than half the effort. 2-Qegnxuuhy-azzvyp does ALL the effort. Patient does none of the effort to c omplete the activity. Or, the assistance of 2 or more helpers is required for the patient to complete the activity. If activity was not attempted, code reason: 7-Patient Refused. 9-Not Applicable-not attempted and the patient did not perform the activity before the current illness, exacerbation or injury. 10-Not Attempted due to Environmental Limitations-(lack of equipment, weather restraints, etc.). 88-Not Attempted due to Medical Conditions or Safety Concerns. Eating (QC): 6 Oral Hygiene (QC): 4 Shower/Bathe Self (QC): 7 Upper Body Dressing (QC): 4 Lower Body Dressing (QC): 3 On/Off Footwear: 2 Toileting Hygiene (QC): 3 Toilet Transfer (QC): 3 Education OT Patient Education: Correct positioning, Energy conservation, Exercise program, Modified ADL techniques, Progress toward Goal/Update tx plan, Purpose of tx/functional activities, Reviewed precautions, Rehab process, Safety issues, Transfer techniques, Use of adapted equipment Teaching Recipient: Patient, Family Teaching Methods: Demonstration Response to Teaching: Reinforcement Needed OT Box Stamper Goals Box Stamper Goals Eating (QC): 6 Oral Hygiene (QC): 5 Toileting Hygiene (QC): 5 Shower/Bathe Self (QC): 4 Upper Body Dressing (QC): 5 Lower Body Dressing (QC): 5 On/Off Footwear (QC): 5 1=Demonstrate adherence to instructed precautions during ADL tasks. 2=Patient will verbalize/demonstrate understanding of assistive devices/modifications for ADL. 3=Patient will improve strength/tolerance for activity to enable patient to perform ADL's. OT Education/Plan Problem List/Assessment Assessment: Decreased Activ Tolerance, Decreased Safety Aware, Impaired Coordination, Impaired Funct Balance, Impaired Self-Care Skills POOR POSTURE, UNABLE TO SUSTAIN ERECT STANDING POSTURE GREATER THAN 2 MINUTES W/ ADS, UNSAFE MOBILITY, UNSAFE TRANSFERS Discharge Recommendations Plan/Recommendations: Continue POC Therapy Discharge Recommendati: Post Acute OT Patient/Family Goals STATES SHE DOES NOT FEEL LIKE SHE CAN CARE FOR HER IN HIS CURRENT STATE Treatment Plan/Plan of Care Treatment,Training & Education: Yes Patient would benefit from OT for education, treatment and training to promote independence in ADL's, mobility, safety and/or upper extremity function for ADL's. Plan of Care: ADL Retraining, Cognitive Retraining, Functional Mobility, Group Exercise/Act as Ind, UE Funct Exercise/Act, UE Neuromus Re-Ed/Coord Treatment Duration: May 26, 2022 Frequency: 3 times per week (3-5 times per week) Estimated Hrs Per Day: .25 hour per day Rehab Potential: Fair Time Start Time: 10:10 Stop Time: 10:25 DATE: May 21, 2022 Total Time Billed (hr/min): 15 Billed Treatment Time FA 15 MIN CHAPIN BURCH OT May 21, 2022 11:17
--- NOTE | 2022-05-21 11:35 | Physical Therapy Daily Note ---
PT Daily Note-Current Subjective Patient agrees to PT. Spouse present and voices concern on returning to home. Pain Section J - Health Conditions 1. Rarely or not at all 2. Occasionally 3. Frequently 4. Almost constantly 8. Unable to answer Pain Effect on Sleep: 1 Pain Interference with Therapy: 1 Pain Interference w/Day-to-Day: 1 Mental Status Patient Orientation: Person Attachments: Oxygen Transfers SCALE: Activities may be completed with or without assistive devices. 7-Lgrvkkjrbs-ptkoffb completes the activity by him/herself with no assistance from a helper. 5-Set-up or Clean-up Assistance-helper sets up or cleans up; patient completes activity. [place] assists only prior to or following the activity. 4-Supervision or Touching Assistance-helper provides verbal cues and/or touching/steadying and/or contact guard assistance as patient completes activity. Assistance may be provided throughout the activity or intermittently. 3-Partial/Moderate Assistance-helper does LESS THAN HALF the effort. [place] lifts, holds or supports trunk or limbs, but provides less than half the effort. 2-Substantial/Maximal Assistance-helper does MORE THAN HALF the effort. [place] lifts or holds trunk or limbs and provides more than half the effort. 5-Azhixobmt-fhxosf does ALL the effort. Patient does none of the effort to complete the activity. Or, the assistance of 2 or more helpers is required for the patient to complete the activity. If activity was not attempted, code reason: 7-Patient Refused. 9-Not Applicable-not attempted and the patient did not perform the activity before the current illness, exacerbation or injury. 10-Not Attempted due to Environmental Limitations-(lack of equipment, weather restraints, etc.). 88-Not Attempted due to Medical Conditions or Safety Concerns. Sit to Stand (QC): 4 Chair/Ccj-xb-Xtrcv Xfer(QC): 3 (mod assist after ambulation due to fatigue and decreased safety awareness) Weight Bearing Right Lower Extremity: Right Full Weight Bearing Left Lower Extremity: Left Full Weight Bearing Gait Training Distance: 50' Walk 10 feet (QC): 3 Walk 50 ft with 2 Turns(QC): 3 Walk 150 ft (QC): 88 Gait Assistive Device: FWW mod assist with continuous VC's for body placement in FWW and posture due to patient displaying flexed trunk and bilateral knee/extended UE's posture Exercises Seated Therapy Exercises: Sit to stand Seated Reps: 4 (SBA to FWW with VC's for posture as patient performs reaching exercises with OT) Assessment Patient continues to requires min to mod assist with all mobility due to weakness/debility. Patient's spouse voices concern with returning to home. PT advised them to discuss this with the physician. Patient does have severely diminished safety awareness. PT Longterm Goals Longterm Goals PT Longterm Goals Time Frame: Jun 09, 2022 Roll Left & Right (QC): 6 Sit to Lying (QC): 6 Lying-Sitting on Side/Bed(QC): 6 Sit to Stand (QC): 6 Chair/Olj-ll-[place]pk[place] Xfer(QC): 6 Toilet Transfer (QC): 6 Does the Patient Walk: Yes Walk 10 feet (QC): 4 Walk 50ft with 2 Turns (QC): 4 Walk 150 ft (QC): 4 1 Step (curb) (QC): 4 PT Plan Treatment/Plan Treatment Plan: Continue Plan of Care Treatment Plan: Bed Mobility, Education, Functional Activity Mari, Functional Strength, Group Therapy, Gait, Safety, Therapeutic Exercise, Transfers Treatment Duration: Jun 09, 2022 Frequency: 6 times per week Estimated Hrs Per Day: .25 hour per day Patient and/or Family Agrees t: Yes Time Time In: 1010 Time Out: 1025 DATE: May 21, 2022 Total Billed Treatment Time: 15 Total Billed Treatment 1 visit FA 15 min CARA SEGOVIA PT May 21, 2022 11:35
--- NOTE | 2022-05-21 11:41 | Cardiology Progress Note ---
Subjective Date Seen by Provider: May 21, 2022 Time Seen by Provider: 11:40 Subjective/Events-last exam Patient was seen at bedside, he was sitting comfortably, reporting improvement in his breathing. Review of Systems General: No Chills, No Night Sweats; Fatigue; No Malaise, No Appetite, No Other HEENT: No Head Aches, No Visual Changes, No Eye Pain, No Ear Pain, No Dysphasia, No Sinus Congestion, No Post Nasal Drip, No Sore Throat, No Other Pulmonary: Dyspnea; No Cough, No Pleuritic Chest Pain, No Other Cardiovascular: Edema; No: Chest Pain, Palpitations, Orthopnea, Paroxysmal Noc. Dyspnea, Lt Headedness, Other Focused Exam Time of Focused Exam: 19:45 Objective-Cardiology Exam Last Set of Vital Signs Vital Signs 05/19/22 05/21/22 16:04 11:12 Temp 36.2 Pulse 76 Resp 18 B/P (MAP) 100/69 (79) Pulse Ox 96 O2 Delivery Nasal Cannula O2 Flow Rate 3.00 FiO2 40 I&O l Intake and Output 05/21/22 00:00 Intake Total 1330 ml Output Total 300 ml Balance 1030 ml Intake Oral 1330 ml Output Urine Total 300 ml # Voids 4 # Bowel Movements 2 General: Alert, Cooperative HEENT: Atraumatic, PERRLA Neck: Supple, No JVD, No Thyromegaly Lungs: Normal Air Movement, Other (Bilateral rhonchi) Heart: Regular Rate, Normal S1, Normal S2, No Murmurs Abdomen: Normal Bowel Sounds, Soft, No Tenderness, No Hepatosplenomegaly, No Masses Extremities: No Clubbing, No Cyanosis, Normal Pulses, No Tenderness/Swelling, Other (Pedal edema) Skin: No Rashes, No Breakdown, No Significant Lesion Neuro: Normal Speech, Normal Tone, Sensation Intact Psych/Mental Status: Mental Status NL, Mood NL Results Lab Laboratory Tests 05/21/22 08:01 A/P-Cardiology Admission Diagnosis Acute respiratory failure Paroxysmal atrial fibrillation Type II myocardial infarction COPD Assessment/Plan Status post acute respiratory failure, acute exacerbation of COPD and congestive heart failure, acute on chronic left ventricular diastolic dysfunction Currently appears to be better, still requiring high oxygen flow Improving slowly, continue with aggressive diuresis Continue to monitor renal function Paroxysmal atrial fibrillation, had rapid ventricular response, diagnosed on May 18, 2022. Heart rate is better controlled. CHADVASC score of 5, maintained on Eliquis Acute renal insufficiency. Renal function are improving continue to monitor Mild elevation in troponin Type II myocardial infarction secondary to hypoxia. 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 BPH Dementia EDY MEDELLIN MD May 21, 2022 11:41
[2022-05-21] MEDS ORDERED: FUROSEMIDE 40 MG/4 ML INJ (LASIX) IVP NR (12:00)
--- NOTE | 2022-05-21 15:31 | Progress Note ---
Subjective Subjective/Events-last exam Patient states that he is feeling much better. Walked with PT today and states that he felt pretty weak. Tolerating PO diet. Review of Systems General: Fatigue, Malaise Pulmonary: Dyspnea Cardiovascular: Edema; No: Chest Pain, Palpitations Gastrointestinal: No: Nausea, Vomiting, Abdominal Pain Neurological: Weakness, Incoordination; No: Confusion Focused Exam Time of Focused Exam: 19:45 Objective Exam Last Set of Vital Signs Vital Signs Date Time Temp Pulse Resp B/P (MAP) Pulse Ox O2 Delivery O2 Flow Rate FiO2 05/21/22 11:46 78 115/69 (84) 05/21/22 11:12 36.2 18 96 Nasal Cannula 3.00 05/19/22 16:04 40 Capillary Refill : Greater Than 3 Seconds I&O Intake and Output 05/21/22 00:00 Intake Total 1330 ml Output Total 300 ml Balance 1030 ml Intake Oral 1330 ml Output Urine Total 300 ml # Voids 4 # Bowel Movements 2 General: Alert, Oriented X3, Mild Distress (conversational dyspnea) Lungs: Other (diffuse wheezing throughtout) Heart: Regular Rate, No Murmurs Abdomen: Normal Bowel Sounds, Soft Extremities: Other (2+ pitting edema equal bilaterally) Neuro: Normal Speech Results/Procedures Lab Laboratory Tests 05/21/22 08:01: White Blood Count 13.6H, Red Blood Count 3.55L, Hemoglobin 11.3L, Hematocrit 34L , Mean Corpuscular Volume 96, Mean Corpuscular Hemoglobin 32, Mean Corpuscular Hemoglobin Concent 33, Red Cell Distribution Width 13.4, Platelet Count 258, Mean Platelet Volume 9.5, Immature Granulocyte % (Auto) 2, Neutrophils (%) (Auto) 81H, Lymphocytes (%) (Auto) 7L, Monocytes (%) (Auto) 9, Eosinophils (%) (Auto) 1, Basophils (%) (Auto) 0, Neutrophils # (Auto) 11.0H, Lymphocytes # (Auto) 1.0, Monocytes # (Auto) 1.3H, Eosinophils # (Auto) 0.2, Basophils # (Auto) 0.0, Immature Granulocyte # (Auto) 0.3H, Neutrophils % (Manual) 84, Lymphocytes % (Manual) 5, Monocytes % (Manual) 10, Eosinophils % (Manual) 0, Basophils % (Manual) 0, Band Neutrophils 1, Blood Morphology Comment NORMAL, Sodium Level 136, Potassium Level 4.1, Chloride Level 97L, Carbon Dioxide Level 32, Anion Gap 7, Blood Urea Nitrogen 45H, Creatinine 1.38H, Estimat Glomerular Filtration Rate 51, BUN/Creatinine Ratio 33, Glucose Level 127H, Calcium Level 8.5, Corrected Calcium 9.1, Magnesium Level 2.4, Total Bilirubin 0.7, Aspartate Amino Transf (AST/SGOT) 20, Alanine Aminotransferase (ALT/SGPT) 45, Alkaline Phosphatase 73, Total Protein 5.7L, Albumin 3.2 Microbiology 05/14/22 Gram Stain - Final, Complete 05/14/22 Sputum Culture - Final, Complete Usual upper respiratory hiram 05/13/22 Urine Culture - Final, Complete NO GROWTH 05/13/22 Blood Culture - Final, Complete No growth Radiology NAME: STACY HOWE [facility] REC#: [id number] PT STATUS: ADM IN : 1940 PHYSICIAN: ANDRÉS MAURO DO ADMIT DATE: 05/13/22/ICU Draft Date of Exam:05/14/22 CHEST 1 VIEW, AP/PA ONLY INDICATION: Congestive heart failure. Comparison is made with prior exam of 05/13/2022. FINDINGS: There is cardiomegaly. There is some venous congestion. No pleural effusion or pneumothorax. The mediastinum is grossly unremarkable. IMPRESSION: Cardiomegaly and some central pulmonary venous congestion. Dictated on workstation # [id number] Dict: 05/14/22 0832 Trans: 05/14/22 0837 [facility] [id number] Interpreted by: TADEO BUENO MD Electronically signed by: Assessment/Plan Assessment/Plan (1) Acute and chronic respiratory failure with hypoxia Status: Acute Assessment & Plan: 05/21: Able to titrate down to 2-3 L, Continue MAT protocol, completed antibiotics, continue steroids (2) Atrial fibrillation with RVR Status: Acute Assessment & Plan: 05/21: Cardiology consulted, appreciate recommendations (3) Acute on chronic systolic (congestive) heart failure Status: Acute Assessment & Plan: 05/21: Lasix daily due to CASSIE, gentle diuresis (4) Acute kidney failure Status: Acute Qualifiers: Qualified Codes: N17.9 - Acute kidney failure, unspecified (5) Physical debility Status: Acute Assessment & Plan: - PT/OT, patient will need HH at discharge (6) Elevated glucose Status: Acute Assessment & Plan: 05/21: A1c pending, unsure if it is underlying DM or related to steroids WINSTON TAFOYA MD May 21, 2022 15:31
[2022-05-21] MEDS: TAMSULOSIN 0.4 MG (FLOMAX) CAP PO SCH (17:16)
[2022-05-21] MEDS: CALCIUM CARBONATE 600 MG (CALCARB) TAB PO SCH (17:17)
[2022-05-21] MEDS: traZODone 50 MG (DESYREL) TAB PO SCH (19:55)
[2022-05-21] MEDS: DONEPEZIL 10 MG (ARICEPT) TAB PO SCH (19:55)
[2022-05-21] MEDS: MELATONIN 3 MG TABLET PO PRN (19:55)
[2022-05-21] MEDS: MIRTAZAPINE 15 MG (REMERON) TAB PO SCH (19:55)
[2022-05-21] MEDS: OLANZapine 2.5 MG (ZyPREXA) TAB PO SCH (19:55)
[2022-05-22] VITALS (8 sets, daily range): BP systolic 112–141; BP diastolic 54–88
[2022-05-22] MEDS: RT-ALBUTEROL/IPRATROPIUM 3 ML (DUONEB) VIAL INH SCH ×4 (02:23→21:10)
[2022-05-22 05:44] LABS: BASOPHILS % (AUTO) 0 % (0-10); EOSINOPHILS # (AUTO) 0.5 10^3/uL (0.0-0.3); EOSINOPHILS % (AUTO) 4 % (0-10); HEMATOCRIT 34 % (40-54); HEMOGLOBIN 10.9 g/dL (13.3-17.7); LYMPHOCYTES # (AUTO) 0.8 10^3/uL (1.0-4.0); LYMPHOCYTES % (AUTO) 7 % (12-44); MEAN CORPUSCULAR HEMOGLOBIN 31 pg (25-34); MEAN CORPUSCULAR HGB CONC 32 g/dL (32-36); MEAN CORPUSCULAR VOLUME 96 fL (80-99); MEAN PLATELET VOLUME 9.7 fL (9.0-12.2); MONOCYTES # (AUTO) 1.4 10^3/uL (0.0-1.0); MONOCYTES % (AUTO) 12 % (0-12); NEUTROPHILS # (AUTO) 8.7 10^3/uL (1.8-7.8); NEUTROPHILS % (AUTO) 75 % (42-75); PLATELET COUNT 233 10^3/uL (130-400); WHITE BLOOD COUNT 11.7 10^3/uL (4.3-11.0)
[2022-05-22 05:56] LABS: ALBUMIN 2.9 GM/DL (3.2-4.5); POTASSIUM 3.8 MMOL/L (3.6-5.0)
[2022-05-22 05:58] LABS: CALCIUM 8.3 MG/DL (8.5-10.1)
[2022-05-22 05:59] LABS: TOTAL PROTEIN 5.1 GM/DL (6.4-8.2)
[2022-05-22 06:00] LABS: BILIRUBIN,TOTAL 0.8 MG/DL (0.1-1.0)
[2022-05-22 06:02] LABS: CREATININE SERUM 1.45 MG/DL (0.60-1.30)
[2022-05-22 06:05] LABS: MAGNESIUM 2.1 MG/DL (1.6-2.4)
[2022-05-22] MEDS: UMECLIDINIUM BROMIDE (INCRUSE ELLIPTA) 7'S IH SCH (06:32)
[2022-05-22] MEDS: MULTIVIT W/MINERALS TAB (THERAGRAN M) PO SCH (07:40)
[2022-05-22] MEDS: hydrALAZINE (APRESOLINE) 25 MG TAB PO SCH ×2 (07:40→20:08)
[2022-05-22] MEDS: LOSARTAN 50 MG (COZAAR) TAB PO SCH (07:40)
[2022-05-22] MEDS: meTOproloL SUCCINATE 50 MG (TOPROL XL) TAB PO SCH (07:40)
[2022-05-22] MEDS: APIXABAN 5 MG (ELIQUIS) TABLET PO SCH ×2 (07:40→20:08)
[2022-05-22] MEDS: FINASTERIDE (PROSCAR) 5 MG TAB PO SCH (07:41)
[2022-05-22] MEDS: SENNOSIDES 8.6 MG (SENOKOT) TAB PO SCH ×2 (07:41→20:08)
[2022-05-22] MEDS: FUROSEMIDE 40 MG (LASIX) TAB PO SCH (07:41)
[2022-05-22] MEDS: DOCUSATE SODIUM 100 MG (COLACE) CAP PO SCH ×2 (07:41→20:08)
[2022-05-22] MEDS: MEMANTINE 10 MG (NAMENDA) TABLET PO SCH (07:41)
--- NOTE | 2022-05-22 10:18 | Progress Note - Cardiology ---
Cardiology SOAP Progress Note Objective: I&O/Vital Signs 05/22/22 05/22/22 05/22/22 05/22/22 03:59 05:50 06:32 07:29 Temp 36.6 36.4 Pulse 96 78 98 Resp 18 20 B/P (MAP) 120/62 (81) 122/66 (84) 133/88 (103) Pulse Ox 93 88 92 O2 Delivery High Flow N/C Room Air High Flow N/C O2 Flow Rate 3.00 3.00 05/22/22 05/22/22 05/22/22 05/22/22 07:51 10:03 11:23 15:07 Temp 36.7 36.7 Pulse 80 80 Resp 16 B/P (MAP) 141/85 (103) Pulse Ox 95 94 94 O2 Delivery High Flow N/C Room Air High Flow N/C O2 Flow Rate 3.00 3.00 05/22/22 00:00 Intake Total 1400 ml Output Total 700 ml Balance 700 ml Weight (Pounds): 230 Weight (Calculated Kilograms): [id number] Constitutional: well-developed, well-nourished, other Respiratory: chest expansion is symmetric, chest is bilaterally symmetric, other Cardiovascular: regular rate-rhythm, S1 and S2 Gastrointestional: soft, round, audible bowel sounds Extremities: no lower extremity edema bilateral Neurologic/Psychiatric: other Skin: normal color, warm/dry Results/Procedures: Labs Laboratory Tests 05/22/22 05:18: White Blood Count 11.7H, Red Blood Count 3.50L, Hemoglobin 10.9L, Hematocrit 34L , Mean Corpuscular Volume 96, Mean Corpuscular Hemoglobin 31, Mean Corpuscular Hemoglobin Concent 32, Red Cell Distribution Width 13.4, Platelet Count 233, Mean Platelet Volume 9.7, Immature Granulocyte % (Auto) 3, Neutrophils (%) (Auto) 75, Lymphocytes (%) (Auto) 7L, Monocytes (%) (Auto) 12, Eosinophils (%) (Auto) 4, Basophils (%) (Auto) 0, Neutrophils # (Auto) 8.7H, Lymphocytes # (Auto) 0.8L, Monocytes # (Auto) 1.4H, Eosinophils # (Auto) 0.5H, Basophils # (Auto) 0.0, Immature Granulocyte # (Auto) 0.3H, Sodium Level 138, Potassium Level 3.8, Chloride Level 97L, Carbon Dioxide Level 30, Anion Gap 11, Blood Urea Nitrogen 45H, Creatinine 1.45H, Estimat Glomerular Filtration Rate 48, BUN/Creatinine Ratio 31, Glucose Level 111H, Calcium Level 8.3L, Corrected Calcium 9.2, Magnesium Level 2.1, Total Bilirubin 0.8, Aspartate Amino Transf (AST/SGOT) 16, Alanine Aminotransferase (ALT/SGPT) 38, Alkaline Phosphatase 72, Total Protein 5.1L, Albumin 2.9L Microbiology 05/14/22 Gram Stain - Final, Complete 05/14/22 Sputum Culture - Final, Complete Usual upper respiratory hiram 05/13/22 Urine Culture - Final, Complete NO GROWTH 05/13/22 Blood Culture - Final, Complete No growth A/P: Assessment: Acute resp failure - acute on chronic exacerbation of COPD - Per CXR of 05-17-22: rounded opacity in the left lung base which may represent loculated fluid within the major fissure versus pulmonary mass (managed by the Med svce) - ac diastolic CHF - LVEF 50-55% on echo of 05-14-22 PAF with a somewhat rapid vent response - (CHADSVASc score 6) - first diagnosed on 05-18-22 Acute renal insufficiency - improved Minimally elevated troponin -likely Type 2 [place] secondary to hypoxia at time of ED presentation HTN HLD reports 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 H/O colon cancer - hemicolectomy in 2010 at [facility] BPH Dementia H/o tobacco use - quit 40 yrs ago per spouse Allergies: Norvasc, Lisinopril, Atenolol Plan: * PAF with RVR -0-16 and CHADSVASc score is 6 (conferring high stroke risk) - HR controlled - continue BB and Eliquis - change short acting Cardizem to long acting * Management of pneumonia is per medical services * CXR of 05-17-22: rounded opacity in the left lung base which may represent loculated fluid within the major fissure versus pulmonary mass. Continued fo llow-up to resolution versus dedicated CT is recommended per radiology services - management is by the Medical services * Continue oral diuretics * Increase ambulation * Monitor labs and replace electrolytes as indicated MYLA URIAS SUPERVISOR [employer]GAR May 22, 2022 10:18
--- NOTE | 2022-05-22 10:23 | Physical Therapy Daily Note ---
PT Daily Note-Current Subjective Patient and spouse agree to PT. Pain Section J - Health Conditions 1. Rarely or not at all 2. Occasionally 3. Frequently 4. Almost constantly 8. Unable to answer Pain Effect on Sleep: 1 Pain Interference with Therapy: 1 Pain Interference w/Day-to-Day: 1 Mental Status Patient Orientation: Person, Time, Situation Attachments: Oxygen Transfers SCALE: Activities may be completed with or without assistive devices. 2-Hkwhhrmhsh-kjzydry completes the activity by him/herself with no assistance from a helper. 5-Set-up or Clean-up Assistance-helper sets up or cleans up; patient completes activity. [place] assists only prior to or following the activity. 4-Supervision or Touching Assistance-helper provides verbal cues and/or touching/steadying and/or contact guard assistance as patient completes activity. Assistance may be provided throughout the activity or intermittently. 3-Partial/Moderate Assistance-helper does LESS THAN HALF the effort. [place] lifts, holds or supports trunk or limbs, but provides less than half the effort. 2-Substantial/Maximal Assistance-helper does MORE THAN HALF the effort. [place] lifts or holds trunk or limbs and provides more than half the effort. 7-Auffarakj-eeeiik does ALL the effort. Patient does none of the effort to complete the activity. Or, the assistance of 2 or more helpers is required for the patient to complete the activity. If activity was not attempted, code reason: 7-Patient Refused. 9-Not Applicable-not attempted and the patient did not perform the activity before the current illness, exacerbation or injury. 10-Not Attempted due to Environmental Limitations-(lack of equipment, weather restraints, etc.). 88-Not Attempted due to Medical Conditions or Safety Concerns. Sit to Stand (QC): 4 Weight Bearing Right Lower Extremity: Right Full Weight Bearing Left Lower Extremity: Left Full Weight Bearing Gait Training Distance: 125' Walk 10 feet (QC): 3 Walk 50 ft with 2 Turns(QC): 3 Walk 150 ft (QC): 88 Gait Assistive Device: FWW flexed trunk and bilateral knee posture with 3 standing recovery periods due to fatigue. Exercises Seated Therapy Exercises: Sit to stand Seated Reps: 10 (SBA to FWW) Assessment Patient tolerated treatment well and remains up in recliner with needs met. Spouse voices concern of patient returning to home with home health. This PT instructed spouse to discuss with physician on POC. PT Latrine Cleaner Goals Residential Goals PT Residential Goals Time Frame: Jun 09, 2022 Roll Left & Right (QC): 6 Sit to Lying (QC): 6 Lying-Sitting on Side/Bed(QC): 6 Sit to Stand (QC): 6 Chair/[place]qe-ap-[place] Xfer(QC): 6 Toilet Transfer (QC): 6 Does the Patient Walk: Yes Walk 10 feet (QC): 4 Walk 50ft with 2 Turns (QC): 4 Walk 150 ft (QC): 4 1 Step (curb) (QC): 4 PT Plan Treatment/Plan Treatment Plan: Continue Plan of Care Treatment Plan: Bed Mobility, Education, Functional Activity Mari, Functional Strength, Group Therapy, Gait, Safety, Therapeutic Exercise, Transfers Treatment Duration: Jun 09, 2022 Frequency: 6 times per week Estimated Hrs Per Day: .25 hour per day Patient and/or Family Agrees t: Yes Time Time In: 900 Time Out: 915 DATE: May 22, 2022 Total Billed Treatment Time: 15 Total Billed Treatment 1 visit FA 15 min CARA SEGOVIA PT May 22, 2022 10:22
--- NOTE | 2022-05-22 10:44 | Occupational Ther Daily Note ---
OT Current Status-Daily Note Subjective Up in chair agreeable to OT Pain Numeric Pain Scale: 0-No Pain Mental Status/Objective Patient Orientation: Person, Confused (patient is unable to report lifetime occupation) Attachments: Oxygen (3 liters NC) ADL-Treatment Patient bought in patient shoes from home Therapy Code Descriptions/Definitions Functional [place] Measure: 0=Not Assessed/NA 4=Minimal Assistance 1=Total Assistance 5=Supervision or Setup 2=Maximal Assistance 6=Modified [place] 3=Moderate Assistance 7=Complete IndependenceSCALE: Activities may be completed with or without assistive devices. 0-Fauvhelesv-cphvhab completes the activity by him/herself with no assistance from a helper. 5-Set-up or Clean-up Assistance-helper sets up or cleans up; patient completes activity. [place] assists only prior to or following the activity. 4-Supervision or Touching Assistance-helper provides verbal cues and/or touching/steadying and/or contact guard assistance as patient completes activity. Assistance may be provided throughout the activity or intermittently. 3-Partial/Moderate Assistance-helper does LESS THAN HALF the effort. [place] lifts, holds or supports trunk or limbs, but provides less than half the effort. 2-Substantial/Maximal Assistance-helper does MORE THAN HALF the effort. [place] lifts or holds trunk or limbs and provides more than half the effort. 2-Ypxvrwnop-ghfbfq does ALL the effort. Patient does none of the effort to complete the activity. Or, the assistance of 2 or more helpers is required for the patient to complete the activity. If activity was not attempted, code reason: 7-Patient Refused. 9-Not Applicable-not attempted and the patient did not perform the activity before the current illness, exacerbation or injury. 10-Not Attempted due to Environmental Limitations-(lack of equipment, weather restraints, etc.). 88-Not Attempted due to Medical Conditions or Safety Concerns. Eating (QC): 6 Oral Hygiene (QC): 5 (requires set up and initiation cues to perform) Shower/Bathe Self (QC): 7 (continues to decline shower w/ OT, provided bath clothe) Upper Body Dressing (QC): 5 Lower Body Dressing (QC): 4 On/Off Footwear: 4 Toileting Hygiene (QC): 4 Toilet Transfer (QC): 4 Patient requires next step cues, uses humor as distraction to avoid completion of tasks Other Treatment Repetition of transfers for mm memory and corredct sequences to sit/stand, hand placement on FWW and arm chair Education OT Patient Education: Correct positioning, Purpose of tx/functional activities, Reviewed precautions, Safety issues, Transfer techniques, Use of adapted equipment Teaching Recipient: Patient, Family (spouse present) Teaching Methods: Demonstration, Discussion Response to Teaching: Reinforcement Needed OT Hardness Inspector Goals Hardness Inspector Goals Eating (QC): 6 Oral Hygiene (QC): 5 Toileting Hygiene (QC): 5 Shower/Bathe Self (QC): 4 Upper Body Dressing (QC): 5 Lower Body Dressing (QC): 5 On/Off Footwear (QC): 5 1=Demonstrate adherence to instructed precautions during ADL tasks. 2=Patient will verbalize/demonstrate understanding of assistive devices/modifications for ADL. 3=Patient will improve strength/tolerance for activity to enable patient to perform ADL's. OT Education/Plan Problem List/Assessment Assessment: Decreased Activ Tolerance (requires frequent rest periods, leansd on FWW handles w/ forearms and trunk flexion), Decreased Safety Aware, Impaired Coordination, Impaired Funct Balance, Impaired Self-Care Skills POOR POSTURE, UNABLE TO SUSTAIN ERECT STANDING POSTURE GREATER THAN 2 MINUTES W/ ADS, UNSAFE MOBILITY, UNSAFE TRANSFERS Discharge Recommendations Plan/Recommendations: Continue POC Treatment Plan/Plan of Care Patient would benefit from OT for education, treatment and training to promote independence in ADL's, mobility, safety and/or upper extremity function for ADL's. Plan of Care: ADL Retraining, Cognitive Retraining, Functional Mobility, Group Exercise/Act as Ind, UE Funct Exercise/Act, UE Neuromus Re-Ed/Coord Treatment Duration: May 26, 2022 Frequency: 3 times per week (3-5 times per week) Estimated Hrs Per Day: .25 hour per day Rehab Potential: Fair Remains in recliner w/ spouse present, all needs met Time Start Time: 08:45 Stop Time: 09:15 DATE: May 22, 2022 Total Time Billed (hr/min): 15 Billed Treatment Time ADLs 15 min CHAPIN BURCH OT May 22, 2022 10:44
--- NOTE | 2022-05-22 12:53 | Progress Note - Cardiology ---
Cardiology SOAP Progress Note Subjective: No cp or palp or syncope or shortness of breath at rest Some gen malaise No n/v/d Objective: I&O/Vital Signs 05/22/22 05/22/22 05/22/22 05/22/22 02:23 03:59 05:50 06:32 Temp 36.6 Pulse 96 78 Resp 18 B/P (MAP) 120/62 (81) 122/66 (84) Pulse Ox 93 93 88 O2 Delivery Nasal Cannula High Flow N/C Room Air O2 Flow Rate 4.00 3.00 05/22/22 05/22/22 05/22/22 05/22/22 07:29 07:51 10:03 11:23 Temp 36.4 36.7 Pulse 98 80 Resp 20 16 B/P (MAP) 133/88 (103) 141/85 (103) Pulse Ox 92 95 94 O2 Delivery High Flow N/C High Flow N/C Room Air High Flow N/C O2 Flow Rate 3.00 3.00 3.00 05/22/22 00:00 Intake Total 1400 ml Output Total 700 ml Balance 700 ml Weight (Pounds): 230 Weight (Calculated Kilograms): 104.463578 Constitutional: well-developed, well-nourished, other Respiratory: chest expansion is symmetric, chest is bilaterally symmetric, other Cardiovascular: regular rate-rhythm, S1 and S2 Gastrointestional: soft, round, audible bowel sounds Extremities: no lower extremity edema bilateral Neurologic/Psychiatric: other Skin: normal color, warm/dry Results/Procedures: Labs Laboratory Tests 05/22/22 05:18: White Blood Count 11.7H, Red Blood Count 3.50L, Hemoglobin 10.9L, Hematocrit 34L , Mean Corpuscular Volume 96, Mean Corpuscular Hemoglobin 31, Mean Corpuscular Hemoglobin Concent 32, Red Cell Distribution Width 13.4, Platelet Count 233, Mean Platelet Volume 9.7, Immature Granulocyte % (Auto) 3, Neutrophils (%) (Auto) 75, Lymphocytes (%) (Auto) 7L, Monocytes (%) (Auto) 12, Eosinophils (%) (Auto) 4, Basophils (%) (Auto) 0, Neutrophils # (Auto) 8.7H, Lymphocytes # (Auto ) 0.8L, Monocytes # (Auto) 1.4H, Eosinophils # (Auto) 0.5H, Basophils # (Auto) 0.0, Immature Granulocyte # (Auto) 0.3H, Sodium Level 138, Potassium Level 3.8, Chloride Level 97L, Carbon Dioxide Level 30, Anion Gap 11, Blood Urea Nitrogen 45H, Creatinine 1.45H, Estimat Glomerular Filtration Rate 48, BUN/Creatinine Ratio 31, Glucose Level 111H, Calcium Level 8.3L, Corrected Calcium 9.2, Magnesium Level 2.1, Total Bilirubin 0.8, Aspartate Amino Transf (AST/SGOT) 16, Alanine Aminotransferase (ALT/SGPT) 38, Alkaline Phosphatase 72, Total Protein 5.1L, Albumin 2.9L Microbiology 05/14/22 Gram Stain - Final, Complete 05/14/22 Sputum Culture - Final, Complete Usual upper respiratory hiram 05/13/22 Urine Culture - Final, Complete NO GROWTH 05/13/22 Blood Culture - Final, Complete No growth Laboratory Tests 05/21/22 08:01 05/22/22 05:18 A/P: Assessment: Acute resp failure - acute on chronic exacerbation of COPD - Per CXR of 05-17-22: rounded opacity in the left lung base which may represent loculated fluid within the major fissure versus pulmonary mass (managed by the Med svce) - ac diastolic CHF - LVEF 50-55% on echo of 05-14-22 PAF with a somewhat rapid vent response - (CHADSVASc score 6) - first diagnosed on 05-18-22 Acute renal insufficiency - likely due to diuretic therapy for CHF - relatively stable Minimally elevated troponin -likely Type 2 [place] secondary to hypoxia at time of ED presentation HTN HLD reports 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 Continued follow-up to resolution versus dedicated CT is recommended per radiology services - management is by the Medical services * Continue oral diuretics * Increase ambulation * Monitor labs and replace electrolytes as indicated SHIRLEY ARREDONDO [facility] May 22, 2022 12:53
[2022-05-22] MEDS: TAMSULOSIN 0.4 MG (FLOMAX) CAP PO SCH (17:09)
[2022-05-22] MEDS: CALCIUM CARBONATE 600 MG (CALCARB) TAB PO SCH (17:09)
--- NOTE | 2022-05-22 17:09 | Progress Note ---
Subjective Subjective/Events-last exam Patient states that he is feeling much better today. Mima with PT discussed with patient and that he may benefit from IRF, will place referral today. Tolerating working with PT and tolerating PO diet. Review of Systems Pulmonary: Dyspnea; No Cough Cardiovascular: Edema; No: Chest Pain, Palpitations Gastrointestinal: No: Nausea, Vomiting, Abdominal Pain, Diarrhea, Constipation Neurological: Weakness, Incoordination, Confusion Focused Exam Time of Focused Exam: 19:45 Objective Exam Last Set of Vital Signs Vital Signs Date Time Temp Pulse Resp B/P (MAP) Pulse Ox O2 Delivery O2 Flow Rate FiO2 05/22/22 15:24 36.0 77 18 115/60 (78) 95 High Flow N/C 3.00 05/19/22 16:04 40 Capillary Refill : Greater Than 3 Seconds I&O Intake and Output 05/22/22 00:00 Intake Total 1700 ml Output Total 700 ml Balance 1000 ml Intake Oral 1700 ml Output Urine Total 700 ml # Voids 8 General: Alert, Oriented X3, Mild Distress (with minimal exertion) Lungs: Clear to Auscultation, Normal Air Movement Heart: Regular Rate, No Murmurs Abdomen: Normal Bowel Sounds, Soft, No Tenderness Extremities: Other (2+ pitting edema equal bilaterally) Results/Procedures Lab Laboratory Tests 05/22/22 05:18: White Blood Count 11.7H, Red Blood Count 3.50L, Hemoglobin 10.9L, Hematocrit 34L , Mean Corpuscular Volume 96, Mean Corpuscular Hemoglobin 31, Mean Corpuscular Hemoglobin Concent 32, Red Cell Distribution Width 13.4, Platelet Count 233, Mean Platelet Volume 9.7, Immature Granulocyte % (Auto) 3, Neutrophils (%) (Auto) 75, Lymphocytes (%) (Auto) 7L, Monocytes (%) (Auto) 12, Eosinophils (%) (Auto) 4, Basophils (%) (Auto) 0, Neutrophils # (Auto) 8.7H, Lymphocytes # (Auto) 0.8L, Monocytes # (Auto) 1.4H, Eosinophils # (Auto) 0.5H, Basophils # (Auto) 0.0, Immature Granulocyte # (Auto) 0.3H, Sodium Level 138, Potassium Level 3.8, Chloride Level 97L, Carbon Dioxide Level 30, Anion Gap 11, Blood Urea Nitrogen 45H, Creatinine 1.45H, Estimat Glomerular Filtration Rate 48, BUN/Creatinine Ratio 31, Glucose Level 111H, Calcium Level 8.3L, Corrected Calcium 9.2, Magnesium Level 2.1, Total Bilirubin 0.8, Aspartate Amino Transf (AST/SGOT) 16, Alanine Aminotransferase (ALT/SGPT) 38, Alkaline Phosphatase 72, Total Protein 5.1L, Albumin 2.9L Microbiology 05/14/22 Gram Stain - Final, Complete 05/14/22 Sputum Culture - Final, Complete Usual upper respiratory hiram 05/13/22 Urine Culture - Final, Complete NO GROWTH 05/13/22 Blood Culture - Final, Complete No growth Radiology NAME: STACY HOWE [facility] REC#: [id number] PT STATUS: ADM IN : 1940 PHYSICIAN: ANDRÉS MAURO DO ADMIT DATE: 05/13/22/ICU Draft Date of Exam:05/14/22 CHEST 1 VIEW, AP/PA ONLY INDICATION: Congestive heart failure. Comparison is made with prior exam of 05/13/2022. FINDINGS: There is cardiomegaly. There is some venous congestion. No pleural effusion or pneumothorax. The mediastinum is grossly unremarkable. IMPRESSION: Cardiomegaly and some central pulmonary venous congestion. Dictated on workstation # [id number] Dict: 05/14/22 0832 Trans: 05/14/22 0837 CVB [id number] Interpreted by: TADEO BUENO MD Electronically signed by: Assessment/Plan Assessment/Plan (1) Acute and chronic respiratory failure with hypoxia Status: Acute Assessment & Plan: 05/21: Able to titrate down to 2-3 L, Continue MAT protocol, completed antibiotics, continue steroids 05/22: Improving, will likely need home oxygen (2) Atrial fibrillation with RVR Status: Acute Assessment & Plan: 05/21: Cardiology consulted, appreciate recommendations (3) Acute on chronic systolic (congestive) heart failure Status: Acute Assessment & Plan: 05/21: Lasix daily due to CASSIE, gentle diuresis 05/22: Cr increased ON, will continue to monitor, encouraged oral hydration (4) Acute kidney failure Status: Acute Qualifiers: Qualified Codes: N17.9 - Acute kidney failure, unspecified (5) Physical debility Status: Acute Assessment & Plan: - PT/OT, patient will need HH at discharge 05/22: Referral placed for IRF, discussed referral process with patient and (6) Elevated glucose Status: Acute Assessment & Plan: 05/21: A1c pending, unsure if it is underlying DM or related to steroids WINSTON TAFOYA MD May 22, 2022 17:09
[2022-05-22] MEDS: MIRTAZAPINE 15 MG (REMERON) TAB PO SCH (20:08)
[2022-05-22] MEDS: OLANZapine 2.5 MG (ZyPREXA) TAB PO SCH (20:08)
[2022-05-22] MEDS: traZODone 50 MG (DESYREL) TAB PO SCH (20:08)
[2022-05-22] MEDS: DONEPEZIL 10 MG (ARICEPT) TAB PO SCH (20:08)
[2022-05-22] MEDS: MELATONIN 3 MG TABLET PO PRN (20:08)
[2022-05-23 03:31] VITALS: BP 140/68
[2022-05-23 05:45] LABS: BASOPHILS % (AUTO) 0 % (0-10); EOSINOPHILS # (AUTO) 0.3 10^3/uL (0.0-0.3); EOSINOPHILS % (AUTO) 3 % (0-10); HEMATOCRIT 34 % (40-54); HEMOGLOBIN 11.1 g/dL (13.3-17.7); LYMPHOCYTES # (AUTO) 0.7 10^3/uL (1.0-4.0); LYMPHOCYTES % (AUTO) 6 % (12-44); MEAN CORPUSCULAR HEMOGLOBIN 32 pg (25-34); MEAN CORPUSCULAR HGB CONC 33 g/dL (32-36); MEAN CORPUSCULAR VOLUME 97 fL (80-99); MEAN PLATELET VOLUME 10.1 fL (9.0-12.2); MONOCYTES # (AUTO) 1.4 10^3/uL (0.0-1.0); MONOCYTES % (AUTO) 12 % (0-12); NEUTROPHILS % (AUTO) 77 % (42-75); PLATELET COUNT 221 10^3/uL (130-400); WHITE BLOOD COUNT 11.7 10^3/uL (4.3-11.0)
[2022-05-23 06:10] LABS: ALBUMIN 2.9 GM/DL (3.2-4.5); BILIRUBIN,TOTAL 0.9 MG/DL (0.1-1.0); CALCIUM 8.4 MG/DL (8.5-10.1); CREATININE SERUM 1.49 MG/DL (0.60-1.30); MAGNESIUM 2.1 MG/DL (1.6-2.4); TOTAL PROTEIN 5.3 GM/DL (6.4-8.2)
[2022-05-23] MEDS: RT-ALBUTEROL/IPRATROPIUM 3 ML (DUONEB) VIAL INH SCH ×2 (07:12→21:39)
[2022-05-23] MEDS: UMECLIDINIUM BROMIDE (INCRUSE ELLIPTA) 7'S IH SCH (07:12)
[2022-05-23 07:28] VITALS: BP 121/58
[2022-05-23] MEDS: meTOproloL SUCCINATE 50 MG (TOPROL XL) TAB PO SCH (07:58)
[2022-05-23] MEDS: LOSARTAN 50 MG (COZAAR) TAB PO SCH (07:58)
[2022-05-23] MEDS: DOCUSATE SODIUM 100 MG (COLACE) CAP PO SCH ×2 (07:58→20:26)
[2022-05-23] MEDS: FUROSEMIDE 40 MG (LASIX) TAB PO SCH (07:58)
[2022-05-23] MEDS: hydrALAZINE (APRESOLINE) 25 MG TAB PO SCH ×2 (07:58→20:27)
[2022-05-23] MEDS: MULTIVIT W/MINERALS TAB (THERAGRAN M) PO SCH (07:58)
[2022-05-23] MEDS: MEMANTINE 10 MG (NAMENDA) TABLET PO SCH (07:58)
[2022-05-23] MEDS: SENNOSIDES 8.6 MG (SENOKOT) TAB PO SCH ×2 (07:58→20:26)
[2022-05-23] MEDS: FINASTERIDE (PROSCAR) 5 MG TAB PO SCH (07:58)
[2022-05-23] MEDS: APIXABAN 5 MG (ELIQUIS) TABLET PO SCH ×2 (07:58→20:26)
--- NOTE | 2022-05-23 09:03 | Progress Note - Cardiology ---
Cardiology SOAP Progress Note Subjective: No cp or palp or syncope or shortness of breath No n/v/d No focal weakness Some gen weakness Objective: I&O/Vital Signs 05/22/22 05/22/22 05/23/22 05/23/22 21:11 23:39 03:31 07:13 Temp 36.6 36.6 Pulse 64 90 Resp 20 20 B/P (MAP) 135/54 (81) 140/68 (92) Pulse Ox 91 93 94 93 O2 Delivery Nasal Cannula High Flow N/C High Flow N/C Nasal Cannula O2 Flow Rate 3.00 3.00 3.00 3.00 3.00 05/23/22 05/23/22 07:28 08:00 Temp 36.6 Pulse 97 Resp 20 B/P (MAP) 121/58 (79) Pulse Ox 91 91 O2 Delivery High Flow N/C High Flow N/C O2 Flow Rate 2.50 2.50 05/23/22 00:00 Intake Total 925 ml Output Total 125 ml Balance 800 ml Weight (Pounds): 230 Weight (Calculated Kilograms): 104.489731 Constitutional: well-developed, well-nourished, other Respiratory: chest expansion is symmetric, chest is bilaterally symmetric, other Cardiovascular: regular rate-rhythm, S1 and S2 Gastrointestional: soft, round, audible bowel sounds Extremities: no lower extremity edema bilateral Neurologic/Psychiatric: other Skin: normal color, warm/dry Results/Procedures: Labs Laboratory Tests 05/23/22 05:14: White Blood Count 11.7H, Red Blood Count 3.50L, Hemoglobin 11.1L, Hematocrit 34L , Mean Corpuscular Volume 97, Mean Corpuscular Hemoglobin 32, Mean Corpuscular Hemoglobin Concent 33, Red Cell Distribution Width 13.7, Platelet Count 221, Mean Platelet Volume 10.1, Immature Granulocyte % (Auto) 2, Neutrophils (%) (Auto) 77H, Lymphocytes (%) (Auto) 6L, Monocytes (%) (Auto) 12, Eosinophils (%) (Auto) 3, Basophils (%) (Auto) 0, Neutrophils # (Auto) 9.0H, Lymphocytes # (Auto) 0.7L, Monocytes # (Auto) 1.4H, Eosinophils # (Auto) 0.3, Basophils # (Auto) 0.0, Immature Granulocyte # (Auto) 0.3H, Sodium Level 140, Potassium Level 4.0, Chloride Level 100, Carbon Dioxide Level 30, Anion Gap 10, Blood Urea Nitrogen 45H, Creatinine 1.49H, Estimat Glomerular Filtration Rate 47, BU N/Creatinine Ratio 30, Glucose Level 126H, Calcium Level 8.4L, Corrected Calcium 9.3, Magnesium Level 2.1, Total Bilirubin 0.9, Aspartate Amino Transf (AST/SGOT) 16, Alanine Aminotransferase (ALT/SGPT) 32, Alkaline Phosphatase 67, Total Protein 5.3L, Albumin 2.9L Microbiology 05/14/22 Gram Stain - Final, Complete 05/14/22 Sputum Culture - Final, Complete Usual upper respiratory hiram 05/13/22 Urine Culture - Final, Complete NO GROWTH 05/13/22 Blood Culture - Final, Complete No growth Laboratory Tests 05/22/22 05:18 05/23/22 05:14 A/P: Assessment: Acute resp failure - acute on chronic exacerbation of COPD - Per CXR of 05-17-22: rounded opacity in the left lung base which may represent loculated fluid within the major fissure versus pulmonary mass (managed by the Med [facility] [place]) - ac diastolic CHF - LVEF 50-55% on echo of 05-14-22 PAF with a somewhat rapid vent response - (CHADSVASc score 6) - first diagnosed on 05-18-22 Acute renal insufficiency - likely due to diuretic therapy for CHF - relatively stable Minimally elevated troponin -likely Type 2 [place] secondary to hypoxia at time of ED presentation HTN HLD reports 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 Continued follow-up to resolution versus dedicated CT is recommended per radiology services - management is by the Medical services * Continue oral diuretics * Increase ambulation * Monitor labs and replace electrolytes as indicated * Ok to d/c from cardiac standpoint. Outpt f/u advised for cardiac issues SHIRLEY ARREDONDO MD FACP [facility] CCDS May 23, 2022 09:03
--- NOTE | 2022-05-23 09:35 | Occupational Ther Daily Note ---
OT Current Status-Daily Note Subjective Supine in bed, agreeable to shower Mental Status/Objective Patient Orientation: Person, Situation Attachments: Oxygen (3 liters NC) portable 02 tank used in bathroom for shower, 92% ADL-Treatment Therapy Code Descriptions/Definitions Functional [place] Measure: 0=Not Assessed/NA 4=Minimal Assistance 1=Total Assistance 5=Supervision or Setup 2=Maximal Assistance 6=Modified [place] 3=Moderate Assistance 7=Complete IndependenceSCALE: Activities may be completed with or without assistive devices. 4-Vrvynwarun-esrturc completes the activity by him/herself with no assistance from a helper. 5-Set-up or Clean-up Assistance-helper sets up or cleans up; patient completes activity. [place] assists only prior to or following the activity. 4-Supervision or Touching Assistance-helper provides verbal cues and/or touching/steadying and/or contact guard assistance as patient completes activity. Assistance may be provided throughout the activity or intermittently. 3-Partial/Moderate Assistance-helper does LESS THAN HALF the effort. [place] lifts, holds or supports trunk or limbs, but provides less than half the effort. 2-Substantial/Maximal Assistance-helper does MORE THAN HALF the effort. [place] lifts or holds trunk or limbs and provides more than half the effort. 4-Ivpokabif-ihxfli does ALL the effort. Patient does none of the effort to complete the activity. Or, the assistance of 2 or more helpers is required for the patient to complete the activity. If activity was not attempted, code reason: 7-Patient Refused. 9-Not Applicable-not attempted and the patient did not perform the activity before the current illness, exacerbation or injury. 10-Not Attempted due to Environmental Limitations-(lack of equipment, weather restraints, etc.). 88-Not Attempted due to Medical Conditions or Safety Concerns. Eating (QC): 6 Oral Hygiene (QC): 5 Bathing Location: L Arm, R Arm, L Upper Leg, R Upper Leg, Chest, Abdomen, Buttocks, Perineal Area Shower/Bathe Self (QC): 3 (OT performed Lower legs, feet, back and hair.) Upper Body Dressing (QC): 3 Lower Body Dressing (QC): 3 (Patient required assitance to pull brief up . Patient pulled pants up with brieg at knees. Waist band rolls on both LB garement d/t moist skin) On/Off Footwear: 4 Toileting Hygiene (QC): 4 Toilet Transfer (QC): 4 Requires constant VC for hand placement, erect posture and safety Education OT Patient Education: Correct positioning, Energy conservation, Modified ADL te chniques, Progress toward Goal/Update tx plan, Purpose of tx/functional activities, Reviewed precautions, Rehab process, Safety issues, Transfer techniques, Use of adapted equipment Teaching Recipient: Patient, Family Teaching Methods: Demonstration, Discussion Response to Teaching: Reinforcement Needed OT Mri Technologist Goals Residential Goals Eating (QC): 6 Oral Hygiene (QC): 5 Toileting Hygiene (QC): 5 Shower/Bathe Self (QC): 4 Upper Body Dressing (QC): 5 Lower Body Dressing (QC): 5 On/Off Footwear (QC): 5 1=Demonstrate adherence to instructed precautions during ADL tasks. 2=Patient will verbalize/demonstrate understanding of assistive devices/sandra fications for ADL. 3=Patient will improve strength/tolerance for activity to enable patient to perform ADL's. OT Education/Plan Problem List/Assessment Assessment: Decreased Activ Tolerance, Decreased Safety Aware, Impaired Cognition, Impaired Coordination, Restricted Funct UE ROM POOR POSTURE, UNABLE TO SUSTAIN ERECT STANDING POSTURE GREATER THAN 2 MINUTES W/ ADS, UNSAFE MOBILITY, UNSAFE TRANSFERS Discharge Recommendations Plan/Recommendations: Continue POC Treatment Plan/Plan of Care Patient would benefit from OT for education, treatment and training to promote independence in ADL's, mobility, safety and/or upper extremity function for ADL's. Plan of Care: ADL Retraining, Cognitive Retraining, Functional Mobility, Group Exercise/Act as Ind, UE Funct Exercise/Act, UE Neuromus Re-Ed/Coord Treatment Duration: May 26, 2022 Frequency: 3 times per week (3-5 times per week) Estimated Hrs Per Day: .25 hour per day Rehab Potential: Fair Remains in recliner w/ spouse present, all needs met 02 NC 3 liters Time Start Time: 08:50 Stop Time: 09:34 DATE: May 23, 2022 Total Time Billed (hr/min): 44 Billed Treatment Time ADL 3 44 min CHAPIN BURCH OT May 23, 2022 09:35
--- NOTE | 2022-05-23 12:12 | Physical Therapy Daily Note ---
PT Daily Note-Current Subjective Patient asleep in chair upon PT arrival, agreeable to treatment. Rates pain currently at 0/10. Pain Section J - Health Conditions 1. Rarely or not at all 2. Occasionally 3. Frequently 4. Almost constantly 8. Unable to answer Pain Effect on Sleep: 1 Pain Interference with Therapy: 1 Pain Interference w/Day-to-Day: 1 Mental Status Patient Orientation: Person Transfers SCALE: Activities may be completed with or without assistive devices. 1-Xscwvkkokm-mgtrxvy completes the activity by him/herself with no assistance from a helper. 5-Set-up or Clean-up Assistance-helper sets up or cleans up; patient completes activity. [place] assists only prior to or following the activity. 4-Supervision or Touching Assistance-helper provides verbal cues and/or touching/steadying and/or contact guard assistance as patient completes activity. Assistance may be provided throughout the activity or intermittently. 3-Partial/Moderate Assistance-helper does LESS THAN HALF the effort. [place] lifts, holds or supports trunk or limbs, but provides less than half the effort. 2-Substantial/Maximal Assistance-helper does MORE THAN HALF the effort. [place] lifts or holds trunk or limbs and provides more than half the effort. 9-Wzrjorkbs-npflfp does ALL the effort. Patient does none of the effort to complete the activity. Or, the assistance of 2 or more helpers is required for the patient to complete the activity. If activity was not attempted, code reason: 7-Patient Refused. 9-Not Applicable-not attempted and the patient did not perform the activity before the current illness, exacerbation or injury. 10-Not Attempted due to Environmental Limitations-(lack of equipment, weather restraints, etc.). 88-Not Attempted due to Medical Conditions or Safety Concerns. Sit to Stand (QC): 3 Chair/Osm-ug-Pyqle Xfer(QC): 3 Weight Bearing Right Lower Extremity: Right Full Weight Bearing Left Lower Extremity: Left Full Weight Bearing Gait Training Does the Patient Walk?: Yes Distance: 120 feet Walk 10 feet (QC): 3 Walk 50 ft with 2 Turns(QC): 3 Gait Assistive Device: FWW 1 Assessment Current Status: Poor Progress Patient tolerated treatment well and remains up in recliner with needs met. Spouse voices concern of patient returning to home with home health. This PT instructed spouse to discuss with physician on POC. Patient ambulates with severely flexed trunk, keeps the FWW too far from his body and demonstrates minimal increase in difficulty with turning. Patient unsafe at this time to be up alone and the FWW does not provide much improvement in his balance due to his posture and stance. PT Care Home Goals Care Home Goals PT Back Roller Goals Time Frame: Jun 09, 2022 Roll Left & Right (QC): 6 Sit to Lying (QC): 6 Lying-Sitting on Side/Bed(QC): 6 Sit to Stand (QC): 6 Chair/Wan-ut-Ykpos Xfer(QC): 6 Toilet Transfer (QC): 6 Does the Patient Walk: Yes Walk 10 feet (QC): 4 Walk 50ft with 2 Turns (QC): 4 Walk 150 ft (QC): 4 1 Step (curb) (QC): 4 PT Plan Treatment/Plan Treatment Plan: Continue Plan of Care Treatment Plan: Bed Mobility, Education, Functional Activity Mari, Functional Strength, Group Therapy, Gait, Safety, Therapeutic Exercise, Transfers Treatment Duration: Jun 09, 2022 Frequency: 6 times per week Estimated Hrs Per Day: .25 hour per day Patient and/or Family Agrees t: Yes Safety Risks/Education Patient Education: Gait Training, Transfer Techniques Teaching Recipient: Patient, Family Teaching Methods: Demonstration, Discussion Response to Teaching: Reinforcement Needed Time Time In: 1051 Time Out: 1101 DATE: May 23, 2022 Total Billed Treatment Time: 10 Total Billed Treatment Visit, gait ETODORO BRIONES PT May 23, 2022 12:12
[2022-05-23] MEDS ORDERED: NS (IVPB) 250 ML IV ONE (15:30)
--- NOTE | 2022-05-23 15:31 | Progress Note ---
Subjective Subjective/Events-last exam Patient is feeling much better. Breathing improved. Tolerating PT and PO diet. Review of Systems Pulmonary: Dyspnea (with activity) Cardiovascular: No: Chest Pain, Palpitations Gastrointestinal: No: Nausea, Vomiting, Abdominal Pain, Diarrhea Neurological: Weakness, Incoordination Focused Exam Time of Focused Exam: 19:45 Objective Exam Last Set of Vital Signs Vital Signs Date Time Temp Pulse Resp B/P (MAP) Pulse Ox O2 Delivery O2 Flow Rate FiO2 05/23/22 08:00 91 High Flow N/C 2.50 05/23/22 07:28 36.6 97 20 121/58 (79) 05/19/22 16:04 40 Capillary Refill : Greater Than 3 Seconds I&O Intake and Output 05/23/22 00:00 Intake Total 1025 ml Output Total 500 ml Balance 525 ml Intake Oral 1025 ml Output Urine Total 500 ml # Voids 5 # Bowel Movements 1 General: Alert, Cooperative, No Acute Distress Lungs: Other (diffuse wheezing throughtout, normal work of breathing at [facility] Heart: Regular Rate, No Murmurs Extremities: Other (2+ pitting edema bilaterally) Neuro: Normal Speech Results/Procedures Lab Laboratory Tests 05/23/22 05:14: White Blood Count 11.7H, Red Blood Count 3.50L, Hemoglobin 11.1L, Hematocrit 34L , Mean Corpuscular Volume 97, Mean Corpuscular Hemoglobin 32, Mean Corpuscular Hemoglobin Concent 33, Red Cell Distribution Width 13.7, Platelet Count 221, Mean Platelet Volume 10.1, Immature Granulocyte % (Auto) 2, Neutrophils (%) (Auto) 77H, Lymphocytes (%) (Auto) 6L, Monocytes (%) (Auto) 12, Eosinophils (%) (Auto) 3, Basophils (%) (Auto) 0, Neutrophils # (Auto) 9.0H, Lymphocytes # (Auto) 0.7L, Monocytes # (Auto) 1.4H, Eosinophils # (Auto) 0.3, Basophils # (Auto) 0.0, Immature Granulocyte # (Auto) 0.3H, Sodium Level 140, Potassium Level 4.0, Chloride Level 100, Carbon Dioxide Level 30, Anion Gap 10, Blood Urea Nitrogen 45H, Creatinine 1.49H, Estimat Glomerular Filtration Rate 47, BUN/Creatinine Ratio 30, Glucose Level 126H, Calcium Level 8.4L, Corrected Calcium 9.3, Magnesium Level 2.1, Total Bilirubin 0.9, Aspartate Amino Transf (AST/SGOT) 16, Alanine Aminotransferase (ALT/SGPT) 32, Alkaline Phosphatase 67, Total Protein 5.3L, Albumin 2.9L Microbiology 05/14/22 Gram Stain - Final, Complete 05/14/22 Sputum Culture - Final, Complete Usual upper respiratory hiram 05/13/22 Urine Culture - Final, Complete NO GROWTH 05/13/22 Blood Culture - Final, Complete No growth Radiology NAME: STACY HOWE [facility] REC#: [id number] PT STATUS: ADM IN : 1940 PHYSICIAN: ANDRÉS MAURO DO ADMIT DATE: 05/13/22/ICU Draft Date of Exam:05/14/22 CHEST 1 VIEW, AP/PA ONLY INDICATION: Congestive heart failure. Comparison is made with prior exam of 05/13/2022. FINDINGS: There is cardiomegaly. There is some venous congestion. No pleural effusion or pneumothorax. The mediastinum is grossly unremarkable. IMPRESSION: Cardiomegaly and some central pulmonary venous congestion. Dictated on workstation # [id number] Dict: 05/14/22 0832 Trans: 05/14/22 0837 CVB [id number] Interpreted by: TADEO BUENO MD Electronically signed by: Assessment/Plan Assessment/Plan (1) Acute and chronic respiratory failure with hypoxia Status: Acute Assessment & Plan: 05/21: Able to titrate down to 2-3 L, Continue MAT protocol, completed antibiotics, continue steroids 05/22: Improving, will likely need home oxygen (2) Atrial fibrillation with RVR Status: Acute Assessment & Plan: 05/21: Cardiology consulted, appreciate recommendations (3) Acute on chronic systolic (congestive) heart failure Status: Acute Assessment & Plan: 05/21: Lasix daily due to CASSIE, gentle diuresis 05/22: Cr increased ON, will continue to monitor, encouraged oral hydration 05/23: Will give 250 bolus 2/2 Cr trending up, may need to adjust losartan (4) Acute kidney failure Status: Acute Qualifiers: Qualified Codes: N17.9 - Acute kidney failure, unspecified (5) Physical debility Status: Acute Assessment & Plan: - PT/OT, patient will need HH at discharge 05/22: Referral placed for IRF, discussed referral process with patient and (6) Elevated glucose Status: Acute Assessment & Plan: 05/21: A1c pending, unsure if it is underlying DM or related to steroids 05/23: A1c 5.6, Pre DM range, elevated sugars are likely more acute 2/2 illness and steroids WINSTON TAFOYA MD May 23, 2022 15:31
[2022-05-23 16:47] VITALS: BP 120/77
[2022-05-23] MEDS: TAMSULOSIN 0.4 MG (FLOMAX) CAP PO SCH (18:29)
[2022-05-23] MEDS: CALCIUM CARBONATE 600 MG (CALCARB) TAB PO SCH (18:29)
[2022-05-23] MEDS: OLANZapine 2.5 MG (ZyPREXA) TAB PO SCH (20:26)
[2022-05-23] MEDS: MIRTAZAPINE 15 MG (REMERON) TAB PO SCH (20:26)
[2022-05-23] MEDS: traZODone 50 MG (DESYREL) TAB PO SCH (20:26)
[2022-05-23] MEDS: MELATONIN 3 MG TABLET PO PRN (20:26)
[2022-05-23] MEDS: DONEPEZIL 10 MG (ARICEPT) TAB PO SCH (20:27)
[2022-05-23 20:47] VITALS: BP 119/54
[2022-05-24] VITALS: BP 111/56
[2022-05-24 05:33] LABS: BASOPHILS % (AUTO) 0 % (0-10); EOSINOPHILS # (AUTO) 0.2 10^3/uL (0.0-0.3); EOSINOPHILS % (AUTO) 2 % (0-10); HEMATOCRIT 33 % (40-54); HEMOGLOBIN 10.7 g/dL (13.3-17.7); LYMPHOCYTES # (AUTO) 0.7 10^3/uL (1.0-4.0); LYMPHOCYTES % (AUTO) 6 % (12-44); MEAN CORPUSCULAR HEMOGLOBIN 32 pg (25-34); MEAN CORPUSCULAR HGB CONC 32 g/dL (32-36); MEAN CORPUSCULAR VOLUME 97 fL (80-99); MEAN PLATELET VOLUME 9.9 fL (9.0-12.2); MONOCYTES # (AUTO) 1.3 10^3/uL (0.0-1.0); MONOCYTES % (AUTO) 12 % (0-12); NEUTROPHILS # (AUTO) 8.5 10^3/uL (1.8-7.8); NEUTROPHILS % (AUTO) 78 % (42-75); PLATELET COUNT 207 10^3/uL (130-400); WHITE BLOOD COUNT 10.9 10^3/uL (4.3-11.0)
[2022-05-24 05:50] LABS: CALCIUM 8.6 MG/DL (8.5-10.1); CREATININE SERUM 1.55 MG/DL (0.60-1.30); MAGNESIUM 2.1 MG/DL (1.6-2.4); TOTAL PROTEIN 5.3 GM/DL (6.4-8.2)
[2022-05-24] MEDS: FUROSEMIDE 40 MG (LASIX) TAB PO SCH (08:19)
[2022-05-24] MEDS: FINASTERIDE (PROSCAR) 5 MG TAB PO SCH (08:19)
[2022-05-24] MEDS: MEMANTINE 10 MG (NAMENDA) TABLET PO SCH (08:19)
[2022-05-24] MEDS: hydrALAZINE (APRESOLINE) 25 MG TAB PO SCH ×2 (08:19→19:51)
[2022-05-24] MEDS: DOCUSATE SODIUM 100 MG (COLACE) CAP PO SCH ×2 (08:20→19:52)
[2022-05-24] MEDS: SENNOSIDES 8.6 MG (SENOKOT) TAB PO SCH ×2 (08:20→19:52)
[2022-05-24] MEDS: meTOproloL SUCCINATE 50 MG (TOPROL XL) TAB PO SCH (08:20)
[2022-05-24] MEDS: LOSARTAN 50 MG (COZAAR) TAB PO SCH (08:20)
[2022-05-24] MEDS: APIXABAN 2.5 MG (ELIQUIS) TABLET PO SCH ×2 (08:20→21:19)
[2022-05-24] MEDS: MULTIVIT W/MINERALS TAB (THERAGRAN M) PO SCH (08:20)
[2022-05-24 08:45] VITALS: BP 120/66
--- NOTE | 2022-05-24 10:37 | Physical Therapy Daily Note ---
PT Daily Note-Current Subjective Patient agrees to PT. Family present. Pain Section J - Health Conditions 1. Rarely or not at all 2. Occasionally 3. Frequently 4. Almost constantly 8. Unable to answer Pain Effect on Sleep: 1 Pain Interference with Therapy: 1 Pain Interference w/Day-to-Day: 1 Transfers SCALE: Activities may be completed with or without assistive devices. 5-Yvnvyjpidz-szknlsb completes the activity by him/herself with no assistance from a helper. 5-Set-up or Clean-up Assistance-helper sets up or cleans up; patient completes activity. [place] assists only prior to or following the activity. 4-Supervision or Touching Assistance-helper provides verbal cues and/or touching/steadying and/or contact guard assistance as patient completes activity. Assistance may be provided throughout the activity or intermittently. 3-Partial/Moderate Assistance-helper does LESS THAN HALF the effort. [place] lifts, holds or supports trunk or limbs, but provides less than half the effort. 2-Substantial/Maximal Assistance-helper does MORE THAN HALF the effort. [place] lifts or holds trunk or limbs and provides more than half the effort. 1-Nhptmouim-ouvekt does ALL the effort. Patient does none of the effort to complete the activity. Or, the assistance of 2 or more helpers is required for the patient to complete the activity. If activity was not attempted, code reason: 7-Patient Refused. 9-Not Applicable-not attempted and the patient did not perform the activity before the current illness, exacerbation or injury. 10-Not Attempted due to Environmental Limitations-(lack of equipment, weather restraints, etc.). 88-Not Attempted due to Medical Conditions or Safety Concerns. Sit to Stand (QC): 4 Weight Bearing Right Lower Extremity: Right Full Weight Bearing Left Lower Extremity: Left Full Weight Bearing Gait Training Distance: 130' Walk 10 feet (QC): 4 Walk 50 ft with 2 Turns(QC): 4 Gait Assistive Device: FWW severe trunk flexed and bilateral knee flexed posture with extended UE's with FWW use. Continuous VC's for body placement in FWW and for posture. Exercises Seated Therapy Exercises: Sit to stand Seated Reps: 5 Assessment Patient tolerated treatment well and remains in recliner with chair alarm activated for patient's safety. Family remain. Patient progressing slowly with treatment plan. Patient continues to display severe trunk and bilateral knee flexed posture with inability to self correct. Per family, patient has been ambulating this way for awhile. PT Auto Emissions Technician Goals [facility] Goals PT Auto Emissions Technician Goals Time Frame: Jun 09, 2022 Roll Left & Right (QC): 6 Sit to Lying (QC): 6 Lying-Sitting on Side/Bed(QC): 6 Sit to Stand (QC): 6 Chair/Hdv-jg-Anrjn Xfer(QC): 6 Toilet Transfer (QC): 6 Does the Patient Walk: Yes Walk 10 feet (QC): 4 Walk 50ft with 2 Turns (QC): 4 Walk 150 ft (QC): 4 1 Step (curb) (QC): 4 PT Plan Treatment/Plan Treatment Plan: Continue Plan of Care Treatment Plan: Bed Mobility, Education, Functional Activity Mari, Functional Strength, Group Therapy, Gait, Safety, Therapeutic Exercise, Transfers Treatment Duration: Jun 09, 2022 Frequency: 6 times per week Estimated Hrs Per Day: .25 hour per day Patient and/or Family Agrees t: Yes Time Time In: 955 Time Out: 1009 DATE: May 24, 2022 Total Billed Treatment Time: 14 Total Billed Treatment 1 visit GT 14 min CARA SEGOVIA PT May 24, 2022 10:37
[2022-05-24] MEDS: UMECLIDINIUM BROMIDE (INCRUSE ELLIPTA) 7'S IH SCH (10:54)
[2022-05-24] MEDS: RT-ALBUTEROL/IPRATROPIUM 3 ML (DUONEB) VIAL INH SCH ×2 (10:54→21:26)
--- NOTE | 2022-05-24 12:57 | Occupational Ther Daily Note ---
OT Current Status-Daily Note Subjective Up in recliner, agreeable to OT, family and visitors present Mental Status/Objective Patient Orientation: Person, Place, Time, Situation ADL-Treatment Therapy Code Descriptions/Definitions Functional [place] Measure: 0=Not Assessed/NA 4=Minimal Assistance 1=Total Assistance 5=Supervision or Setup 2=Maximal Assistance 6=Modified [place] 3=Moderate Assistance 7=Complete IndependenceSCALE: Activities may be completed with or without assistive devices. 8-Fhiprvweqo-yzmlcml completes the activity by him/herself with no assistance from a helper. 5-Set-up or Clean-up Assistance-helper sets up or cleans up; patient completes activity. [place] assists only prior to or following the activity. 4-Supervision or Touching Assistance-helper provides verbal cues and/or touching/steadying and/or contact guard assistance as patient completes activity. Assistance may be provided throughout the activity or intermittently. 3-Partial/Moderate Assistance-helper does LESS THAN HALF the effort. [place] lifts, holds or supports trunk or limbs, but provides less than half the effort. 2-Substantial/Maximal Assistance-helper does MORE THAN HALF the effort. [place] lifts or holds trunk or limbs and provides more than half the effort. 2-Ancwaloaq-rtmhga does ALL the effort. Patient does none of the effort to complete the activity. Or, the assistance of 2 or more helpers is required for the patient to complete the activity. If activity was not attempted, code reason: 7-Patient Refused. 9-Not Applicable-not attempted and the patient did not perform the activity before the current illness, exacerbation or injury. 10-Not Attempted due to Environmental Limitations-(lack of equipment, weather restraints, etc.). 88-Not Attempted due to Medical Conditions or Safety Concerns. Eating (QC): 6 Oral Hygiene (QC): 5 Upper Body Dressing (QC): 5 Lower Body Dressing (QC): 4 On/Off Footwear: 5 Toileting Hygiene (QC): 5 Toilet Transfer (QC): 4 questionable contracture of hips and knees, Patient sustains flexion during standing Education OT Patient Education: Correct positioning, Disease process, Instructions to caregiver, Modified ADL techniques, Reviewed precautions, Rehab process, Safety issues, Transfer techniques Teaching Recipient: Patient, Family Teaching Methods: Demonstration, Discussion Response to Teaching: Reinforcement Needed OT Gymnastic Teacher Goals Gymnastic Teacher Goals Eating (QC): 6 Oral Hygiene (QC): 5 Toileting Hygiene (QC): 5 Shower/Bathe Self (QC): 4 Upper Body Dressing (QC): 5 Lower Body Dressing (QC): 5 On/Off Footwear (QC): 5 1=Demonstrate adherence to instructed precautions during ADL tasks. 2=Patient will verbalize/demonstrate understanding of assistive devices/modifications for ADL. 3=Patient will improve strength/tolerance for activity to enable patient to perform ADL's. OT Education/Plan Problem List/Assessment POOR POSTURE, UNABLE TO SUSTAIN ERECT STANDING POSTURE GREATER THAN 2 MINUTES W/ ADS, UNSAFE MOBILITY, UNSAFE TRANSFERS Discharge Recommendations Plan/Recommendations: Continue POC Treatment Plan/Plan of Care Treatment,Training & Education: Yes Patient would benefit from OT for education, treatment and training to promote independence in ADL's, mobility, safety and/or upper extremity function for ADL's. Plan of Care: ADL Retraining, Cognitive Retraining, Functional Mobility, Group Exercise/Act as Ind, UE Funct Exercise/Act, UE Neuromus Re-Ed/Coord Treatment Duration: May 26, 2022 Frequency: 3 times per week (3-5 times per week) Estimated Hrs Per Day: .25 hour per day Rehab Potential: Fair Time Start Time: 09:55 Stop Time: 10:10 DATE: May 24, 2022 Total Time Billed (hr/min): 15 Billed Treatment Time ADL 1 15 min CHAPIN BURCH OT May 24, 2022 12:57
--- NOTE | 2022-05-24 15:57 | Progress Note ---
Subjective Subjective/Events-last exam Patient feeling much better today. Tolerating PT and PO diet. Denies any chest pain. States that his swelling has got alittle worse this AM. Review of Systems General: Fatigue, Malaise Pulmonary: Dyspnea; No Cough Cardiovascular: Edema; No: Chest Pain, Palpitations Gastrointestinal: No: Nausea, Vomiting, Abdominal Pain, Diarrhea, Constipation Neurological: Weakness, Incoordination, Confusion Focused Exam Time of Focused Exam: 19:45 Objective Exam Last Set of Vital Signs Vital Signs Date Time Temp Pulse Resp B/P (MAP) Pulse Ox O2 Delivery O2 Flow Rate FiO2 05/24/22 10:56 93 Nasal Cannula 2.50 05/24/22 08:45 37.1 88 17 120/66 (84) 05/19/22 16:04 40 Capillary Refill : Greater Than 3 Seconds I&O Intake and Output 05/24/22 00:00 Intake Total 770 ml Output Total 400 ml Balance 370 ml Intake Oral 770 ml Output Urine Total 400 ml # Voids 4 # Bowel Movements 2 General: Alert, Oriented X3, Mild Distress (with extertion) Lungs: Other (diminished breath sounds, end exp wheezing throughout) Heart: Regular Rate, No Murmurs Abdomen: Normal Bowel Sounds, Soft, No Tenderness, No Masses Extremities: Other (2+ pitting edema bilaterally) Neuro: Normal Speech Results/Procedures Lab Laboratory Tests 05/24/22 05:20: White Blood Count 10.9, Red Blood Count 3.40L, Hemoglobin 10.7L, Hematocrit 33L, Mean Corpuscular Volume 97, Mean Corpuscular Hemoglobin 32, Mean Corpuscular Hemoglobin Concent 32, Red Cell Distribution Width 13.9, Platelet Count 207, Mean Platelet Volume 9.9, Immature Granulocyte % (Auto) 2, Neutrophils (%) (Auto) 78H, Lymphocytes (%) (Auto) 6L, Monocytes (%) (Auto) 12, Eosinophils (%) (Auto) 2, Basophils (%) (Auto) 0, Neutrophils # (Auto) 8.5H, Lymphocytes # (Auto) 0.7L, Monocytes # (Auto) 1.3H, Eosinophils # (Auto) 0.2, Basophils # (Auto) 0.0, Immature Granulocyte # (Auto) 0.2H, Sodium Level 139, Potassium Level 4.0, Chloride Level 99, Carbon Dioxide Level 32, Anion Gap 8, Blood Urea Nitrogen 45H, Creatinine 1.55H, Estimat Glomerular Filtration Rate 44, BUN/Creatinine Ratio 29, Glucose Level 135H, Calcium Level 8.6, Corrected Calcium 9.4, Magnesium Level 2.1, Total Bilirubin 1.0, Aspartate Amino Transf (AST/SGOT) 16, Alanine Aminotransferase (ALT/SGPT) 32, Alkaline Phosphatase 69, Total Protein 5.3L, Albumin 3.0L Microbiology 05/14/22 Gram Stain - Final, Complete 05/14/22 Sputum Culture - Final, Complete Usual upper respiratory hiram 05/13/22 Urine Culture - Final, Complete NO GROWTH 05/13/22 Blood Culture - Final, Complete No growth Radiology NAME: STACY HOWE [facility] REC#: [id number] PT STATUS: ADM IN : 1940 PHYSICIAN: ANDRÉS MAURO DO ADMIT DATE: 05/13/22/ICU Draft Date of Exam:05/14/22 CHEST 1 VIEW, AP/PA ONLY INDICATION: Congestive heart failure. Comparison is made with prior exam of 05/13/2022. FINDINGS: There is cardiomegaly. There is some venous congestion. No pleural effusion or pneumothorax. The mediastinum is grossly unremarkable. IMPRESSION: Cardiomegaly and some central pulmonary venous congestion. Dictated on workstation # [id number] Dict: 05/14/22 0832 Trans: 05/14/22 0837 CVB [id number] Interpreted by: TADEO BUENO MD Electronically signed by: Assessment/Plan Assessment/Plan (1) Acute and chronic respiratory failure with hypoxia Status: Acute Assessment & Plan: 05/21: Able to titrate down to 2-3 L, Continue MAT protocol, completed antibiotics, continue steroids 05/22: Improving, will likely need home oxygen 05/24: Stable on 2-3 LPM (2) Atrial fibrillation with RVR Status: Acute Assessment & Plan: 05/21: Cardiology consulted, appreciate recommendations (3) Acute on chronic systolic (congestive) heart failure Status: Acute Assessment & Plan: 05/21: Lasix daily due to CASSIE, gentle diuresis 05/22: Cr increased ON, will continue to monitor, encouraged oral hydration 05/23: Will give 250 bolus 2/2 Cr trending up, may need to adjust losartan (4) Acute kidney failure Status: Acute Assessment & Plan: 05/24: Cr trending up since started Losartan, would recommend changing blood pressure medication Qualifiers: Qualified Codes: N17.9 - Acute kidney failure, unspecified (5) Physical debility Status: Acute Assessment & Plan: - PT/OT, patient will need HH at discharge 05/22: Referral placed for IRF, discussed referral process with patient and 05/24: Waiting on insurance approval for [place] (6) Elevated glucose Status: Acute Assessment & Plan: 05/21: A1c pending, unsure if it is underlying DM or related to steroids 05/23: A1c 5.6, Pre DM range, elevated sugars are likely more acute 2/2 illness and steroids WINSTON TAFOYA MD May 24, 2022 15:57
[2022-05-24 16:16] VITALS: BP 96/61
--- NOTE | 2022-05-24 17:31 | Progress Note - Cardiology ---
Cardiology SOAP Progress Note Subjective: Notes some increase in shortness of breath and leg swelling Denies cp or palp or syncope Denies n/v/d Denies focal weakness Notes gen weakness Objective: I&O/Vital Signs 05/24/22 05/24/22 05/24/22 05/24/22 08:45 10:53 10:56 16:16 Temp 37.1 37.1 Pulse 88 75 Resp 17 18 B/P (MAP) 120/66 (84) 96/61 (73) Pulse Ox 93 93 93 91 O2 Delivery High Flow N/C High Flow N/C Nasal Cannula High Flow N/C O2 Flow Rate 2.50 2.50 2.50 2.00 05/24/22 00:00 Intake Total 670 ml Output Total 200 ml Balance 470 ml Weight (Pounds): 230 Weight (Calculated Kilograms): 104.522205 Constitutional: well-developed, well-nourished, other Respiratory: chest expansion is symmetric, chest is bilaterally symmetric, other Cardiovascular: regular rate-rhythm, S1 and S2 Gastrointestional: soft, round, audible bowel sounds Extremities: no lower extremity edema bilateral Neurologic/Psychiatric: other Skin: normal color, warm/dry Results/Procedures: Labs Laboratory Tests 05/24/22 05:20: White Blood Count 10.9, Red Blood Count 3.40L, Hemoglobin 10.7L, Hematocrit 33L, Mean Corpuscular Volume 97, Mean Corpuscular Hemoglobin 32, Mean Corpuscular Hemoglobin Concent 32, Red Cell Distribution Width 13.9, Platelet Count 207, Mean Platelet Volume 9.9, Immature Granulocyte % (Auto) 2, Neutrophils (%) (Auto) 78H, Lymphocytes (%) (Auto) 6L, Monocytes (%) (Auto) 12, Eosinophils (%) (Auto) 2, Basophils (%) (Auto) 0, Neutrophils # (Auto) 8.5H, Lymphocytes # (Auto) 0.7L, Monocytes # (Auto) 1.3H, Eosinophils # (Auto) 0.2, Basophils # (Auto) 0.0, Immature Granulocyte # (Auto) 0.2H, Sodium Level 139, Potassium Level 4.0, Chloride Level 99, Carbon Dioxide Level 32, Anion Gap 8, Blood Urea Nitrogen 45H, Creatinine 1.55H, Estimat Glomerular Filtration Rate 44, BUN/Creatinine Ratio 29, Glucose Level 135H, Calcium Level 8.6, Corrected Calcium 9.4, Magnesium Level 2.1, Total Bilirubin 1.0, Aspartate Amino Transf (AST/SGOT) 16, Alanine Aminotransferase (ALT/SGPT) 32, Alkaline Phosphatase 69, Total Protein 5.3L, Albumin 3.0L Microbiology 05/14/22 Gram Stain - Final, Complete 05/14/22 Sputum Culture - Final, Complete Usual upper respiratory hiram 05/13/22 Urine Culture - Final, Complete NO GROWTH 05/13/22 Blood Culture - Final, Complete No growth Laboratory Tests 05/23/22 05:14 05/24/22 05:20 A/P: Assessment: Acute resp failure - acute on chronic exacerbation of COPD - Per CXR of 05-17-22: rounded opacity in the left lung base which may represent loculated fluid within the major fissure versus pulmonary mass (managed by the Med svce) - ac diastolic CHF - LVEF 50-55% on echo of 05-14-22 PAF with a somewhat rapid vent response - (CHADSVASc score 6) - first diagnosed on 05-18-22 Acute renal insufficiency - likely due to diuretic therapy for CHF - relatively stable Minimally elevated troponin -likely Type 2 [place] secondary to hypoxia at time of ED presentation HTN HLD reports 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 Continued follow-up to resolution versus dedicated CT is recommended per radiology services - management is by the Medical services * Increase oral diuretics * Increase ambulation * Monitor labs and replace electrolytes as indicated * Ok to d/c from cardiac standpoint. Outpt f/u advised for cardiac issues SHIRLEY ARREDONDO MD FACP FAC CCDS May 24, 2022 17:31
[2022-05-24] MEDS: TAMSULOSIN 0.4 MG (FLOMAX) CAP PO SCH (17:34)
[2022-05-24] MEDS: CALCIUM CARBONATE 600 MG (CALCARB) TAB PO SCH (17:34)
[2022-05-24] MEDS: OLANZapine 2.5 MG (ZyPREXA) TAB PO SCH (21:19)
[2022-05-24] MEDS: DONEPEZIL 10 MG (ARICEPT) TAB PO SCH (21:19)
[2022-05-24] MEDS: MIRTAZAPINE 15 MG (REMERON) TAB PO SCH (21:19)
[2022-05-24] MEDS: traZODone 50 MG (DESYREL) TAB PO SCH (21:21)
[2022-05-25] MEDS: LORazepam 0.5 MG (ATIVAN) TABLET PO PRN (00:04)
[2022-05-25] MEDS: MELATONIN 3 MG TABLET PO PRN (00:06)
[2022-05-25 00:56] VITALS: BP 124/68
[2022-05-25 07:44] VITALS: BP 117/78
[2022-05-25] MEDS: RT-ALBUTEROL/IPRATROPIUM 3 ML (DUONEB) VIAL INH SCH (08:17)
[2022-05-25] MEDS: UMECLIDINIUM BROMIDE (INCRUSE ELLIPTA) 7'S IH SCH (08:32)
[2022-05-25] MEDS: MULTIVIT W/MINERALS TAB (THERAGRAN M) PO SCH (08:54)
[2022-05-25] MEDS: MEMANTINE 10 MG (NAMENDA) TABLET PO SCH (08:54)
[2022-05-25] MEDS: meTOproloL SUCCINATE 50 MG (TOPROL XL) TAB PO SCH (08:54)
[2022-05-25] MEDS: APIXABAN 2.5 MG (ELIQUIS) TABLET PO SCH (08:54)
[2022-05-25] MEDS: DOCUSATE SODIUM 100 MG (COLACE) CAP PO SCH (08:54)
[2022-05-25] MEDS: SENNOSIDES 8.6 MG (SENOKOT) TAB PO SCH (08:54)
[2022-05-25] MEDS: hydrALAZINE (APRESOLINE) 25 MG TAB PO SCH (08:54)
[2022-05-25] MEDS: LOSARTAN 50 MG (COZAAR) TAB PO SCH (08:54)
[2022-05-25] MEDS: FINASTERIDE (PROSCAR) 5 MG TAB PO SCH (08:54)
[2022-05-25] MEDS ORDERED: FUROSEMIDE 20 MG (LASIX) TAB PO SCH (09:00)
--- NOTE | 2022-05-25 09:58 | Progress Note - Cardiology ---
Cardiology SOAP Progress Note Subjective: Pt is confused and response to questions is unreliable He does not report symptoms is by bedside and she reports patient's confusion persists and was somewhat worse last night Objective: I&O/Vital Signs 05/25/22 05/25/22 05/25/22 05/25/22 00:42 00:56 07:44 08:17 Temp 37.1 37.6 36.6 Pulse 91 93 Resp 18 18 B/P (MAP) 124/68 (86) 117/78 (91) Pulse Ox 91 92 97 O2 Delivery High Flow N/C OxyMask OxyMask O2 Flow Rate 6.00 5.00 5.00 05/25/22 05/25/22 08:32 08:59 Pulse Ox 80 O2 Delivery OxyMask OxyMask O2 Flow Rate 5.00 5.00 05/25/22 00:00 Intake Total 1805 ml Balance 1805 ml Weight (Pounds): 230 Weight (Calculated Kilograms): 104.929236 Constitutional: No AAO x 3; well-developed, well-nourished, other (confused) Respiratory: No accessory muscle use; chest expansion is symmetric, chest is bilaterally symmetric, other (fair bilateral air entry) Cardiovascular: regular rate-rhythm, S1 and S2, systolic murmur (soft CONCETTA at card base) Gastrointestional: soft, round, audible bowel sounds Extremities: swelling (mild, bilateral leg edema) Neurologic/Psychiatric: other (moves all limbs) Skin: normal color, warm/dry Results/Procedures: Labs Microbiology 05/14/22 Gram Stain - Final, Complete 05/14/22 Sputum Culture - Final, Complete Usual upper respiratory hiram 05/13/22 Urine Culture - Final, Complete NO GROWTH 05/13/22 Blood Culture - Final, Complete No growth Laboratory Tests 05/24/22 05:20 A/P: Assessment: Acute resp failure - acute on chronic exacerbation of COPD - Per CXR of 05-17-22: rounded opacity in the left lung base which may represent loculated fluid within the major fissure versus pulmonary mass (managed by the Med svce) - ac diastolic CHF - LVEF 50-55% on echo of 05-14-22 PAF with a somewhat rapid vent response, now controlled - (CHADSVASc score 6) - first diagnosed on 05-18-22 Renal insufficiency of indeterminate age - relatively stable Minimally elevated troponin -likely Type 2 NV secondary to hypoxia at time of ED presentation HTN HLD reports 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 Continued follow-up to resolution versus dedicated CT is recommended per radiology services - management is by the Medical services * Continue oral diuretics * Increase ambulation * Monitor labs and replace electrolytes as indicated (Medical service managing) * Ok to d/c from cardiac standpoint. Outpt f/u advised for cardiac issues SHIRLEY ARREDONDO MD FACP FACC CCDS May 25, 2022 09:57
--- NOTE | 2022-05-25 11:44 | Physical Therapy Daily Note ---
PT Daily Note-Current Subjective Patient is very lethargic and confused. Unaware of safety concerns. Impulsively stands to ambulate to toilet with increased agitated noted. Pain Section J - Health Conditions 1. Rarely or not at all 2. Occasionally 3. Frequently 4. Almost constantly 8. Unable to answer Pain Effect on Sleep: 8 Pain Interference with Therapy: 8 Pain Interference w/Day-to-Day: 8 Mental Status Patient Orientation: Confused Attachments: Oxygen Transfers SCALE: Activities may be completed with or without assistive devices. 9-Qxbspivzoa-nakiwir completes the activity by him/herself with no assistance from a helper. 5-Set-up or Clean-up Assistance-helper sets up or cleans up; patient completes activity. [place] assists only prior to or following the activity. 4-Supervision or Touching Assistance-helper provides verbal cues and/or touching/steadying and/or contact guard assistance as patient completes activity. Assistance may be provided throughout the activity or intermittently. 3-Partial/Moderate Assistance-helper does LESS THAN HALF the effort. [place] lifts, holds or supports trunk or limbs, but provides less than half the effort. 2-Substantial/Maximal Assistance-helper does MORE THAN HALF the effort. [place] lifts or holds trunk or limbs and provides more than half the effort. 5-Hryamytfg-cmmwss does ALL the effort. Patient does none of the effort to complete the activity. Or, the assistance of 2 or more helpers is required for the patient to complete the activity. If activity was not attempted, code reason: 7-Patient Refused. 9-Not Applicable-not attempted and the patient did not perform the activity before the current illness, exacerbation or injury. 10-Not Attempted due to Environmental Limitations-(lack of equipment, weather restraints, etc.). 88-Not Attempted due to Medical Conditions or Safety Concerns. Sit to Stand (QC): 3 Chair/Mjz-qo-Onyod Xfer(QC): 3 Toilet Transfer (QC): 3 Weight Bearing Right Lower Extremity: Right Full Weight Bearing Left Lower Extremity: Left Full Weight Bearing Gait Training Distance: 15' x 2 Walk 10 feet (QC): 3 Gait Assistive Device: FWW Assessment Patient very confused on this date. Patient required min to mod assist with all mobility on this date. PT Transit Specialist Goals Care Home Goals PT Transit Specialist Goals Time Frame: Jun 09, 2022 Roll Left & Right (QC): 6 Sit to Lying (QC): 6 Lying-Sitting on Side/Bed(QC): 6 Sit to Stand (QC): 6 Chair/Abc-sj-Szfnz Xfer(QC): 6 Toilet Transfer (QC): 6 Does the Patient Walk: Yes Walk 10 feet (QC): 4 Walk 50ft with 2 Turns (QC): 4 Walk 150 ft (QC): 4 1 Step (curb) (QC): 4 PT Plan Treatment/Plan Treatment Plan: Continue Plan of Care Treatment Plan: Bed Mobility, Education, Functional Activity Mari, Functional Strength, Group Therapy, Gait, Safety, Therapeutic Exercise, Transfers Treatment Duration: Jun 09, 2022 Frequency: 6 times per week Estimated Hrs Per Day: .25 hour per day Patient and/or Family Agrees t: Yes Time Time In: 1110 Time Out: 1124 DATE: May 25, 2022 Total Billed Treatment Time: 14 Total Billed Treatment 1 visit FA 14 min CARA SEGOVIA PT May 25, 2022 11:44
--- NOTE | 2022-05-25 11:45 | Occupational Ther Daily Note ---
OT Current Status-Daily Note Subjective AMS, confused, impulsive Mental Status/Objective Patient Orientation: Confused Attachments: Oxygen ADL-Treatment Therapy Code Descriptions/Definitions Functional [place] Measure: 0=Not Assessed/NA 4=Minimal Assistance 1=Total Assistance 5=Supervision or Setup 2=Maximal Assistance 6=Modified [place] 3=Moderate Assistance 7=Complete IndependenceSCALE: Activities may be completed with or without assistive devices. 4-Akylbettvn-rvodbtn completes the activity by him/herself with no assistance from a helper. 5-Set-up or Clean-up Assistance-helper sets up or cleans up; patient completes activity. [place] assists only prior to or following the activity. 4-Supervision or Touching Assistance-helper provides verbal cues and/or touching/steadying and/or contact guard assistance as patient completes activity. Assistance may be provided throughout the activity or intermittently. 3-Partial/Moderate Assistance-helper does LESS THAN HALF the effort. [place] lifts, holds or supports trunk or limbs, but provides less than half the effort. 2-Substantial/Maximal Assistance-helper does MORE THAN HALF the effort. [place] lifts or holds trunk or limbs and provides more than half the effort. 6-Wdlfkuipd-dgrkvr does ALL the effort. Patient does none of the effort to complete the activity. Or, the assistance of 2 or more helpers is required for the patient to complete the activity. If activity was not attempted, code reason: 7-Patient Refused. 9-Not Applicable-not attempted and the patient did not perform the activity before the current illness, exacerbation or injury. 10-Not Attempted due to Environmental Limitations-(lack of equipment, weather restraints, etc.). 88-Not Attempted due to Medical Conditions or Safety Concerns. Toileting Hygiene (QC): 1 Toilet Transfer (QC): 1 Education OT Patient Education: Correct positioning, Instructions to caregiver, Modified ADL techniques, Safety issues, Transfer techniques Teaching Recipient: Family Teaching Methods: Discussion Response to Teaching: Reinforcement Needed OT Group Home Goals Hydrological Technical Officer Goals Eating (QC): 6 Oral Hygiene (QC): 5 Toileting Hygiene (QC): 5 Shower/Bathe Self (QC): 4 Upper Body Dressing (QC): 5 Lower Body Dressing (QC): 5 On/Off Footwear (QC): 5 1=Demonstrate adherence to instructed precautions during ADL tasks. 2=Patient will verbalize/demonstrate understanding of assistive de vices/modifications for ADL. 3=Patient will improve strength/tolerance for activity to enable patient to perform ADL's. OT Education/Plan Problem List/Assessment POOR POSTURE, UNABLE TO SUSTAIN ERECT STANDING POSTURE GREATER THAN 2 MINUTES W/ ADS, UNSAFE MOBILITY, UNSAFE TRANSFERS Discharge Recommendations Plan/Recommendations: Continue POC Therapy Discharge Recommendati: 24 Hour Supervision, Post Acute OT Treatment Plan/Plan of Care Treatment,Training & Education: Yes Patient would benefit from OT for education, treatment and training to promote independence in ADL's, mobility, safety and/or upper extremity function for ADL's. Plan of Care: ADL Retraining, Cognitive Retraining, Functional Mobility, Group Exercise/Act as Ind, UE Funct Exercise/Act, UE Neuromus Re-Ed/Coord Treatment Duration: May 26, 2022 Frequency: 3 times per week (3-5 times per week) Estimated Hrs Per Day: .25 hour per day Rehab Potential: Fair Time Start Time: 11:00 Stop Time: 11:20 DATE: May 25, 2022 Total Time Billed (hr/min): 20 Billed Treatment Time ADL 1 20 min CHAPIN BURCH OT May 25, 2022 11:45
--- NOTE | 2022-05-25 11:49 | Discharge Summary ---
Discharge Summary Reconcile Patient Problems Problems Reviewed?: Yes Hospital Course Hospital Course Date of Admission: May 13, 2022 at 21:34 Admission Diagnosis : Family Physician/Provider: Kiran Louis MD Date of Discharge: 05/25/22 Discharge Diagnosis: Acute on Chronic Respiratory Failure Atrial Fibrillation with RVR Acute on Chronic systolic CHF Acute on Chronic Kidney failure Debility advanced age Labs and Pending Lab Test: Microbiology 05/14/22 Gram Stain - Final, Complete 05/14/22 Sputum Culture - Final, Complete Usual upper respiratory hiram 05/13/22 Urine Culture - Final, Complete NO GROWTH 05/13/22 Blood Culture - Final, Complete No growth Home Meds Active Reported Tylenol Extra Strength (Acetaminophen) 500 Mg Tablet 1,000 Mg PO HS Furosemide 20 Mg Tablet 20 Mg PO DAILY FILLED 05-10-2022 #5/5 DAY SUPPLY Calcium (Calcium Carbonate) 600 Mg Calcium (1500 Mg) Tablet 600 Mg PO 1800 Aspirin EC (Aspirin) 81 Mg Tablet.dr 81 Mg PO 1800 Multivitamin 1 Each Tablet 1 Each PO DAILY Hydrochlorothiazide 25 Mg Tablet 25 Mg PO DAILY Finasteride 5 Mg Tablet 5 Mg PO DAILY Flomax (Tamsulosin HCl) 0.4 Mg Cap 0.8 Mg PO 1800 TAKES 2 (0.4MG) CAPS 30 MINUTES AFTER EVENING MEAL Amox Tr-K Clv 875-125 mg Tab (Amoxicillin/Potassium Clav) 875 Mg-125 Mg Tablet 1 Ea PO BID FILLED 05-10-2022 #20/10 DAY SUPPLY Memantine HCl 10 Mg Tablet 10 Mg PO DAILY Spiriva (Tiotropium Thurman) 18 Mcg Aerp 1 Puff INH DAILY Trazodone HCl 50 Mg Tablet 50 Mg PO HS Donepezil HCl 10 Mg Tablet 10 Mg PO HS Hydralazine HCl 25 Mg Tablet 25 Mg PO BID Losartan Potassium 100 Mg Tablet 100 Mg PO DAILY Skilled NF Admit to: Count Includes [facility] Certification (SNF) I certify that SNF services are required to be given on an inpatient basis because of the above named patient's need for custodial care on a continuing basis for the conditions(s) for which he/she was receiving inpatient hospital services prior to his/her transfer to the SNF. Oxygen Delivery Method: OxyMask Discharge Diet: Cardiac Diet Resuscitation Status: Full Code Winston Lewis May 25, 2022 11:43 Discharge Physical Exam General: Alert, No Acute Distress Lungs: Clear to Auscultation, Normal Air Movement Heart: Regular Rate, No Murmurs Abdomen: Normal Bowel Sounds, Soft, No Tenderness, No Masses Extremities: Other (2+ pitting edema bilaterally LE) Neuro: Normal Speech, Cranial Nerves 3-12 NL WINSTON LEWIS MD May 25, 2022 11:49
[2022-05-25] MEDS ORDERED: APIX2.5T PO (12:07)
[2022-05-25] MEDS ORDERED: METO50TA7 PO (12:07)
[2022-05-25] MEDS ORDERED: DILT240C91 PO (12:07)
[2022-05-25] MEDS ORDERED: LOSA25TA41 PO (12:07)
[2022-05-25] MEDS ORDERED: FURO20TA4 PO (12:07)
[2022-05-25 13:40] VITALS: BP 117/78
== END 2022-05-25 13:38 | DRG 280 ==
LOC: EDUNIT# 18:41 → ER 18:42 → ICU 21:34 → 4TH 05-16 13:23
PROVIDERS: ADMIT Internal Medicine; ATTEND Family Medicine
PROC: 5A09357 Assistance with Respiratory Ventilation, Less than 24 Consecutive Hours, Continuous Positive Airway Pressure (ICD-10-PCS; 2022-05-13)
PROC: 5A0935A Assistance with Respiratory Ventilation, Less than 24 Consecutive Hours, High Flow/Velocity Cannula (ICD-10-PCS; principal; 2022-05-18)
DX: I13.0 Hypertensive heart and chronic kidney disease with heart failure and stage 1 through stage 4 chronic kidney disease, or unspecified chronic kidney disease (principal); I50.23 Acute on chronic systolic (congestive) heart failure; I21.A1 Myocardial infarction type 2; J96.21 Acute and chronic respiratory failure with hypoxia; J96.22 Acute and chronic respiratory failure with hypercapnia; J18.9 Pneumonia, unspecified organism; N17.9 Acute kidney failure, unspecified; J44.1 Chronic obstructive pulmonary disease with (acute) exacerbation; J44.0 Chronic obstructive pulmonary disease with (acute) lower respiratory infection; N18.9 Chronic kidney disease, unspecified; R53.81 Other malaise; I48.0 Paroxysmal atrial fibrillation; R73.9 Hyperglycemia, unspecified; N40.0 Benign prostatic hyperplasia without lower urinary tract symptoms; I44.7 Left bundle-branch block, unspecified; F03.90 Unspecified dementia, unspecified severity, without behavioral disturbance, psychotic disturbance, mood disturbance, and anxiety; Z87.891 Personal history of nicotine dependence; Z20.822 Contact with and (suspected) exposure to COVID-19
CPT/HCPCS: 36415; 36600; 51702; 71045; 80053; 81000; 82150; 82550; 82553; 82805; 83036; 83605; 83690; 83735; 83874; 83880; 84100; 84484; 85007; 85025; 85027; 85379; 85610; 85652; 85730; 86141; 87040; 87070; 87081; 87088; 87205; 87636; 93005; 93041; 93306; 94640; 94660; 94760; 96365; 96372; 96375; 96376

== ENCOUNTER 2022-06-08 10:47 | Inpatient (IN) | payer MEDICARE ==
[~2022-06-08] VITALS: Ht 177.8 cm; Wt 115.4 kg
[~2022-06-08 10:47] MED LIST changes: +ACET-2267 PO; +AMOX1TAB12 PO; +APIX2.5T PO; +ASPI-1238 PO; +CALC600T91 PO; +DILT240C91 PO; +FINA5TAB6 PO; +FURO20TA4 PO; +HYDR25TA4 PO; +LOSA25TA41 PO; +METO50TA7 PO; +MULT-1136 PO; +TMSL.4C PO
[2022-06-08] MEDS ORDERED: RT-ALBUTEROL/IPRATROPIUM 3 ML (DUONEB) VIAL INH ONE (11:00)
[2022-06-08 11:07] LABS: BASOPHILS % (AUTO) 0 % (0-10); EOSINOPHILS # (AUTO) 0.2 10^3/uL (0.0-0.3); EOSINOPHILS % (AUTO) 2 % (0-10); HEMATOCRIT 35 % (40-54); HEMOGLOBIN 10.8 g/dL (13.3-17.7); LYMPHOCYTES # (AUTO) 0.7 10^3/uL (1.0-4.0); LYMPHOCYTES % (AUTO) 10 % (12-44); MEAN CORPUSCULAR HEMOGLOBIN 31 pg (25-34); MEAN CORPUSCULAR HGB CONC 31 g/dL (32-36); MEAN CORPUSCULAR VOLUME 101 fL (80-99); MEAN PLATELET VOLUME 9.7 fL (9.0-12.2); MONOCYTES # (AUTO) 0.7 10^3/uL (0.0-1.0); MONOCYTES % (AUTO) 10 % (0-12); NEUTROPHILS # (AUTO) 5.4 10^3/uL (1.8-7.8); NEUTROPHILS % (AUTO) 77 % (42-75); PLATELET COUNT 231 10^3/uL (130-400)
--- NOTE | 2022-06-08 11:13 | ED Respiratory ---
General Chief Complaint: Respiratory Problems Stated Complaint: AFIB | COPD Nursing Triage Note: PT BROUGHT IN BY [facility] FROM [facility] WITH COMPLAINT OF SOA AND NEW ONSET AFIB. Source: patient, EMS Exam Limitations: no limitations History of Present Illness Date Seen by Provider: Jun 08, 2022 Time Seen by Provider: 11:09 Initial Comments Patient is a 81-year-old male with a history of NSTEMI, left bundle branch block, acute respiratory failure with hypoxia, COPD, CHF, unspecified atrial fibrillation, acute kidney failure ho was brought to the ED by EMS from [facility] for shortness of breath and abnormal rhythm. Patient states he started becoming short of breath this morning. According to EMS staff at [facility] noted that his heart rhythm was jumping between 80 to 120 bpm. Change in mentation. On arrival patient was slow to respond to questions. Patient appeared tachypneic with increased work of breathing. Patient was placed on a oxy mask at 6 L secondary to hypoxia. Patient oxygen level was in the mid upper 80s. Patient denies chest pain, abdominal pain, vomiting, diarrhea. He reports increased lower leg swelling. Currently on a diuretic and apixaban. Patient was admitted earlier this month for acute respiratory failure with hypoxia, pneumonia, CHF. Allergies and Home Medications Allergies Coded Allergies: amlodipine (Verified Allergy, Unknown, 08/16/18) atenolol (Verified Allergy, Unknown, 08/16/18) lisinopril (Verified Allergy, Unknown, 08/16/18) Patient Home Medication List Home Medication List Reviewed: Yes Acetaminophen (Tylenol Extra Strength) 500 Mg Tablet, 1,000 MG PO 1800, (Reported) Entered as Reported by: JOYCE SAUCEDO on 05/14/22 1048 Last Action: Reviewed Amoxicillin/Potassium Clav (Amox Tr-K Clv 875-125 mg Tab) 875 Mg-125 Mg Tablet, 1 EACH PO BID, (Reported) Entered as Reported by: JOYCE SAUCEDO on 06/08/22 160 Last Action: Reviewed Apixaban (Eliquis) 2.5 Mg Tablet, 2.5 MG PO BID, (Reported) Entered as Reported by: JOYCE SAUCEDO on 06/08/22 160 Last Action: Reviewed Aspirin (Aspirin EC) 81 Mg Tablet.dr, 81 MG PO 1800, (Reported) Entered as Reported by: JOYCE SAUCEDO on 05/14/221031 Last Action: Reviewed Calcium Carbonate (Calcium) 600 Mg Calcium (1500 Mg) Tablet, 600 MG PO 1800, (Reported) Entered as Reported by: JOYCE SAUCEDO on 05/14/221031 Last Action: Reviewed Diltiazem HCl (Diltiazem 24Hr ER) 240 Mg Cap.er.24h, 240 MG PO DAILY, (Reported) Entered as Reported by: JOYCE SAUCEDO on 06/08/221607 Last Action: Reviewed Donepezil HCl (Donepezil HCl) 10 Mg Tablet, 10 MG PO 1800, (Reported) Entered as Reported by: RUSSEL SAHU on 08/17/18939 Last Action: Reviewed Finasteride (Finasteride) 5 Mg Tablet, 5 MG PO 1800, (Reported) Entered as Reported by: JOYCE SAUCEDO on 05/14/221031 Last Action: Reviewed Furosemide (Furosemide) 20 Mg Tablet, 60 MG PO DAILY, (Reported) Entered as Reported by: JOYCE SAUCEDO on 06/08/221607 Last Action: Reviewed Hydralazine HCl (Hydralazine HCl) 25 Mg Tablet, 25 MG PO BID, (Reported) Entered as Reported by: RUSSEL SAHU on 08/17/18939 Last Action: Reviewed Losartan Potassium (Losartan Potassium) 25 Mg Tablet, 25 MG PO 1200, (Reported) Entered as Reported by: JOYCE SAUCEDO on 06/08/221607 Last Action: Reviewed Memantine HCl (Memantine HCl) 10 Mg Tablet, 10 MG PO DAILY, (Reported) Entered as Reported by: RUSSEL SAHU on 08/17/18939 Last Action: Reviewed Metolazone (Metolazone) 2.5 Mg Tablet, 2.5 MG PO DAILY, (Reported) Entered as Reported by: JOYCE SAUCEDO on 06/08/221607 Last Action: Reviewed Metoprolol Succinate (Metoprolol Succinate) 50 Mg Tab.er.24h, 50 MG PO 1800, (Reported) Entered as Reported by: JOYCE SAUCEDO on 06/08/221607 Last Action: Reviewed Multivitamin (Multivitamin) 1 Each Tablet, 1 EACH PO DAILY, (Reported) Entered as Reported by: JOYCE SAUCEDO on 06/08/221607 Last Action: Reviewed Tamsulosin HCl (Flomax) 0.4 Mg Cap, 0.8 MG PO 1800, (Reported) Entered as Reported by: JOYCE SAUCEDO on 05/14/221031 Last Action: Reviewed Tiotropium [place] (Spiriva) 18 Mcg Aerp, 1 PUFF INH DAILY, (Reported) Entered as Reported by: RUSSEL SAHU on 08/17/18939 Last Action: Reviewed Trazodone HCl (Trazodone HCl) 50 Mg Tablet, 50 MG PO 1800, (Reported) Entered as Reported by: RUSSEL SAHU on 08/17/18939 Last Action: Reviewed Discontinued Medications Apixaban (Eliquis) 2.5 Mg Tablet, 2.5 MG PO BID Discontinued Reason: Duplicate Order Prescribed by: WINSTON TAFOYA on 05/25/221206 Last Action: Discontinued Diltiazem HCl (Diltiazem 24Hr ER) 240 Mg Cap.er.24h, 240 MG PO DAILY Discontinued Reason: Duplicate Order Prescribed by: WINSTON TAFOYA on 05/25/221206 Last Action: Discontinued Furosemide (Furosemide) 20 Mg Tablet, 60 MG PO DAILY Discontinued Reason: Duplicate Order Prescribed by: WINSTON TAFOYA on 05/25/221206 Last Action: Discontinued Losartan Potassium (Losartan Potassium) 25 Mg Tablet, 25 MG PO DAILY Discontinued Reason: Duplicate Order Prescribed by: WINSTON TAFOYA on 05/25/221206 Last Action: Discontinued Metoprolol Succinate (Metoprolol Succinate) 50 Mg Tab.er.24h, 50 MG PO DAILY Discontinued Reason: Duplicate Order Prescribed by: WINSTON TAFOYA on 05/25/221206 Last Action: Discontinued Multivitamin (Multivitamin) 1 Each Tablet, 1 EACH PO DAILY, (Reported) Discontinued Reason: Duplicate Order Entered as Reported by: JOYCE SAUCEDO on 05/14/221031 Last Action: Discontinued Review of Systems Review of Systems Constitutional: No chills, No diaphoresis, No fever, No malaise, No weakness EENTM: No ear pain, No blurred vision, No double vision Respiratory: cough, short of breath Cardiovascular: No chest pain; edema Gastrointestinal: No abdominal pain, No diarrhea, No nausea Genitourinary: No decreased output, No discharge Musculoskeletal: No back pain, No joint pain Skin: No change in color, No change in hair/nails Psychiatric/Neurological: Denies Anxiety All Other Systems Reviewed Negative Unless Noted: Yes Past Ljcmbtd-Wfhvws-Ybjhvm Hx Patient Social History Tobacco Use?: No Smoking Status: Smoker Current Status UNK Smokeless Tobacco Frequency: User Current Status Unk Use of E-Cig and/or Vaping dev: Unable to obtain Substance use?: Unable to obtain Alcohol Use?: Unable to obtain Pt feels they are or have been: No Seasonal Allergies Seasonal Allergies: No Past Medical History Surgeries: Yes Abdominal, Bowel Surgery, Gallbladder Respiratory: Yes COPD Cardiac: Yes Hypertension Neurological: Yes Dementia Genitourinary: Yes Benign Prostatic Hyperpl, Prostate Problems Gastrointestinal: Yes (COLON CANCER--S/P SURGERY; CHOLECYSTECTOMY) Gall Bladder Disease Musculoskeletal: No Endocrine: No (OBESE) HEENT: No Cancer: Yes Colon Did You Recieve Any Treatments: Yes What Type of Treatment Did You: Surgical Intervention Psychosocial: No Integumentary: No Blood Disorders: No Family Medical History SOCIAL HISTORY: -SMOKED IN PAST--QUIT 40 YEARS AGO -ETOH-DENIES USE -DRUGS--DENIES USE Physical Exam Vital Signs - First Documented 06/08/22 10:50 Temp 34.4 Pulse 88 Resp 16 B/P (MAP) 142/98 (113) Pulse Ox 94 O2 Delivery OxyMask O2 Flow Rate 6.00 Capillary Refill : Less Than 3 Seconds Height: 5'9.00" Weight: 230lbs. oz. 104.775211kf; 35.00 BMI Method:Stated General Appearance: WD/WN, no apparent distress Eyes: Bilateral Eye Normal Inspection, Bilateral Eye PERRL, Bilateral Eye EOMI HEENT: PERRL/EOMI, normal ENT inspection, TMs normal, pharynx normal Neck: non-tender, full range of motion, supple Respiratory: decreased breath sounds, accessory muscle use Cardiovascular: no gallop, no JVD, irregularly irregular Gastrointestinal: normal bowel sounds, non tender, soft, no organomegaly Extremities: other (Bilateral leg swelling +2.) Neurologic/Psychiatric: yard person II-XII nml as tested, no motor/sensory deficits, alert, other (Alert and orient x2. Slow to repsond) Skin: normal color, warm/dry Focused Exam Lactate Level 06/08/22 12:00: Lactic Acid Level 0.87 Lactic Acid Level Laboratory Tests Test 06/08/22 12:00 Lactic Acid Level 0.87 MMOL/L (0.50-2.00) Progress/Results/Core Measures Suspected Sepsis SIRS Temperature: Pulse: 88 Respiratory Rate: 16 Laboratory Tests 06/08/22 10:57: White Blood Count 7.0 Blood Pressure 142 /98 Mean: 113 06/08/22 12:00: Lactic Acid Level 0.87 Laboratory Tests 06/08/22 10:57: Creatinine 1.95H, INR Comment 1.5H, Platelet Count 231, Total Bilirubin 0.4 Results/Orders Lab Results Laboratory Tests Test 06/08/22 10:57 06/08/22 11:10 06/08/22 11:39 06/08/22 12:00 Range/Units White Blood Count 7.0 4.3-11.0 10^3/uL Red Blood Count 3.46 L 4.30-5.52 10^6/uL Hemoglobin 10.8 L 13.3-17.7 g/dL Hematocrit 35 L 40-54 % Mean Corpuscular Volume 101 H 80-99 fL Mean Corpuscular Hemoglobin 31 25-34 pg Mean Corpuscular Hemoglobin Concent 31 L 32-36 g/dL Red Cell Distribution Width 15.0 H 10.0-14.5 % Platelet Count 231 130-400 10^3/uL Mean Platelet Volume 9.7 9.0-12.2 fL Immature Granulocyte % (Auto) 1 % Neutrophils (%) (Auto) 77 H 42-75 % Lymphocytes (%) (Auto) 10 L 12-44 % Monocytes (%) (Auto) 10 0-12 % Eosinophils (%) (Auto) 2 0-10 % Basophils (%) (Auto) 0 0-10 % Neutrophils # (Auto) 5.4 1.8-7.8 10^3/uL Lymphocytes # (Auto) 0.7 L 1.0-4.0 10^3/uL Monocytes # (Auto) 0.7 0.0-1.0 10^3/uL Eosinophils # (Auto) 0.2 0.0-0.3 10^3/uL Basophils # (Auto) 0.0 0.0-0.1 10^3/uL Immature Granulocyte # (Auto) 0.1 0.0-0.1 10^3/uL Prothrombin Time 18.2 H 12.2-14.7 SEC INR Comment 1.5 H 0.8-1.4 Activated Partial Thromboplast Time 36 H 24-35 SEC Sodium Level 148 H 135-145 MMOL/L Potassium Level 3.4 L 3.6-5.0 MMOL/L Chloride Level 104 98-107 MMOL/L Carbon Dioxide Level 36 H 21-32 MMOL/L Anion Gap 8 5-14 MMOL/L Blood Urea Nitrogen 42 H 7-18 MG/DL Creatinine 1.95 H 0.60-1.30 MG/DL Estimat Glomerular Filtration Rate 34 BUN/Creatinine Ratio 22 Glucose Level 132 H 70-105 MG/DL Calcium Level 8.7 8.5-10.1 MG/DL Corrected Calcium 9.6 8.5-10.1 MG/DL Total Bilirubin 0.4 0.1-1.0 MG/DL Aspartate Amino Transf (AST/SGOT) 18 5-34 U/L Alanine Aminotransferase (ALT/SGPT) 14 0-55 U/L Alkaline Phosphatase 88 40-136 U/L Troponin I 0.052 H <0.028 NG/ML B-Type Natriuretic Peptide 319.3 H <100.0 PG/ML Total Protein 5.7 L 6.4-8.2 GM/DL Albumin 2.9 L 3.2-4.5 GM/DL Blood Gas Puncture Site r rad Blood Gas Patient Temperature 37.0 Arterial Blood pH 7.29 *L 7.37-7.43 Arterial Blood Partial Pressure CO2 83 *H 35-45 MMHG Arterial Blood Partial Pressure O2 95 H 79-93 MMHG Arterial Blood HCO3 39 H 23-27 MMOL/L Arterial Blood Total CO2 41.3 *H 21.0-31.0 MMOL/L Arterial Blood Oxygen Saturation 97 94-100 % Arterial Blood Base Excess 11.9 H -2.5-2.5 MMOL/L Heriberto Test YES-POS Blood Gas Ventilator Setting NO Blood Gas Inspired Oxygen 6 L Influenza Type A (RT-PCR) Not Detected Not Detecte Influenza Type B (RT-PCR) Not Detected Not Detecte SARS-CoV-2 RNA (RT-PCR) Not Detected Not Detecte Lactic Acid Level 0.87 0.50-2.00 MMOL/L Test 06/08/22 12:50 06/08/22 13:44 Range/Units Urine Color YELLOW Urine Clarity CLEAR Urine pH 5.5 5-9 Urine Specific [place] 1.025 H 1.016-1.022 Urine Protein TRACE H NEGATIVE Urine Glucose (UA) NEGATIVE NEGATIVE Urine Ketones NEGATIVE NEGATIVE Urine Nitrite NEGATIVE NEGATIVE Urine Bilirubin NEGATIVE NEGATIVE Urine Urobilinogen 0.2 < = 1.0 MG/DL Urine Leukocyte Esterase NEGATIVE NEGATIVE Urine RBC (Auto) NEGATIVE NEGATIVE Urine RBC NONE /HPF Urine WBC 0-2 /HPF Urine Squamous Epithelial Cells RARE /HPF Urine Crystals NONE /LPF Urine Bacteria NEGATIVE /HPF Urine Casts PRESENT /LPF Urine Hyaline Casts RARE /LPF Urine Mucus NEGATIVE /LPF Urine Culture Indicated NO Lab Scanned Report Referred Lab Report [id number] Micro Results Microbiology 06/08/22 Urine Culture - Final, Complete NO GROWTH 06/08/22 Blood Culture - Preliminary, Resulted No growth 06/08/22 Blood Culture - Preliminary, Resulted No growth My Orders Orders - SAUD SINGH Cbc With Automated Diff (06/08/22 11:00) Comprehensive Metabolic Panel (06/08/22 11:00) Blood Culture (06/08/22 11:00) Urinalysis (06/08/22 11:00) Urine Culture (06/08/22 11:00) Protime With Inr (06/08/22 11:00) Partial Thromboplastin Time (06/08/22 11:00) Chest 1 View, Ap/Pa Only (06/08/22 11:00) Ed Iv/Invasive Line Start (06/08/22 11:00) Troponin I [place] (06/08/22 11:00) Vital Signs Adult Sepsis Patie Q15M (06/08/22 11:00) O2 (06/08/22 11:00) Lactic Acid Analyzer (06/08/22 11:00) Influenza A And B By Pcr (06/08/22 11:00) Covid 19 Inhouse Test (06/08/22 11:00) Bnp [place] (06/08/22 11:00) Albuterol/Ipra Inhalation Soln (Duoneb I (06/08/22 11:00) Ekg Tracing (06/08/22 11:09) Arterial Blood Draw - Obtain (06/08/22 ) Cefepime Injection (Maxipime Injection) (06/08/22 11:45) Methylprednisolone Sod Succ (Solu-Medrol (06/08/22 11:45) Ns Iv 1000 Ml (Sodium Chloride 0.9%) (06/08/22 12:10) Ed Admission (Communication) (06/08/22 12:12) Lidocaine 2% (Urojet) (Xylocaine Urojet) (06/08/22 12:18) Medications Given in ED Vital Signs/I&O 06/08/22 06/08/22 06/08/22 06/08/22 10:50 10:50 11:11 11:45 Temp 34.4 Pulse 88 67 Resp 16 B/P (MAP) 142/98 (113) Pulse Ox 94 98 96 O2 Delivery OxyMask OxyMask OxyMask O2 Flow Rate 6.00 6.00 6.00 50.00 06/08/22 13:25 Pulse 77 Resp 27 B/P (MAP) 110/93 Pulse Ox 96 O2 Delivery NIV Bilevel Capillary Refill : Less Than 3 Seconds Blood Pressure Mean: 113 ECG Comment Atrial fibrillation, 65 bpm, QRS duration 156 MS, QTc 487 MS Critical Care Note Critical Care Start Time: 11:10 Stop Time: 12:00 Total Time (minutes) 50 minutes Progress Patient was tachypneic with acute on chronic respiratory failure. Initial oxygen 85% was placed on a OxyMask. Patient with respiratory acidosis. CO2 level of 83 on ABG. Patient was placed on BiPAP. Departure Communication (PCP) Patient is a 81-year-old male with a history of NSTEMI, left bundle branch b lock, acute respiratory failure with hypoxia, COPD, CHF, unspecified atrial fibrillation, acute kidney injury. Was brought to the ED by EMS for shortness of breath, abnormal arrhythmia. Reviewed previous ER visits, H&P, lab testing. Patient was admitted May 13 for acute respiratory failure with hypoxia multifactorial secondary to pleural effusion and pneumonia. Was discharged to [facility] and rehab. According to EMS staff noted that patient appeared to have an abnormal rhythm that ranged from 60 bpm to 120bpm. Patient was complaining of shortness of breath. Currently on 2 L of oxygen at [facility] rehab. On arrival patient was hypoxic in the mid to lower 80s. Was switched over to OxyMask. Patient appeared tachypneic with increased work of breathing. Diminished breath sounds left side. Sepsis work-up was initiated. ABG was added. Cardiac work-up. EKG did note atrial fibrillation without RVR. He is currently on Eliquis. White blood count 7. Hemoglobin 10. Sodium 148, potassium 3.4, creatinine 1.95, GFR 34. Acute on chronic kidney disease. Concerning that patient may be slightly dehydrated at his he is currently on Lasix. Does have swelling in the lower extremities but states that he has had no increased swelling since last visit. Probably has some form of underlying CHF. Due to worsening kidney function patient was given a liter of fluid at 100 mill per hour. Troponin 0.052, BNP at 319. Slight improvement from last visit. Chest x-ray shows near completed whiteout of the left side. Concerning for underlying pneumonia versus pleural effusion versus atelectasis. ABG pH is 7.29, PCO2 of 83, PO2 95. Concerning for respiratory acidosis. Patient was placed on BiPAP with improvement of his breathing. Oxygen remained around 95 to 96 percent. Patient was started on cefepime and vancomycin. Patient was given a DuoNeb breathing treatment and Solu-Medrol. Critical care time approximately 50 minutes due to the respiratory failure with hypoxia requiring BiPAP including reviewing previous medical records, time spent with patient and family, and treatment. Patient was discussed with Dr. Blanton sugar house supervisor. He will consult patient at this time. Lasix was held at this time due to the acute kidney injury. Will likely need Lasix at some point. Patient may potentially have mucous plug on the left side requiring bronchoscopy. Patient was discussed with Dr. Arechiga hospitalist who agreed to accept patient at this time. Patient is currently full code after talking with family Impression Primary Impression: Acute and chronic respiratory failure with hypoxia Additional Impressions: COPD (chronic obstructive pulmonary disease) Acute kidney failure Disposition: ADMITTED INPATIENT Condition: Stable Admissions Decision to Admit Reason: Admit from ER (General) Decision to Admit/Date: Jun 08, 2022 Time/Decision to Admit Time: 11:49 Departure-Patient Inst. Referrals: SONYA ZHU MD (PCP/Family) Primary Care Physician SAUD SINGH Jun 08, 2022 11:13
[2022-06-08 11:19] LABS: INR 1.5 (0.8-1.4); PROTHROMBIN TIME PATIENT 18.2 SEC (12.2-14.7)
[2022-06-08 11:23] LABS: ALBUMIN 2.9 GM/DL (3.2-4.5); POTASSIUM 3.4 MMOL/L (3.6-5.0)
[2022-06-08 11:24] LABS: CALCIUM 8.7 MG/DL (8.5-10.1)
[2022-06-08 11:25] LABS: TOTAL PROTEIN 5.7 GM/DL (6.4-8.2)
[2022-06-08 11:27] LABS: BILIRUBIN,TOTAL 0.4 MG/DL (0.1-1.0)
[2022-06-08 11:27] LABS: ABG BASE EXCESS 11.9 MMOL/L (-2.5-2.5); ABG OXYGEN SATURATION 97 % (94-100); ABG PO2 95 MMHG (79-93)
[2022-06-08 11:29] LABS: CREATININE SERUM 1.95 MG/DL (0.60-1.30)
[2022-06-08 11:30] LABS: ABG PH 7.29 (7.37-7.43)
[2022-06-08 11:31] LABS: ABG PCO2 83 MMHG (35-45)
[2022-06-08 11:32] LABS: ABG TCO2 41.3 MMOL/L (21.0-31.0); ALLENS TEST YES-POS; INSPIRED O2 6 L; VENTILATOR NO
[2022-06-08 11:45] VITALS: BP 142/98
[2022-06-08] MEDS ORDERED: methylPREDNISolone 125 MG (Solu-MEDROL) VIAL IVP ONE (11:45)
[2022-06-08] MEDS ORDERED: CEFEPIME INJECTION 1,000 MG in NS (IVPB) 50 ML IV ONE (11:45)
--- NOTE | 2022-06-08 11:56 | Diagnostic Imaging Report ---
EXAMINATION: Chest 1 view HISTORY: cough COMPARISON: 05/17/2022. FINDINGS: Heart size and pulmonary vasculature are obscured. There is complete opacification of the left lung. There are mild interstitial opacities within the right lower lung. No pneumothorax. The osseous structures are intact. IMPRESSION: 1. Complete opacification of the left lung which could be secondary to combination of pleural effusion and consolidation or atelectasis. This is new from 05/17/2022. 2. Mild interstitial opacities within the right lower lung which could be seen with atelectasis, edema, or pneumonia. Dictated by: Dictated on workstation # [id number]
[2022-06-08] MEDS ORDERED: NS IV 1000 ML 1,000 ML IV STA (12:10)
[2022-06-08] MEDS ORDERED: LIDOCAINE UROJET 2% GEL 10 ML PKG ONE (12:18)
--- NOTE | 2022-06-08 12:31 | History & Physical-Hospitalist ---
History of Present Illness HPI/Chief Complaint CC: Acute hypoxic hypercapneic respiratory failure HPI: This is an 81yoWM known to me from prior admit who presented to the ER with dyspnea and found to have left sided pneumonia with hypercapneic respiratory failure requiring biPAP. at bedside requested full code but then changed to DNR when he arrived in ICU. IV abx initiated. Patient does not seem to be in any distress. Source: patient Exam Limitations: no limitations Date Seen 06/08/22 Time Seen by a Provider: 12:00 Attending Physician Kiran Louis MD PCP Admitting Physician: Attending Physician: Referring Physician Date of Admission Home Medications & Allergies Home Medications Reviewed patient Home Medication Reconciliation performed by pharmacy medication reconciliations social service technician and/or nursing. Patients Allergies have been reviewed. Allergies Allergies Coded Allergies amlodipine (Verified Allergy, Unknown, 08/16/18) atenolol (Verified Allergy, Unknown, 08/16/18) lisinopril (Verified Allergy, Unknown, 08/16/18) Past Brmcaoa-Arqyvq-Melcpm Hx Patient Social History Marrital Status: Employed/Student: retired Tobacco Use?: No Smoking Status: Smoker Current Status UNK Smokeless Tobacco Frequency: User Current Status Unk Use of E-Cig and/or Vaping dev: Unable to obtain Substance use?: Unable to obtain Alcohol Use?: Unable to obtain Pt feels they are or have been: No Immunizations Up To Date Tetanus Booster (TDap): Unknown Seasonal Allergies Seasonal Allergies: No Current Status Advance Directives: No Primary Language: Hungarian Preferred Spoken Language: Hungarian Past Medical History Surgeries: Abdominal, Bowel Surgery, Gallbladder COPD Hypertension Dementia Benign Prostatic Hyperpl, Prostate Problems Gall Bladder Disease Colon Did You Recieve Any Treatments: Yes What Type of Treatment Did You: Surgical Intervention Blood Disorders: No Family Medical History SOCIAL HISTORY: -SMOKED IN PAST--QUIT 40 YEARS AGO -ETOH-DENIES USE -DRUGS--DENIES USE Review of Systems Constitutional: see HPI, malaise, weakness Respiratory: dyspnea on exertion Physical Exam Physical Exam Vital Signs Vital Signs - First Documented 06/08/22 06/08/22 10:50 13:50 Temp 34.4 Pulse 88 Resp 16 B/P (MAP) 142/98 (113) Pulse Ox 94 O2 Delivery OxyMask O2 Flow Rate 6.00 FiO2 50 Capillary Refill : Less Than 3 Seconds Height, Weight, BMI Height: 5'9.00" Weight: 230lbs. oz. 104.452637vw; 35.00 BMI Method:Stated General Appearance: Chronically ill, Mild Distress Eyes: Right Eye Normal Inspection, Right Eye PERRL HEENT: PERRL/EOMI, Normal ENT Inspection, Pharynx Normal, Moist Mucous Membranes Neck: Full Range of Motion, Normal Inspection, Non Tender Respiratory: Chest Non Tender, No Accessory Muscle Use, No Respiratory Distress, Decreased Breath Sounds Cardiovascular: Regular Rate, Rhythm, No Edema, No Gallop, No JVD, No Murmur, Normal Peripheral Pulses Gastrointestinal: Normal Bowel Sounds, No Organomegaly, No Pulsatile Mass, Non Tender, Soft Back: Normal Inspection, No CVA Tenderness, No Vertebral Tenderness Extremity: Normal Capillary Refill, Normal Inspection, Normal Range of Motion, Non Tender, No Calf Tenderness, No Pedal Edema Neurologic/Psychiatric: Alert, No Motor/Sensory Deficits, Normal Mood/Affect, Disoriented Skin: Normal Color, Warm/Dry Lymphatic: No Adenopathy Results Results/Procedures Labs Laboratory Tests 06/08/22 10:57 06/09/22 04:39 Patient resulted labs reviewed. Assessment/Plan Admission Diagnosis Assessment: Acute on Chronic hypoxic hypercapneic Respiratory Failure Atrial Fibrillation Acute on Chronic systolic CHF Acute on Chronic Kidney failure Debility Advanced age CASSIE Dementia Plan: Monitor closely Fall risk Admission Status: Inpatient Order (span 2 midnights) Reason for Inpatient Admission: resp failure ANDRÉS MAURO DO Jun 08, 2022 12:31
[2022-06-08 12:56] LABS: BILIRUBIN,URINE NEGATIVE (NEGATIVE); CLARITY,URINE CLEAR; COLOR,URINE YELLOW; GLUCOSE, URINE (UA) NEGATIVE (NEGATIVE); KETONES,URINE NEGATIVE (NEGATIVE); LEUKOCYTE ESTERASE ,URINE NEGATIVE (NEGATIVE); NITRITE,URINE NEGATIVE (NEGATIVE); PH,URINE 5.5 (5-9); PROTEIN,URINE TRACE (NEGATIVE)
[2022-06-08 13:05] LABS: BACTERIA,URINE NEGATIVE /HPF; HYALINE CASTS, URINE RARE /LPF; SQUAMOUS EPITHELIAL CELL,UR RARE /HPF; WBC,URINE 0-2 /HPF
--- NOTE | 2022-06-08 13:05 | Consultation-Cardiology ---
HPI-Cardiology Cardiology Consultation: Date of Consultation 06/08/22 Time Seen by a Provider: 13:40 Date of Admission 06-08-22 Attending Physician Kiran Louis MD Admitting Physician Admitting Physician: Attending Physician: Consulting Physician Yomaira Blanton MD HPI: Chief Complaint: Acute resp failure Provider requesting consult: Dr. Arechiga Mr. Padilla is an 81 yr old male being admitted to ICU 11 from the ED with acute on chronic resp failure. He currently resides at [facility]. Conversation is limited d/t need for Bi-pap and confusion. He does not report any CP. He does not know how long he has been SOB. There is no family at the bedside at this time. Review of Systems-Cardiology Review of Systems Other comments Unable to obtain d/t Bi-pap and confusion All Other Systems Reviewed Negative Unless Noted: Yes [id number]-Sejekc Hx Patient Social History Smoking Status: Smoker Current Status UNK 2nd Hand Smoke Exposure: No Have you traveled recently?: No Alcohol Use?: Unable to obtain Pt feels they are or have been: No Past Medical History PMH As described under Assessment. Family Medical History Family Medical History: Unable to provide Allergies and Home Medications Allergies Coded Allergies: amlodipine (Verified Allergy, Unknown, 08/16/18) atenolol (Verified Allergy, Unknown, 08/16/18) lisinopril (Verified Allergy, Unknown, 08/16/18) Patient Home Medication List Acetaminophen (Tylenol Extra Strength) 500 Mg Tablet, 1,000 MG PO HS, (Reported) Entered as Reported by: JOYCE SAUCEDO on 05/14/22 1048 Apixaban (Eliquis) 2.5 Mg Tablet, 2.5 MG PO BID Prescribed by: WINSTON TAFOYA on 05/25/22 1207 Aspirin (Aspirin EC) 81 Mg Tablet.dr, 81 MG PO 1800, (Reported) Entered as Reported by: JOYCE SAUCEDO on 05/14/22 1032 Calcium Carbonate (Calcium) 600 Mg Calcium (1500 Mg) Tablet, 600 MG PO 1800, (Reported) Entered as Reported by: JOYCE SAUCEDO on 05/14/22 1032 Diltiazem HCl (Diltiazem 24Hr ER) 240 Mg Cap.er.24h, 240 MG PO DAILY Prescribed by: WINSTON TAFOYA on 05/25/22 1207 Donepezil HCl (Donepezil HCl) 10 Mg Tablet, 10 MG PO HS, (Reported) Entered as Reported by: RUSSEL SAHU on 08/17/18939 Finasteride (Finasteride) 5 Mg Tablet, 5 MG PO DAILY, (Reported) Entered as Reported by: JOYCE SAUCEDO on 05/14/22 103 Furosemide (Furosemide) 20 Mg Tablet, 60 MG PO DAILY Prescribed by: WINSTON TAFOYA on 05/25/22 120 Hydralazine HCl (Hydralazine HCl) 25 Mg Tablet, 25 MG PO BID, (Reported) Entered as Reported by: RUSSEL SAHU on 08/17/18939 Losartan Potassium (Losartan Potassium) 25 Mg Tablet, 25 MG PO DAILY Prescribed by: WINSTON TAFOYA on 05/25/22 120 Memantine HCl (Memantine HCl) 10 Mg Tablet, 10 MG PO DAILY, (Reported) Entered as Reported by: RUSSEL SAHU on 08/17/18939 Metoprolol Succinate (Metoprolol Succinate) 50 Mg Tab.er.24h, 50 MG PO DAILY Prescribed by: WINSTON TAFOYA on 05/25/22 120 Multivitamin (Multivitamin) 1 Each Tablet, 1 EACH PO DAILY, (Reported) Entered as Reported by: JOYCE SAUCEDO on 05/14/22 103 Tamsulosin HCl (Flomax) 0.4 Mg Cap, 0.8 MG PO 1800, (Reported) Entered as Reported by: JOYCE SAUCEDO on 05/14/22 103 Tiotropium English (Spiriva) 18 Mcg Aerp, 1 PUFF INH DAILY, (Reported) Entered as Reported by: RUSSEL SAHU on 08/17/18939 Trazodone HCl (Trazodone HCl) 50 Mg Tablet, 50 MG PO HS, (Reported) Entered as Reported by: RUSSEL SAHU on 08/17/18939 Physical Exam-Cardiology Physical Exam Vital Signs/I&O 06/08/22 06/08/22 06/08/22 06/08/22 10:50 10:50 11:11 11:45 Temp 34.4 Pulse 88 67 Resp 16 B/P (MAP) 142/98 (113) Pulse Ox 94 98 96 O2 Delivery OxyMask OxyMask OxyMask O2 Flow Rate 6.00 6.00 6.00 50.00 06/08/22 13:25 Pulse 77 Resp 27 B/P (MAP) 110/93 Pulse Ox 96 O2 Delivery NIV Bilevel Capillary Refill : Less Than 3 Seconds Constitutional: well-developed, well-nourished, other (Oriented to self) HEENT: hard of hearing Neck: carotid pulses are 2 + bilaterally Respiratory: other (Currently requiring Bi-pap; fair air entry) Cardiovascular: irregularly irregular; No JVD; S1 and S2 Gastrointestinal: soft, audible bowel sounds Neurologic/Psychiatric: other (Bilat pitting LE swelling) Skin: No rash on exposed areas, No ulcerations on exposed areas Data Review Labs Laboratory Tests 06/08/22 10:57: White Blood Count 7.0, Red Blood Count 3.46L, Hemoglobin 10.8L, Hematocrit 35L, Mean Corpuscular Volume 101H, Mean Corpuscular Hemoglobin 31, Mean Corpuscular Hemoglobin Concent 31L, Red Cell Distribution Width 15.0H, Platelet Count 231, Mean Platelet Volume 9.7, Immature Granulocyte % (Auto) 1, Neutrophils (%) (Auto) 77H, Lymphocytes (%) (Auto) 10L, Monocytes (%) (Auto) 10, Eosinophils (%) (Auto) 2, Basophils (%) (Auto) 0, Neutrophils # (Auto) 5.4, Lymphocytes # (Auto) 0.7L, Monocytes # (Auto) 0.7, Eosinophils # (Auto) 0.2, Basophils # (Auto) 0.0, Immature Granulocyte # (Auto) 0.1, Prothrombin Time 18.2H, INR Comment 1.5H, Activated Partial Thromboplast Time 36H, Sodium Level 148H, Potassium Level 3.4L , Chloride Level 104, Carbon Dioxide Level 36H, Anion Gap 8, Blood Urea Nitrogen 42H, Creatinine 1.95H, Estimat Glomerular Filtration Rate 34, BUN/Creatinine Ratio 22, Glucose Level 132H, Calcium Level 8.7, Corrected Calcium 9.6, Total Bilirubin 0.4, Aspartate Amino Transf (AST/SGOT) 18, Alanine Aminotransferase (ALT/SGPT) 14, Alkaline Phosphatase 88, Troponin I 0.052H, B-Type Natriuretic Peptide 319.3H, Total Protein 5.7L, Albumin 2.9L 06/08/22 11:10: Blood Gas Puncture Site r rad, Blood Gas Patient Temperature 37.0, Arterial Blood pH 7.29*L, Arterial Blood Partial Pressure CO2 83*H, Arterial Blood Partial Pressure O2 95H, Arterial Blood HCO3 39H, Arterial Blood Total CO2 41.3*H, Arterial Blood Oxygen Saturation 97, Arterial Blood Base Excess 11.9H, Heriberto Test YES-POS, Blood Gas Ventilator Setting NO, Blood Gas Inspired Oxygen 6 L 06/08/22 11:39: Influenza Type A (RT-PCR) Not Detected, Influenza Type B (RT-PCR) Not Detected, SARS-CoV-2 RNA (RT-PCR) Not Detected 06/08/22 12:00: Lactic Acid Level 0.87 06/08/22 12:50: Urine Color YELLOW, Urine Clarity CLEAR, Urine pH 5.5, Urine Specific [place] 1.025H, Urine Protein TRACEH, Urine Glucose (UA) NEGATIVE, Urine Ketones NEGATIVE, Urine Nitrite NEGATIVE, Urine Bilirubin NEGATIVE, Urine Urobilinogen 0.2, Urine Leukocyte Esterase NEGATIVE, Urine RBC (Auto) NEGATIVE, Urine RBC NONE, Urine WBC 0-2, Urine Squamous Epithelial Cells RARE, Urine Crystals NONE, Urine Bacteria NEGATIVE, Urine Casts PRESENT, Urine Hyaline Casts RARE, Urine Mucus NEGATIVE, Urine Culture Indicated NO 06/08/22 14:15: Blood Gas Puncture Site R RAD, Blood Gas Patient Temperature 34.2, Arterial Blood pH 7.34*L, Arterial Blood Partial Pressure CO2 69H, Arterial Blood Partial Pressure O2 84, Arterial Blood HCO3 37H, Arterial Blood Total CO2 39.7H, Arterial Blood Oxygen Saturation 98, Arterial Blood Base Excess 10.7H, Heriberto Test YES-POS, Blood Gas Ventilator Setting NO, Blood Gas Inspired Oxygen 50% Radiology NAME: STACY PADILLA [facility] REC#: [id number] PT STATUS: REG ER : 1940 PHYSICIAN: SAUD SINGH ADMIT DATE: 06/08/22/ER Draft Date of Exam:06/08/22 CHEST 1 VIEW, AP/PA ONLY EXAMINATION: Chest 1 view HISTORY: cough COMPARISON: 05/17/2022. FINDINGS: Heart size and pulmonary vasculature are obscured. There is complete opacification of the left lung. There are mild interstitial opacities within the right lower lung. No pneumothorax. The osseous structures are intact. IMPRESSION: 1. Complete opacification of the left lung which could be secondary to combination of pleural effusion and consolidation or atelectasis. This is new from 05/17/2022. 2. Mild interstitial opacities within the right lower lung which could be seen with atelectasis, edema, or pneumonia. Dictated on workstation # [id number] Dict: 06/08/22 1152 Trans: 06/08/22 1155 [id number] Interpreted by: GINI NGUYỄN DO Electronically signed by: ECG Impression ECG Initial ECG Impression: Atrial Fibrillation A/P-Cardiology Assessment/Admission Diagnosis Acute on chronic resp failure - acute on chronic exacerbation of COPD - Per CXR of 05-17-22: rounded opacity in the left lung base which may represent loculated fluid within the major fissure versus pulmonary mass (managed by the Med svce) - Per CXR 06-08-22: Complete opacification of the left lung which could be secondary to combination of pleural effusion and consolidation or atelectasis - advise consideration of thoracentesis Chronic diastolic - LVEF 50-55% on echo of 05-14-22 PAF - first diagnosed on 05-18-22 - OAC with Eliquis - change to low dose d/t age greater than 80 yrs and Cr >1.5 (1.95 on lab of 06-08-22) CKD 3 Minimally elevated troponin -likely Type 2 IA secondary to hypoxia at time of ED presentation HTN HLD reports 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 H/O colon cancer - hemicolectomy in 2010 at [facility] BPH Dementia H/o tobacco use - quit 40 yrs ago per spouse Discussion and Recomendations Acute on chronic resp failure - management of COPD is by medical services - continue Bi-pap - ?pneumonia - management by medical/eICU services - pleural effusion - consider thoracentesis Acute on chronic renal insufficiency - monitor lab closely A-fib - controlled rate at this time - continue home dose of Cardizem for rate control - Continue OAC with Eliquis for stroke prophylaxis - reduced dose d/t age greater than 80 and Cr >1.5 Elevated troponin - likely Type 2 IA secondary to hypoxia Monitor lab closely Replace electrolytes as this time Further recs will be based on his hospital course We would like to thank medical services for this consult MYLA URIAS Jun 08, 2022 13:05
[2022-06-08] MEDS ORDERED: MELATONIN 3 MG TABLET PO PRN (13:15)
[2022-06-08] MEDS ORDERED: polyethylene glycoL POWDER 17 GM (MIRALAX) PACK PO PRN (13:15)
[2022-06-08] MEDS ORDERED: ACETAMINOPHEN 325 MG TABLET PO PRN (13:15)
[2022-06-08] MEDS ORDERED: HYDROmorphone 2 MG/ML VIAL (DILAUDID) IV PRN (13:15)
[2022-06-08] MEDS ORDERED: diphenhydrAMINE 50 MG/ML INJ (BENADRYL) IVP PRN (13:15)
[2022-06-08] MEDS ORDERED: DexMEDEtomidine 250 ML DRIP 250 ML IV SCH (13:15)
[2022-06-08] MEDS ORDERED: BISACODYL 10 MG SUPP (DULCOLAX) PR PRN (13:15)
[2022-06-08] MEDS ORDERED: LORazepam 0.5 MG (ATIVAN) TABLET PO PRN (13:15)
[2022-06-08] MEDS ORDERED: ANTACID SUSP 30 ML UDC (MYLANTA) PO PRN (13:15)
[2022-06-08] MEDS ORDERED: LORazepam INJ 2 MG/ML (ATIVAN) VIAL IVP PRN (13:15)
[2022-06-08] MEDS ORDERED: LIDOCAINE UROJET 2% GEL 10 ML PKG TOP ONE (13:15)
[2022-06-08] MEDS ORDERED: CALCIUM CARBONATE 500 MG (TUMS) TAB.CHEW PO PRN (13:15)
[2022-06-08] MEDS ORDERED: NS IV 500 ML 500 ML IV PRN (13:15)
[2022-06-08] MEDS ORDERED: ONDANSETRON 4 MG (ZOFRAN) ORAL DISSOLVE TAB PO PRN (13:15)
[2022-06-08] MEDS ORDERED: ONDANSETRON 4 MG/2 ML (SDV) Z0FRAN IV PRN (13:15)
[2022-06-08] MEDS ORDERED: MILK OF MAGNESIA 400 MG/5 ML 30 ML UDC PO PRN (13:15)
[2022-06-08] MEDS ORDERED: LACTULOSE SYRUP 10GM/15ML (ENULOSE) 30ML UDC PO PRN (13:15)
[2022-06-08] MEDS ORDERED: diphenhydrAMINE 25 MG TAB (BENADRYL) PO PRN (13:15)
[2022-06-08] MEDS ORDERED: VANCOMYCIN INJECTION 0.1 MG in NS (IVPB) 250 ML IV SCH (13:15)
[2022-06-08 14:05] VITALS: BP 110/93
[2022-06-08] MEDS ORDERED: FUROSEMIDE 40 MG/4 ML INJ (LASIX) IVP ONE (14:15)
[2022-06-08 14:18] LABS: ABG BASE EXCESS 10.7 MMOL/L (-2.5-2.5); ABG OXYGEN SATURATION 98 % (94-100); ABG PCO2 69 MMHG (35-45); ABG PO2 84 MMHG (79-93); ABG TCO2 39.7 MMOL/L (21.0-31.0)
[2022-06-08 14:20] LABS: ALLENS TEST YES-POS; INSPIRED O2 50%
[2022-06-08 14:21] LABS: PATIENT TEMP 34.2; VENTILATOR NO
[2022-06-08] MEDS: NS IV 1000 ML 1,000 ML IV SCH (14:21)
[2022-06-08 14:26] LABS: ABG PH 7.34 (7.37-7.43)
--- NOTE | 2022-06-08 14:38 | Tele-ICU Consult ---
History of Present Illness History of Present Illness Date Seen by Provider: Jun 08, 2022 Time Seen by Provider: 14:38 Date of Admission (Tele-ICU Physician , consultation as per request of PCP Service provided via interactive audio and video telecommunications E-CARE system to a patient admitted to ICU bed in [facility]. Available chart/ vitals / labs / Images reviewed H&P is from ER notes Patient's information available about PMH, Shx, Fhx allergy reviewed inEMR. ROS as per chart and RN report Now in ICU, hemodynamically stable Video assessment done using teleICU camera, rest of exam as per RN Discussed with RN. Hospital course: A/P Acute resp failure, hypoxic and hypercarbic - suspected due to effusion on left , ? PNA , ? empyema , ? AECOPD ( cxr with opacification on left , mosre likely effusion then atelectasis - cont BIPAP /8 50% rr 18 tv 450 - tolerates well - follow abg Left lung opacification on cxr - will order US chest - oif effusion , consider thoracentesis - Sx consult for thora - hold eliquis if thorato be done A fib - sosa controlled - as per cards - hold eliquis ? - as per Sx assessment CASSIE/CKD - received IVF in ER Suspected PNA ( was tx with abx 05/25/22 admission ( RLL smmall infiltrate - started on Cefepime and vanco - follow - ? empyema AECOPD - cont nebs Confusion - ? TME in face of dementia - neuroexam nonfocal CHF - acute on cheronic - LVEF 50-55% on echo of 05-14-22 - careful with diuretics now giben CASSIE - thora will be more effective then lasix - follow H/O colon cancer - hemicolectomy in 2010 at [facility] Dementia - as per RN - POA , will con firm code statius Lines : periph , (Central Line Necessity Reviewed) Faria: placed in ER 06/08 OG: Nutrition: Analgesia: Anxiety/ delirium VTE Prophylaxis: eliquis - ON HOLD Stress Ulcer Prophylaxis: PPI Glycemic Control: Plans in collaboration with bedside consultants and IM MDs. Discussed with RN to reach out if any questions or concerns A total of 32 minutes of critical care time was devoted to this patient today, required to treat and/or prevent further deterioration of critical care condition ( as above ) . I am remotely monitoring this patient from another state. I am unable to do the bedside exam, and history/physical and pertinent information is taken from other notes in the computer and bedside staff. . Allergies and Home Medications Allergies Coded Allergies: amlodipine (Verified Allergy, Unknown, 08/16/18) atenolol (Verified Allergy, Unknown, 08/16/18) lisinopril (Verified Allergy, Unknown, 08/16/18) Home Medications Acetaminophen 500 Mg Tablet, 1,000 MG PO HS, (Reported) Apixaban 2.5 Mg Tablet, 2.5 MG PO BID Prescribed by: WINSTON TAFOYA on 05/25/221206 Aspirin 81 Mg Tablet.dr, 81 MG PO 1800, (Reported) Calcium Carbonate 600 Mg Calcium (1500 Mg) Tablet, 600 MG PO 1800, (Reported) Diltiazem HCl 240 Mg Cap.er.24h, 240 MG PO DAILY Prescribed by: WINSTON TAFOYA on 05/25/221206 Donepezil HCl 10 Mg Tablet, 10 MG PO HS, (Reported) Finasteride 5 Mg Tablet, 5 MG PO DAILY, (Reported) Furosemide 20 Mg Tablet, 60 MG PO DAILY Prescribed by: WINSTON TAFOYA on 05/25/221206 Hydralazine HCl 25 Mg Tablet, 25 MG PO BID, (Reported) Losartan Potassium 25 Mg Tablet, 25 MG PO DAILY Prescribed by: WINSTON TAFOYA on 05/25/221206 Memantine HCl 10 Mg Tablet, 10 MG PO DAILY, (Reported) Metoprolol Succinate 50 Mg Tab.er.24h, 50 MG PO DAILY Prescribed by: WINSTON TAFOYA on 05/25/221206 Multivitamin 1 Each Tablet, 1 EACH PO DAILY, (Reported) Tamsulosin HCl 0.4 Mg Cap, 0.8 MG PO 1800, (Reported) TAKES 2 (0.4MG) CAPS 30 MINUTES AFTER EVENING MEAL Tiotropium [place] 18 Mcg Aerp, 1 PUFF INH DAILY, (Reported) Trazodone HCl 50 Mg Tablet, 50 MG PO HS, (Reported) Past Medical/Social/Family Hx Patient Social History Tobacco Use?: No Smoking Status: Smoker Current Status UNK Smokeless Tobacco Frequency: User Current Status Unk Use of E-Cig and/or Vaping dev: Unable to obtain Substance use?: Unable to obtain Alcohol Use?: Unable to obtain Pt stated abuse/neglect: No Immunizations Up To Date Tetanus Booster (TDap): Unknown Current Status Advance Directives: No Primary Language: Faroese Preferred Spoken Language: Faroese Family Medical History Family Hx: SOCIAL HISTORY: -SMOKED IN PAST--QUIT 40 YEARS AGO -ETOH-DENIES USE -DRUGS--DENIES USE Review of Systems Constitutional: see HPI Focused Exam Lactate Level 06/08/22 12:00: Lactic Acid Level 0.87 Height, Weight, BMI Height: 5'9.00" Weight: 230lbs. oz. 104.523774ze; 35.00 BMI Method:Stated Lactic Acid Level Laboratory Tests Test 06/08/22 12:00 Lactic Acid Level 0.87 MMOL/L (0.50-2.00) Exam Exam Patient acknowledged, consented, and participated in this virtual visit which was conducted using real time audio/video Vital Signs Date Time Temp Pulse Resp B/P (MAP) Pulse Ox O2 Delivery O2 Flow Rate FiO2 06/08/22 14:37 57 06/08/22 13:25 77 27 110/93 96 NIV Bilevel 06/08/22 11:45 67 96 50.00 06/08/22 11:11 98 OxyMask 6.00 06/08/22 10:50 34.4 88 16 142/98 (113) 94 OxyMask 6.00 06/08/22 10:50 OxyMask 6.00 Height & Weight Height: 5'9.00" Weight: 230lbs. oz. 104.294024qi; 35.00 BMI Method:Stated General Appearance: No Apparent Distress, Other Capillary Refill: Less Than 3 Seconds Gastrointestinal: normal bowel sounds, non tender, soft, no organomegaly Results Lab Laboratory Tests 06/08/22 10:57 Assessment/Plan Assessment/Plan 1 JENNIFER BRADFORD MD Jun 08, 2022 14:38
[2022-06-08] MEDS ORDERED: RT-ALBUTEROL/IPRATROPIUM 3 ML (DUONEB) VIAL INH PRN (15:00)
[2022-06-08] MEDS ORDERED: VANCOMYCIN 2000 MG/NS 500 ML IVPB IV ONE ×2 (15:00)
[2022-06-08] MEDS ORDERED: KCL 20 MEQ TAB (K-DUR) PO NR (15:00)
--- NOTE | 2022-06-08 15:45 | Diagnostic Imaging Report ---
INDICATION: Pleural effusion. FINDINGS: Sonographic interrogation of the left posterior thorax was performed. A minimal amount of pleural fluid on the left is identified. Overall volume is insufficient for thoracentesis. IMPRESSION: Small left pleural effusion. Dictated by: Dictated on workstation # [id number]
[2022-06-08] MEDS ORDERED: METO2.5T PO (16:08)
[2022-06-08] MEDS ORDERED: FURO20TA4 PO (16:08)
[2022-06-08] MEDS ORDERED: LOSA25TA41 PO (16:08)
[2022-06-08] MEDS ORDERED: MULT-1136 PO (16:08)
[2022-06-08] MEDS ORDERED: APIX2.5T PO (16:08)
[2022-06-08] MEDS ORDERED: AMOX1TAB12 PO (16:08)
[2022-06-08] MEDS ORDERED: METO50TA7 PO (16:08)
[2022-06-08] MEDS ORDERED: DILT240C91 PO (16:08)
[2022-06-08] MEDS: inSUlin ASPART (NovoLOG) 1 UNIT/0.01 ML (CHARGE PER UNIT) SC SCH ×2 (16:18→20:15)
--- NOTE | 2022-06-08 16:19 | Consultation-Cardiology ---
HPI-Cardiology Cardiology Consultation: Date of Consultation 06/08/22 Time Seen by a Provider: 16:00 Date of Admission Attending Physician Kiran Louis MD Admitting Physician Admitting Physician: Tammy Arechiga DO Attending Physician: Tammy Arechiga DO Consulting Physician SHIRLEY ARREDONDO MD, MA, FACP, FACC, [facility] [place], CCDS Physician requesting consult: Dr Arechiga HPI: Chief Complaint: Reason for Card consult: Acute resp failure Mr. Padilla is an 81 yr old male being admitted to ICU 11 from the ED with acute on chronic resp failure. He currently resides at [facility]. Conve rsation is limited d/t need for Bi-pap and confusion. He does not report any CP. He does not know how long he has been SOB. There is no family at the bedside at this time. Review of Systems-Cardiology All Other Systems Reviewed Negative Unless Noted: Yes IYI-Jptntw-Jpjazp Hx Patient Social History Smoking Status: Smoker Current Status UNK 2nd Hand Smoke Exposure: No Have you traveled recently?: No Alcohol Use?: No Pt feels they are or have been: No Past Medical History PMH As described under Assessment. Family Medical History Family Medical History: Unable to provide Allergies and Home Medications Allergies Coded Allergies: amlodipine (Verified Allergy, Unknown, 08/16/18) atenolol (Verified Allergy, Unknown, 08/16/18) lisinopril (Verified Allergy, Unknown, 08/16/18) Patient Home Medication List Home Medication List Reviewed: Yes Acetaminophen (Tylenol Extra Strength) 500 Mg Tablet, 1,000 MG PO 1800, (Reported) Entered as Reported by: JOYCE SAUCEDO on 05/14/22 1048 Last Action: Reviewed Amoxicillin/Potassium Clav (Amox Tr-K Clv 875-125 mg Tab) 875 Mg-125 Mg Tablet, 1 EACH PO BID, (Reported) Entered as Reported by: JOYCE SAUCEDO on 06/08/22 1608 Last Action: Reviewed Apixaban (Eliquis) 2.5 Mg Tablet, 2.5 MG PO BID, (Reported) Entered as Reported by: JOYCE SAUCEDO on 06/08/22 1608 Last Action: Reviewed Aspirin (Aspirin EC) 81 Mg Tablet., 81 MG PO 1800, (Reported) Entered as Reported by: JOYCE SAUCEDO on 4/3/23 1032 Last Action: Reviewed Calcium Carbonate (Calcium) 600 Mg Calcium (1500 Mg) Tablet, 600 MG PO 1800, (Reported) Entered as Reported by: JOYCE SAUCEDO on 05/14/221031 Last Action: Reviewed Diltiazem HCl (Diltiazem 24Hr ER) 240 Mg Cap.er.24h, 240 MG PO DAILY, (Reported) Entered as Reported by: JOYCE SAUCEDO on 06/08/221607 Last Action: Reviewed Donepezil HCl (Donepezil HCl) 10 Mg Tablet, 10 MG PO 1800, (Reported) Entered as Reported by: RUSSEL SAHU on 08/17/18939 Last Action: Reviewed Finasteride (Finasteride) 5 Mg Tablet, 5 MG PO 1800, (Reported) Entered as Reported by: JOYCE SAUCEDO on 05/14/221031 Last Action: Reviewed Furosemide (Furosemide) 20 Mg Tablet, 60 MG PO DAILY, (Reported) Entered as Reported by: JOYCE SACUEDO on 06/08/221607 Last Action: Reviewed Hydralazine HCl (Hydralazine HCl) 25 Mg Tablet, 25 MG PO BID, (Reported) Entered as Reported by: RUSSEL SAHU on 08/17/18939 Last Action: Reviewed Losartan Potassium (Losartan Potassium) 25 Mg Tablet, 25 MG PO 1200, (Reported) Entered as Reported by: JOYCE SAUCEDO on 06/08/221607 Last Action: Reviewed Memantine HCl (Memantine HCl) 10 Mg Tablet, 10 MG PO DAILY, (Reported) Entered as Reported by: RUSSEL SAHU on 08/17/18939 Last Action: Reviewed Metolazone (Metolazone) 2.5 Mg Tablet, 2.5 MG PO DAILY, (Reported) Entered as Reported by: JOYCE SAUCEDO on 06/08/221607 Last Action: Reviewed Metoprolol Succinate (Metoprolol Succinate) 50 Mg Tab.er.24h, 50 MG PO 1800, (Reported) Entered as Reported by: JOYCE SAUCEDO on 06/08/221607 Last Action: Reviewed Multivitamin (Multivitamin) 1 Each Tablet, 1 EACH PO DAILY, (Reported) Entered as Reported by: JOYCE SAUCEDO on 06/08/221607 Last Action: Reviewed Tamsulosin HCl (Flomax) 0.4 Mg Cap, 0.8 MG PO 1800, (Reported) Entered as Reported by: JOYCE SAUCEDO on 05/14/221031 Last Action: Reviewed Tiotropium [place] (Spiriva) 18 Mcg Aerp, 1 PUFF INH DAILY, (Reported) Entered as Reported by: RUSSEL SAHU on 08/17/18939 Last Action: Reviewed Trazodone HCl (Trazodone HCl) 50 Mg Tablet, 50 MG PO 1800, (Reported) Entered as Reported by: RUSSEL SAHU on 08/17/18939 Last Action: Reviewed Discontinued Medications Apixaban (Eliquis) 2.5 Mg Tablet, 2.5 MG PO BID Discontinued Reason: Duplicate Order Prescribed by: WINSTON TAFOYA on 05/25/221206 Last Action: Discontinued Diltiazem HCl (Diltiazem 24Hr ER) 240 Mg Cap.er.24h, 240 MG PO DAILY Discontinued Reason: Duplicate Order Prescribed by: WINSTON TAFOYA on 05/25/221206 Last Action: Discontinued Furosemide (Furosemide) 20 Mg Tablet, 60 MG PO DAILY Discontinued Reason: Duplicate Order Prescribed by: WINSTON TAFOYA on 05/25/221206 Last Action: Discontinued Losartan Potassium (Losartan Potassium) 25 Mg Tablet, 25 MG PO DAILY Discontinued Reason: Duplicate Order Prescribed by: WINSTON TAFOYA on 05/25/221206 Last Action: Discontinued Metoprolol Succinate (Metoprolol Succinate) 50 Mg Tab.er.24h, 50 MG PO DAILY Discontinued Reason: Duplicate Order Prescribed by: WINSTON TAOFYA on 05/25/221206 Last Action: Discontinued Multivitamin (Multivitamin) 1 Each Tablet, 1 EACH PO DAILY, (Reported) Discontinued Reason: Duplicate Order Entered as Reported by: JOYCE SAUCEDO on 05/14/221031 Last Action: Discontinued Physical Exam-Cardiology Physical Exam Vital Signs/I&O 06/08/22 06/08/22 06/08/22 06/08/22 10:50 10:50 11:11 11:45 Temp 34.4 Pulse 88 67 Resp 16 B/P (MAP) 142/98 (113) Pulse Ox 94 98 96 O2 Delivery OxyMask OxyMask OxyMask O2 Flow Rate 6.00 6.00 6.00 50.00 4/2806/08/22 06/08/22 06/08/22 13:25 13:50 14:00 14:05 Pulse 77 56 135 Resp 27 15 B/P (MAP) 110/93 94/42 (59) Pulse Ox 96 97 97 O2 Delivery NIV Bilevel NIV Bilevel NIV Bilevel O2 Flow Rate 50.00 50.00 FiO2 50 06/08/22 06/08/22 06/08/22 14:15 14:37 15:00 Pulse 58 57 58 Resp 20 18 B/P (MAP) 91/66 (72) 104/89 (97) Pulse Ox 98 98 O2 Delivery NIV Bilevel NIV Bilevel O2 Flow Rate 50.00 50.00 Capillary Refill : Less Than 3 Seconds Constitutional: well-developed, well-nourished, other (Oriented to self) HEENT: hard of hearing Neck: carotid pulses are 2 + bilaterally Respiratory: other (Currently requiring Bi-pap; fair air entry) Cardiovascular: irregularly irregular; No JVD; S1 and S2 Gastrointestinal: soft, audible bowel sounds Neurologic/Psychiatric: other (Bilat pitting LE swelling) Skin: No rash on exposed areas, No ulcerations on exposed areas Data Review Labs Laboratory Tests 06/08/22 10:57: White Blood Count 7.0, Red Blood Count 3.46L, Hemoglobin 10.8L, Hematocrit 35L, Mean Corpuscular Volume 101H, Mean Corpuscular Hemoglobin 31, Mean Corpuscular Hemoglobin Concent 31L, Red Cell Distribution Width 15.0H, Platelet Count 231, Mean Platelet Volume 9.7, Immature Granulocyte % (Auto) 1, Neutrophils (%) (Auto) 77H, Lymphocytes (%) (Auto) 10L, Monocytes (%) (Auto) 10, Eosinophils (%) (Auto) 2, Basophils (%) (Auto) 0, Neutrophils # (Auto) 5.4, Lymphocytes # (Auto) 0.7L, Monocytes # (Auto) 0.7, Eosinophils # (Auto) 0.2, Basophils # (Auto) 0.0, Immature Granulocyte # (Auto) 0.1, Prothrombin Time 18.2H, INR Comment 1.5H, Activated Partial Thromboplast Time 36H, Sodium Level 148H, Potassium Level 3.4L , Chloride Level 104, Carbon Dioxide Level 36H, Anion Gap 8, Blood Urea Nitrogen 42H, Creatinine 1.95H, Estimat Glomerular Filtration Rate 34, BUN/Creatinine Ratio 22, Glucose Level 132H, Calcium Level 8.7, Corrected Calcium 9.6, Total Bilirubin 0.4, Aspartate Amino Transf (AST/SGOT) 18, Alanine Aminotransferase (ALT/SGPT) 14, Alkaline Phosphatase 88, Troponin I 0.052H, B-Type Natriuretic Peptide 319.3H, Total Protein 5.7L, Albumin 2.9L 06/08/22 11:10: Blood Gas Puncture Site r rad, Blood Gas Patient Temperature 37.0, Arterial Blood pH 7.29*L, Arterial Blood Partial Pressure CO2 83*H, Arterial Blood Partial Pressure O2 95H, Arterial Blood HCO3 39H, Arterial Blood Total CO2 41.3*H, Arterial Blood Oxygen Saturation 97, Arterial Blood Base Excess 11.9H, Heriberto Test YES-POS, Blood Gas Ventilator Setting NO, Blood Gas Inspired Oxygen 6 L 06/08/22 11:39: Influenza Type A (RT-PCR) Not Detected, Influenza Type B (RT-PCR) Not Detected, SARS-CoV-2 RNA (RT-PCR) Not Detected 06/08/22 12:00: Lactic Acid Level 0.87 06/08/22 12:50: Urine Color YELLOW, Urine Clarity CLEAR, Urine pH 5.5, Urine Specific [place] 1.025H, Urine Protein TRACEH, Urine Glucose (UA) NEGATIVE, Urine Ketones NEGATIVE, Urine Nitrite NEGATIVE, Urine Bilirubin NEGATIVE, Urine Urobilinogen 0.2, Urine Leukocyte Esterase NEGATIVE, Urine RBC (Auto) NEGATIVE, Urine RBC NONE, Urine WBC 0-2, Urine Squamous Epithelial Cells RARE, Urine Crystals NONE, Urine Bacteria NEGATIVE, Urine Casts PRESENT, Urine Hyaline Casts RARE, Urine Mucus NEGATIVE, Urine Culture Indicated NO 06/08/22 14:15: Blood Gas Puncture Site R RAD, Blood Gas Patient Temperature 34.2, Arterial Blood pH 7.34*L, Arterial Blood Partial Pressure CO2 69H, Arterial Blood Partial Pressure O2 84, Arterial Blood HCO3 37H, Arterial Blood Total CO2 39.7H, Arterial Blood Oxygen Saturation 98, Arterial Blood Base Excess 10.7H, Heriberto Test YES-POS, Blood Gas Ventilator Setting NO, Blood Gas Inspired Oxygen 50% A/P-Cardiology Assessment/Admission Diagnosis Acute on chronic resp failure - acute exacerbation of COPD due to L pneumonia (L lung white-out) - Per CXR of 05-17-22: rounded opacity in the left lung base which may represent loculated fluid within the major fissure versus pulmonary mass (managed by the Med svce) - Per CXR 06-08-22: Complete opacification of the left lung Chronic diastolic CHF - LVEF 50-55% on echo of 05-14-22 - currently cliniclly compensated PAF - first diagnosed on 05-18-22 - OAC with Eliquis - change to low dose d/t age greater than 80 yrs and Cr >1.5 (1.95 on lab of 06-08-22) Ac renal failure (due to intravascular volume depletion due to diuretics) superimposed on CKD 3 Leg edema due to venous insufficiency and due to 3rd spacing due to hypoalbuminemia Minimally elevated troponin -likely Type 2 DE secondary to hypoxia at time of ED presentation HTN HLD reports 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 We recommend gentle hydration * Pneumonia and ac resp failure managed by Dr Desir * Has chronic A Fib and vent rate is controlled. Continue diltiazem as needed and as tolerated * Hold parameters on diltiazem and metoprolol (see orders) * Continue OAC with Eliquis for stroke prophylaxis - reduced dose d/t age greater than 80 and Cr >1.5 * Monitor lab closely * Replace electrolytes as this time * Further recs will be based on his hospital course * We would like to thank Medical services for this consult SHIRLEY ARREDONDO MD FACP FAC CCDS Jun 08, 2022 16:19
[2022-06-08] MEDS ORDERED: FUROSEMIDE 40 MG/4 ML INJ (LASIX) IVP SCH (17:00)
--- NOTE | 2022-06-08 17:35 | Diagnostic Imaging Report ---
PROCEDURE: CT chest without contrast. TECHNIQUE: Multiple contiguous axial images were obtained through the chest without the use of intravenous contrast. Auto Exposure Controls were utilized during the CT exam to meet ALARA standards for radiation dose reduction. INDICATION: Acute on chronic respiratory distress. COMPARISON: Ultrasound of the chest 06/08/2022, chest radiograph 05/31/2022. FINDINGS: And near complete opacification of the left lung with minimal aeration in the left upper lung segment with associated obstruction of the left main and left lower segmental bronchi. Mucus retention seen within the trachea. Small left pleural effusion. Scarring seen within the right lung base. No right pleural effusion. No lymphadenopathy within the chest. Enlarged pulmonary artery compatible with pulmonary hypertension. Atherosclerosis within the aorta. Enlargement of the heart. No pericardial effusion. Included views of the abdomen demonstrates postcholecystectomy changes and small amount of ascites. The osseous structures demonstrate no acute osseous abnormality. IMPRESSION: Near complete atelectasis of the left lung with associated airway obstruction. Recommend pulmonology consultation. Small left pleural effusion. Cardiomegaly. Pulmonary hypertension. Small amount of ascites. Dictated by: Dictated on workstation # [id number]
[2022-06-08] MEDS: POTASSIUM CL 10MEQ/50ML IVPB 50 ML IV SCH ×3 (17:47→19:32)
--- NOTE | 2022-06-08 18:46 | Tele-ICU Progress Note ---
Progress Note CTscan reviewed- left lung atlectasis/PNA , vry small effusion patient is on BIPAP , tolerates well now on 50% , tv 800 rr 20 will need to be intubated for bronchoscopy for possible mucous plug clearing anf cultures as per family discussion - decided to go with DNI /DNR Sx ( for possible bronch ) on case , updated by RN will cont nebs and chest PT on left overnight - readdress am Focused Exam Lactate Level 06/08/22 12:00: Lactic Acid Level 0.87 Height, Weight, BMI Height: 5'9.00" Weight: 230lbs. oz. 104.216927hi; 35.77 BMI Method:Stated JENNIFER BRADFORD MD Jun 08, 2022 18:46
[2022-06-08 18:59] VITALS: BP 126/65
[2022-06-08] MEDS: RT-ALBUTEROL/IPRATROPIUM 3 ML (DUONEB) VIAL INH SCH ×2 (18:59→22:35)
[2022-06-08] MEDS: SENNOSIDES 8.6 MG (SENOKOT) TAB PO SCH (20:15)
[2022-06-08] MEDS: DOCUSATE SODIUM 100 MG (COLACE) CAP PO SCH (20:15)
[2022-06-08] MEDS: APIXABAN 2.5 MG (ELIQUIS) TABLET PO SCH (20:15)
[2022-06-08] MEDS: CEFEPIME INJECTION 1,000 MG in NS (IVPB) 50 ML IV SCH (20:16)
--- NOTE | 2022-06-08 22:34 | Consultation - Surgery ---
History of Present Illness History of Present Illness Patient Consulted On(yvette/time) 06/08/22 22:26 Date Seen by Provider: Jun 08, 2022 Time Seen by Provider: 17:15 History of Present Illness Consult requested by Dr. Arechiga for possible thoracentesis. Patient is an 81 year old male with acute on chronic respiratory failure. Currently on bipap and having confusion. Unable to obtain history from him at this time. No family present at this time to discuss. Patient had u/s showing left pleural effusion, not large enough to drain. Allergies and Home Medications Allergies Coded Allergies: amlodipine (Verified Allergy, Unknown, 08/16/18) atenolol (Verified Allergy, Unknown, 08/16/18) lisinopril (Verified Allergy, Unknown, 08/16/18) Patient Home Medication List Home Medication List Reviewed: Yes Acetaminophen (Tylenol Extra Strength) 500 Mg Tablet, 1,000 MG PO 1800, (Reported) Entered as Reported by: JOYCE SAUCEDO on 05/14/22 1048 Last Action: Reviewed Amoxicillin/Potassium Clav (Amox Tr-K Clv 875-125 mg Tab) 875 Mg-125 Mg Tablet, 1 EACH PO BID, (Reported) Entered as Reported by: JOYCE SAUCEDO on 06/08/22 1608 Last Action: Reviewed Apixaban (Eliquis) 2.5 Mg Tablet, 2.5 MG PO BID, (Reported) Entered as Reported by: JOYCE SAUCEDO on 06/08/22 1608 Last Action: Reviewed Aspirin (Aspirin EC) 81 Mg Tablet.dr, 81 MG PO 1800, (Reported) Entered as Reported by: JOYCE SAUCEDO on 05/14/22 1032 Last Action: Reviewed Calcium Carbonate (Calcium) 600 Mg Calcium (1500 Mg) Tablet, 600 MG PO 1800, (Reported) Entered as Reported by: JOYCE SAUCEDO on 05/14/22 1032 Last Action: Reviewed Diltiazem HCl (Diltiazem 24Hr ER) 240 Mg Cap.er.24h, 240 MG PO DAILY, (Reported) Entered as Reported by: JOYCE SAUCEDO on 06/08/22 1608 Last Action: Reviewed Donepezil HCl (Donepezil HCl) 10 Mg Tablet, 10 MG PO 1800, (Reported) Entered as Reported by: RUSSEL SAHU on 7/7/19 0940 Last Action: Reviewed Finasteride (Finasteride) 5 Mg Tablet, 5 MG PO 1800, (Reported) Entered as Reported by: JOYCE SAUCEDO on 05/14/221031 Last Action: Reviewed Furosemide (Furosemide) 20 Mg Tablet, 60 MG PO DAILY, (Reported) Entered as Reported by: JOYCE SAUCEDO on 06/08/221607 Last Action: Reviewed Hydralazine HCl (Hydralazine HCl) 25 Mg Tablet, 25 MG PO BID, (Reported) Entered as Reported by: RUSSEL SAHU on 08/17/18939 Last Action: Reviewed Losartan Potassium (Losartan Potassium) 25 Mg Tablet, 25 MG PO 1200, (Reported) Entered as Reported by: JOYCE SAUCEDO on 06/08/221607 Last Action: Reviewed Memantine HCl (Memantine HCl) 10 Mg Tablet, 10 MG PO DAILY, (Reported) Entered as Reported by: RUSSEL SAHU on 08/17/18939 Last Action: Reviewed Metolazone (Metolazone) 2.5 Mg Tablet, 2.5 MG PO DAILY, (Reported) Entered as Reported by: JOYCE SAUCEDO on 06/08/221607 Last Action: Reviewed Metoprolol Succinate (Metoprolol Succinate) 50 Mg Tab.er.24h, 50 MG PO 1800, (Reported) Entered as Reported by: JOYCE SAUCEDO on 06/08/221607 Last Action: Reviewed Multivitamin (Multivitamin) 1 Each Tablet, 1 EACH PO DAILY, (Reported) Entered as Reported by: JOYCE SAUCEDO on 06/08/221607 Last Action: Reviewed Tamsulosin HCl (Flomax) 0.4 Mg Cap, 0.8 MG PO 1800, (Reported) Entered as Reported by: JOYCE SAUCEDO on 05/14/221031 Last Action: Reviewed Tiotropium [place] (Spiriva) 18 Mcg Aerp, 1 PUFF INH DAILY, (Reported) Entered as Reported by: RUSSEL SAHU on 08/17/18939 Last Action: Reviewed Trazodone HCl (Trazodone HCl) 50 Mg Tablet, 50 MG PO 1800, (Reported) Entered as Reported by: RUSSEL SAHU on 08/17/18939 Last Action: Reviewed Discontinued Medications Apixaban (Eliquis) 2.5 Mg Tablet, 2.5 MG PO BID Discontinued Reason: Duplicate Order Prescribed by: WINSTON TAFOYA on 05/25/221206 Last Action: Discontinued Diltiazem HCl (Diltiazem 24Hr ER) 240 Mg Cap.er.24h, 240 MG PO DAILY Discontinued Reason: Duplicate Order Prescribed by: WINSTON TAFOYA on 05/25/221206 Last Action: Discontinued Furosemide (Furosemide) 20 Mg Tablet, 60 MG PO DAILY Discontinued Reason: Duplicate Order Prescribed by: WINSTON TAFOYA on 05/25/221206 Last Action: Discontinued Losartan Potassium (Losartan Potassium) 25 Mg Tablet, 25 MG PO DAILY Discontinued Reason: Duplicate Order Prescribed by: WINSTON TAFOYA on 05/25/221206 Last Action: Discontinued Metoprolol Succinate (Metoprolol Succinate) 50 Mg Tab.er.24h, 50 MG PO DAILY Discontinued Reason: Duplicate Order Prescribed by: WINSTON TAFOYA on 05/25/221206 Last Action: Discontinued Multivitamin (Multivitamin) 1 Each Tablet, 1 EACH PO DAILY, (Reported) Discontinued Reason: Duplicate Order Entered as Reported by: OJYCE SAUCEDO on 05/14/22 103 Last Action: Discontinued Past Oiuymam-Ztkzjh-Siborl Hx Patient Social History Smoking Status: Smoker Current Status UNK 2nd Hand Smoke Exposure: No Recent Hopitalizations: No Alcohol Use?: No Have you traveled recently?: No Seasonal Allergies Seasonal Allergies: No Surgeries History of Surgeries: Yes Surgeries: Abdominal, Bowel Surgery, Gallbladder Respiratory History of Respiratory Disorde: Yes Respiratory Disorders: COPD Cardiovascular History of Cardiac Disorders: Yes Cardiac Disorders: Hypertension Neurological History of Neurological Disord: Yes Neurological Disorders: Dementia Genitourinary History of Genitourinary Disor: Yes Genitourinary Disorders: Benign Prostatic Hyperpl, Prostate Problems Gastrointestinal History of Gastrointestinal Di: Yes (COLON CANCER--S/P SURGERY; CHOLECYSTECTOMY) Gastrointestinal Disorders: Gall Bladder Disease Musculoskeletal History of Musculoskeletal Dis: No Endocrine History of Endocrine Disorders: No (OBESE) HEENT History of HEENT Disorders: No Cancer History of Cancer: Yes Cancer: Colon Psychosocial History of Psychiatric Problem: No Integumentary History of Skin or Integumenta: No Blood Transfusions History of Blood Disorders: No Reviewed Nursing Assessment Reviewed/Agree w Nursing PMH: Yes Family Medical History Significant Family History: No Pertinent Family Hx Review of Systems-General ROS-Unable to Obtain: on bipap and confused Physical Exam-General Problems Physical Exam Vital Signs Vital Signs - First Documented 06/08/22 06/08/22 10:50 13:50 Temp 34.4 Pulse 88 Resp 16 B/P (MAP) 142/98 (113) Pulse Ox 94 O2 Delivery OxyMask O2 Flow Rate 6.00 FiO2 50 Capillary Refill : Less Than 3 Seconds General Appearance: obese, other (on bipap) HEENT: PERRL/EOMI Neck: non-tender, supple Respiratory: chest non-tender, other (slightly labored breathing ) Cardiovascular: no JVD, irregularly irregular Gastrointestinal: non tender, soft Back: no CVA tenderness, no vertebral tenderness Extremities: pedal edema, swelling Neurologic/Psychiatric: No alert, No normal mood/affect; other (on bipap appears to be confused, difficulty answering questions.) Skin: normal color, warm/dry Lymphatic: no adenopathy Data Review Labs Laboratory Tests 06/08/22 10:57: White Blood Count 7.0, Red Blood Count 3.46L, Hemoglobin 10.8L, Hematocrit 35L, Mean Corpuscular Volume 101H, Mean Corpuscular Hemoglobin 31, Mean Corpuscular Hemoglobin Concent 31L, Red Cell Distribution Width 15.0H, Platelet Count 231, Mean Platelet Volume 9.7, Immature Granulocyte % (Auto) 1, Neutrophils (%) (Auto) 77H, Lymphocytes (%) (Auto) 10L, Monocytes (%) (Auto) 10, Eosinophils (%) (Auto) 2, Basophils (%) (Auto) 0, Neutrophils # (Auto) 5.4, Lymphocytes # (Auto) 0.7L, Monocytes # (Auto) 0.7, Eosinophils # (Auto) 0.2, Basophils # (Auto) 0.0, Immature Granulocyte # (Auto) 0.1, Prothrombin Time 18.2H, INR Comment 1.5H, Activated Partial Thromboplast Time 36H, Sodium Level 148H, Potassium Level 3.4L , Chloride Level 104, Carbon Dioxide Level 36H, Anion Gap 8, Blood Urea Nitrogen 42H, Creatinine 1.95H, Estimat Glomerular Filtration Rate 34, BUN/Creatinine Ratio 22, Glucose Level 132H, Calcium Level 8.7, Corrected Calcium 9.6, Total Bilirubin 0.4, Aspartate Amino Transf (AST/SGOT) 18, Alanine Aminotransferase (ALT/SGPT) 14, Alkaline Phosphatase 88, Troponin I 0.052H, B-Type Natriuretic Peptide 319.3H, Total Protein 5.7L, Albumin 2.9L 06/08/22 11:10: Blood Gas Puncture Site r rad, Blood Gas Patient Temperature 37.0, Arterial B lood pH 7.29*L, Arterial Blood Partial Pressure CO2 83*H, Arterial Blood Partial Pressure O2 95H, Arterial Blood HCO3 39H, Arterial Blood Total CO2 41.3*H, Arterial Blood Oxygen Saturation 97, Arterial Blood Base Excess 11.9H, Heriberto Test YES-POS, Blood Gas Ventilator Setting NO, Blood Gas Inspired Oxygen 6 L 06/08/22 11:39: Influenza Type A (RT-PCR) Not Detected, Influenza Type B (RT-PCR) Not Detected, SARS-CoV-2 RNA (RT-PCR) Not Detected 06/08/22 12:00: Lactic Acid Level 0.87 06/08/22 12:50: Urine Color YELLOW, Urine Clarity CLEAR, Urine pH 5.5, Urine Specific [place] 1.025H, Urine Protein TRACEH, Urine Glucose (UA) NEGATIVE, Urine Ketones NEGATIVE, Urine Nitrite NEGATIVE, Urine Bilirubin NEGATIVE, Urine Urobilinogen 0.2, Urine Leukocyte Esterase NEGATIVE, Urine RBC (Auto) NEGATIVE, Urine RBC NONE, Urine WBC 0-2, Urine Squamous Epithelial Cells RARE, Urine Crystals NONE, Urine Bacteria NEGATIVE, Urine Casts PRESENT, Urine Hyaline Casts RARE, Urine Mucus NEGATIVE, Urine Culture Indicated NO 06/08/22 14:15: Blood Gas Puncture Site R RAD, Blood Gas Patient Temperature 34.2, Arterial Blood pH 7.34*L, Arterial Blood Partial Pressure CO2 69H, Arterial Blood Partial Pressure O2 84, Arterial Blood HCO3 37H, Arterial Blood Total CO2 39.7H, Arterial Blood Oxygen Saturation 98, Arterial Blood Base Excess 10.7H, Heriberto Test YES-POS, Blood Gas Ventilator Setting NO, Blood Gas Inspired Oxygen 50% 06/08/22 16:16: Glucometer 130H 06/08/22 20:15: Glucometer 146H Assessment/Plan Assessment/Plan Assessment/Plan acute on chronic respiratory failure small left pleural effusion afib chronic jail anticoagulation left pleural effusion, do not feel safe to attempt drainage at this time since it is small currently on bipap, feel will likely need intubated unless shows improvement. Feel would be difficult to get off of the vent. If intubated, would consider bronch based on the CT scan images, awaiting read. Nurse updated me that family is not wanting him intubated and he is now DNR. VIOLET PHILLIPS DO Jun 08, 2022 22:34
[2022-06-09 00:26] VITALS: BP 122/98
[2022-06-09 02:14] VITALS: BP 130/80
[2022-06-09] MEDS: RT-ALBUTEROL/IPRATROPIUM 3 ML (DUONEB) VIAL INH SCH ×3 (02:14→10:38)
[2022-06-09] MEDS: NS IV 1000 ML 1,000 ML IV SCH (03:15)
[2022-06-09] MEDS: CEFEPIME INJECTION 1,000 MG in NS (IVPB) 50 ML IV SCH (04:22)
[2022-06-09 04:24] VITALS: BP 125/67
[2022-06-09 05:00] LABS: BASOPHILS % (AUTO) 0 % (0-10); EOSINOPHILS % (AUTO) 0 % (0-10); HEMATOCRIT 32 % (40-54); HEMOGLOBIN 10.1 g/dL (13.3-17.7); LYMPHOCYTES # (AUTO) 0.3 10^3/uL (1.0-4.0); LYMPHOCYTES % (AUTO) 5 % (12-44); MEAN CORPUSCULAR HEMOGLOBIN 31 pg (25-34); MEAN CORPUSCULAR HGB CONC 32 g/dL (32-36); MEAN CORPUSCULAR VOLUME 97 fL (80-99); MEAN PLATELET VOLUME 10.1 fL (9.0-12.2); MONOCYTES # (AUTO) 0.1 10^3/uL (0.0-1.0); MONOCYTES % (AUTO) 2 % (0-12); NEUTROPHILS # (AUTO) 4.7 10^3/uL (1.8-7.8); NEUTROPHILS % (AUTO) 92 % (42-75); PLATELET COUNT 224 10^3/uL (130-400); WHITE BLOOD COUNT 5.1 10^3/uL (4.3-11.0)
[2022-06-09 05:20] LABS: LYMPHOCYTES % (MANUAL) 3 %; MONOCYTES % (MANUAL) 2 %; NEUTROPHILS % (MANUAL) 95 %
[2022-06-09 05:21] LABS: RBC MORPH NORMAL
[2022-06-09 05:27] LABS: ALBUMIN 2.8 GM/DL (3.2-4.5); BILIRUBIN,TOTAL 0.5 MG/DL (0.1-1.0); CALCIUM 8.5 MG/DL (8.5-10.1); CREATININE SERUM 1.94 MG/DL (0.60-1.30); PHOSPHORUS 4.1 MG/DL (2.3-4.7); POTASSIUM 3.7 MMOL/L (3.6-5.0); TOTAL PROTEIN 5.5 GM/DL (6.4-8.2)
[2022-06-09] MEDS: inSUlin ASPART (NovoLOG) 1 UNIT/0.01 ML (CHARGE PER UNIT) SC SCH (05:45)
[2022-06-09] MEDS ORDERED: POTASSIUM CL 10MEQ/50ML IVPB 50 ML IV SCH (06:00)
[2022-06-09] MEDS ORDERED: KCL 20 MEQ TAB (K-DUR) PO SCH ×2 (06:00→07:00)
[2022-06-09] MEDS ORDERED: MAGNESIUM 1 GM/100 ML IVPB 100 ML IV SCH (06:00)
[2022-06-09] MEDS: KCL 20 MEQ TAB (K-DUR) PO ONE ×2 (06:04→06:09)
--- NOTE | 2022-06-09 07:10 | Diagnostic Imaging Report ---
INDICATION: Dyspnea. COMPARISON: 06/08/2022. DISCUSSION: Single portable upright view of the chest was obtained. Cardiomegaly is present. Some improved aeration of the left lung with some visualized aerated lung now present. Perihilar infiltrates along the right lung could be seen with pneumonia or edema. No pneumothorax. No osseous abnormality. IMPRESSION: 1. There is some aerated lung now present on the left, improved from the prior. Infiltrates along the right hilum could be seen with edema or pneumonia. Dictated by: Dictated on workstation # [id number]
--- NOTE | 2022-06-09 07:33 | Progress Note - Hospitalist ---
Subjective HPI/CC On Admission Date Seen by Provider: Jun 09, 2022 Time Seen by Provider: 11:00 CC: Acute hypoxic hypercapneic respiratory failure HPI: This is an 81yoWM known to me from prior admit who presented to the ER with dyspnea and found to have left sided pneumonia with hypercapneic respiratory failure requiring biPAP. at bedside requested full code but then changed to DNR when he arrived in ICU. IV abx initiated. Patient does not seem to be in any distress. Subjective/Events-last exam Patient worse Comfort care discussed with 7 family members at bedside and all in agreement Focused Exam Lactate Level 06/08/22 12:00: Lactic Acid Level 0.87 Objective Exam Vital Signs Vital Signs Date Time Temp Pulse Resp B/P (MAP) Pulse Ox O2 Delivery O2 Flow Rate FiO2 06/09/22 12:00 36.2 06/09/22 11:00 77 14 150/86 (103) 100 NIV Bilevel 40.00 06/09/22 08:00 40 Capillary Refill : Less Than 3 Seconds General Appearance: Mild Distress, Other (bipap) Respiratory: Decreased Breath Sounds Cardiovascular: Regular Rate, Rhythm Results/Procedures Lab Laboratory Tests 06/09/22 04:39 Patient resulted labs reviewed. Assessment/Plan Assessment and Plan Assess & Plan/Chief Complaint Comfort care Clinical Quality Measures End of Life/Advance Care Plan: Advance Care discuss with: family member (s) End of Life Care: Comfort Measures Plan: identified end-of-life goals, developed treatment plan ANDRÉS MAURO DO Jun 09, 2022 07:33
--- NOTE | 2022-06-09 08:28 | Progress Note - Surgery ---
GILL LAMA [birth year]: Subjective Date Seen by a Provider: Jun 09, 2022 Time Seen by a Provider: 07:50 Subjective/Events-last exam Pt. was unable to communicate due to clinical status. RN informed me the family made the patient DNR and DNI. Currently on 40L BiPap. CXR this morning showed small improvement in left lung. Review of Systems Unable to obtain ROS secondary to patient condition Focused Exam Lactate Level 06/08/22 12:00: Lactic Acid Level 0.87 Objective Exam Vital Signs Date Time Temp Pulse Resp B/P (MAP) Pulse Ox O2 Delivery O2 Flow Rate FiO2 06/09/22 08:00 100 06/09/22 08:00 36.4 06/09/22 06:00 96 33 96/79 (87) 88 NIV Bilevel 40.00 06/09/22 05:00 83 28 128/90 (110) 96 NIV Bilevel 40.00 06/09/22 04:24 80 125/67 06/09/22 04:15 36.5 96 32 125/67 (86) 97 NIV Bilevel 40.00 06/09/22 04:00 94 NIV Bilevel 40 06/09/22 03:15 76 114/70 06/09/22 03:00 98 29 114/70 (77) NIV Bilevel 40.00 06/09/22 02:14 75 33 95 40.00 06/09/22 02:00 82 11 130/80 (91) 96 NIV Bilevel 40.00 06/09/22 01:51 88 121/62 06/09/22 01:00 96 06/09/22 01:00 96 27 121/62 (95) 95 NIV Bilevel 40.00 06/09/22 00:27 89 122/98 06/09/22 00:26 109 56 92 50.00 06/09/22 00:01 99 06/09/22 00:00 95 11 122/98 (106) 94 NIV Bilevel 40.00 06/09/22 00:00 37.5 NIV Bilevel 40.00 06/08/22 23:37 96 127/89 06/08/22 23:10 99 NIV Bilevel 40 06/08/22 23:08 105 37 127/89 (102) 95 NIV Bilevel 40.00 06/08/22 22:32 77 95 50.00 06/08/22 22:05 81 39 95/74 (80) 93 NIV Bilevel 40.00 06/08/22 21:05 75 32 96/75 (84) 95 NIV Bilevel 40.00 06/08/22 20:27 NIV Bilevel 40.00 06/08/22 20:15 High Flow N/C 8.00 06/08/22 20:00 82 39 96/65 (75) 96 NIV Bilevel 40.00 06/08/22 19:53 35.7 06/08/22 19:25 95 NIV Bilevel 40 06/08/22 19:17 NIV Bilevel 40.00 06/08/22 19:00 73 06/08/22 19:00 36.5 77 38 125/70 (88) 100 NIV Bilevel 50.00 06/08/22 18:59 70 97 50.00 06/08/22 18:00 63 14 138/110 (116) 95 NIV Bilevel 50.00 06/08/22 16:00 36.0 06/08/22 16:00 97 NIV Bilevel 50 06/08/22 16:00 54 17 109/73 (89) 96 NIV Bilevel 50.00 06/08/22 15:00 58 18 104/89 (97) 98 NIV Bilevel 50.00 06/08/22 14:37 57 06/08/22 14:15 58 20 91/66 (72) 98 NIV Bilevel 50.00 06/08/22 14:05 135 97 50.00 06/08/22 14:00 56 15 94/42 (59) NIV Bilevel 50.00 06/08/22 13:50 97 NIV Bilevel 50 06/08/22 13:25 77 27 110/93 96 NIV Bilevel 06/08/22 11:45 67 96 50.00 06/08/22 11:11 98 OxyMask 6.00 06/08/22 10:50 34.4 88 16 142/98 (113) 94 OxyMask 6.00 06/08/22 10:50 OxyMask 6.00 I & O 06/09/22 07:00 Intake Total 2170 ml Output Total 420 ml Balance 1750 ml Capillary Refill : Less Than 3 Seconds General Appearance: Chronically ill, Moderate Distress, Obese HEENT: Moist Mucous Membranes, Other (BiPap in place) Neck: Non Tender, Supple Respiratory: Accessory Muscle Use, Decreased Breath Sounds (left side, diffusely) Cardiovascular: Irregularly Irregular, Tachycardia Gastrointestinal: soft, other (patient withdrew when abdomen palpated) Extremity: Calf Tenderness (no erythema, no size discrepency noted), Pedal Edema Neurologic/Psychiatric: Disoriented, Other (patient seemed to withdraw due to pain upon palpation of abdomen and left calf) Skin: Normal Color, Warm/Dry Lymphatic: No Adenopathy Results Lab Laboratory Tests 06/08/22 10:57: White Blood Count 7.0, Red Blood Count 3.46L, Hemoglobin 10.8L, Hematocrit 35L, Mean Corpuscular Volume 101H, Mean Corpuscular Hemoglobin 31, Mean Corpuscular Hemoglobin Concent 31L, Red Cell Distribution Width 15.0H, Platelet Count 231, Mean Platelet Volume 9.7, Immature Granulocyte % (Auto) 1, Neutrophils (%) (Auto) 77H, Lymphocytes (%) (Auto) 10L, Monocytes (%) (Auto) 10, Eosinophils (%) (Auto) 2, Basophils (%) (Auto) 0, Neutrophils # (Auto) 5.4, Lymphocytes # (Auto) 0.7L, Monocytes # (Auto) 0.7, Eosinophils # (Auto) 0.2, Basophils # (Auto) 0.0, Immature Granulocyte # (Auto) 0.1, Prothrombin Time 18.2H, INR Comment 1.5H, Activated Partial Thromboplast Time 36H, Sodium Level 148H, Potassium Level 3.4L , Chloride Level 104, Carbon Dioxide Level 36H, Anion Gap 8, Blood Urea Nitrogen 42H, Creatinine 1.95H, Estimat Glomerular Filtration Rate 34, BUN/Creatinine Ratio 22, Glucose Level 132H, Calcium Level 8.7, Corrected Calcium 9.6, Total Bilirubin 0.4, Aspartate Amino Transf (AST/SGOT) 18, Alanine Aminotransferase (ALT/SGPT) 14, Alkaline Phosphatase 88, Troponin I 0.052H, B-Type Natriuretic Peptide 319.3H, Total Protein 5.7L, Albumin 2.9L 06/08/22 11:10: Blood Gas Puncture Site r rad, Blood Gas Patient Temperature 37.0, Arterial Blood pH 7.29*L, Arterial Blood Partial Pressure CO2 83*H, Arterial Blood Partial Pressure O2 95H, Arterial Blood HCO3 39H, Arterial Blood Total CO2 41.3*H, Arterial Blood Oxygen Saturation 97, Arterial Blood Base Excess 11.9H, Heriberto Test YES-POS, Blood Gas Ventilator Setting NO, Blood Gas Inspired Oxygen 6 L 06/08/22 11:39: Influenza Type A (RT-PCR) Not Detected, Influenza Type B (RT-PCR) Not Detected, SARS-CoV-2 RNA (RT-PCR) Not Detected 06/08/22 12:00: Lactic Acid Level 0.87 06/08/22 12:50: Urine Color YELLOW, Urine Clarity CLEAR, Urine pH 5.5, Urine Specific [place] 1.025H, Urine Protein TRACEH, Urine Glucose (UA) NEGATIVE, Urine Ketones NEGATIVE, Urine Nitrite NEGATIVE, Urine Bilirubin NEGATIVE, Urine Urobilinogen 0.2, Urine Leukocyte Esterase NEGATIVE, Urine RBC (Auto) NEGATIVE, Urine RBC NONE, Urine WBC 0-2, Urine Squamous Epithelial Cells RARE, Urine Crystals NONE, Urine Bacteria NEGATIVE, Urine Casts PRESENT, Urine Hyaline Casts RARE, Urine Mucus NEGATIVE, Urine Culture Indicated NO 06/08/22 14:15: Blood Gas Puncture Site R RAD, Blood Gas Patient Temperature 34.2, Arterial Blood pH 7.34*L, Arterial Blood Partial Pressure CO2 69H, Arterial Blood Partial Pressure O2 84, Arterial Blood HCO3 37H, Arterial Blood Total CO2 39.7H, Arterial Blood Oxygen Saturation 98, Arterial Blood Base Excess 10.7H, Heriberto Test YES-POS, Blood Gas Ventilator Setting NO, Blood Gas Inspired Oxygen 50% 06/08/22 16:16: Glucometer 130H 06/08/22 20:15: Glucometer 146H 06/09/22 04:39: White Blood Count 5.1, Red Blood Count 3.26L, Hemoglobin 10.1L, Hematocrit 32L, Mean Corpuscular Volume 97, Mean Corpuscular Hemoglobin 31, Mean Corpuscular Hemoglobin Concent 32, Red Cell Distribution Width 15.0H, Platelet Count 224, Mean Platelet Volume 10.1, Immature Granulocyte % (Auto) 1, Neutrophils (%) (Auto) 92H, Lymphocytes (%) (Auto) 5L, Monocytes (%) (Auto) 2, Eosinophils (%) (Auto) 0, Basophils (%) (Auto) 0, Neutrophils # (Auto) 4.7, Lymphocytes # (Auto) 0.3L, Monocytes # (Auto) 0.1, Eosinophils # (Auto) 0.0, Basophils # (Auto) 0.0, Immature Granulocyte # (Auto) 0.0, Neutrophils % (Manual) 95, Lymphocytes % (Manual) 3, Monocytes % (Manual) 2, Blood Morphology Comment NORMAL, Sodium Level 148H, Potassium Level 3.7, Chloride Level 107, Carbon Dioxide Level 29, Anion Gap 12, Blood Urea Nitrogen 47H, Creatinine 1.94H, Estimat Glomerular Filtration Rate 34, BUN/Creatinine Ratio 24, Glucose Level 149H, Calcium Level 8.5, Corrected Calcium 9.5, Phosphorus Level 4.1, Magnesium Level 2.0, Total Bilirubin 0.5, Aspartate Amino Transf (AST/SGOT) 21, Alanine Aminotransferase (ALT/SGPT) 17, Alkaline Phosphatase 84, Total Protein 5.5L, Albumin 2.8L Assessment/Plan Assessment/Plan Assessment/Plan acute on chronic respiratory failure small left pleural effusion afib 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 is DNR, DNI CT scan images showed near total atelectasis of left lung with airway o bstruction Radiology report recommends pulmonology consult DVT prophylaxis with LEIF Garcia DO 06/09/22 1605: Subjective Subjective/Events-last exam Remains on bipap. More alert and more comfortable. Family present. Chest x ray slight improvement compared to yesterday. Objective Exam General Appearance: Chronically ill, Obese HEENT: Moist Mucous Membranes, Other (BiPap in place) Neck: Non Tender, Supple Respiratory: Accessory Muscle Use, Decreased Breath Sounds (left side, diffusely) Cardiovascular: Irregularly Irregular, Tachycardia Gastrointestinal: soft; No tenderness; other (patient withdrew when abdomen palpated) Extremity: Non Tender, Pedal Edema Neurologic/Psychiatric: Alert, Other (seems slightly more understanding than yesterday.) Skin: Normal Color, Warm/Dry Lymphatic: No Adenopathy Assessment/Plan Assessment/Plan Assessment/Plan acute on chronic respiratory failure small left pleural effusion afib 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 is DNR, DNI CT scan images showed near total atelectasis of left lung with airway obstruction I discussed intubation with family and bronchoscopy, I think if intubated he may not be able to get off vent. They do not want him intubated at this time and have him DNR, DNI. They understand potential outcomes. DVT prophylaxis with Eliquis Will sign off, call if needed. Supervisory-Addendum Brief Verification & Attestation Participated in pt care: history, MDM, physical Personally performed: exam, history, MDM, supervision of care Care discussed with: Medical Student Procedures: n/a Results interpretation: Verified all documentation Verification and Attestation of Medical Student E/M Service A medical student performed and documented this service in my presence. I reviewed and verified all information documented by the medical student and made modifications to such information, when appropriate. I personally performed the physical exam and medical decision making. Leif Johnson, Jun 09, 2022,16:08 GILL LAMA Jun 09, 2022 08:28 LEIF JOHNSON DO Jun 09, 2022 16:05
[2022-06-09] MEDS: APIXABAN 2.5 MG (ELIQUIS) TABLET PO SCH (08:32)
[2022-06-09] MEDS: DOCUSATE SODIUM 100 MG (COLACE) CAP PO SCH (08:32)
[2022-06-09] MEDS: SENNOSIDES 8.6 MG (SENOKOT) TAB PO SCH (08:32)
--- NOTE | 2022-06-09 08:52 | Tele-ICU Progress Note ---
Subjective Date Seen by a Provider: Jun 09, 2022 Subjective/Events-last exam This virtual visit was conducted using real time audio/video. 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 Also afib. Recent events:anxiety improved. Switched to nasal cannulas. PE: VSS. Eating without difficulty, family present. O2 sat 98% on 10 LPM NC. HEENT: No obvious masses, adenopathy or JVD. Chest: coarse L side on auscultation. CV: Irreg S1 S2 No murmur or added sounds. Abd: Non-tender. Bowel sounds Y. : Unremarkable. Faria Y. 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 No obvious focal findings. Extremities: 2+ edema improving per RN. Capillary refill < 3 seconds. Skin: unremarkable. Results: Elevated Na 148, BUN47, Creat 1.94, BG 149. Decreased Hb 10.1. B.34/69/84 on 50%.. CXR: Improved L aeration, B infilts.. Available chart/ vitals / labs / images reviewed. Video assessment done using teleICU camera, rest of exam as per RN. A/P: Respiratory insufficiency: Continue present management with NC, dionebs, precedex. Monitor for increasing oxygenation needs and/or need for NIV. Critical Care: critically ill patient. Cont. abx,eliq., ASA, BB, SSI, Hold lasix and increase free H2O with hypernatremia today. Discussed with RN Andressa. Asked RN to reach out to eICU if any questions or concerns later. Time spent with patient/coordination of care with other health professionals (mins): 25. Sepsis Event Evaluation Height, Weight, BMI Height: 5'9.00" Weight: 230lbs. oz. 104.724921ha; 36.50 BMI Method:Stated Focused Exam Lactate Level 06/08/22 12:00: Lactic Acid Level 0.87 Exam Exam Patient acknowledged, consented, and participated in this virtual visit which was conducted using real time audio/video Vital Signs Date Time Temp Pulse Resp B/P (MAP) Pulse Ox O2 Delivery O2 Flow Rate FiO2 06/09/22 08:00 80 17 128/60 (86) 98 NIV Bilevel 40.00 06/09/22 08:00 100 06/09/22 08:00 36.4 06/09/22 07:00 68 18 123/68 (83) 99 NIV Bilevel 40.00 06/09/22 06:00 96 33 96/79 (87) 88 NIV Bilevel 40.00 06/09/22 05:00 83 28 128/90 (110) 96 NIV Bilevel 40.00 06/09/22 04:24 80 125/67 06/09/22 04:15 36.5 96 32 125/67 (86) 97 NIV Bilevel 40.00 06/09/22 04:00 94 NIV Bilevel 40 06/09/22 03:15 76 114/70 06/09/22 03:00 98 29 114/70 (77) NIV Bilevel 40.00 06/09/22 02:14 75 33 95 40.00 06/09/22 02:00 82 11 130/80 (91) 96 NIV Bilevel 40.00 06/09/22 01:51 88 121/62 06/09/22 01:00 96 06/09/22 01:00 96 27 121/62 (95) 95 NIV Bilevel 40.00 06/09/22 00:27 89 122/98 06/09/22 00:26 109 56 92 50.00 06/09/22 00:01 99 06/09/22 00:00 95 11 122/98 (106) 94 NIV Bilevel 40.00 06/09/22 00:00 37.5 NIV Bilevel 40.00 06/08/22 23:37 96 127/89 06/08/22 23:10 99 NIV Bilevel 40 06/08/22 23:08 105 37 127/89 (102) 95 NIV Bilevel 40.00 06/08/22 22:32 77 95 50.00 06/08/22 22:05 81 39 95/74 (80) 93 NIV Bilevel 40.00 06/08/22 21:05 75 32 96/75 (84) 95 NIV Bilevel 40.00 06/08/22 20:27 NIV Bilevel 40.00 06/08/22 20:15 High Flow N/C 8.00 06/08/22 20:00 82 39 96/65 (75) 96 NIV Bilevel 40.00 06/08/22 19:53 35.7 06/08/22 19:25 95 NIV Bilevel 40 06/08/22 19:17 NIV Bilevel 40.00 06/08/22 19:00 73 06/08/22 19:00 36.5 77 38 125/70 (88) 100 NIV Bilevel 50.00 06/08/22 18:59 70 97 50.00 06/08/22 18:00 63 14 138/110 (116) 95 NIV Bilevel 50.00 06/08/22 16:00 36.0 06/08/22 16:00 97 NIV Bilevel 50 06/08/22 16:00 54 17 109/73 (89) 96 NIV Bilevel 50.00 06/08/22 15:00 58 18 104/89 (97) 98 NIV Bilevel 50.00 06/08/22 14:37 57 06/08/22 14:15 58 20 91/66 (72) 98 NIV Bilevel 50.00 06/08/22 14:05 135 97 50.00 06/08/22 14:00 56 15 94/42 (59) NIV Bilevel 50.00 06/08/22 13:50 97 NIV Bilevel 50 06/08/22 13:25 77 27 110/93 96 NIV Bilevel 06/08/22 11:45 67 96 50.00 06/08/22 11:11 98 OxyMask 6.00 06/08/22 10:50 34.4 88 16 142/98 (113) 94 OxyMask 6.00 06/08/22 10:50 OxyMask 6.00 I & O 06/09/22 07:00 Intake Total 2170 ml Output Total 420 ml Balance 1750 ml Height & Weight Height: 5'9.00" Weight: 230lbs. oz. 104.505667im; 36.50 BMI Method:Stated General Appearance: Chronically ill, Moderate Distress, Obese HEENT: Moist Mucous Membranes, Other (BiPap in place) Neck: Non Tender, Supple Respiratory: Accessory Muscle Use, Decreased Breath Sounds (left side, diffusely) Cardiovascular: Irregularly Irregular, Tachycardia Capillary Refill: Less Than 3 Seconds Gastrointestinal: soft, other (patient withdrew when abdomen palpated) Extremity: Calf Tenderness (no erythema, no size discrepency noted), Pedal Edema Neurologic/Psychiatric: Disoriented, Other (patient seemed to withdraw due to pain upon palpation of abdomen and left calf) Skin: Normal Color, Warm/Dry Lymphatic: No Adenopathy Results Lab Laboratory Tests 06/08/22 10:57 06/09/22 04:39 Assessment/Plan Assessment/Plan See free text. Critical Care: Critically Ill Patient SMITHA LOUISE MD Jun 09, 2022 08:52
[2022-06-09] MEDS ORDERED: FUROSEMIDE 20 MG (LASIX) TAB PO SCH (09:00)
[2022-06-09] MEDS ORDERED: ASPIRIN 81 MG CHEW (CHILDREN'S ASA) PO SCH (09:00)
[2022-06-09] MEDS ORDERED: meTOproloL SUCCINATE 50 MG (TOPROL XL) TAB PO SCH (09:00)
[2022-06-09] MEDS ORDERED: LORazepam 1 MG (ATIVAN) TAB SL PRN (11:15)
[2022-06-09] MEDS ORDERED: LORazepam INJ 2 MG/ML (ATIVAN) VIAL IVP PRN (11:15)
[2022-06-09] MEDS ORDERED: RT-ALBUTEROL/IPRATROPIUM 3 ML (DUONEB) VIAL INH PRN (11:15)
[2022-06-09] MEDS ORDERED: ONDANSETRON 4 MG/2 ML (SDV) Z0FRAN IVP PRN (11:15)
[2022-06-09] MEDS ORDERED: PROMETHAZINE INJ 25 MG/ML (PHENERGAN) AMP IVP PRN (11:15)
[2022-06-09] MEDS ORDERED: BISACODYL 10 MG SUPP (DULCOLAX) PR PRN (11:15)
[2022-06-09] MEDS ORDERED: ARTIFICAL TEARS 0.4 ML UNIT DOSE (REFRESH PLUS) OU PRN (11:15)
[2022-06-09] MEDS ORDERED: ATROPINE 1% OPHTHALMIC SOLN 2 ML SL PRN (11:15)
[2022-06-09] MEDS ORDERED: GLYCOPYRROLATE 0.2 MG/ML (ROBINUL) 2 ML VIAL IV PRN (11:15)
[2022-06-09] MEDS ORDERED: SCOPOLAMINE 1.5 MG (TRANSDERM-SCOP) PATCH TOP SCH (11:15)
[2022-06-09] MEDS ORDERED: ACETAMINOPHEN 650 MG SUPP (TYLENOL) PR PRN (11:15)
[2022-06-09] MEDS ORDERED: SALIVA SUBSTITUTE 60 ML SPRAY(MOUTHKOTE) MM PRN (11:15)
[2022-06-09] MEDS ORDERED: morphine (ROXINOL) 10 MG/0.5 ML oral conc 0.5 ML PO PRN (11:15)
[2022-06-09] MEDS: morphine INJ 4 MG/ML 1 ML (VIAL/SYRINGE) IV PRN ×4 (12:38→22:56)
[2022-06-09] MEDS ORDERED: VANCOMYCIN 1500MG/300ML PREMIX IV SCH (15:00)
[2022-06-09] MEDS: LORazepam INJ 2 MG/ML (ATIVAN) VIAL IVP PRN ×2 (16:05→20:01)
[2022-06-10] MEDS: morphine INJ 4 MG/ML 1 ML (VIAL/SYRINGE) IV PRN (01:34)
[2022-06-10] MEDS: LORazepam INJ 2 MG/ML (ATIVAN) VIAL IVP PRN (04:05)
--- NOTE | 2022-06-10 06:15 | Discharge Summary ---
Discharge Summary Hospital Course Was the Problem List Reviewed?: Yes Problems/Dx: (1) Acute and chronic respiratory failure with hypoxia Status: Acute Hospital Course Date of Admission: Jun 08, 2022 at 13:44 Admission Diagnosis : Family Physician/Provider: Kiran Louis MD Date of Discharge: 06/10/22 Discharge Diagnosis: [ ] Hospital Course: Short course after he was admitted and placed on biPAP to ICU. Abx maintained for PNA. Patient continue to decline and the decision to make him comfort care was made and patient with family at bedside. Labs and Pending Lab Test: Microbiology 06/08/22 MRSA Screen - Final, Complete MRSA not isolated 06/08/22 Urine Culture - Final, Complete NO GROWTH 06/08/22 Blood Culture - Preliminary, Resulted No growth Home Meds Active Reported Eliquis (Apixaban) 2.5 Mg Tablet 2.5 Mg PO BID Amox Tr-K Clv 875-125 mg Tab (Amoxicillin/Potassium Clav) 875 Mg-125 Mg Tablet 1 Each PO BID FILLED 06-06-2022 #14/7 DAY SUPPLY Multivitamin 1 Each Tablet 1 Each PO DAILY Metoprolol Succinate 50 Mg Tab.er.24h 50 Mg PO 1800 HOLD NOTIFY NURSE/PCP IF BP <80/50 OR >180/110 AND PULSE <50 OR>110 Metolazone 2.5 Mg Tablet 2.5 Mg PO DAILY NEW ORDER- STARTED 06-07-2022 Losartan Potassium 25 Mg Tablet 25 Mg PO 1200 HOLD NOTIFY NURSE/PCP IF BP <80/50 OR >180/110 AND PULSE <50 OR>110 Furosemide 20 Mg Tablet 60 Mg PO DAILY TAKES 3 (20MG) TABS Diltiazem 24Hr ER (Diltiazem HCl) 240 Mg Cap.er.24h 240 Mg PO DAILY HOLD NOTIFY NURSE/PCP IF BP <80/50 OR >180/110 AND PULSE <50 OR>110 Tylenol Extra Strength (Acetaminophen) 500 Mg Tablet 1,000 Mg PO 1800 TAKES 2 (500MG) TABS Calcium (Calcium Carbonate) 600 Mg Calcium (1500 Mg) Tablet 600 Mg PO 1800 Aspirin EC (Aspirin) 81 Mg Tablet.dr 81 Mg PO 1800 Finasteride 5 Mg Tablet 5 Mg PO 1800 Flomax (Tamsulosin HCl) 0.4 Mg Cap 0.8 Mg PO 1800 TAKES 2 (0.4MG) CAPS 30 MINUTES AFTER EVENING MEAL Memantine HCl 10 Mg Tablet 10 Mg PO DAILY Spiriva (Tiotropium [place]) 18 Mcg Aerp 1 Puff INH DAILY Trazodone HCl 50 Mg Tablet 50 Mg PO 1800 Donepezil HCl 10 Mg Tablet 10 Mg PO 1800 Hydralazine HCl 25 Mg Tablet 25 Mg PO BID HOLD NOTIFY NURSE/PCP IF BP <80/50 OR >180/110 AND PULSE <50 OR>110 Assessment/Pt Instructions Discharge Planning: <30 minutes discharge planning Discharge Physical Examination Vital Signs Vital Signs Date Time Temp Pulse Resp B/P (MAP) Pulse Ox O2 Delivery O2 Flow Rate FiO2 06/09/22 20:00 Room Air 06/09/22 12:00 36.2 06/09/22 11:00 77 14 150/86 (103) 100 40.00 06/09/22 08:00 40 Allergies: Coded Allergies: amlodipine (Verified Allergy, Unknown, 08/16/18) atenolol (Verified Allergy, Unknown, 08/16/18) lisinopril (Verified Allergy, Unknown, 08/16/18) Discharge Summary Date of Admission Jun 08, 2022 at 13:44 Date of Discharge Admission Diagnosis Assessment: Acute on Chronic hypoxic hypercapneic Respiratory Failure Atrial Fibrillation Acute on Chronic systolic CHF Acute on Chronic Kidney failure Debility Advanced age CASSIE Dementia Plan: Monitor closely Fall risk Comfort Measures/ End of Life Care: Comfort Measures Advance Care discuss with: family member (s) Plan: identified end-of-life goals, developed treatment plan Discharge Diagnosis Comfort care ANDRÉS MAURO DO Jun 10, 2022 06:15
== END 2022-06-10 05:18 | disposition expired | DRG 193 ==
LOC: EDUNIT# 10:47 → ER 10:48 → ICU 13:44 → 4TH 06-09 12:30
PROVIDERS: ADMIT Internal Medicine; ATTEND Internal Medicine
PROC: 5A09357 Assistance with Respiratory Ventilation, Less than 24 Consecutive Hours, Continuous Positive Airway Pressure (ICD-10-PCS; principal; 2022-06-08)
PROC: 5A0935A Assistance with Respiratory Ventilation, Less than 24 Consecutive Hours, High Flow/Velocity Cannula (ICD-10-PCS; 2022-06-08)
DX: J18.9 Pneumonia, unspecified organism (principal); I50.23 Acute on chronic systolic (congestive) heart failure; J96.21 Acute and chronic respiratory failure with hypoxia; J96.22 Acute and chronic respiratory failure with hypercapnia; N17.9 Acute kidney failure, unspecified; I13.0 Hypertensive heart and chronic kidney disease with heart failure and stage 1 through stage 4 chronic kidney disease, or unspecified chronic kidney disease; J44.0 Chronic obstructive pulmonary disease with (acute) lower respiratory infection; J90 Pleural effusion, not elsewhere classified; I48.91 Unspecified atrial fibrillation; R53.81 Other malaise; F03.90 Unspecified dementia, unspecified severity, without behavioral disturbance, psychotic disturbance, mood disturbance, and anxiety; N40.0 Benign prostatic hyperplasia without lower urinary tract symptoms; I25.2 Old myocardial infarction; I44.7 Left bundle-branch block, unspecified; Z79.82 Long term (current) use of aspirin; Z79.01 Long term (current) use of anticoagulants; Z79.899 Other long term (current) drug therapy; Z20.822 Contact with and (suspected) exposure to COVID-19; Z66 Do not resuscitate; Z51.5 Encounter for palliative care; N18.30 Chronic kidney disease, stage 3 unspecified; Z86.73 Personal history of transient ischemic attack (TIA), and cerebral infarction without residual deficits; Z85.038 Personal history of other malignant neoplasm of large intestine; Z90.49 Acquired absence of other specified parts of digestive tract; Z87.891 Personal history of nicotine dependence
CPT/HCPCS: 36415; 36600; 51702; 71045; 71250; 76604; 80053; 81000; 82805; 82947; 83605; 83735; 83880; 84100; 84484; 85007; 85025; 85027; 85610; 85730; 87040; 87081; 87088; 87636; 93005; 94640; 94660; 96361; 96365; 96375